=== PATIENT | male | born 1940 | race Caucasian/White ===

== ENCOUNTER 2017-12-16 08:08 | Inpatient (IN) | payer MEDICARE ==
[~2017-12-16] VITALS: Ht 172.7 cm; Wt 129.0 kg
[~2017-12-16 08:08] MED LIST: ACET500 PO; ACETASOL HC AD; ALLO100 PO; AZAT50 PO; CALCAVITDA PO; CALGLU500 PO; CITA20 PO; COLC.6 PO; COLCRYS0.6 MG PO; CYAN1000 PO; CYCL100; CYCL100 PO; CYCL25 PO; DEXT40GEL; DOCU100 PO; FISH1000 PO; FLUN25SP; FLUO.01TC TOP; FOLI1 PO; FURO40 PO; GABA300 PO; GLIP10 PO; GLIP2.5ER PO; HYDCOR1TC TOP; ISOPTO TEARS OU; KETO120T TP; LISI20 PO; MAGOXI400 PO; METO50 PO; MOME220I IH; MORP15ER PO; MORP30 PO; MORP30ER PO; MOXI400 PO; OMEG1CAP30 PO; OMEP20ER PO; OXYACE5T PO; PRAV20 PO; PRED5 PO; RANI150 PO; RISE35 PO; Ranitidine HCl300 MG; SELENIUM SHAMPOO; SENN187 PO; SIME80CH PO; TEMA15 PO; WARF5; WARF5 PO; [UNRECOGNIZED DRUG - OTHER]; [UNRECOGNIZED DRUG - OTHER]
[2017-12-16 08:48] LABS: Base Excess Venous 1.2 mmol/L; Bicarbonate Venous 25.6 mmol/L (24.0-30.0); PCO2 Venous 35.4 mmHg (38-42); PO2 Venous 62.4 mmHg (38-42); pH Blood Venous 7.46 (7.34-7.37)
[2017-12-16 08:56] LABS: Source, Urine Catheter
[2017-12-16 09:07] LABS: BASOPHILS ABSOLUTE AUTO 0.01 K/mm3 (0.00-0.23); BASOPHILS PERCENT AUTO 0 % (0-2); EOSINOPHILS PERCENT AUTO 0 % (0-6); Hematocrit 37.7 % (37.0-53.0); Hemoglobin 12.5 g/dL (13.5-17.5); IMMATURE GRAN ABSOLUTE AUTO 0.02 K/mm3 (0.00-0.10); IMMATURE GRAN PERCENT AUTO 0 % (0-1); LYMPHOCYTES ABSOLUTE AUTO 0.19 K/mm3 (0.84-5.20); LYMPHOCYTES PERCENT AUTO 3 % (21-46); MONOCYTES ABSOLUTE AUTO 0.09 K/mm3 (0.16-1.47); MONOCYTES PERCENT AUTO 1 % (4-13); Mean Corpuscular HGB 34.3 pg (26.0-34.0); Mean Corpuscular HGB Conc 33.2 g/dL (31.5-36.5); Mean Corpuscular Volume 104 fL (80-100); Mean Platelet Volume 9.4 fL (9.1-12.4); NEUTROPHILS ABSOLUTE AUTO 6.01 K/mm3 (1.96-9.15); NEUTROPHILS PERCENT AUTO 95 % (41-73); Platelet Count 100 K/mm3 (150-400); RDW Standard Deviation 49.4 fL (35.1-46.3); Red Blood Cell Count 3.64 M/mm3 (4.30-5.90); White Blood Cell Count 6.32 K/mm3 (4.00-11.30)
[2017-12-16 09:24] LABS: Troponin I <0.015 ng/mL (0.000-0.040)
[2017-12-16 09:28] LABS: Bilirubin, Urine Neg (Neg); Blood, Urine 4+ (Neg); Glucose Qualitative, Urine Neg (Neg); Ketones, Urine Neg (Neg); Leukocyte Esterase, Urine 1+ (Neg); Nitrite, Urine Neg (Neg); Protein, Urine 2+ (Neg); Specific Gravity, Urine 1.015 (1.003-1.022); Urobilinogen, Urine NORM (Normal)
[2017-12-16 09:31] LABS: Appearance, Urine Clear (Clear); Color, Urine Yellow (P-Yellow); Red Blood Cells, Urine QNS /hpf (0-2); White Blood Cells, Urine QNS /hpf (0-5)
[2017-12-16 09:32] LABS: Bacteria QNS /hpf; Squamous Epithelial Cells QNS /hpf (Few)
[2017-12-16 09:37] LABS: International Normalized Ratio 2.41; Prothrombin Time Results 23.6 Sec (9.7-11.5)
[2017-12-16 09:42] LABS: U Amphetamine Screen Not Detected; U Barbituate Screen Not Detected; U Benzodiazapine Screen Not Detected; U Buprenorphine Screen Not Detected; U Cannabinoids Screen Not Detected; U Cocaine Screen Not Detected; U Methadone Screen Not Detected; U Methamphetamine Screen Not Detected; U Opiates Screen DETECTED; U Oxycodone Screen Not Detected; U Phencyclidine Screen Not Detected; U Propoxyphene Screen Not Detected
[2017-12-16 09:59] LABS: Alanine Aminotransfer (ALT/SGP 24 U/L (12-78); Albumin, Blood 2.5 g/dL (3.4-5.0); Albumin/Globulin Ratio 0.6 (0.8-1.8); Alk Phos 76 U/L (50-136); Anion Gap 10 mmol/L (6-16); Aspartate Aminotrans (AST/SGOT 39 U/L (12-37); Bilirubin, Total 1.4 mg/dL (0.1-1.0); Blood Urea Nitrogen 22 mg/dL (8-24); CO2, Blood 25 mmol/L (21-32); Calcium, Blood 9.3 mg/dL (8.5-10.1); Chloride, Blood 104 mmol/L (98-108); Creatinine, Blood 1.83 mg/dL (0.60-1.20); Globulin, Blood 3.9 g/dL (2.2-4.0); Glomerular Filtration Rate 38 (60-); Glucose, Blood 135 mg/dL (70-99); Potassium, Blood 3.4 mmol/L (3.5-5.5); Sodium, Blood 139 mmol/L (136-145); Total Protein, Blood 6.4 g/dL (6.4-8.2)
[2017-12-16] MEDS ORDERED: FURO40 PO ×2 (11:09→11:52)
[2017-12-16] MEDS ORDERED: Omeprazole20 M1 PO (11:43)
[2017-12-16] MEDS ORDERED: DOCU100 PO (11:43)
[2017-12-16] MEDS ORDERED: ALLO100 PO (11:43)
[2017-12-16] MEDS ORDERED: PRED5 PO (11:43)
[2017-12-16] MEDS ORDERED: GABA300 PO (11:44)
[2017-12-16] MEDS ORDERED: Calcium Carbon500 MG PO (11:45)
[2017-12-16] MEDS ORDERED: MORP30 PO (11:45)
[2017-12-16] MEDS ORDERED: OMEGA 3 500 SO1 EACH PO (11:46)
[2017-12-16] MEDS ORDERED: B-121000 MC2 PO (11:46)
[2017-12-16] MEDS ORDERED: CITA20 PO (11:47)
[2017-12-16] MEDS ORDERED: FOLI1 PO (11:47)
[2017-12-16] MEDS ORDERED: GLIP5 PO (11:47)
[2017-12-16] MEDS ORDERED: CHOL10002 PO (11:48)
[2017-12-16] MEDS ORDERED: SENN187 PO (11:48)
[2017-12-16] MEDS ORDERED: METO50 PO (11:48)
[2017-12-16] MEDS ORDERED: WARF2.5 PO (11:49)
[2017-12-16] MEDS ORDERED: CYCL25 PO (11:49)
[2017-12-16] MEDS ORDERED: WARF5 PO (11:50)
[2017-12-16] MEDS ORDERED: Ranitidine HCl300 M1 PO (11:52)
[2017-12-16] MEDS ORDERED: TAMS.4ER PO (11:53)
[2017-12-16] MEDS ORDERED: PRAV20 PO (11:53)
[2017-12-17 02:27] LABS: Bun/Creatinine Ratio 15.3 (12.0-20.0); Calcium, Blood 7.6 mg/dL (8.5-10.1); Creatinine, Blood 1.7 mg/dL (0.60-1.20); Potassium, Blood 4.2 mmol/L (3.5-5.5)
[2017-12-17 02:49] LABS: BASOPHILS ABSOLUTE AUTO 0.01 K/mm3 (0.00-0.23); BASOPHILS PERCENT AUTO 0 % (0-2); Hematocrit 31.5 % (37.0-53.0); Hemoglobin 10.3 g/dL (13.5-17.5); LYMPHOCYTES ABSOLUTE AUTO 0.34 K/mm3 (0.84-5.20); LYMPHOCYTES PERCENT AUTO 4 % (21-46); MONOCYTES ABSOLUTE AUTO 0.32 K/mm3 (0.16-1.47); MONOCYTES PERCENT AUTO 4 % (4-13); Mean Corpuscular HGB 34.9 pg (26.0-34.0); Mean Corpuscular HGB Conc 32.7 g/dL (31.5-36.5); Mean Platelet Volume 9.9 fL (9.1-12.4); Platelet Count 83 K/mm3 (150-400); RDW Coefficient Variation 13.2 % (11.7-14.2); RDW Standard Deviation 51.8 fL (35.1-46.3); Red Blood Cell Count 2.95 M/mm3 (4.30-5.90); White Blood Cell Count 8.47 K/mm3 (4.00-11.30)
[2017-12-17 02:53] LABS: EOSINOPHILS ABSOLUTE AUTO 0.01 K/mm3 (0.00-0.68); EOSINOPHILS PERCENT AUTO 0 % (0-6); IMMATURE GRAN ABSOLUTE AUTO 0.15 K/mm3 (0.00-0.10); IMMATURE GRAN PERCENT AUTO 2 % (0-1); Mean Corpuscular Volume 107 fL (80-100); NEUTROPHILS ABSOLUTE AUTO 7.64 K/mm3 (1.96-9.15); NEUTROPHILS PERCENT AUTO 90 % (41-73)
[2017-12-17] MEDS ORDERED: Morphine Sulfat15 MG PO (10:13)
[2017-12-17] MEDS ORDERED: MORP30ER PO (10:14)
[2017-12-17 11:42] LABS: International Normalized Ratio 2.13
[2017-12-17] MEDS ORDERED: Aluminum H320 MG/5 M PO (14:04)
[2017-12-18 05:22] LABS: BASOPHILS ABSOLUTE AUTO 0.01 K/mm3 (0.00-0.23); BASOPHILS PERCENT AUTO 0 % (0-2); EOSINOPHILS PERCENT AUTO 0 % (0-6); Hematocrit 36.3 % (37.0-53.0); Hemoglobin 12.1 g/dL (13.5-17.5); IMMATURE GRAN ABSOLUTE AUTO 0.14 K/mm3 (0.00-0.10); IMMATURE GRAN PERCENT AUTO 2 % (0-1); LYMPHOCYTES PERCENT AUTO 5 % (21-46); MONOCYTES ABSOLUTE AUTO 0.38 K/mm3 (0.16-1.47); MONOCYTES PERCENT AUTO 4 % (4-13); Mean Corpuscular HGB 34.7 pg (26.0-34.0); Mean Corpuscular HGB Conc 33.3 g/dL (31.5-36.5); Mean Platelet Volume 9.7 fL (9.1-12.4); NEUTROPHILS ABSOLUTE AUTO 7.99 K/mm3 (1.96-9.15); NEUTROPHILS PERCENT AUTO 90 % (41-73); Platelet Count 80 K/mm3 (150-400); RDW Coefficient Variation 12.9 % (11.7-14.2); RDW Standard Deviation 49.2 fL (35.1-46.3); Red Blood Cell Count 3.49 M/mm3 (4.30-5.90); White Blood Cell Count 8.92 K/mm3 (4.00-11.30)
[2017-12-18 05:38] LABS: International Normalized Ratio 1.47; Mean Corpuscular Volume 104 fL (80-100); Prothrombin Time Results 14.8 Sec (9.7-11.5)
[2017-12-18 05:49] LABS: Anion Gap 11 mmol/L (6-16); Blood Urea Nitrogen 25 mg/dL (8-24); Bun/Creatinine Ratio 20.8 (12.0-20.0); CO2, Blood 23 mmol/L (21-32); Calcium, Blood 8.4 mg/dL (8.5-10.1); Chloride, Blood 107 mmol/L (98-108); Glomerular Filtration Rate >60 (60-); Glucose, Blood 186 mg/dL (70-99); Potassium, Blood 3.7 mmol/L (3.5-5.5); Sodium, Blood 141 mmol/L (136-145)
[2017-12-19 04:21] LABS: Hematocrit 35.7 % (37.0-53.0); Mean Corpuscular HGB 34.5 pg (26.0-34.0); Mean Corpuscular HGB Conc 33.6 g/dL (31.5-36.5); Mean Corpuscular Volume 103 fL (80-100); Mean Platelet Volume 10.1 fL (9.1-12.4); Platelet Count 90 K/mm3 (150-400); RDW Coefficient Variation 12.8 % (11.7-14.2); RDW Standard Deviation 48.4 fL (35.1-46.3); Red Blood Cell Count 3.48 M/mm3 (4.30-5.90); White Blood Cell Count 7.69 K/mm3 (4.00-11.30)
[2017-12-19 04:41] LABS: Anion Gap 10 mmol/L (6-16); Blood Urea Nitrogen 24 mg/dL (8-24); CO2, Blood 26 mmol/L (21-32); Calcium, Blood 8.4 mg/dL (8.5-10.1); Chloride, Blood 106 mmol/L (98-108); Glomerular Filtration Rate >60 (60-); Glucose, Blood 204 mg/dL (70-99); Phosphorus, Blood 1.6 mg/dL (2.5-4.9); Potassium, Blood 3.4 mmol/L (3.5-5.5); Sodium, Blood 142 mmol/L (136-145)
[2017-12-19 04:42] LABS: International Normalized Ratio 1.74; Prothrombin Time Results 17.4 Sec (9.7-11.5)
[2017-12-19 14:58] LABS: Vancomycin, Trough 11.3 ug/mL (5.0-10.0)
[2017-12-20 04:24] LABS: BASOPHILS PERCENT AUTO 0 % (0-2); EOSINOPHILS PERCENT AUTO 0 % (0-6); Hematocrit 35.8 % (37.0-53.0); Hemoglobin 12.1 g/dL (13.5-17.5); IMMATURE GRAN ABSOLUTE AUTO 0.02 K/mm3 (0.00-0.10); IMMATURE GRAN PERCENT AUTO 0 % (0-1); LYMPHOCYTES ABSOLUTE AUTO 0.62 K/mm3 (0.84-5.20); LYMPHOCYTES PERCENT AUTO 10 % (21-46); MONOCYTES ABSOLUTE AUTO 0.41 K/mm3 (0.16-1.47); MONOCYTES PERCENT AUTO 7 % (4-13); Mean Corpuscular HGB 34.6 pg (26.0-34.0); Mean Corpuscular HGB Conc 33.8 g/dL (31.5-36.5); Mean Corpuscular Volume 102 fL (80-100); Mean Platelet Volume 9.9 fL (9.1-12.4); NEUTROPHILS ABSOLUTE AUTO 5.07 K/mm3 (1.96-9.15); NEUTROPHILS PERCENT AUTO 83 % (41-73); Platelet Count 96 K/mm3 (150-400); RDW Coefficient Variation 12.4 % (11.7-14.2); RDW Standard Deviation 47.1 fL (35.1-46.3); White Blood Cell Count 6.12 K/mm3 (4.00-11.30)
[2017-12-20 04:35] LABS: International Normalized Ratio 2.41; Prothrombin Time Results 23.6 Sec (9.7-11.5)
[2017-12-20 04:37] LABS: Anion Gap 7 mmol/L (6-16); Blood Urea Nitrogen 26 mg/dL (8-24); Bun/Creatinine Ratio 21.1 (12.0-20.0); CO2, Blood 27 mmol/L (21-32); Calcium, Blood 8.1 mg/dL (8.5-10.1); Chloride, Blood 106 mmol/L (98-108); Creatinine, Blood 1.23 mg/dL (0.60-1.20); Glomerular Filtration Rate >60 (60-); Glucose, Blood 198 mg/dL (70-99); Potassium, Blood 3.4 mmol/L (3.5-5.5); Sodium, Blood 140 mmol/L (136-145)
[2017-12-21 04:53] LABS: BASOPHILS ABSOLUTE AUTO 0.04 K/mm3 (0.00-0.23); BASOPHILS PERCENT AUTO 0 % (0-2); EOSINOPHILS PERCENT AUTO 0 % (0-6); Hematocrit 49.6 % (37.0-53.0); Hemoglobin 17.3 g/dL (13.5-17.5); IMMATURE GRAN ABSOLUTE AUTO 0.46 K/mm3 (0.00-0.10); IMMATURE GRAN PERCENT AUTO 3 % (0-1); LYMPHOCYTES ABSOLUTE AUTO 0.91 K/mm3 (0.84-5.20); LYMPHOCYTES PERCENT AUTO 5 % (21-46); MONOCYTES ABSOLUTE AUTO 0.88 K/mm3 (0.16-1.47); MONOCYTES PERCENT AUTO 5 % (4-13); Mean Corpuscular HGB 34.8 pg (26.0-34.0); Mean Corpuscular HGB Conc 34.9 g/dL (31.5-36.5); Mean Corpuscular Volume 100 fL (80-100); Mean Platelet Volume 10.1 fL (9.1-12.4); NEUTROPHILS ABSOLUTE AUTO 15.63 K/mm3 (1.96-9.15); NEUTROPHILS PERCENT AUTO 87 % (41-73); NRBC ABSOLUTE 0.02 K/mm3 (0.00-0.02); NRBC Auto 0.1 /100 WBC (0.0-0.2); Platelet Count 115 K/mm3 (150-400); RDW Coefficient Variation 12.6 % (11.7-14.2); RDW Standard Deviation 47.3 fL (35.1-46.3); Red Blood Cell Count 4.97 M/mm3 (4.30-5.90); White Blood Cell Count 17.92 K/mm3 (4.00-11.30)
[2017-12-21 05:13] LABS: International Normalized Ratio 3.85; Prothrombin Time Results 36.7 Sec (9.7-11.5)
[2017-12-21 05:19] LABS: Albumin, Blood 1.9 g/dL (3.4-5.0); Anion Gap 13 mmol/L (6-16); Blood Urea Nitrogen 40 mg/dL (8-24); Bun/Creatinine Ratio 22.6 (12.0-20.0); CO2, Blood 21 mmol/L (21-32); Calcium, Blood 7.8 mg/dL (8.5-10.1); Chloride, Blood 100 mmol/L (98-108); Creatinine, Blood 1.77 mg/dL (0.60-1.20); Glomerular Filtration Rate 40 (60-); Glucose, Blood 343 mg/dL (70-99); Magnesium, Blood 1.4 mg/dL (1.6-2.4); Phosphorus, Blood 4.2 mg/dL (2.5-4.9); Potassium, Blood 4.2 mmol/L (3.5-5.5); Sodium, Blood 134 mmol/L (136-145); Troponin I 0.204 ng/mL (0.000-0.040)
[2017-12-22 04:27] LABS: BASOPHILS ABSOLUTE AUTO 0.04 K/mm3 (0.00-0.23); BASOPHILS PERCENT AUTO 0 % (0-2); EOSINOPHILS PERCENT AUTO 0 % (0-6); Hematocrit 41.9 % (37.0-53.0); Hemoglobin 14.5 g/dL (13.5-17.5); IMMATURE GRAN ABSOLUTE AUTO 0.59 K/mm3 (0.00-0.10); IMMATURE GRAN PERCENT AUTO 3 % (0-1); LYMPHOCYTES ABSOLUTE AUTO 0.95 K/mm3 (0.84-5.20); LYMPHOCYTES PERCENT AUTO 4 % (21-46); MONOCYTES ABSOLUTE AUTO 1.56 K/mm3 (0.16-1.47); MONOCYTES PERCENT AUTO 7 % (4-13); Mean Corpuscular HGB 33.9 pg (26.0-34.0); Mean Corpuscular HGB Conc 34.6 g/dL (31.5-36.5); Mean Corpuscular Volume 98 fL (80-100); Mean Platelet Volume 10.9 fL (9.1-12.4); NEUTROPHILS ABSOLUTE AUTO 19.49 K/mm3 (1.96-9.15); NEUTROPHILS PERCENT AUTO 86 % (41-73); NRBC ABSOLUTE 0.02 K/mm3 (0.00-0.02); NRBC Auto 0.1 /100 WBC (0.0-0.2); Platelet Count 74 K/mm3 (150-400); RDW Coefficient Variation 12.9 % (11.7-14.2); RDW Standard Deviation 46.2 fL (35.1-46.3); Red Blood Cell Count 4.28 M/mm3 (4.30-5.90); White Blood Cell Count 22.63 K/mm3 (4.00-11.30)
[2017-12-22 04:46] LABS: Prothrombin Time Results 42.5 Sec (9.7-11.5)
[2017-12-22 04:49] LABS: International Normalized Ratio 4.49
[2017-12-22 04:58] LABS: Bun/Creatinine Ratio 23.3 (12.0-20.0); Calcium, Blood 7.5 mg/dL (8.5-10.1); Creatinine, Blood 2.45 mg/dL (0.60-1.20); Magnesium, Blood 1.6 mg/dL (1.6-2.4); Potassium, Blood 3.7 mmol/L (3.5-5.5)
[2017-12-23 04:55] LABS: BASOPHILS ABSOLUTE AUTO 0.02 K/mm3 (0.00-0.23); BASOPHILS PERCENT AUTO 0 % (0-2); EOSINOPHILS ABSOLUTE AUTO 0.03 K/mm3 (0.00-0.68); EOSINOPHILS PERCENT AUTO 0 % (0-6); Hematocrit 36.4 % (37.0-53.0); Hemoglobin 12.5 g/dL (13.5-17.5); IMMATURE GRAN PERCENT AUTO 1 % (0-1); LYMPHOCYTES ABSOLUTE AUTO 0.86 K/mm3 (0.84-5.20); LYMPHOCYTES PERCENT AUTO 5 % (21-46); MONOCYTES ABSOLUTE AUTO 0.85 K/mm3 (0.16-1.47); MONOCYTES PERCENT AUTO 5 % (4-13); Mean Corpuscular HGB 34.2 pg (26.0-34.0); Mean Corpuscular HGB Conc 34.3 g/dL (31.5-36.5); Mean Corpuscular Volume 100 fL (80-100); Mean Platelet Volume 11.2 fL (9.1-12.4); NEUTROPHILS ABSOLUTE AUTO 15.34 K/mm3 (1.96-9.15); NEUTROPHILS PERCENT AUTO 89 % (41-73); Platelet Count 80 K/mm3 (150-400); Red Blood Cell Count 3.65 M/mm3 (4.30-5.90)
[2017-12-23 05:07] LABS: International Normalized Ratio 3.75; Prothrombin Time Results 35.8 Sec (9.7-11.5)
[2017-12-23 05:17] LABS: Albumin, Blood 1.8 g/dL (3.4-5.0); Anion Gap 12 mmol/L (6-16); Blood Urea Nitrogen 67 mg/dL (8-24); Bun/Creatinine Ratio 26.1 (12.0-20.0); CO2, Blood 22 mmol/L (21-32); CPK Creatine Kinase 36 U/L (39-308); Calcium, Blood 7.8 mg/dL (8.5-10.1); Chloride, Blood 101 mmol/L (98-108); Creatinine, Blood 2.57 mg/dL (0.60-1.20); Glomerular Filtration Rate 26 (60-); Glucose, Blood 153 mg/dL (70-99); Magnesium, Blood 1.8 mg/dL (1.6-2.4); Phosphorus, Blood 4.5 mg/dL (2.5-4.9); Potassium, Blood 3.9 mmol/L (3.5-5.5); Sodium, Blood 135 mmol/L (136-145)
[2017-12-23 05:20] LABS: Uric Acid, Blood 6.6 mg/dL (3.5-7.2)
[2017-12-23 22:15] LABS: Protein, Urine Quantitative 39.4 mg/dL (0.0-11.9)
[2017-12-23 23:28] LABS: Eosinophils-Raw #,Urine 0
[2017-12-24 05:23] LABS: BASOPHILS ABSOLUTE AUTO 0.02 K/mm3 (0.00-0.23); BASOPHILS PERCENT AUTO 0 % (0-2); EOSINOPHILS ABSOLUTE AUTO 0.03 K/mm3 (0.00-0.68); EOSINOPHILS PERCENT AUTO 0 % (0-6); Hematocrit 36.1 % (37.0-53.0); Hemoglobin 12.4 g/dL (13.5-17.5); IMMATURE GRAN ABSOLUTE AUTO 0.18 K/mm3 (0.00-0.10); IMMATURE GRAN PERCENT AUTO 1 % (0-1); LYMPHOCYTES ABSOLUTE AUTO 0.76 K/mm3 (0.84-5.20); LYMPHOCYTES PERCENT AUTO 5 % (21-46); MONOCYTES ABSOLUTE AUTO 0.65 K/mm3 (0.16-1.47); MONOCYTES PERCENT AUTO 4 % (4-13); Mean Corpuscular HGB 34.7 pg (26.0-34.0); Mean Corpuscular HGB Conc 34.3 g/dL (31.5-36.5); Mean Corpuscular Volume 101 fL (80-100); NEUTROPHILS ABSOLUTE AUTO 13.67 K/mm3 (1.96-9.15); NEUTROPHILS PERCENT AUTO 89 % (41-73); Platelet Count 114 K/mm3 (150-400); RDW Coefficient Variation 13.2 % (11.7-14.2); RDW Standard Deviation 49.1 fL (35.1-46.3); Red Blood Cell Count 3.57 M/mm3 (4.30-5.90); White Blood Cell Count 15.31 K/mm3 (4.00-11.30)
[2017-12-24 05:41] LABS: Albumin, Blood 1.9 g/dL (3.4-5.0); Anion Gap 12 mmol/L (6-16); Blood Urea Nitrogen 66 mg/dL (8-24); Bun/Creatinine Ratio 32.4 (12.0-20.0); CO2, Blood 21 mmol/L (21-32); Calcium, Blood 8.2 mg/dL (8.5-10.1); Chloride, Blood 104 mmol/L (98-108); Creatinine, Blood 2.04 mg/dL (0.60-1.20); Glomerular Filtration Rate 34 (60-); Glucose, Blood 165 mg/dL (70-99); Sodium, Blood 137 mmol/L (136-145)
[2017-12-24 05:44] LABS: International Normalized Ratio 1.76; Prothrombin Time Results 17.6 Sec (9.7-11.5)
[2017-12-24 11:03] LABS: Antinuclear Antibody Screen Positive (Negative)
[2017-12-25 04:58] LABS: BASOPHILS ABSOLUTE AUTO 0.01 K/mm3 (0.00-0.23); BASOPHILS PERCENT AUTO 0 % (0-2); EOSINOPHILS ABSOLUTE AUTO 0.08 K/mm3 (0.00-0.68); EOSINOPHILS PERCENT AUTO 1 % (0-6); Hematocrit 34.5 % (37.0-53.0); Hemoglobin 11.6 g/dL (13.5-17.5); IMMATURE GRAN ABSOLUTE AUTO 0.12 K/mm3 (0.00-0.10); IMMATURE GRAN PERCENT AUTO 1 % (0-1); LYMPHOCYTES ABSOLUTE AUTO 0.69 K/mm3 (0.84-5.20); LYMPHOCYTES PERCENT AUTO 5 % (21-46); MONOCYTES ABSOLUTE AUTO 0.84 K/mm3 (0.16-1.47); MONOCYTES PERCENT AUTO 6 % (4-13); Mean Corpuscular HGB 33.1 pg (26.0-34.0); Mean Corpuscular HGB Conc 33.6 g/dL (31.5-36.5); Mean Corpuscular Volume 99 fL (80-100); Mean Platelet Volume 11.4 fL (9.1-12.4); NEUTROPHILS ABSOLUTE AUTO 12.05 K/mm3 (1.96-9.15); NEUTROPHILS PERCENT AUTO 87 % (41-73); Platelet Count 101 K/mm3 (150-400); RDW Coefficient Variation 13.2 % (11.7-14.2); RDW Standard Deviation 47.5 fL (35.1-46.3); White Blood Cell Count 13.79 K/mm3 (4.00-11.30)
[2017-12-25 05:10] LABS: International Normalized Ratio 1.42; Prothrombin Time Results 14.3 Sec (9.7-11.5)
[2017-12-25 05:30] LABS: Albumin, Blood 1.9 g/dL (3.4-5.0); Anion Gap 10 mmol/L (6-16); Blood Urea Nitrogen 54 mg/dL (8-24); Bun/Creatinine Ratio 35.1 (12.0-20.0); CO2, Blood 23 mmol/L (21-32); Calcium, Blood 8.3 mg/dL (8.5-10.1); Chloride, Blood 107 mmol/L (98-108); Creatinine, Blood 1.54 mg/dL (0.60-1.20); Glomerular Filtration Rate 47 (60-); Glucose, Blood 155 mg/dL (70-99); Phosphorus, Blood 2.9 mg/dL (2.5-4.9); Potassium, Blood 4.1 mmol/L (3.5-5.5); Sodium, Blood 140 mmol/L (136-145)
[2017-12-26 04:50] LABS: BASOPHILS ABSOLUTE AUTO 0.01 K/mm3 (0.00-0.23); BASOPHILS PERCENT AUTO 0 % (0-2); EOSINOPHILS ABSOLUTE AUTO 0.08 K/mm3 (0.00-0.68); EOSINOPHILS PERCENT AUTO 1 % (0-6); Hematocrit 33.6 % (37.0-53.0); Hemoglobin 11.2 g/dL (13.5-17.5); IMMATURE GRAN ABSOLUTE AUTO 0.07 K/mm3 (0.00-0.10); IMMATURE GRAN PERCENT AUTO 1 % (0-1); LYMPHOCYTES PERCENT AUTO 7 % (21-46); MONOCYTES ABSOLUTE AUTO 0.77 K/mm3 (0.16-1.47); MONOCYTES PERCENT AUTO 8 % (4-13); Mean Corpuscular HGB Conc 33.3 g/dL (31.5-36.5); NEUTROPHILS ABSOLUTE AUTO 8.24 K/mm3 (1.96-9.15); NEUTROPHILS PERCENT AUTO 84 % (41-73); RDW Coefficient Variation 13.2 % (11.7-14.2); RDW Standard Deviation 49.7 fL (35.1-46.3); Red Blood Cell Count 3.29 M/mm3 (4.30-5.90); White Blood Cell Count 9.87 K/mm3 (4.00-11.30)
[2017-12-26 05:00] LABS: International Normalized Ratio 1.31; Prothrombin Time Results 13.3 Sec (9.7-11.5)
[2017-12-26 05:07] LABS: Mean Corpuscular Volume 102 fL (80-100); Mean Platelet Volume 11.9 fL (9.1-12.4); Platelet Count 131 K/mm3 (150-400)
[2017-12-26 05:14] LABS: Albumin, Blood 1.9 g/dL (3.4-5.0); Anion Gap 10 mmol/L (6-16); Blood Urea Nitrogen 47 mg/dL (8-24); Bun/Creatinine Ratio 31.5 (12.0-20.0); CO2, Blood 24 mmol/L (21-32); Calcium, Blood 8.5 mg/dL (8.5-10.1); Chloride, Blood 108 mmol/L (98-108); Creatinine, Blood 1.49 mg/dL (0.60-1.20); Glomerular Filtration Rate 49 (60-); Glucose, Blood 236 mg/dL (70-99); Magnesium, Blood 1.7 mg/dL (1.6-2.4); Phosphorus, Blood 3.1 mg/dL (2.5-4.9); Potassium, Blood 4.1 mmol/L (3.5-5.5); Sodium, Blood 142 mmol/L (136-145)
[2017-12-27 04:54] LABS: BASOPHILS ABSOLUTE AUTO 0.01 K/mm3 (0.00-0.23); BASOPHILS PERCENT AUTO 0 % (0-2); EOSINOPHILS ABSOLUTE AUTO 0.16 K/mm3 (0.00-0.68); EOSINOPHILS PERCENT AUTO 2 % (0-6); Hematocrit 33.6 % (37.0-53.0); Hemoglobin 11.2 g/dL (13.5-17.5); IMMATURE GRAN ABSOLUTE AUTO 0.05 K/mm3 (0.00-0.10); IMMATURE GRAN PERCENT AUTO 1 % (0-1); LYMPHOCYTES ABSOLUTE AUTO 0.96 K/mm3 (0.84-5.20); LYMPHOCYTES PERCENT AUTO 11 % (21-46); MONOCYTES PERCENT AUTO 10 % (4-13); Mean Corpuscular HGB 33.9 pg (26.0-34.0); Mean Corpuscular HGB Conc 33.3 g/dL (31.5-36.5); Mean Corpuscular Volume 102 fL (80-100); NEUTROPHILS ABSOLUTE AUTO 6.43 K/mm3 (1.96-9.15); NEUTROPHILS PERCENT AUTO 77 % (41-73); RDW Coefficient Variation 13.4 % (11.7-14.2); RDW Standard Deviation 50.9 fL (35.1-46.3); White Blood Cell Count 8.41 K/mm3 (4.00-11.30)
[2017-12-27 04:58] LABS: Mean Platelet Volume 11.8 fL (9.1-12.4); Platelet Count 134 K/mm3 (150-400)
[2017-12-27 05:04] LABS: International Normalized Ratio 1.39; Prothrombin Time Results 14.1 Sec (9.7-11.5)
[2017-12-27 05:17] LABS: Anion Gap 9 mmol/L (6-16); Blood Urea Nitrogen 43 mg/dL (8-24); Bun/Creatinine Ratio 32.3 (12.0-20.0); CO2, Blood 24 mmol/L (21-32); Calcium, Blood 8.5 mg/dL (8.5-10.1); Chloride, Blood 108 mmol/L (98-108); Creatinine, Blood 1.33 mg/dL (0.60-1.20); Glomerular Filtration Rate 55 (60-); Glucose, Blood 171 mg/dL (70-99); Magnesium, Blood 1.6 mg/dL (1.6-2.4); Phosphorus, Blood 2.3 mg/dL (2.5-4.9); Sodium, Blood 141 mmol/L (136-145)
[2017-12-27 07:08] LABS: ANTIGLOMERULAR BM AB 3 units (0-20)
[2017-12-27 10:58] LABS: ANA Pattern Homogenous
[2017-12-27 14:07] LABS: A/G RATIO 1.1 (0.7-1.7); ALBUMIN 2.3 g/dL (2.9-4.4); ALPHA-1-GLOBULIN 0.3 g/dL (0.0-0.4); ALPHA-2-GLOBULIN 0.8 g/dL (0.4-1.0); BETA GLOBULIN 0.7 g/dL (0.7-1.3); GAMMA GLOBULIN 0.5 g/dL (0.4-1.8); GLOBULIN, TOTAL 2.3 g/dL (2.2-3.9); IMMUNOGLOBULIN A, QN, SERUM 177 mg/dL (61-437); IMMUNOGLOBULIN G, QN, SERUM 466 mg/dL (700-1600); IMMUNOGLOBULIN M, QN, SERUM 100 mg/dL (15-143); M-SPIKE Not Observed g/dL (Not Observed); PROTEIN, TOTAL, SERUM 4.6 g/dL (6.0-8.5)
[2017-12-27 15:07] LABS: ANA DIRECT Positive (Negative); ANTI-CENTROMERE B ANTIBODIES <0.2 AI (0.0-0.9); ANTI-DNA (DS) AB QN <1 IU/mL (0-9); ANTI-JO-1 <0.2 AI (0.0-0.9); ANTICHROMATIN ANTIBODIES <0.2 AI (0.0-0.9); ANTIMYELOPEROXIDASE (MPO) ABS <9.0 U/mL (0.0-9.0); ANTIPROTEINASE 3 (PR-3) ABS <3.5 U/mL (0.0-3.5); ANTIRIBOSOMAL P ANTIBODIES <0.2 AI (0.0-0.9); ANTISCLERODERMA-70 ANTIBODIES <0.2 AI (0.0-0.9); ATYPICAL PANCA <1:20 titer ([, Neg:<1:20]); CYTOPLASMIC (C-ANCA) <1:20 titer ([, Neg:<1:20]); PERINUCLEAR (P-ANCA) <1:20 titer ([, Neg:<1:20]); RNP ANTIBODIES <0.2 AI (0.0-0.9); SJOGREN'S ANTI-SS-A <0.2 AI (0.0-0.9); SMITH ANTIBODIES <0.2 AI (0.0-0.9); SMITH/RNP ANTIBODIES <0.2 AI (0.0-0.9)
[2017-12-28 04:39] LABS: International Normalized Ratio 1.53; Prothrombin Time Results 15.4 Sec (9.7-11.5)
[2017-12-28 04:51] LABS: Anion Gap 7 mmol/L (6-16); Blood Urea Nitrogen 41 mg/dL (8-24); Bun/Creatinine Ratio 33.3 (12.0-20.0); CO2, Blood 27 mmol/L (21-32); Calcium, Blood 8.4 mg/dL (8.5-10.1); Chloride, Blood 108 mmol/L (98-108); Creatinine, Blood 1.23 mg/dL (0.60-1.20); Glomerular Filtration Rate >60 (60-); Glucose, Blood 152 mg/dL (70-99); Magnesium, Blood 1.5 mg/dL (1.6-2.4); Phosphorus, Blood 2.5 mg/dL (2.5-4.9); Potassium, Blood 4.3 mmol/L (3.5-5.5); Sodium, Blood 142 mmol/L (136-145)
[2017-12-29 05:36] LABS: Hematocrit 35.1 % (37.0-53.0); Hemoglobin 11.2 g/dL (13.5-17.5)
[2017-12-29 05:49] LABS: International Normalized Ratio 1.59
[2017-12-29 06:12] LABS: Albumin, Blood 2.1 g/dL (3.4-5.0); Anion Gap 10 mmol/L (6-16); Blood Urea Nitrogen 37 mg/dL (8-24); Bun/Creatinine Ratio 30.1 (12.0-20.0); CO2, Blood 23 mmol/L (21-32); Calcium, Blood 8.5 mg/dL (8.5-10.1); Chloride, Blood 108 mmol/L (98-108); Creatinine, Blood 1.23 mg/dL (0.60-1.20); Glomerular Filtration Rate >60 (60-); Glucose, Blood 185 mg/dL (70-99); Magnesium, Blood 1.8 mg/dL (1.6-2.4); Phosphorus, Blood 2.8 mg/dL (2.5-4.9); Potassium, Blood 4.4 mmol/L (3.5-5.5); Sodium, Blood 141 mmol/L (136-145)
[2017-12-30 03:30] LABS: Hematocrit 33.5 % (37.0-53.0); Hemoglobin 11.1 g/dL (13.5-17.5)
[2017-12-30 03:46] LABS: International Normalized Ratio 1.74; Prothrombin Time Results 17.4 Sec (9.7-11.5)
[2017-12-30 03:47] LABS: Albumin, Blood 2.1 g/dL (3.4-5.0); Anion Gap 8 mmol/L (6-16); Blood Urea Nitrogen 34 mg/dL (8-24); Bun/Creatinine Ratio 27.4 (12.0-20.0); CO2, Blood 26 mmol/L (21-32); Calcium, Blood 8.3 mg/dL (8.5-10.1); Chloride, Blood 109 mmol/L (98-108); Creatinine, Blood 1.24 mg/dL (0.60-1.20); Glomerular Filtration Rate >60 (60-); Glucose, Blood 160 mg/dL (70-99); Magnesium, Blood 1.6 mg/dL (1.6-2.4); Phosphorus, Blood 2.8 mg/dL (2.5-4.9); Potassium, Blood 4.3 mmol/L (3.5-5.5); Sodium, Blood 143 mmol/L (136-145)
[2017-12-30] MEDS ORDERED: HUMALOG KW200 UNIT/1 (11:58)
[2017-12-30] MEDS ORDERED: Hytrin2 MG PO (11:58)
[2017-12-30] MEDS ORDERED: FURO20 PO (12:13)
[2017-12-30] MEDS ORDERED: VITAMIN D2000 UNIT PO (12:14)
[2017-12-30 18:08] LABS: CMV QUANT DNA PCR (PLASMA) Negative (Negative)
== END 2017-12-30 12:51 | DRG 698 ==
LOC: ER 08:08 → ERHOLD 10:30 → MEDS 10:30 → PCU 10:30 → ICUW 14:09 → MEDS 12-20 12:25 → ICUW 12-20 16:58 → MEDS 12-21 09:51 → PCU 12-21 15:43 → MEDS 12-24 14:33 → ENPENDDIS 12-30 09:18 → MEDS 12-30 12:51
PROVIDERS: Emergency Medicine; Internal Medicine; Internal Medicine Nephrology; Pharmacist
DX: T83.511A Infection and inflammatory reaction due to indwelling urethral catheter, initial encounter (principal); J96.01 Acute respiratory failure with hypoxia; A41.9 Sepsis, unspecified organism; R65.20 Severe sepsis without septic shock; G93.41 Metabolic encephalopathy; Z94.1 Heart transplant status; N17.9 Acute kidney failure, unspecified; N39.0 Urinary tract infection, site not specified; Z86.718 Personal history of other venous thrombosis and embolism; Z86.711 Personal history of pulmonary embolism; F32.9 Major depressive disorder, single episode, unspecified; G47.33 Obstructive sleep apnea (adult) (pediatric); E11.40 Type 2 diabetes mellitus with diabetic neuropathy, unspecified; E78.5 Hyperlipidemia, unspecified; K21.9 Gastro-esophageal reflux disease without esophagitis; M10.9 Gout, unspecified; T50.8X5A Adverse effect of diagnostic agents, initial encounter; E11.22 Type 2 diabetes mellitus with diabetic chronic kidney disease; N18.3 Chronic kidney disease, stage 3 (moderate)
CPT/HCPCS: 36415; 70450; 71045; 71046; 74018; 74177; 76770; 80048; 80053; 80069; 80158; 80202; 81001; 81050; 82550; 82784; 82803; 82947; 83516; 83520; 83605; 83690; 83735; 84100; 84145; 84156; 84165; 84484; 84550; 85014; 85018; 85025; 85027; 85610; 86038; 86039; 86256; 86334; 86335; 87040; 87077; 87081; 87086; 87186; 87205; 93005; 93010; 93306; 93971; 94660; 94762; 96361; 96374; 96375; 97110; 97162; 97166; 97530; 99285-25; C1751; G8978; G8979; G8987; G8988; J0696; J1200; J1650; J1720; J1940; J2060; J2405; J2543; J2550; J2930; J3370; J3475; J3480; J7030; J7050; J7060; J7120; J7515; Q0163; Q9967

== ENCOUNTER 2018-10-23 14:09 | Inpatient (IN) | payer MEDICARE, OTHER ==
[~2018-10-23] VITALS: Ht 175.3 cm; Wt 113.0 kg
[~2018-10-23 14:09] MED LIST changes: +ALBU90OI INH; +AMLO5 PO; +Acidophilus La100 GM PO; +Aluminum H320 MG/5 M PO; +Calcium Carbon500 MG PO; +GLIP5 PO; +HUMALOG KW200 UNIT/1; +Hytrin2 MG PO; +LIDO700A20 TOP; +OMEGA 3 500 SO1 EACH PO; +OXYB5 PO; +TAMS.4ER PO; +VITAMIN D2000 UNIT PO; +WARF2.5 PO
[2018-10-23 14:56] LABS: BASOPHILS ABSOLUTE AUTO 0.03 K/mm3 (0.00-0.23); BASOPHILS PERCENT AUTO 1 % (0-2); EOSINOPHILS ABSOLUTE AUTO 0.08 K/mm3 (0.00-0.68); EOSINOPHILS PERCENT AUTO 1 % (0-6); Hematocrit 32.4 % (37.0-53.0); Hemoglobin 10.6 g/dL (13.5-17.5); IMMATURE GRAN ABSOLUTE AUTO 0.03 K/mm3 (0.00-0.10); IMMATURE GRAN PERCENT AUTO 1 % (0-1); LYMPHOCYTES ABSOLUTE AUTO 0.52 K/mm3 (0.84-5.20); LYMPHOCYTES PERCENT AUTO 8 % (21-46); MONOCYTES ABSOLUTE AUTO 0.72 K/mm3 (0.16-1.47); MONOCYTES PERCENT AUTO 11 % (4-13); Mean Corpuscular HGB 34.6 pg (26.0-34.0); Mean Corpuscular HGB Conc 32.7 g/dL (31.5-36.5); Mean Corpuscular Volume 106 fL (80-100); Mean Platelet Volume 9.4 fL (9.1-12.4); NEUTROPHILS ABSOLUTE AUTO 4.92 K/mm3 (1.96-9.15); NEUTROPHILS PERCENT AUTO 78 % (41-73); Platelet Count 132 K/mm3 (150-400); RDW Coefficient Variation 13.1 % (11.7-14.2); RDW Standard Deviation 50.5 fL (35.1-46.3); Red Blood Cell Count 3.06 M/mm3 (4.30-5.90)
[2018-10-23 15:04] LABS: Source, Urine Catheter
[2018-10-23 15:11] LABS: Alanine Aminotransfer (ALT/SGP 18 U/L (12-78); Albumin, Blood 2.4 g/dL (3.4-5.0); Albumin/Globulin Ratio 0.6 (0.8-1.8); Alk Phos 60 U/L (50-136); Anion Gap 8 mmol/L (6-16); Aspartate Aminotrans (AST/SGOT 18 U/L (12-37); Bilirubin, Total 0.7 mg/dL (0.1-1.0); Blood Urea Nitrogen 37 mg/dL (8-24); Bun/Creatinine Ratio 27.6 (12.0-20.0); CO2, Blood 25 mmol/L (21-32); Calcium, Blood 9.4 mg/dL (8.5-10.1); Chloride, Blood 100 mmol/L (98-108); Creatinine, Blood 1.34 mg/dL (0.60-1.20); Globulin, Blood 4.1 g/dL (2.2-4.0); Glomerular Filtration Rate 55 (60-); Glucose, Blood 148 mg/dL (70-99); Potassium, Blood 4.2 mmol/L (3.5-5.5); Sodium, Blood 133 mmol/L (136-145); Total Protein, Blood 6.5 g/dL (6.4-8.2); Troponin I <0.015 ng/mL (0.000-0.040)
[2018-10-23 15:24] LABS: Bilirubin, Urine Neg (Neg); Blood, Urine 5+ (Neg); Glucose Qualitative, Urine Neg (Neg); Ketones, Urine Neg (Neg); Leukocyte Esterase, Urine 3+ (Neg); Nitrite, Urine Neg (Neg); Protein, Urine 2+ (Neg); Urobilinogen, Urine NORM (Normal)
[2018-10-23 15:39] LABS: Appearance, Urine Cloudy (Clear); Color, Urine Yellow (P-Yellow)
[2018-10-23 15:40] LABS: Squamous Epithelial Cells Rare /hpf (Few)
[2018-10-23 15:41] LABS: Amorphous Light (0-Heavy); Transitional Epithelial Cells Few /hpf (0-Rare)
[2018-10-23 15:42] LABS: Bacteria Rare /hpf
[2018-10-23] MEDS ORDERED: METCAR500 PO (15:51)
--- NOTE | 2018-10-23 19:04 | NUR ---
RECEIVED PT FROM ED, HE IS LETHARGIC AND WHEN HE AWAKES HE HAS NONSENSICAL SPEECH. PT UNABLE TO ANSWER QUESTIONS APPROPRIATELY AT THIS TIME. SETTLED PATIENT AND STARTED NS @ 75/HR AND ABX PER ORDER. FAMILY ARRIVED TO UNIT AND WERE ABLE TO ASSIST THIS RN IN COMPLETING THE PATIENT ADMISSION HX. DAUGHTER SPOKE WITH THIS RN TO EXPLAIN CONCERNS ABOUT CARE AT HOME. CURRENTLY HOME CARE THROUGH [facility] PROVIDING 2.5 HOURS MORNING AND EVENING 6 DAYS A WEEK. PT UNABLE TO ASSIST PT SAFELY WITH ADLS AND CARE. CONCERNS ABOUT ADDITIONAL HELP NEEDED AT HOME. ADDITIONALLY, DAUGHTER EXPLAINED THAT THERE HAVE BEEN CONCERNS ABOUT PT HAVING DELUSIONS R/T BELIEF THAT HIS IS HAVING AN AFFAIR, HE WILL SPONTANEOUSLY START CRYING AND IS VERY RESISTANT TO LEAVING HOME BECAUSE HE BELIEVES SOMEONE WILL COME TO THE HOME. AND DAUGHTER HAVE TRIED MULTIPLE TIMES TO EXPLAIN IT IS NOT TRUE, PT DOES NOT BELIVE THEM. DAUGHTER AND WERE ABLE TO HAVE NEURO EVALUATE IN [facility], FOLLOW UP APPOINTMENT WAS TO BE 10/24, SO UNSURE OF RESULTS OF TESTS/CONCLUSION. BED LOCKED AND LOW, HOB ELEVATED. WILL GIVE REPORT TO NOC RN.
[2018-10-24 04:06] LABS: BASOPHILS ABSOLUTE AUTO 0.01 K/mm3 (0.00-0.23); BASOPHILS PERCENT AUTO 0 % (0-2); EOSINOPHILS ABSOLUTE AUTO 0.09 K/mm3 (0.00-0.68); EOSINOPHILS PERCENT AUTO 2 % (0-6); Hematocrit 32.9 % (37.0-53.0); Hemoglobin 10.5 g/dL (13.5-17.5); IMMATURE GRAN ABSOLUTE AUTO 0.02 K/mm3 (0.00-0.10); IMMATURE GRAN PERCENT AUTO 0 % (0-1); LYMPHOCYTES ABSOLUTE AUTO 0.52 K/mm3 (0.84-5.20); LYMPHOCYTES PERCENT AUTO 11 % (21-46); MONOCYTES ABSOLUTE AUTO 0.58 K/mm3 (0.16-1.47); MONOCYTES PERCENT AUTO 13 % (4-13); Mean Corpuscular HGB Conc 31.9 g/dL (31.5-36.5); Mean Corpuscular Volume 107 fL (80-100); Mean Platelet Volume 9.1 fL (9.1-12.4); NEUTROPHILS ABSOLUTE AUTO 3.35 K/mm3 (1.96-9.15); NEUTROPHILS PERCENT AUTO 73 % (41-73); Platelet Count 127 K/mm3 (150-400); RDW Coefficient Variation 13.2 % (11.7-14.2); RDW Standard Deviation 51.5 fL (35.1-46.3); Red Blood Cell Count 3.09 M/mm3 (4.30-5.90); White Blood Cell Count 4.57 K/mm3 (4.00-11.30)
[2018-10-24 04:26] LABS: Albumin, Blood 2.2 g/dL (3.4-5.0); Albumin/Globulin Ratio 0.6 (0.8-1.8); Bilirubin, Total 0.5 mg/dL (0.1-1.0); Bun/Creatinine Ratio 27.4 (12.0-20.0); Calcium, Blood 9.1 mg/dL (8.5-10.1); Creatinine, Blood 1.24 mg/dL (0.60-1.20); Potassium, Blood 3.7 mmol/L (3.5-5.5); Total Protein, Blood 6.2 g/dL (6.4-8.2)
--- NOTE | 2018-10-24 06:04 | NUR ---
SHIFT SUMMARY. START OF SHIFT O2 NEEDS WERE 4L BLEED IN AT HOME CPAP. SATS WNL . AROUSED AND ABLE TO CONVERSE W/ CLEAR SENTENCE STRUCTURE. BUT CONFUSED. HAS A FEW FACTS ABOUT SELF AND FAMILY ACCURATE. TOOK PILLS ADEQUETLY W/H20 AND STRAW. VERY WEAK BUT ASSISTS IN TURNING WHEN PROMPTED.
[2018-10-24 15:06] LABS: BODY FLUID RBC 0.039 (0-0); RBC Count, Synovial Fluid 39000 /mm3 (0-0); WBC Count, Synovial Fluid 3980 /mm3 (0-180)
[2018-10-24 15:55] LABS: Appearance, Synovial Fluid Bloody (Clear); Color, Synovial Fluid Red (None-P Yel); Monocytes/Macrophages, Synovia 12 % (0-65); Neutrophils, Synovial Fluid 88 % (0-24)
--- NOTE | 2018-10-24 17:44 | NUR ---
PCU DAYSHIFT ASSUMED CARE OF PT APPROX. 0700. PT A&O X4. PT ABLE TO ANSWER QUESTIONS AND HOLD CONVERSATIONS. ASSESSMENT COMPLETED. VITAL SIGNS STABLE. PT APONTE IN PLACE, PATENT AND DRAINING. MORNING WENT ON PT HAS SOME SLIGHT CONFUSION AT TIMES, AT TIMES PT HAD HARD TIME UNDERSTANDING QUESTIONS AND HAD TO REPEAT SOME QUESTIONS. FAMILY AT BEDSIDE. FAMILY REPORTS PT IS SLIGHTLY MORE CONFUSED THAN HIS BASELINE. BUT PT REMAINS ABLE TO ANSWER QUESTIONS. PT ABLE TO EAT A LITTLE BIT OF EACH MEAL. FAMILY AT BEDSIDE INTERMITENTLY. BED IN LOW POSITION, CALL LIGHT IN REACH AND PT DENEIS ANY NEEDS.
--- NOTE | 2018-10-24 19:32 | NUR ---
SHIFT SUMMARY PT PLEASANT, COOPERATIVE AND USES CALL LIGHT APPROPRIATELY. PT REMAINS A&O X4, ALTHOUGH HAD SOME MOMENTS OF INCREASED CONFUSION. HAD TO REPEAT SOME QUESTIONS AT TIMES. WAS ABLE TO USE CONVERSATION AND CLARIFY QUESTIONS OR INSTRUCTIONS WHEN NEEDED. PT WORE BIPAP MOST OF THE DAY. WHEN NOT ON THIS HE WORE OXYMIZER. TURNED PATIENT THROUGHOUT SHIFT. ASSESSMENT FINDINGS REMAIN UNCHANGE SINCE START OF SHIFT. APONTE PATENT AND DRAINING. VITAL SIGNS STABLE. BED IN LOW POSITION, CALL LIGHT IN REACH AND PT DENIES ANY NEEDS AT THIS TIME. WILL CONTINUE TO MONITOR UNTIL [facility].
[2018-10-25 04:12] LABS: BASOPHILS PERCENT AUTO 0 % (0-2); EOSINOPHILS ABSOLUTE AUTO 0.01 K/mm3 (0.00-0.68); EOSINOPHILS PERCENT AUTO 0 % (0-6); Hematocrit 32.4 % (37.0-53.0); Hemoglobin 10.6 g/dL (13.5-17.5); IMMATURE GRAN ABSOLUTE AUTO 0.02 K/mm3 (0.00-0.10); IMMATURE GRAN PERCENT AUTO 1 % (0-1); LYMPHOCYTES ABSOLUTE AUTO 0.39 K/mm3 (0.84-5.20); LYMPHOCYTES PERCENT AUTO 11 % (21-46); MONOCYTES ABSOLUTE AUTO 0.42 K/mm3 (0.16-1.47); MONOCYTES PERCENT AUTO 12 % (4-13); Mean Corpuscular HGB 34.3 pg (26.0-34.0); Mean Corpuscular HGB Conc 32.7 g/dL (31.5-36.5); Mean Corpuscular Volume 105 fL (80-100); Mean Platelet Volume 9.1 fL (9.1-12.4); NEUTROPHILS ABSOLUTE AUTO 2.64 K/mm3 (1.96-9.15); NEUTROPHILS PERCENT AUTO 76 % (41-73); Platelet Count 128 K/mm3 (150-400); RDW Coefficient Variation 13.1 % (11.7-14.2); RDW Standard Deviation 50.6 fL (35.1-46.3); Red Blood Cell Count 3.09 M/mm3 (4.30-5.90); White Blood Cell Count 3.48 K/mm3 (4.00-11.30)
[2018-10-25 04:29] LABS: Bun/Creatinine Ratio 26.7 (12.0-20.0); Calcium, Blood 8.6 mg/dL (8.5-10.1); Creatinine, Blood 1.35 mg/dL (0.60-1.20); Potassium, Blood 3.4 mmol/L (3.5-5.5)
--- NOTE | 2018-10-25 06:00 | NUR ---
SHIFT SUMMARY. MENTATION FAIRLY CLEAR AND ABLE TO EXPRESS NEED W/ SHORT SENTENCES . SOME AGGITATED STATEMENTS WHEN FIRST AWAKENED PER USUAL TURNING SCHEDULE . REQUESTS BIPAP AND IRRITATED WHEN NOT PUT ON BIPAP QUICKLEY AND DELAYS FOR OTHER PROCEDURES LIKE BRUSHING TEETH AND MEDS. PAIN ADDRESSED PER SCHEDULED MED AND SEEMS TO LAST WELL THUR NOC. ONLY PAIN SEEMED TO BE BOTH KNEES STATED BY PT. RT KNEE MORE SWOLLEN THAN LT AND NO S/S OF ADVERSE EFFECTS FROM PROCEDURE OF RT KNEE ASP.NO BLEED. AFTER HUGE BM DID NOTE BLEEDING IN AREA ABOVE ANUS . SEEMS A CRACK IN SKIN. PENIS W/ IRRITATED LOOKING SKIN WHERE APONTE TUBE LYES IN CRAVAS. CLEANSED WELL AND UNGT APPLIED. BS 69 THIS AM AND NO S/S OF HYPO GLYCEMIA WILL BE EATING MILAN/ SATS REMAINED CONSISTANT AND STABLE IN MID 90'S ALL NOC ON 30% - 35% ALL NOC. 06/04...RR WNL NO RESP DISTRESS AND ONLY MILD EXERTIONAL DYSPNEA W/ ASSISTING IN TURN.
[2018-10-25 17:16] LABS: Vancomycin, Trough 15.4 ug/mL (5.0-10.0)
--- NOTE | 2018-10-25 18:37 | NUR ---
SHIFT SUMMARY PT HAS BEEN A&OX3. PT TURNED AND PIVOTED [place] [facility] [place]IST. PT HAD ANOTHER BM TODAY. HAS BEEN CONTINUALLY TITRATED DOWN FROM 9L ON THE OXYMIZER TO CURRENTLY AT 4L AND SATURATING AT 92%. PT HAD A BOUT OF CHEST PAIN THIS MORNING AT [address] WAS COMING INTO THE ROOM, DR ORDERED EKG AND TROPONIN, BOTH WERE NEGATIVE, DR FELT ISSUES WERE MUSCULOSKELETAL SO ROUTINE MS CONTIN WAS GIVEN AND PAIN HAS BEEN RESOLVED FOR THE REST OF SHIFT. DR WAS CALLED INTO THE ROOM THIS AFTERNOON TO ASSESS R. CALF PAIN, DR RULED OUT DVT, SCD'S WERE PLACED BACK ON. APONTE HAS BEEN DRAINING APPROPRIATELY, LUNG SOUNDS ARE STILL COARSE, BUT BREATHING IS LESS LABORED AND RESPIRATTIONS HAVE DROPPED. BED IN LOWEST POSITION, CALL LIGHT IN REACH, PT EDUCATED TO SAFETY PRECAUTIONS.
--- NOTE | 2018-10-25 19:45 | NUR ---
ASSUMED CARE PT SLEEPING IN ROOM COMFORTABLY AT THIS TIME. PER DAY SHIFT PT HAS BEEN TITRATED DONW ON T/O DAY. PT TOLERATING WELL. PT HAD CP EARLIER IN THE DAY, CURRENTLY REPORTING NO CP. RESP EVEN UNLBAORED ON 4L OXIMIZER W/ SATS >92%. PT TO WEAR BIPAP TONIGHT W/ SLEEP. PT HAS R KNEE EFFUSION WHICH WAS ASPIRATED ON 10/24, PT REPORTS CONTINUED PAIN TO AREA. R KNEE PROPPED UP ON PILLOW FOR COMFORT. PT DENYING OTHER NEEDS AT THIS TIME. Q2 TURNS WILL BE PERFORMED D/T SOME REDNESS AND MINOR BREAKDOWN ON PT BUTTOCKS. CALL LIGHT IN REACH, BED ALARM ON FOR SAFETY.
[2018-10-26 04:14] LABS: BASOPHILS ABSOLUTE AUTO 0.01 K/mm3 (0.00-0.23); BASOPHILS PERCENT AUTO 0 % (0-2); EOSINOPHILS ABSOLUTE AUTO 0.02 K/mm3 (0.00-0.68); EOSINOPHILS PERCENT AUTO 1 % (0-6); Hematocrit 33.5 % (37.0-53.0); Hemoglobin 10.7 g/dL (13.5-17.5); IMMATURE GRAN ABSOLUTE AUTO 0.02 K/mm3 (0.00-0.10); IMMATURE GRAN PERCENT AUTO 1 % (0-1); LYMPHOCYTES ABSOLUTE AUTO 0.65 K/mm3 (0.84-5.20); LYMPHOCYTES PERCENT AUTO 26 % (21-46); MONOCYTES ABSOLUTE AUTO 0.42 K/mm3 (0.16-1.47); MONOCYTES PERCENT AUTO 17 % (4-13); Mean Corpuscular HGB 33.5 pg (26.0-34.0); Mean Corpuscular HGB Conc 31.9 g/dL (31.5-36.5); Mean Corpuscular Volume 105 fL (80-100); Mean Platelet Volume 8.8 fL (9.1-12.4); NEUTROPHILS PERCENT AUTO 56 % (41-73); Platelet Count 120 K/mm3 (150-400); RDW Coefficient Variation 13.1 % (11.7-14.2); RDW Standard Deviation 49.9 fL (35.1-46.3); Red Blood Cell Count 3.19 M/mm3 (4.30-5.90); White Blood Cell Count 2.52 K/mm3 (4.00-11.30)
[2018-10-26 04:30] LABS: Anion Gap 6 mmol/L (6-16); Blood Urea Nitrogen 27 mg/dL (8-24); Bun/Creatinine Ratio 24.1 (12.0-20.0); CO2, Blood 31 mmol/L (21-32); Calcium, Blood 8.3 mg/dL (8.5-10.1); Chloride, Blood 103 mmol/L (98-108); Creatinine, Blood 1.12 mg/dL (0.60-1.20); Glomerular Filtration Rate >60 (60-); Glucose, Blood 110 mg/dL (70-99); Phosphorus, Blood 2.2 mg/dL (2.5-4.9); Potassium, Blood 3.4 mmol/L (3.5-5.5); Sodium, Blood 140 mmol/L (136-145)
--- NOTE | 2018-10-26 06:26 | NUR ---
SHIFT SUMMARY PT SLEEPING IN ROOM COMFORTABLY AT THIS TIME. PT WAS MOVED TO HOME SETTINGS ON BIPAP BY RT DURING NIGHT. PT AOX3 W/ SOME CONFUSION, BUT NOTHIGN INCREASED W/ BIPAP CHANGES. RT TO ROOM TO REMOVED HOSPITAL BIPAP MACHINE AND START PT ON OWN HOME BIPAP. PT TOLERATING WELL. PT WAS TURNED Q2HRS FOR COMFORT AND SKIN PROTECTION. NO OTHER ACUTE CHANGES DURING NIGHT. RESP EVEN UNLABORED ON BIPAP W/ SATS >92%. CALL LIGHT IN REACH. PT CALLS APPROPRIATELY.
--- NOTE | 2018-10-26 11:57 | NUR ---
REFUSAL TO GET UP PT HAS BEEN ASKED TO GET UP INTO CHAIR TWICE THIS AM. PT HAS REFUSED BOTH TIMES. WILL ATEMPT AGAIN LATER THIS SHIFT TO GET PT OUT OF BED.
--- NOTE | 2018-10-26 16:22 | NUR ---
Pt visit this afternoon. Pt is resting in bed upon arrival with and daughter at bedside. Family reports getting ready to leave for the day. Encouraged family to expresses questions or concerns. Pt's Jennifer reports Pt lives at home with her. She states that she struggles with assisting Pt with care needs and has a bad back. Jennifer reports Pt has caregivers from [facility] and through [facility]are that assist with care needs. 1 caregiver comes in the morning for 2 hours a day and another comes in the evening for 2 to 2 1/2 hours a day with the exception of Sundays. She expresses concerns that Pt is not receiving enough hours for care. Encouraged Jennifer to request Pt to be re-evaluated with case maker and the [facility]. Discussion was made on the importance of having open communication with Pt's PCP and information systems security analyst regarding disease process and trajectory in order to plan accordingly. At this point Pt has his eyes continuously closed. Family reports Pt is tired from working with therapy. Asked Pt if he prefered for palliative care to visit with him tomorrow. Pt responds with head nod up and down indicating yes. This RN respected Pt's wishes and ended visit. Family continued conversation outside of Pt's room. Listened as Jennifer and Pt's daughter expresses concerns regarding Pt's compliance and willingness for SNF. Family reports Pt does not like being away from home and struggles with pyscholigical issues steming from his own health conditions. Family reports Pt has trust issues with concerns that Jennifer is not faithfull. Family reports Pt may be projecting his self worth in a negative fashion. Pt does not want his home alone in fears of her having an affair. Pt will expereince paranoia that his is talking with another man on the phone when she gets up to use the bathroom at night. Suggested to family to consdider making an appointment with a counselor or bringing these concerns up to his PCP. Jennifer reports Pt has had discussions with counselors over the phone and has an appointment later this month. Family report no other concerns at this time. Spoke with Pt's bedside nurse Keturah and she expresses concerns regarding Pt's williness to work with therapy. Plan: Palliative Care will place social service referral for assistance with obtaining information for medical POA and assistance with obtaining more in home care hours. Recommend referral for pysch/social counceling upon discharge. Palliative Care will F/U with therapeutic visits.
--- NOTE | 2018-10-26 17:30 | NUR ---
SHIFT SUMMARY NO CHANGES IN ASSESSMENT AT THIS TIME. VSS. PT CONTINUES TO REFUSE GETTING OUT OF BED FOR MEALS. PT AGREEABLE TO REPOSITIONING. PT SATING WELL IN THE 90S ON 5L VIA OXIMIZER. A&OX3. PT DIURESSING WELL. WILL CONTNUE TO MONITOR UNTIL TURNOVER IS COMPLETE.
[2018-10-27 04:56] LABS: BASOPHILS ABSOLUTE AUTO 0.01 K/mm3 (0.00-0.23); BASOPHILS PERCENT AUTO 0 % (0-2); EOSINOPHILS ABSOLUTE AUTO 0.03 K/mm3 (0.00-0.68); EOSINOPHILS PERCENT AUTO 1 % (0-6); Hematocrit 34.9 % (37.0-53.0); Hemoglobin 11.4 g/dL (13.5-17.5); IMMATURE GRAN ABSOLUTE AUTO 0.01 K/mm3 (0.00-0.10); IMMATURE GRAN PERCENT AUTO 0 % (0-1); LYMPHOCYTES ABSOLUTE AUTO 0.77 K/mm3 (0.84-5.20); LYMPHOCYTES PERCENT AUTO 27 % (21-46); MONOCYTES ABSOLUTE AUTO 0.36 K/mm3 (0.16-1.47); MONOCYTES PERCENT AUTO 13 % (4-13); Mean Corpuscular HGB 34.2 pg (26.0-34.0); Mean Corpuscular HGB Conc 32.7 g/dL (31.5-36.5); Mean Corpuscular Volume 105 fL (80-100); Mean Platelet Volume 8.6 fL (9.1-12.4); NEUTROPHILS ABSOLUTE AUTO 1.63 K/mm3 (1.96-9.15); NEUTROPHILS PERCENT AUTO 58 % (41-73); Platelet Count 120 K/mm3 (150-400); RDW Coefficient Variation 13.2 % (11.7-14.2); RDW Standard Deviation 50.9 fL (35.1-46.3); Red Blood Cell Count 3.33 M/mm3 (4.30-5.90); White Blood Cell Count 2.81 K/mm3 (4.00-11.30)
[2018-10-27 05:12] LABS: Albumin, Blood 2.1 g/dL (3.4-5.0); Anion Gap 8 mmol/L (6-16); Blood Urea Nitrogen 26 mg/dL (8-24); Bun/Creatinine Ratio 22.8 (12.0-20.0); CO2, Blood 31 mmol/L (21-32); Calcium, Blood 8.4 mg/dL (8.5-10.1); Chloride, Blood 102 mmol/L (98-108); Creatinine, Blood 1.14 mg/dL (0.60-1.20); Glomerular Filtration Rate >60 (60-); Glucose, Blood 165 mg/dL (70-99); Phosphorus, Blood 2.3 mg/dL (2.5-4.9); Potassium, Blood 3.3 mmol/L (3.5-5.5); Sodium, Blood 141 mmol/L (136-145)
--- NOTE | 2018-10-27 05:53 | NUR ---
SHIFT SUMMARY PT SLEEPING IN ROOM COMFORTABLY AT THIS TIME. PT HAD NO ACUTE CHANGES IN STATUS T/O NIGHT. PT SLEPT WELL AND WORE BIPAP T/O NIGHT AND TOLERATED WELL. RESP EVEN UNLABORED ON BIPAP W/ SATS >93%. DENIED ANY PAIN. ATTEMPTED TO CHANGE POWERGLIDE DRESSING, AND PT REFUSED. PT REPORTED "I'M SLEEPING i DON'T WANT YOU TO DO THAT RIGHT NOW. LEAVE ME ALONE TO SLEEP". PT WAS EDUCATED ON NEED TO CHANGED DRESSING, AND PT AGAIN REFUSED. WILL ATTEMPT TO HAVE DAY SHIFT TRY AGAIN. APONTE CATH IN PLACE, DRAINING CLEAR YELLOW URINE. CALL LIGHT IN REACH.
--- NOTE | 2018-10-27 12:30 | NUR ---
PT AOX3 AND COOPERATIVE OF CARE. PT HAS BEEN VERY SLEEPY, BUT DID GET UP IN CHAIR FOR A BIT TODAY WITH PHYSICAL THERAPY. PT TRANSFERED AT 1225 TO RM [phone]. REPORT CALLED TO SONIA UNGER PRIOR. ALL BELONGINGS TRANSFERED WITH PT. PT CALM AND NO DISTRESS NOTED.
[2018-10-27 17:33] LABS: Vancomycin, Trough 22.9 ug/mL (5.0-10.0)
--- NOTE | 2018-10-27 19:00 | NUR ---
PT. ARRIVED TO FLOOR FROM PCU-8 VIA BED AT 1220 TODAY. NO NOTEABLE CHANGE THIS SHIFT.
--- NOTE | 2018-10-27 21:31 | NUR ---
PT has order for bedrest 2 max to bedside commode. xray here to take PT to XRAY for 2 view xray follow up pneumonia. room air sats greater than 90%. DR Michelle updated and 1 view ordered. Xrveronica Moser notified and she will be back for 1 view follow up cxr for pneumonia.
--- NOTE | 2018-10-28 04:02 | NUR ---
78 year old Male was transferred from PCU yesterday and continues on antibiotics for pneumonia and UTI with MRSA in urine in October 23 2018. VSS tolerated diet . Chronic pain on sheduled long acting pain med with helpful effect. Poor appetite, bg ac hs with ssi
[2018-10-28 05:32] LABS: Hematocrit 36.7 % (37.0-53.0); Hemoglobin 11.7 g/dL (13.5-17.5); Mean Corpuscular HGB 33.4 pg (26.0-34.0); Mean Corpuscular HGB Conc 31.9 g/dL (31.5-36.5); Mean Corpuscular Volume 105 fL (80-100); Mean Platelet Volume 8.8 fL (9.1-12.4); Platelet Count 116 K/mm3 (150-400); RDW Coefficient Variation 12.8 % (11.7-14.2); RDW Standard Deviation 49.5 fL (35.1-46.3)
[2018-10-28 05:50] LABS: Albumin, Blood 2.2 g/dL (3.4-5.0); Anion Gap 7 mmol/L (6-16); Blood Urea Nitrogen 25 mg/dL (8-24); Bun/Creatinine Ratio 21.9 (12.0-20.0); CO2, Blood 33 mmol/L (21-32); Calcium, Blood 8.7 mg/dL (8.5-10.1); Chloride, Blood 101 mmol/L (98-108); Creatinine, Blood 1.14 mg/dL (0.60-1.20); Glomerular Filtration Rate >60 (60-); Glucose, Blood 169 mg/dL (70-99); Phosphorus, Blood 1.8 mg/dL (2.5-4.9); Sodium, Blood 141 mmol/L (136-145)
[2018-10-28 05:51] LABS: BAND PERCENT MAN 9 % (0-8); BASOPHILS PERCENT MAN 0 % (0-2); EOSINOPHILS ABSOLUTE MAN 0.03 K/mm3 (0.00-0.68); EOSINOPHILS PERCENT MAN 1 % (0-6); LYMPHOCYTES ABSOLUTE MAN 0.81 K/mm3 (0.84-5.20); LYMPHOCYTES PERCENT MAN 21 % (21-46); MONOCYTES ABSOLUTE MAN 0.62 K/mm3 (0.16-1.47); MONOCYTES PERCENT MAN 16 % (4-13); NEUTROPHILS ABSOLUTE MAN 2.41 K/mm3 (1.96-9.15); SEG NEUTROPHILS PERCENT MAN 53 % (41-73); TOTAL CELLS COUNTED 100
--- NOTE | 2018-10-28 19:03 | NUR ---
ALERT. ORIENTED. APONTE DRAINING TO GRAVITY. PAIN MEDS SCHEDULED. DESATS OFF OXYGEN. NO ACUTE CHANGES. REVIEW W/PATIENT AND VIA PHONE ABOUT TRANSLINK AND MEDS FROM [facility] ADVISED WASHER AND CAPPER MACHINE OPERATOR PATIENT WILL NEED A WAY TO GET ANY MEDS FROM [facility] HE AND DO NOT DRIVE. REPORT TO NIGHT RN
[2018-10-29 05:27] LABS: BASOPHILS ABSOLUTE AUTO 0.01 K/mm3 (0.00-0.23); BASOPHILS PERCENT AUTO 0 % (0-2); EOSINOPHILS ABSOLUTE AUTO 0.11 K/mm3 (0.00-0.68); EOSINOPHILS PERCENT AUTO 2 % (0-6); Hematocrit 35.6 % (37.0-53.0); Hemoglobin 11.4 g/dL (13.5-17.5); IMMATURE GRAN ABSOLUTE AUTO 0.04 K/mm3 (0.00-0.10); IMMATURE GRAN PERCENT AUTO 1 % (0-1); LYMPHOCYTES ABSOLUTE AUTO 1.46 K/mm3 (0.84-5.20); LYMPHOCYTES PERCENT AUTO 31 % (21-46); MONOCYTES ABSOLUTE AUTO 0.37 K/mm3 (0.16-1.47); MONOCYTES PERCENT AUTO 8 % (4-13); Mean Corpuscular HGB 33.5 pg (26.0-34.0); Mean Corpuscular Volume 105 fL (80-100); Mean Platelet Volume 8.7 fL (9.1-12.4); NEUTROPHILS ABSOLUTE AUTO 2.79 K/mm3 (1.96-9.15); NEUTROPHILS PERCENT AUTO 59 % (41-73); Platelet Count 113 K/mm3 (150-400); RDW Standard Deviation 50.1 fL (35.1-46.3); White Blood Cell Count 4.78 K/mm3 (4.00-11.30)
[2018-10-29 05:48] LABS: Albumin, Blood 2.2 g/dL (3.4-5.0); Anion Gap 7 mmol/L (6-16); Blood Urea Nitrogen 23 mg/dL (8-24); CO2, Blood 32 mmol/L (21-32); Calcium, Blood 8.7 mg/dL (8.5-10.1); Chloride, Blood 102 mmol/L (98-108); Creatinine, Blood 1.28 mg/dL (0.60-1.20); Glomerular Filtration Rate 58 (60-); Glucose, Blood 169 mg/dL (70-99); Phosphorus, Blood 2.6 mg/dL (2.5-4.9); Potassium, Blood 2.9 mmol/L (3.5-5.5); Sodium, Blood 141 mmol/L (136-145)
--- NOTE | 2018-10-29 06:20 | NUR ---
SHIFT SUMMARY PATIENT IS ALERT AND ORIENTED. PATIENT DID NOT GET OUT OF BED DURING THE SHIFT. HAS A CHRONIC APONTE CATHETER. WEARS C-PAP AT NIGHT WITH O2. PATIENT SLEPT OFF AND ON THROUGHOUT THE NIGHT. NO NEW CHANGES. PLAN REPORTS POSSIBLE DISCHARGE TODAY. VITALS STABLE.
--- NOTE | 2018-10-29 17:01 | NUR ---
SHIFT SUMMARY- PT A/O, PLEASANT AND COOPERATIVE. PT MEDICATED X1 WITH MS CONTIN FOR CHRONIC PAIN "ALL OVER". PT UP TO CHAIR WITH 2 ASSIST, PT NEEDS ENCOURAGEMENT TO GET OOB. LS DIMINISHED, PT TITRATED FROM 3L OXYMIZER TO ROOM AIR, 94% ON RA. CPAP AT HS WITH 3L 02 BLEED, PT REPORTS THIS IS HIS BASELINE AND HAS A 3L BLEED AT HOME. 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 POTASSIUM INCREASED TO 40 MEQ PO DAILY FOR POTASSIUM OF 2.9 THIS AM. PT TO DISCHARGE HOME ON WEDNESDAY WHEN CAREGIVERS AVAILABLE. NO OTHER ACUTE CHANGES THIS SHIFT.
[2018-10-30 05:40] LABS: BASOPHILS ABSOLUTE AUTO 0.02 K/mm3 (0.00-0.23); BASOPHILS PERCENT AUTO 0 % (0-2); EOSINOPHILS ABSOLUTE AUTO 0.18 K/mm3 (0.00-0.68); EOSINOPHILS PERCENT AUTO 3 % (0-6); Hematocrit 36.6 % (37.0-53.0); Hemoglobin 11.8 g/dL (13.5-17.5); IMMATURE GRAN ABSOLUTE AUTO 0.05 K/mm3 (0.00-0.10); IMMATURE GRAN PERCENT AUTO 1 % (0-1); LYMPHOCYTES ABSOLUTE AUTO 1.42 K/mm3 (0.84-5.20); LYMPHOCYTES PERCENT AUTO 26 % (21-46); MONOCYTES ABSOLUTE AUTO 0.41 K/mm3 (0.16-1.47); MONOCYTES PERCENT AUTO 7 % (4-13); Mean Corpuscular HGB 33.9 pg (26.0-34.0); Mean Corpuscular HGB Conc 32.2 g/dL (31.5-36.5); Mean Corpuscular Volume 105 fL (80-100); Mean Platelet Volume 9.3 fL (9.1-12.4); NEUTROPHILS ABSOLUTE AUTO 3.44 K/mm3 (1.96-9.15); NEUTROPHILS PERCENT AUTO 62 % (41-73); Platelet Count 121 K/mm3 (150-400); RDW Coefficient Variation 12.8 % (11.7-14.2); RDW Standard Deviation 49.6 fL (35.1-46.3); Red Blood Cell Count 3.48 M/mm3 (4.30-5.90); White Blood Cell Count 5.52 K/mm3 (4.00-11.30)
--- NOTE | 2018-10-30 06:01 | NUR ---
SHIFT SUMMARY PT STATES HE DIDN'T SLEEP WELL, CPAP ON DURING THE NIGHT. RECEIVED IV ANTIBIOTICS PER POWERGLIDE WITHOUT DIFFICULTY. PT ALERT AND ORIENTED. NO ACUTE EVENTS NOTED DURING THE NIGHT, WILL CONTINUE TO MONITOR.
[2018-10-30 06:05] LABS: Albumin, Blood 2.3 g/dL (3.4-5.0); Anion Gap 8 mmol/L (6-16); Blood Urea Nitrogen 23 mg/dL (8-24); Bun/Creatinine Ratio 18.4 (12.0-20.0); CO2, Blood 29 mmol/L (21-32); Calcium, Blood 9.3 mg/dL (8.5-10.1); Chloride, Blood 104 mmol/L (98-108); Creatinine, Blood 1.25 mg/dL (0.60-1.20); Glomerular Filtration Rate 59 (60-); Glucose, Blood 188 mg/dL (70-99); Phosphorus, Blood 2.5 mg/dL (2.5-4.9); Potassium, Blood 3.3 mmol/L (3.5-5.5); Sodium, Blood 141 mmol/L (136-145)
--- NOTE | 2018-10-30 15:23 | NUR ---
PT SPOUSE AND DAUGHTER CALLED REGARDING CONCERNS OF DISCHARGE TOMRROW, REPORTS THAT THEY HAVE NOT BEEN ABLE TO GET IN TOUCH WITH CAREGIVERS THE OFFICE IS NOT OPEN ON THE WEEKENDS AND ARE UNSURE OF WHAT TIME THEY WILL BE AT THE HOUSE TOMORROW. THEY ARE ASKING THAT WE COORDINATE DISCHARGE ON WEDNESDAY WITH WHAT TIME CAREGIVERS CAN BE AT THE HOUSE. SPOUSE REPORTS SHE WILL CALL THEM TOMORROW TO SEE WHAT TIME THEY WILL BE THERE AND THEN BE IN CONTACT WITH RN TO NOTIFY OF THIS. ALSO REPORTS THAT PT WILL NEED A RIDE HOME, [facility] FOR [facility] IF NOT THEN TRANSLINK. WILL PASS ON TO ONCOMING SONIA DAVIS.
--- NOTE | 2018-10-30 16:52 | NUR ---
SHIFT SUMMARY- PT A/OX4, PT MEDICATED WITH SCHEDULED MS CONTIN FOR CHRONIC GENERALIZED PAIN, NO OTHER COMPLAINTS T/O THE SHIFT. PT HAS REMAINED ON RA T/O THE DAY, OCC NPC, LS DIMINISHED. CHRONIC INDWELLING APONTE. PT NEEDS MOTIVATION TO DO THINGS ON HIS OWN AND TO GET OOB, PT REFUSED TO GET OOB TODAY. PT TO D/C HOME TOMORROW WITH HH, DAUGHTER AND SPOUSE CONCERNED ABOUT DISCHARGED DUE TO PT REQUIRING 2 PERSON TRANSFER AND ONLY HAVING CAREGIVERS AT TIMES AT THE HOME. PER FAMILY PT WILL NEED RIDE FROM [facility] [employer] UPON DISCHARGE AND COORDINATE WITH CAREGIVERS AT HOME FOR DISCHARGE TIME. PT WITH POOR ORAL INTAKE. NO OTHER ACUTE CHANGES THIS SHIFT.
[2018-10-30 19:26] LABS: Vancomycin, Trough 28.4 ug/mL (5.0-10.0)
--- NOTE | 2018-10-31 06:05 | NUR ---
SHIFT SUMMARY PATIENT IS ALERT AND ORIENTED. USES CALL LIGHT APPROPRIATELY. PATIENT WORE CPAP AT NIGHT. APONTE PATENT. VANCO WAS HELD, HIGH TROUGH LEVEL. PATIENT SLEPT WELL THROUGHOUT THE NIGHT. VITALS STABLE. NO ACUTE CHANGES
[2018-10-31 07:06] LABS: BASOPHILS ABSOLUTE AUTO 0.02 K/mm3 (0.00-0.23); BASOPHILS PERCENT AUTO 0 % (0-2); EOSINOPHILS ABSOLUTE AUTO 0.32 K/mm3 (0.00-0.68); EOSINOPHILS PERCENT AUTO 4 % (0-6); Hematocrit 38.1 % (37.0-53.0); Hemoglobin 12.1 g/dL (13.5-17.5); IMMATURE GRAN ABSOLUTE AUTO 0.06 K/mm3 (0.00-0.10); IMMATURE GRAN PERCENT AUTO 1 % (0-1); LYMPHOCYTES ABSOLUTE AUTO 1.25 K/mm3 (0.84-5.20); LYMPHOCYTES PERCENT AUTO 17 % (21-46); MONOCYTES ABSOLUTE AUTO 0.44 K/mm3 (0.16-1.47); MONOCYTES PERCENT AUTO 6 % (4-13); Mean Corpuscular HGB 33.9 pg (26.0-34.0); Mean Corpuscular HGB Conc 31.8 g/dL (31.5-36.5); Mean Corpuscular Volume 107 fL (80-100); Mean Platelet Volume 9.2 fL (9.1-12.4); NEUTROPHILS ABSOLUTE AUTO 5.46 K/mm3 (1.96-9.15); NEUTROPHILS PERCENT AUTO 72 % (41-73); Platelet Count 151 K/mm3 (150-400); RDW Coefficient Variation 12.8 % (11.7-14.2); RDW Standard Deviation 50.7 fL (35.1-46.3); Red Blood Cell Count 3.57 M/mm3 (4.30-5.90); White Blood Cell Count 7.55 K/mm3 (4.00-11.30)
[2018-10-31 07:23] LABS: Albumin, Blood 2.4 g/dL (3.4-5.0); Anion Gap 6 mmol/L (6-16); Blood Urea Nitrogen 27 mg/dL (8-24); Bun/Creatinine Ratio 19.3 (12.0-20.0); CO2, Blood 31 mmol/L (21-32); Chloride, Blood 106 mmol/L (98-108); Glomerular Filtration Rate 52 (60-); Glucose, Blood 213 mg/dL (70-99); Phosphorus, Blood 2.9 mg/dL (2.5-4.9); Potassium, Blood 3.6 mmol/L (3.5-5.5); Sodium, Blood 143 mmol/L (136-145); Vancomycin, Random 23.1 ug/mL
[2018-10-31] MEDS ORDERED: DOXY100 PO (14:33)
--- NOTE | 2018-10-31 16:35 | NUR ---
PATIENT DISCHARGED VIA TRANSPORTATION SERVICES. DRESSED IN HOME CLOTHES, CPAP AND PERSONAL BELONGINGS BAG WITH PATIENT.
== END 2018-10-31 16:35 | disposition home health service (06) | DRG 698 ==
LOC: ER 14:09 → PCU 15:44 → MEDS 10-27 12:14 → ENPENDDIS 10-31 12:06 → MEDS 10-31 16:35
PROVIDERS: Emergency Medicine; Family Medicine; Orthopaedic Surgery; ADMIT Internal Medicine
PROC: 0S9C3ZX Drainage of Right Knee Joint, Percutaneous Approach, Diagnostic (ICD-10-PCS; principal; 2018-10-24)
DX: T83.511A Infection and inflammatory reaction due to indwelling urethral catheter, initial encounter (principal); G92 Toxic encephalopathy; J18.9 Pneumonia, unspecified organism; J96.01 Acute respiratory failure with hypoxia; A41.9 Sepsis, unspecified organism; D61.818 Other pancytopenia; Z94.1 Heart transplant status; E11.9 Type 2 diabetes mellitus without complications; E78.5 Hyperlipidemia, unspecified; N39.0 Urinary tract infection, site not specified; I48.91 Unspecified atrial fibrillation; I12.9 Hypertensive chronic kidney disease with stage 1 through stage 4 chronic kidney disease, or unspecified chronic kidney disease; E11.22 Type 2 diabetes mellitus with diabetic chronic kidney disease; N18.3 Chronic kidney disease, stage 3 (moderate); Z79.4 Long term (current) use of insulin; F32.9 Major depressive disorder, single episode, unspecified; K59.09 Other constipation; N40.0 Benign prostatic hyperplasia without lower urinary tract symptoms; Z86.711 Personal history of pulmonary embolism; G47.33 Obstructive sleep apnea (adult) (pediatric); E11.40 Type 2 diabetes mellitus with diabetic neuropathy, unspecified; M10.061 Idiopathic gout, right knee; B95.62 Methicillin resistant Staphylococcus aureus infection as the cause of diseases classified elsewhere; F31.9 Bipolar disorder, unspecified; K21.9 Gastro-esophageal reflux disease without esophagitis; Z99.3 Dependence on wheelchair; M54.9 Dorsalgia, unspecified; G89.29 Other chronic pain; E87.6 Hypokalemia
CPT/HCPCS: 36415; 51702; 71045; 71046; 73562-RT; 80048; 80053; 80069; 80158; 80202; 81001; 82947; 83605; 84145; 84484; 85025; 85651; 86140; 87015; 87040; 87070; 87075; 87077; 87086; 87102; 87116; 87147; 87186; 87205; 87206; 89051; 93005; 93010; 94640; 94660; 94761; 94762; 96365-59; 97110; 97162; 97166; 97530; 99285-25; A9270; C1751; J0696; J0713; J1815; J3370; J7030; J7050; J7512; J7515

== ENCOUNTER 2018-11-03 18:38 | Inpatient (IN) | payer OTHER, MEDICARE ==
[~2018-11-03] VITALS: Ht 175.3 cm; Wt 104.0 kg
[~2018-11-03 18:38] MED LIST changes: +DOXY100 PO; +METCAR500 PO
[2018-11-03 18:51] LABS: PCO2 Arterial 43.4 mmHg (35-45); PO2 Arterial 75.3 mmHg (80-100)
[2018-11-03 19:06] LABS: BASOPHILS ABSOLUTE AUTO 0.03 K/mm3 (0.00-0.23); BASOPHILS PERCENT AUTO 0 % (0-2); EOSINOPHILS ABSOLUTE AUTO 0.16 K/mm3 (0.00-0.68); EOSINOPHILS PERCENT AUTO 1 % (0-6); Hematocrit 35.3 % (37.0-53.0); Hemoglobin 11.7 g/dL (13.5-17.5); IMMATURE GRAN ABSOLUTE AUTO 0.06 K/mm3 (0.00-0.10); IMMATURE GRAN PERCENT AUTO 1 % (0-1); LYMPHOCYTES PERCENT AUTO 6 % (21-46); MONOCYTES ABSOLUTE AUTO 1.19 K/mm3 (0.16-1.47); MONOCYTES PERCENT AUTO 10 % (4-13); Mean Corpuscular HGB 33.7 pg (26.0-34.0); Mean Corpuscular HGB Conc 33.1 g/dL (31.5-36.5); Mean Corpuscular Volume 102 fL (80-100); Mean Platelet Volume 9.8 fL (9.1-12.4); NEUTROPHILS ABSOLUTE AUTO 10.14 K/mm3 (1.96-9.15); NEUTROPHILS PERCENT AUTO 83 % (41-73); Platelet Count 165 K/mm3 (150-400); RDW Coefficient Variation 12.7 % (11.7-14.2); RDW Standard Deviation 47.2 fL (35.1-46.3); Red Blood Cell Count 3.47 M/mm3 (4.30-5.90); White Blood Cell Count 12.28 K/mm3 (4.00-11.30)
[2018-11-03 19:13] LABS: Source, Urine Catheter
[2018-11-03 19:21] LABS: Bilirubin, Urine Neg (Neg); Blood, Urine 3+ (Neg); Glucose Qualitative, Urine Neg (Neg); Ketones, Urine Neg (Neg); Leukocyte Esterase, Urine 1+ (Neg); Nitrite, Urine Neg (Neg); Protein, Urine 2+ (Neg); Specific Gravity, Urine 1.015 (1.003-1.022); Urobilinogen, Urine NORM (Normal)
[2018-11-03 19:32] LABS: Alanine Aminotransfer (ALT/SGP 13 U/L (12-78); Albumin, Blood 2.3 g/dL (3.4-5.0); Albumin/Globulin Ratio 0.5 (0.8-1.8); Alk Phos 55 U/L (50-136); Anion Gap 7 mmol/L (6-16); Aspartate Aminotrans (AST/SGOT 13 U/L (12-37); Bilirubin, Total 1.1 mg/dL (0.1-1.0); Blood Urea Nitrogen 48 mg/dL (8-24); Bun/Creatinine Ratio 23.8 (12.0-20.0); CO2, Blood 28 mmol/L (21-32); Chloride, Blood 94 mmol/L (98-108); Creatinine, Blood 2.02 mg/dL (0.60-1.20); Globulin, Blood 4.2 g/dL (2.2-4.0); Glomerular Filtration Rate 34 (60-); Glucose, Blood 200 mg/dL (70-99); Potassium, Blood 4.7 mmol/L (3.5-5.5); Sodium, Blood 129 mmol/L (136-145); Total Protein, Blood 6.5 g/dL (6.4-8.2); Troponin I <0.015 ng/mL (0.000-0.040)
[2018-11-03 19:38] LABS: Appearance, Urine Hazy (Clear); Color, Urine Yellow (P-Yellow)
[2018-11-03 19:40] LABS: Squamous Epithelial Cells Not Seen /hpf (Few)
[2018-11-03 19:41] LABS: Bacteria Few /hpf
[2018-11-03] MEDS ORDERED: MUSE1000 MCG UR (20:21)
[2018-11-03] MEDS ORDERED: ELIQUIS5 MG PO (20:21)
[2018-11-03] MEDS ORDERED: ALLO100 PO (20:21)
[2018-11-03] MEDS ORDERED: DOCU100 PO (20:24)
[2018-11-03] MEDS ORDERED: CHOL10002 PO (20:24)
[2018-11-03] MEDS ORDERED: B-121000 MC2 PO (20:24)
[2018-11-03] MEDS ORDERED: CYCL25 PO (20:24)
[2018-11-03] MEDS ORDERED: RESTORE TEARS30 ML BOTHEYES (20:25)
[2018-11-03] MEDS ORDERED: FISH OIL 1,001000 MG PO (20:25)
[2018-11-03] MEDS ORDERED: Cymbalta20 MG PO (20:25)
[2018-11-03] MEDS ORDERED: FOLI1 PO (20:27)
[2018-11-03] MEDS ORDERED: GABA300 PO (20:27)
[2018-11-03] MEDS ORDERED: GLIP5 PO (20:28)
[2018-11-03] MEDS ORDERED: Flonase 0.05% N16 GM (20:28)
[2018-11-03] MEDS ORDERED: FURO20 PO (20:28)
[2018-11-03] MEDS ORDERED: HUMULIN 70100 UNIT/1 SC (20:29)
[2018-11-03] MEDS ORDERED: MAGOXI400 PO (20:29)
[2018-11-03] MEDS ORDERED: PRED5 PO (20:33)
[2018-11-03] MEDS ORDERED: Omeprazole20 M1 PO (20:33)
[2018-11-03] MEDS ORDERED: Pravachol40 MG PO (20:34)
[2018-11-03] MEDS ORDERED: SENN187 PO (20:34)
[2018-11-03] MEDS ORDERED: Morphine Sulfat15 MG PO (20:35)
[2018-11-03] MEDS ORDERED: MORP30ER PO (20:35)
[2018-11-03] MEDS ORDERED: Systane Nightt3.5 GM BOTHEYES (20:37)
[2018-11-03] MEDS ORDERED: TAMS.4ER PO (20:37)
[2018-11-03] MEDS ORDERED: TRIA15CR3 TOP (20:38)
[2018-11-03] MEDS ORDERED: POTCHL10ER PO (20:38)
[2018-11-03] MEDS ORDERED: NARCAN4 MG (20:38)
[2018-11-03] MEDS ORDERED: Calcium 250+D1 EACH PO (20:41)
[2018-11-03] MEDS ORDERED: SIME80CH PO (20:42)
[2018-11-03] MEDS ORDERED: METO50 PO (20:43)
[2018-11-03] MEDS ORDERED: Ranitidine HCl300 M1 PO (20:44)
[2018-11-03] MEDS ORDERED: Eucerin Creme454 GM TOP (20:45)
[2018-11-03] MEDS ORDERED: METCAR500 PO (20:47)
[2018-11-03] MEDS ORDERED: RISEDRONATE SOD35 M1 PO (20:49)
--- NOTE | 2018-11-03 21:20 | NUR ---
ADMIT RECEIVED FROM ER VIA GURNEY. OPENS EYES SLIGHTLY AND MOANS WHEN TRANSFERRING OVER TO BED. NOT FOLLOWING ANY COMMANDS. NO OTHER VERBAL RESPONSE. MOVES ALL EXTREMITIES WEAKLY. REMAINS ON BIPAP 14/8, BUR 14, FIO2 50%. RR 20-30s. MONITOR SHOWS ST, RATE 100s. BP STABLE. APONTE PATENT AND DRAINING CLOUDY YELLOW URINE. SEE ADMIT ASSESSMENT FOR FULL ASSESSMENT.
--- NOTE | 2018-11-03 22:20 | NUR ---
JEB MORROW, SEASONAL RECRUITER, IN TO SEE PT. PT CONTINUES TO BE OBTUNDED. ROUSES MINIMALLY TO NOXIOUS STIMULI AT THIS TIME. NEW ORDER FOR JEB GIVEN.
[2018-11-03 22:28] LABS: PCO2 Arterial 44.6 mmHg (35-45); PO2 Arterial 64.3 mmHg (80-100); pH Blood Arterial 7.39 (7.35-7.45)
--- NOTE | 2018-11-03 22:46 | NUR ---
NARCAN NARCAN 0.4MG IV GIVEN AT 2246. NO RESPONSE INITIALLY, BUT TWO MINUTES LATER PATIENT IS AWAKE, MUMBLING MOSTLY INCOHERENTLY, BUT DOES SEEM TO ANSWER SOME QUESTIONS APPROPRIATELY. MOVING ALL EXTREMITIES AND FOLLOWS SOME SIMPLE COMMANDS. INCREASED TWITCHING NOTED.
--- NOTE | 2018-11-03 23:08 | NUR ---
AGITATION INCREASED AGITATION AND TWITCHING NOTED AT THIS TIME. PT IS RESTLESS AND IS MOVING CONSTANTLY IN THE BED. NEW ORDER RECEIVED FOR ATIVAN PRN- MEDICATED WITH ATIVAN 1MG IV AT THIS TIME.
--- NOTE | 2018-11-03 23:30 | NUR ---
APONTE [facility] WITH [facility]TE CATHETER IN PLACE. IS UNSURE OF WHEN APONTE CATHETER WAS PLACED. APONTE DC/D AND NEW APONTE PLACED PER PROTOCOL. UA SPECIMEN SENT TO LAB.
[2018-11-03 23:46] LABS: Source, Urine Catheter
[2018-11-03 23:50] LABS: Bilirubin, Urine Neg (Neg); Blood, Urine 4+ (Neg); Glucose Qualitative, Urine Neg (Neg); Ketones, Urine Neg (Neg); Leukocyte Esterase, Urine 3+ (Neg); Nitrite, Urine Neg (Neg); Protein, Urine 2+ (Neg); Specific Gravity, Urine 1.015 (1.003-1.022); Urobilinogen, Urine NORM (Normal)
[2018-11-03 23:55] LABS: Appearance, Urine Hazy (Clear); Color, Urine Yellow (P-Yellow)
[2018-11-04 00:17] LABS: Amorphous Heavy (0-Heavy); Bacteria Mod /hpf; Squamous Epithelial Cells Few /hpf (Few)
[2018-11-04 01:11] LABS: Adenovirus Not Detected (NOT DETECT); Bordetella pertussis Not Detected (NOT DETECT); Chlamydophila pneumoniae Not Detected (NOT DETECT); Coronavirus 229E Not Detected (NOT DETECT); Coronavirus HKU1 Not Detected (NOT DETECT); Coronavirus NL63 Not Detected (NOT DETECT); Coronavirus OC43 Not Detected (NOT DETECT); Human Metapneumovirus Not Detected (NOT DETECT); Human Rhinovirus/Enterovirus Not Detected (NOT DETECT); Influenza A Not Detected (NOT DETECT); Influenza A/2009-H1 Not Detected (NOT DETECT); Influenza A/H1 Not Detected (NOT DETECT); Influenza A/H3 Not Detected (NOT DETECT); Influenza B Not Detected (NOT DETECT); Mycoplasma pneumoniae Not Detected (NOT DETECT); Parainfluenza Virus 1 Not Detected (NOT DETECT); Parainfluenza Virus 2 Not Detected (NOT DETECT); Parainfluenza Virus 3 Not Detected (NOT DETECT); Parainfluenza Virus 4 Not Detected (NOT DETECT); Respiratory Syncytial Virus Not Detected (NOT DETECT)
[2018-11-04 03:25] LABS: Hematocrit 35.3 % (37.0-53.0); Hemoglobin 11.7 g/dL (13.5-17.5); Mean Corpuscular HGB 34.1 pg (26.0-34.0); Mean Corpuscular HGB Conc 33.1 g/dL (31.5-36.5); Mean Corpuscular Volume 103 fL (80-100); Mean Platelet Volume 10.7 fL (9.1-12.4); Platelet Count 166 K/mm3 (150-400); RDW Coefficient Variation 12.9 % (11.7-14.2); RDW Standard Deviation 47.8 fL (35.1-46.3); Red Blood Cell Count 3.43 M/mm3 (4.30-5.90); White Blood Cell Count 9.86 K/mm3 (4.00-11.30)
[2018-11-04 04:21] LABS: Albumin, Blood 2.1 g/dL (3.4-5.0); Albumin/Globulin Ratio 0.5 (0.8-1.8); Bilirubin, Total 1.3 mg/dL (0.1-1.0); Bun/Creatinine Ratio 25.1 (12.0-20.0); Calcium, Blood 8.9 mg/dL (8.5-10.1); Creatinine, Blood 1.91 mg/dL (0.60-1.20); Globulin, Blood 3.9 g/dL (2.2-4.0); Potassium, Blood 4.5 mmol/L (3.5-5.5)
[2018-11-04 04:59] LABS: PO2 Arterial 116 mmHg (80-100); pH Blood Arterial 7.35 (7.35-7.45)
--- NOTE | 2018-11-04 06:03 | NUR ---
SHIFT SUMMARY REMAINED ON BIPAP T/O SHIFT WITH ONLY SHORT BREAKS FOR ORAL CARE. BIPAP 14/8, BUR 14, FIO2 NOW 55%. MONITOR SHOWS NSR WITH BBB, RATE 90-110s. BP STABLE. AFEBRILE. REMAINED NPO. ROUSES TO NOXIOUS STIMULI AND OCCASIONALLY TO LOUD VERBAL STIMULI. OCCASIONALLY FOLLOWS COMMANDS. MUMBLED SPEECH. AGITATED AND RESTLESS WHEN AWAKE. TWITCHING MOVEMENTS CONTINUE. MEDICATED WITH ATIVAN 1MG IV X 1 DOSE WITH GOOD RESULTS. APONTE PATENT AND DRAINING CLOUDY YELLOW URINE. NS TKO. WILL REPORT TO DAY SHIFT RN WHEN AVAILABLE.
--- NOTE | 2018-11-04 07:30 | NUR ---
PT SLEEPING ON BIPAP. BIPAP REMOVED AND N/C PLACED AT 6L, SATS BETWEEN 87-90%. PT VERY SOMULENT. WOULD STARTLE TO TOUCH OR LOUD VOICE THEN FALL BACK TO SLEEP. PT RESP VERY SHALLOW AND SLOW OFF BIPAP. PT ABLE TO STATE NAME ONLY, CONFUSED OTHERWISE. SPEECH MUMBLED AND INCOMPREHENSABLE OVERALL. PT ABLE TO FOLLOW SIMPLE COMMANDS. PT HAS MOIST COUGH, ATTEMPTED TO GET SPUTUM SAMPLE, PT SWALLOWS SPUTUM. SM ALL OF SPUTUM COLLECTED WAS THICK AND DARK YELLOW. BIPAP REPLACED AFTER 5MIN BREAK, PT DID NOT TOLERATE BEING OFF BIPAP. ORAL MEDS HELD; PT NOT ABLE TO SWALLOW SAFELY AT THIS POINT. WILL NOTIFY MD. ALSO OF NOTE PT VERY TREMULOUS, MORE PROMONANT WHEN AWAKE.
--- NOTE | 2018-11-04 14:38 | NUR ---
DR MADERA IN TO SEE PT. DISCUSSED CODE STATUS; PALLIATIVE CARE CALLED R/T CONSULT TO CLARIFY CODE STATUS. IF PT REMAINS SOMULENT AND NOT ABLE TO SWALLOW SAFELY, WILL PLACE NG/DOBBHOFF FOR MEDS.
--- NOTE | 2018-11-04 15:09 | NUR ---
BIPAP REMOVED TO ATTEMPT BREAK. O2 PLACED AT 6L VIA NC. PT HAD A DIFFICULT TIME KEEPING EYES OPEN FOR MORE THAN A SECOND OR TWO. PT UNABLE TO ANSWER QUESTIONS APPROPRIATELY. PT WITH WEAK GAG AND COUGH. PT SUCTIONED AT BACK OF THROAT. LARGE AMT OF THICK DARK YELLOW SPUTUM SX'D; SAMPLE SENT. PT'S UPDATED.
--- NOTE | 2018-11-04 16:40 | NUR ---
Initial Visit: Palliative Care Consult for Readmission and Symptom Management. Received call from Pt's bedside nurse Chyna and she reports having conversation with Pt's regarding curent POLST. Chyna reports current POLST is correct which is CPR, Limited Treatment. Currently Pt is a Full Code. Pt is resting in bed with his eyes closed and is currently on BIPAP. Pt appears comfortable with no signs of distress at this time. Pt's Jennifer is a bedside. Pt and is known to this commercial lines underwriter from previous visit. Pt's daughter in law is also present. Engaged in therapeutic discussion regarding goals of care including current POLST. Jennifer reports the Pt completed the POLST and would like to continue with his wishes. Jennifer reports Pt would not want to be intubated. Engaged in discussion regarding support in the home. Jennifer reports Pt receives assistance with in home caregivers from the [facility] and through Medicaid. Jennifer expresses concerns the help is not enough and is considering other options such as a higher level of care. She expresses concerns regarding Pt's control issues and his constant concerns with Jennifer's faithfullness. She reports mental and physical fatigue. She expresses concerns that he may not want to go to an assisted living facility but feels this is best for his health and safety as well as for her's. Engaged in therapeutic discussion regarding advanced care planning and the importance of communication with PCP and specialists regarding his current disease process in order to plan accordingly. No other concerns reported at this time. Jennifer reports that she would appreciate if palliative care continues with therapeutic visits. Spoke with bedside nurse Chyna of plan to contact hospitalist and have code status changed to DNI. No other concerns reported. Called and spoke with Dr Ulrcih and received V/O to change code status to DNI. Placed order in [place]. Plan: Placed social service referral for questions regarding options for to place Pt in higher level of care. Palliative Care will follow for therapeutic visits.
--- NOTE | 2018-11-04 16:41 | NUR ---
DOBHOFF PLACED TO RIGHT NARE WITHOUT DIFFICULTY AND W/O RESISTANCE. PT SLEPT THROUGH PART OF THE PROCEDURE WITH ABSENT GAG AND A WEAK COUGH X1.
--- NOTE | 2018-11-04 16:56 | NUR ---
ROSINA OKAY TO USE AND IN GOOD POSITION PER DR BERG.
--- NOTE | 2018-11-04 18:11 | NUR ---
PT'S EYES OPEN, FOLLOWING SOME DIRECTIONS, MUMBLES ANSWERS. ORIENTED TO SELF ONLY. SMALL SIP GIVEN TO PT HE WAS MORE ALERT BUT STILL COUGHED AND CHOKED ON WATER. PT SUCTIONED, PT ABLE TO COUGH EFFECTIVELY. COPIOUS AMT OF THICK CREAMY YELLOW SPUTUM SUCTIONED. PO MEDS GIVEN VIA DOBBHOFF. CYCLOSPORIN TO BE GIVEN IV.
--- NOTE | 2018-11-04 20:49 | NUR ---
START OF SHIFT: REPORT FROM RUDY SCOTT. RUDY SCOTT AND KRYSTINA BOOTMAKER WITH REPORT RE PT'S ADMIN OF PT'S CYCLOSPORIN (SANDIMUNNE) IV INPLACE OF PO SINCE PT ASPIRATION RISK AND IS NPO. PT'S PO DOSE IS CYCLOSPORIN 75mg bid. RUDY SCOTT STATED IV DOSE IS 25mg WAS INFORMED BY [employer] TO BE USED WITH NITRO TUBING A 0.2micron filter. PT MORE AWAKE PER RUDY SCOTT AND AWAKENS TO RN AT BEDSIDE. PT APPEARS DROWSY BUT ANSWERS QUESTIONS APPROPRIATELY AND FOLLOWS DIRECTIONS, HOWEVER, PT FALLS BACK TO SLEEP IMMEDIATELY. PT TOLERATED OFF BIPAP FOR APPRX 15 MINUTES AND WAS PROVIDED ORAL CARE AND GIVEN SIPS OF WATER FOR PO ASSESSMENT. PT TOOK SMALL SIPS OF WATER AND SWALLOWED BUT FALLS ASLEEP. PT REPOSITIONED. VSS. CYCLOSPORIN INFUSION STARTED. PT BACK ON BIPAP AND IS SLEEPING. WILL CONTINUE TO MONITOR.
--- NOTE | 2018-11-04 23:59 | NUR ---
PT CONTINUES ON BIPAP. FiO2 REDUCED TO 30% SATS 93%. PT CONTINUES TO SLEEP BUT AWAKENS EASILY TO RN AT BEDSIDE. PT STATED, "FINE" AND "YEAH!" WHEN ASKED HOW HE'S DOING. VSS. NO OTHER CHANGES SINCE INITIAL ASSESSMENT.
--- NOTE | 2018-11-05 00:18 | NUR ---
BREAK OFF BIPAP: PT SATS 86%. PT WITH AUDIBLE RHONCHI NOTED. BIPAP OFF/WITH O2 PLACED VIA N/C. PT ABLE TO COUGH PRODUCTIVELY AND SATS CLIMBED TO 99%. O2 VIA N/C REDUCED TO 4L. CURRENT SATS 93-94%. WILL CONTINUE TO MONITOR.
[2018-11-05 03:18] LABS: BASOPHILS ABSOLUTE AUTO 0.02 K/mm3 (0.00-0.23); BASOPHILS PERCENT AUTO 0 % (0-2); EOSINOPHILS ABSOLUTE AUTO 0.01 K/mm3 (0.00-0.68); EOSINOPHILS PERCENT AUTO 0 % (0-6); Hematocrit 32.6 % (37.0-53.0); Hemoglobin 10.5 g/dL (13.5-17.5); IMMATURE GRAN ABSOLUTE AUTO 0.04 K/mm3 (0.00-0.10); IMMATURE GRAN PERCENT AUTO 1 % (0-1); LYMPHOCYTES ABSOLUTE AUTO 0.48 K/mm3 (0.84-5.20); LYMPHOCYTES PERCENT AUTO 6 % (21-46); MONOCYTES ABSOLUTE AUTO 0.82 K/mm3 (0.16-1.47); MONOCYTES PERCENT AUTO 10 % (4-13); Mean Corpuscular HGB 33.9 pg (26.0-34.0); Mean Corpuscular HGB Conc 32.2 g/dL (31.5-36.5); Mean Corpuscular Volume 105 fL (80-100); Mean Platelet Volume 10.1 fL (9.1-12.4); NEUTROPHILS ABSOLUTE AUTO 7.11 K/mm3 (1.96-9.15); NEUTROPHILS PERCENT AUTO 84 % (41-73); Platelet Count 154 K/mm3 (150-400); RDW Coefficient Variation 12.9 % (11.7-14.2); RDW Standard Deviation 49.6 fL (35.1-46.3); White Blood Cell Count 8.48 K/mm3 (4.00-11.30)
[2018-11-05 03:36] LABS: Albumin, Blood 1.8 g/dL (3.4-5.0); Anion Gap 5 mmol/L (6-16); Blood Urea Nitrogen 45 mg/dL (8-24); Bun/Creatinine Ratio 29.2 (12.0-20.0); CO2, Blood 28 mmol/L (21-32); Calcium, Blood 9.1 mg/dL (8.5-10.1); Chloride, Blood 105 mmol/L (98-108); Creatinine, Blood 1.54 mg/dL (0.60-1.20); Glomerular Filtration Rate 47 (60-); Glucose, Blood 211 mg/dL (70-99); Phosphorus, Blood 2.9 mg/dL (2.5-4.9); Potassium, Blood 4.4 mmol/L (3.5-5.5); Sodium, Blood 138 mmol/L (136-145)
[2018-11-05 05:32] LABS: PCO2 Arterial 47.3 mmHg (35-45); PO2 Arterial 65.4 mmHg (80-100); pH Blood Arterial 7.39 (7.35-7.45)
--- NOTE | 2018-11-05 06:03 | NUR ---
BREAK OFF BIPAP: PT SITTING AWAKE WITH EYES OPEN. BIPAP OFF AND NC 4L APPLIED. PT REACHING FOR DOBHOFF TUBING AND N/C, AGITATED WHEN TOLD TO NOT TOUCH. EXPLAINED TO PT WHAT THE DOBHOFF WAS FOR, PT RESPONDED, "TUBES, TUBES, TUBES. I JUST NEED TO GET OUT OF HERE". PT WITH PRODUCTIVE COUGH. VSS. WILL HOLD CYCLOSPORIN UNTIL PT HAS EITHER A PICC LINE OR POWERGLIDE PLACED.
--- NOTE | 2018-11-05 07:30 | NUR ---
ONCOMING NOTE REPORT RECEIVED FROM SONIA AN. BEDSIDE ROUNDING DONE. PT RESTING IN BED WITH EYES CLOSED, BREATHING E/U ON 4LPM VIA NC. PT AWAKENS EASILY TO VERBAL STIMULI, ORIENTED TO SELF, , PERSON, AND FAMILY. WHEN ASKED "WHERE ARE YOU RIGHT NOW?" PT REPLIED "[place]", WHEN ASKED "WHAT TOWN ARE YOU IN?" PT REPLIED "[place]". REORIENTATED PT TO FACT THAT HE IS AT [facility] AND WAS TRANSFERRED HERE FROM [place] YESTERDAY. PT FOLLOWS COMMANDS APPROPRIATELY. PT ONLY C/O PAIN IS TO RIGHT KNEE, STATES "IT'S NOT BAD". SPO2 93-96% ON 4LPM VIA NC. PT WITH OCCASIONAL LOOSE COUGH, NONPRODUCTIVE. LS CLEAR ON LEFT AND COARSE ON RIGHT, DIMINISHED IN BASES. BIPAP AT NIGHT. RHYTHM SHOWING NORMAL SINUS WITH BBB, RATE IN 70S. BP STABLE. PT DENIES CHEST PAIN/PRESSURE. AFEBRILE. ABD MODERATELY DISTENDED, SOFT, NONTENDER. BT X4, HYPERACTIVE. PT DENIES NAUSEA. DOBHOFF IN PLACE. PT NPO, MEDICATIONS THROUGH DOBHOFF PT IS A HIGH ASPIRATION RISK. NO BM. APONTE CATHETER PATENT AND DRAINING TO GRAVITY. PT REPOSITIONED FOR PRESSURE RELIEF AND COMFORT. SKIN OVERALL C/D/I. BRUISING TO BUE. EDEMA TO BUE, NONPITTING, ELEVATED ON PILLOWS. BILATERAL SCDs ON. PIV TO R ARM, FLUSHES EASILY. BED IN LOWEST POSITION, UPPER SIDE RAILS RAISED. CALL LIGHT IN REACH. WILL CONT TO MONITOR PT.
--- NOTE | 2018-11-05 09:45 | NUR ---
CALL FROM PT'S CALLED FOR UPDATE, UPDATE PROVIDED. PLANS TO COME IN LATER THIS MORNING.
--- NOTE | 2018-11-05 09:57 | NUR ---
DR MADERA ROUNDS DR MADERA ROUNDED, UPDATED ON PT STATUS. GOAL TO RESUME PT ON ORAL DIET SAFE TO DO SO. NO CHANGE TO PLAN OF CARE AT THIS TIME. WILL CONT TO MONITOR PT.
--- NOTE | 2018-11-05 13:59 | NUR ---
UPDATE: UPDATED PT'S /DAUGHTER ON PT'S STATUS. PT REPORTS HE JUST WANTS "TO GO HOME." PT APPEARRED UPSET WHEN TOLD HE WOULD NOT BE RELEASED FROM THE HOSPITAL TODAY. FAMILY REPORTS THEY ARE LEAVING AND MAY OR MAY NOT BE BACK TOMORROW TO VISIT. DOOR CLOSED PER PT REQUEST AND CURTAIN DRAWN BACK TO VISUALIZE PT.
--- NOTE | 2018-11-05 17:33 | NUR ---
SHIFT SUMMARY NO ACUTE CHANGE T/O SHIFT. WHEN AWAKE PT IS ORIENTED AND COMMUNICATES APPROPRIATELY, WITH OCCASIONAL NONSENSICAL COMMENTS. OTHERWISE PT RESTS WITH EYES CLOSED. PT ONLY C/O PAIN IS TO RIGHT KNEE AND IS VERBALIZED DURING REPOSITIONING AND ANY MOVEMENT OF THE RIGHT LEG. RIGHT KNEE NOTED TO BE SWOLLEN, NO HEAT OR REDNESS TO AREA. OTHERWISE PT DENIES ANY PAIN OR DISCOMFORT. RHYTHM SHOWING NORMAL SINUS WITH BBB, HR IN 80S. BP STABLE. SPO2 96% ON BIPAP, WHEN OFF BIPAP PT HAS NC. O2 VIA NC TITRATED DOWN OVER SHIFT FROM 4LPM TO 3LPM. PT CONTINUES TO HAVE LOOSE, NONPRODUCTIVE COUGH. ORAL CARE DONE. PT TRIALED ON SIPS OF ICE WATER, REQUIRED FREQUENT INSTRUCTION TO TAKE ONLY SMALL SIPS. PT REMAINS HIGH ASPIRATION RISK. DOBHOFF REMAINS IN PLACE FOR MEDICATION ADMINISTRATION. ABD MODERATELY DISTENDED, SOFT, NONTENDER. BT X4, HYPERACTIVE. PT WITH FLATUS, NO BM. APONTE CATHETER REMAINS PATENT AND DRAINING TO GRAVITY. SKIN OVERALL C/D/I, BRUISING TO BUE. BUE EDEMATOUS, NONPITTING, ELEVATED ON PILLOWS. PT REPOSITIONED PERMITTED BY PT. BED IN LOWEST POSITION, SIDE RAILS RAISED. CALL LIGHT IN REACH. AND DAUGHTER VISITED TODAY WITH INTENTION TO RETURN THIS EVENING. PT CURRENTLY RESTING WITH EYES CLOSED, BREATHING E/U ON BIPAP AT 14/8, FIO2 35%. WILL CONT TO MONITOR PT.
--- NOTE | 2018-11-05 19:15 | NUR ---
ASSUMING CARE OF PT AT THIS TIME. PT REPORT RECEIVED AT BEDSIDE WITH OFFGOING NURSE, ELLEN SCOTT. PT LAYING IN BED, SLEEPING UPON ENTERING THE ROOM. BIPAP 14/8, FIO2 30%. VS STABLE - SEE VS FS. PT DOES NOT APPEAR TO BE IN DISTRESS AT THIS TIME. WILL REVIEW PLAN OF CARE. NO FAMILY AT BEDSIDE.
--- NOTE | 2018-11-05 19:15 | NUR ---
REPORT OFF REPORT GIVEN TO SONIA BARNEY. BEDSIDE ROUNDING DONE. SAVITA TO ASSUME CARE OF PT AT THIS TIME.
--- NOTE | 2018-11-05 19:30 | NUR ---
ASSESSMENT PT CALM, QUIET, COOPERATIVE, SLEEPING, DROWSY, QUICKLY FALLS BACK ASLEEP, A&O EXCEPT TO DATE/TIME/EVENT, SLOW TO RESPOND, SPONT OPENS EYES, FOLLOWS COMMANDS, SLIGHTLY CONFUSED. SENSATION INTACT. DENIES N/T. PT HEREDIA. GENEARLIZED WEAKNESS. MINIMAL MOVEMENT. PT C/O CHRONIC R KNEE PAIN/DISCOMFORT THAT IS TOLEABLE AT THIS TIME. OTHERWISE PT DENIES PAIN/DISCOMFORT. RUL AND RML CLEAR, PETER COARSE, DIMINISHED LOWER LOBES. SHALLOW BREATHING. PT ON BIPAP 14/8, FIO2 30%. OXY SAT >90% WHILE ON BIPAP 14/8, FIO2 30%. PT ON BIPAP WHILE SLEEPING. PT PLACED ON 2L NC TO COMPLETE ORAL CARE AND ASSESSMENT. OXY SAT >90% WHILE ON 2L NC. RR 20'S. PT DENIES SOB. OCC NONPRODUCTIVE, WET COUGH. AFEBRILE. NSR WITH BBB. HR 70'S. BP STABLE - SEE VS FS. DENIES CHEST PAIN AND PRESSURE. STRONG PULSES. FAINT TIBIAL AND PEDAL PULSES. EDEMA NOTED. WARM, PINK SKIN. ACTIVE BT X4 QUADRANTS. MOD DIST, SOFT, NONTENDER. NO N/V. NO BM AT THIS TIME. DOBHOFF CLAMPED. NPO D/T ASPIRATION PRECAUTIONS. CHRONIC F/C IN PLACE: YELLOW, CLOUDY URINE. PIV X1 - SL. PG AGUILA.
[2018-11-05 21:16] LABS: Vancomycin, Trough 18.7 ug/mL (5.0-10.0)
[2018-11-06 03:18] LABS: BASOPHILS ABSOLUTE AUTO 0.02 K/mm3 (0.00-0.23); BASOPHILS PERCENT AUTO 0 % (0-2); EOSINOPHILS ABSOLUTE AUTO 0.04 K/mm3 (0.00-0.68); EOSINOPHILS PERCENT AUTO 1 % (0-6); Hematocrit 32.9 % (37.0-53.0); Hemoglobin 10.5 g/dL (13.5-17.5); IMMATURE GRAN ABSOLUTE AUTO 0.02 K/mm3 (0.00-0.10); IMMATURE GRAN PERCENT AUTO 0 % (0-1); LYMPHOCYTES ABSOLUTE AUTO 0.71 K/mm3 (0.84-5.20); LYMPHOCYTES PERCENT AUTO 9 % (21-46); MONOCYTES ABSOLUTE AUTO 0.71 K/mm3 (0.16-1.47); MONOCYTES PERCENT AUTO 9 % (4-13); Mean Corpuscular HGB 33.9 pg (26.0-34.0); Mean Corpuscular HGB Conc 31.9 g/dL (31.5-36.5); Mean Corpuscular Volume 106 fL (80-100); Mean Platelet Volume 9.5 fL (9.1-12.4); NEUTROPHILS ABSOLUTE AUTO 6.07 K/mm3 (1.96-9.15); NEUTROPHILS PERCENT AUTO 80 % (41-73); Platelet Count 184 K/mm3 (150-400); RDW Coefficient Variation 13.2 % (11.7-14.2); RDW Standard Deviation 50.6 fL (35.1-46.3); White Blood Cell Count 7.57 K/mm3 (4.00-11.30)
[2018-11-06 03:34] LABS: Albumin, Blood 1.9 g/dL (3.4-5.0); Anion Gap 6 mmol/L (6-16); Blood Urea Nitrogen 39 mg/dL (8-24); Bun/Creatinine Ratio 29.8 (12.0-20.0); CO2, Blood 30 mmol/L (21-32); Calcium, Blood 9.3 mg/dL (8.5-10.1); Chloride, Blood 107 mmol/L (98-108); Creatinine, Blood 1.31 mg/dL (0.60-1.20); Glomerular Filtration Rate 56 (60-); Glucose, Blood 124 mg/dL (70-99); Potassium, Blood 4.2 mmol/L (3.5-5.5); Sodium, Blood 143 mmol/L (136-145)
--- NOTE | 2018-11-06 04:22 | NUR ---
SHIFT ASSESSMENT NO ACUTE CHANGES NOTED T/O SHIFT. PT SLEPT T/O SHIFT. PT CALM, OCC YELLING OUT FOR STAFF, OTHERWISE QUIET AND SLEEPING, DOES NOT USE CALL LIGHT, COOPERATIVE, DROWSY (LESS DROWSY THIS AM), FALLS BACK ASLEEP WITH DEC STIMULI, A&O EXCEPT TO DATE/TIME/EVENT, SLOW TO RESPOND, SPONT OPENS EYES, FOLLOWS COMMANDS, CONFUSED (INCREASED CONFUSION T/O SHIFT). SENSATION INTACT. DENIES N/T. PT HEREDIA. GENERALIZED WEAKNESS. MINIMAL MOVEMENT. PT C/O CHRONIC R KNEE PAIN/DISCOMFORT THAT WAS TOLERABLE. OTHERWISE PT DENIES PAIN/DISCOMFORT. SIDE RAILS REMAINED UP. BED ALARM REMAINED ON. RUL AND RML CLEAR, PETER SLIGHTLY COARSE, DIMINISHED LOWER LOBES. SHALLOW BREATHING. PT ON BIPAP 14/8, FIO2 25% T/O SHIFT. OXY SAT >90% WHILE ON BIPAP 14/8, FIO2 25%. PT PLACED ON 2L NC DURING BIPAP BREAKS. OXY SAT >90% WHILE ON 2L NC. RR 16 TO 20'S. PT DENIES SOB. OCC NONPRODUCTIVE, WET, LOOSE COUGH. AFEBRILE. NSR WITH BBB. HR 70'S TO 90'S. BP STABLE - SEE VS FS. DENIES CHEST PAIN AND PRESSURE. STRONG PULSES. FAINT TIBIAL AND PEDAL PULSES. EDEMA NOTED. WARM, PINK SKIN. ACTIVE BT X4 QUADRANTS. MOD DIST, SOFT, NONTENDER. NO N/V. NO BM T/O SHIFT. DOBHOFF CLAMPED. NPO D/T ASPIRATION PRECAUTIONS. CHRONIC F/C IN PLACE: YELLOW, CLOUDY URNE. PIV X1 - SL. PG AGUILA - SL. WILL CONT TO MONITOR PT AND WILL PROVIDE BEDSIDE REPORT TO ONCOMING NURSE THIS AM.
--- NOTE | 2018-11-06 04:40 | NUR ---
DR. KENNEDY CALLED DR. KENNEDY AT 0420. DR. KENNEDY CALLED ICU BACK AT THIS TIME. INFORMED DR. KENNEDY OF AM LABS. DR. KENNEDY ORDERED POTASSIUM PHOS 20 MM NOW. WAITING FOR MEDICATION FROM PHARMACY AT THIS TIME.
--- NOTE | 2018-11-06 08:30 | NUR ---
ASSUMED CARE: REPORT RECEIVED FROM SAVITA Morrison RN. ASSUMED CARE OF THIS PT AT APPROX 0700. ON ASESSMENT, THE PT IS RESTING QUIETLY & WEARING THE BIPAP. SETTINGS: 14/8 & 25% FIO2. BIPAP REMOVED DURING ASSESSMENT & PT NOW USING 2L NC W/ O2 SATS > 92%. MONITOR SHOWS NSR W/ BBB, AVG HR 80s. BT x4, DOBHOFF CLAMPED & USED FOR PICKLER HELPER. PT ATTEMPTED TO TAKE A SMALL SIP OF WATER THIS AM & IMMEDIATELY BEGAN TO COUGH, TOLERATES MOISTENED ORAL SWABS WELL. CHRONIC INDWELLING APONTE IS PATENT/DRAINING. SKIN OVERALL CDI W/ SOME SCATTERED BRUISING T/O. WILL CONTINUE TO MONITOR & UPDATE NEEDED.
--- NOTE | 2018-11-06 09:00 | NUR ---
DR. MADERA: PROVIDER AT BEDSIDE TO SEE PT. REQUEST FOR PT's TO BRING IN HOME CPAP. STATUS CHANGE & NEED FOR SPEECH THERAPY ARE DISCUSSED. PROVIDER TO PLACE ORDERS.
--- NOTE | 2018-11-06 15:15 | NUR ---
TRANSFER TO PCU: REPORT HAS BEEN GIVEN TO HOWIE COYLE RN TO ASSUME CARE. PT HAS BEEN TX TO ROOM PCU-07 VIA BED BY THIS RN & MAIDA CHANEY. CHART, BELONGINGS & MEDS HAVE BEEN TRANSFERRED W/ PT. 's PHONE NUMBER HAS BEEN PLACED IN CHART & SHE HAS BEEN NOTIFIED OF TRANSFER & NEW ROOM NUMBER WELL.
--- NOTE | 2018-11-06 15:31 | NUR ---
TRANSFER FROM ICU 1 TO PCU 7 PT REPORT RECIEVED. PT TRANSFERED VIA BED ACCOMPNAIED BY RN/VENEER PULLER. PT ALERT. SLIDE TO NEW BED WITH SLIDER SHEET. TOLERATED WELL. PT CONFUSED TO PLACE AND EVENT. DOBHOFF TUBE PATENT. VSS. CONTINUE POT.
--- NOTE | 2018-11-06 16:45 | NUR ---
POWER GLIDE PT POWER GLIDE WAS NOT FLUSHING. LARGE AMOUNT OF TAPE HAD BEEN APPLIED TO DRESSING. REMOVED OLD DRESSING FOUND A KINK RIGHT AT THE HUB. FLATTENED OUT THE KINK AND REDRESSED THE SITE. POWER GLIDE NOW INFUSING. CONTINUE POT.
--- NOTE | 2018-11-06 18:25 | NUR ---
EVENING NOTE PT RESTING QUIETLY. SR. VSS. PT HAS BEEN CALLING OUT. REMINDED HIM TO USE THE CALL LIGHT. WITH SOME PRACTICE HE HAS BEEN USING THE CALL LIGHT. PT WAS VERY RESTLESS AND LOOKED UNCOMFORTABLE. HE TAKES OPIOT PAIN MEDS AT HOME ROUTINEYL. MEDICATED WITH FENTANYL 25MCG. HE STARTED TO RELAX AND STOPPED YELLING. HE STARTED CONVERSING WITH STAFF. HE DOESN'T ALWAYS KNOW WHAT WORDS HE'S TRYING TO FIND TO DESCRIBE WHAT HE NEEDS. HE WAS ABLE TO DIAL THE PHONE HIMSELF AND CALL HOME. HE TALKED WITH MELITA HIS . SHE REQUESTED TO HAVE THE PHONE MOVED AWAY FROM PT. OTHER GARCIA SHE WON'T GET ANY SLEEP. BIPAP AT BEDSIDE. RESP. EVEN AND UNLABORED. CONTINUE POT.
[2018-11-06 22:27] LABS: Vancomycin, Trough 19.2 ug/mL (5.0-10.0)
--- NOTE | 2018-11-07 02:43 | NUR ---
PT'S BIPAP HAS PROVEN TO BE DIFFICULT THIS SHIFT. AT FIRST, PT REFUSED THE BIPAP. THIS NURSE CALLED RT, THE BIPAP WAS SWITCHED TO CPAP SETTINGS THAT HE HAD PREVIOUSLY BEEN ON DURING A PAST ADMISSION. PT TOLERATED FOR AWHILE BUT THE MASK WOULD NOT SEAL CORRECTLY LEADING TO CONSTANT ALARMING. PT SLIGHTLY AGITATED ABOUT THIS. POST MULTIPLE ATTEMPTS AT REPOSITIONING/RESEALING, RT CALLED AGAIN. FULL FACE MASK PLACED. LEAKING CONTIONUES TO BE A PROBLEM BUT HAS LESSENED. PT HAS BEEN AGITATED REGARTDING HIS LACK OF SLEEP THIS SHIFT. PRN ATIOVAN 1MG GIVEN PER EMAR. WILL CONTINUE TO MONITOR BIPAP SEAL STATUS, SPO2 MONITORING, AND OVERLL PT STATUS.
[2018-11-07 04:48] LABS: BASOPHILS ABSOLUTE AUTO 0.02 K/mm3 (0.00-0.23); BASOPHILS PERCENT AUTO 0 % (0-2); EOSINOPHILS ABSOLUTE AUTO 0.04 K/mm3 (0.00-0.68); EOSINOPHILS PERCENT AUTO 1 % (0-6); Hematocrit 35.1 % (37.0-53.0); Hemoglobin 11.4 g/dL (13.5-17.5); IMMATURE GRAN ABSOLUTE AUTO 0.03 K/mm3 (0.00-0.10); IMMATURE GRAN PERCENT AUTO 0 % (0-1); LYMPHOCYTES ABSOLUTE AUTO 0.57 K/mm3 (0.84-5.20); LYMPHOCYTES PERCENT AUTO 8 % (21-46); MONOCYTES ABSOLUTE AUTO 0.71 K/mm3 (0.16-1.47); MONOCYTES PERCENT AUTO 10 % (4-13); Mean Corpuscular HGB 33.7 pg (26.0-34.0); Mean Corpuscular HGB Conc 32.5 g/dL (31.5-36.5); Mean Corpuscular Volume 104 fL (80-100); Mean Platelet Volume 9.3 fL (9.1-12.4); NEUTROPHILS ABSOLUTE AUTO 5.78 K/mm3 (1.96-9.15); NEUTROPHILS PERCENT AUTO 81 % (41-73); Platelet Count 193 K/mm3 (150-400); RDW Coefficient Variation 12.9 % (11.7-14.2); RDW Standard Deviation 48.9 fL (35.1-46.3); Red Blood Cell Count 3.38 M/mm3 (4.30-5.90); White Blood Cell Count 7.15 K/mm3 (4.00-11.30)
[2018-11-07 05:06] LABS: Albumin, Blood 1.9 g/dL (3.4-5.0); Anion Gap 7 mmol/L (6-16); Blood Urea Nitrogen 26 mg/dL (8-24); CO2, Blood 30 mmol/L (21-32); Calcium, Blood 9.4 mg/dL (8.5-10.1); Chloride, Blood 106 mmol/L (98-108); Creatinine, Blood 1.04 mg/dL (0.60-1.20); Glomerular Filtration Rate >60 (60-); Glucose, Blood 175 mg/dL (70-99); Phosphorus, Blood 2.1 mg/dL (2.5-4.9); Potassium, Blood 3.8 mmol/L (3.5-5.5); Sodium, Blood 143 mmol/L (136-145)
--- NOTE | 2018-11-07 07:38 | NUR ---
END OF SHIFT SUMMARY PT ALERT UPON BEGINNING OF SHIFT. PT HAD TO BE ORIENTED TO PLACE AND EVENT BUT WAS JORDAN TO REMEMBER THIS RN'S NAME AND HIS NAME/. T/O NIGHT THE PT'S THOUGH PROCESS PRESENTED MORE CONFUSED. PT HAS NOW RETURNED TO WHAT APPEARS TO BE WHAT IT WAS AT THE BEGINNING OF THIS SHIFT. PT HAS REQUIRED MUCH OF THIS RNS TIME WITH THE SEAL OF HIS BIPAP MASK. SEE NOTE. ATIVAN GIVEN FOR AGITATION, PT WAS ABLE TO GET SOME SLEEP. HE HAD NOT UNTIL THAT POINT. PT NOTED TO BE PULING AT MASK AND PICC LINE AND TELE LEADS WHILE SLEEPING. PT REPOSITIOPNED MULTIPLE TIMES THIS SHIFT. PT HAS REMAINED NPO FOR SPEECH THERAY EVAL. DOBHOFF HAD TO BE UNCLOGGED THIS SHIFT, NOW IS PATENT AND EASILY FLUSHES. CALL LIGHT WITHIN REACH. REPORT GIVEN TO ONCOMING NURSE.
--- NOTE | 2018-11-08 01:45 | NUR ---
DR MAYER 0030 DR NOTIFIED OF PT'S MOST RECENT SBP >100 AND PT'S CONTINUING HR IN THE 110'S. DR TOLD THE PATIENT HAD RECEIVED ORAL METOPROL PER THE EMAR @2100. DR MAYER DOES NOT PLACE ORDER. STATES TO CONTINUE MONITORING.
[2018-11-08 04:04] LABS: BASOPHILS ABSOLUTE AUTO 0.01 K/mm3 (0.00-0.23); BASOPHILS PERCENT AUTO 0 % (0-2); EOSINOPHILS PERCENT AUTO 0 % (0-6); Hematocrit 39.2 % (37.0-53.0); Hemoglobin 12.8 g/dL (13.5-17.5); IMMATURE GRAN ABSOLUTE AUTO 0.02 K/mm3 (0.00-0.10); IMMATURE GRAN PERCENT AUTO 0 % (0-1); LYMPHOCYTES ABSOLUTE AUTO 0.56 K/mm3 (0.84-5.20); LYMPHOCYTES PERCENT AUTO 8 % (21-46); MONOCYTES ABSOLUTE AUTO 0.56 K/mm3 (0.16-1.47); MONOCYTES PERCENT AUTO 8 % (4-13); Mean Corpuscular HGB 32.8 pg (26.0-34.0); Mean Corpuscular HGB Conc 32.7 g/dL (31.5-36.5); Mean Platelet Volume 9.1 fL (9.1-12.4); NEUTROPHILS ABSOLUTE AUTO 6.04 K/mm3 (1.96-9.15); NEUTROPHILS PERCENT AUTO 84 % (41-73); Platelet Count 222 K/mm3 (150-400); RDW Standard Deviation 47.8 fL (35.1-46.3); White Blood Cell Count 7.19 K/mm3 (4.00-11.30)
[2018-11-08 04:05] LABS: Mean Corpuscular Volume 101 fL (80-100)
[2018-11-08 04:18] LABS: Albumin, Blood 2.1 g/dL (3.4-5.0); Anion Gap 11 mmol/L (6-16); Blood Urea Nitrogen 21 mg/dL (8-24); Bun/Creatinine Ratio 19.6 (12.0-20.0); CO2, Blood 26 mmol/L (21-32); Calcium, Blood 9.5 mg/dL (8.5-10.1); Chloride, Blood 103 mmol/L (98-108); Creatinine, Blood 1.07 mg/dL (0.60-1.20); Glomerular Filtration Rate >60 (60-); Glucose, Blood 232 mg/dL (70-99); Phosphorus, Blood 2.4 mg/dL (2.5-4.9); Potassium, Blood 3.6 mmol/L (3.5-5.5); Sodium, Blood 140 mmol/L (136-145)
--- NOTE | 2018-11-08 04:30 | NUR ---
DR MOREON MAYER NOTIFIED OF PATIENTS HR MAINATAINING 110'S TO 120'S. ALSO NOTIFIED THAT THE PATIENTS BP HAD BEEN INCREASING AND WAS OVER 170 SYSTOLICALLY. NOTIFIED OF CURRENT METOPROLOL REGIMEN. PLACES NO ORDERS AND SAYS THE ORQAL METOPROL @0900 SHOULD BE "FINE."
--- NOTE | 2018-11-08 07:55 | NUR ---
0400 THIS NURSE WAS DRAWING AM LABS FROM PICC. PT HAD HOME CPAP ON. PT HAD GUTTURAL SOUND FROM ABD AND BEGAN TO "THROW UP" GREEN EMESIS. THIS NURSE RIPPED THE CPAP OFF OF THE PATIENTS FACE AND PATIENT BEGAN THROWING UP ON BED/FLOOR. PT NOT COUGHING. PT HAD NOT STATED ANY FEELINGS OF NAUSEA BEFORE THIS POINT. PT MEDICATED WITH IV ZOFRAN. THIS NURSE LISTENED TO THE PATIENTS LUNG SOUNDS AND WAS UNABLE IN AUSCULTATING ANY SOUNDS INDICATIVE OF NEW ASPIRATION. VERY LITTLE EMESIS WAS IN MASK WHEN IT WAS TAKEN OFF. EMESIS COVERED THE PICC LINE DRSSING. THIS DRESSING/LINE WAS THROUROUGHLY CLEANED AND THE DRESSING CHANGED OUT. PT HAS REMAINED ON RA SINCE THIS OCCURENCE. O2 SATS>92%. ONCOMING NURSE AWARE OF THIS IN REPORT.
--- NOTE | 2018-11-08 08:00 | NUR ---
END OF SHIFT SUMMARY THIS PATIENT HAS BEEN ALERT AND GIVING APPROPRIATE RESPONSES IN CONVERSATION AT SOME POINTS AND AT OTHER POINTS JUST SHRUGS OFF QUESTIONS OR MOANS. PT'S HR HAS REMAINED 110'S. BP HAS STEADILY INCREASED, SEE DR NOTE. PT CONTINUES WITH DOBHOFF DUE TO SPITTING UP MEDICATION PER REPORT. SEE NOTE REGARDING CPAP/EMESIS EPISODE. BEFORE THIS EPISODE, PT HAD BEEN TOLERATING HIS HOME CPAP WELL AT HOME SETTINGS AND HAD BEEN RESTING QUIETLY. PT APPEARED TO HAVE BEEN DOING BETTER THIS SHIFT THAN LAST NOC SHIFT. PT APPEARS TO BE MORE ORIENTED TO PLACE AND STAFF THIS SHIFT WELL. CALL LIGHT HAS BEEN WITHIN REACH. BED ALARM IN PLACE. PT HAS BEEN REPOSITIONED MULTIPE TIMES. REPORT GIVEN TO ONCOMING NURSE.
[2018-11-08 12:41] LABS: PCO2 Arterial 31.8 mmHg (35-45); PO2 Arterial 63.1 mmHg (80-100); pH Blood Arterial 7.56 (7.35-7.45)
--- NOTE | 2018-11-08 13:21 | NUR ---
The pt has become more and more uncomfortable as the day progressed. At this time his complaints have changed from his right leg discomfort (he states he has right knee pain, and his states he has a bad knee) to now stating that his back is hurting. He has been repositioned throughout the morning. His states that he takes 45 of MSContin twice daily, with 15 mg Morphine as needed midday, for chronic generalized pain. He is not taking that here in the hospital. He was medicated at this time with IV fentanyl as ordered prn. His is at the bedside.
--- NOTE | 2018-11-08 14:35 | NUR ---
Call to Dr. Ulrich cell phone regarding: increased blood pressure, not responding to current prescription of metoprolol; ongoing uncontrolled pain and also the fact that the pt has been taking meds, food and liquids by mouth today and would like the dobhoff removed if possible. Also need orders for bowel care. The pt went for CT scan of his abdomen and is now back in the room. His is at the bedside.
--- NOTE | 2018-11-08 14:41 | NUR ---
Spoke with Dr. Ulrich regarding pt's current condition and compaints.
--- NOTE | 2018-11-08 15:49 | NUR ---
Pt visit this afternoon. Pt is resting in bed and is A&Ox3. Pt not able to give appropriate reason for hospital stay. Pt reports 8/10 pain in his back. He appears slightly anxious as evidenced by constant movement of his upper extremities. This anxiety may be pain related. Staff preparing to transfer Pt from bed to chair with mechanical lift. This RN ended visit. Spoke with Pt's bedside nurse Abiola and she expresses concerns of Pt's unmanaged pain. She reports once CT have resulted she would like hospitalist to consider placing Pt on home pain regimen including MS Contin. Palliative Care will remain available.
--- NOTE | 2018-11-08 17:31 | NUR ---
"Delbert" as the pt likes to be called, has been taking his medications by mouth agreeably, and was also able to take a small amount of his meals. Per Dr. Ulrich, the dobhoff was removed following results of the CT scan today. The pt has been appropriate, cooperative, albeit a bit grouchy. He was put up in the chair using the lift today, and sat up for a little under an hour, stating later that he wanted to be back in bed because he was cold. Blood pressure was improved after he was given a dose of apresoline IV. Bowel care was started today and the pt had a very large bowel movement this evening.
[2018-11-08 21:42] LABS: Vancomycin, Trough 18.7 ug/mL (5.0-10.0)
[2018-11-09 04:20] LABS: BASOPHILS ABSOLUTE AUTO 0.02 K/mm3 (0.00-0.23); BASOPHILS PERCENT AUTO 0 % (0-2); EOSINOPHILS ABSOLUTE AUTO 0.02 K/mm3 (0.00-0.68); EOSINOPHILS PERCENT AUTO 0 % (0-6); Hematocrit 44.5 % (37.0-53.0); Hemoglobin 14.7 g/dL (13.5-17.5); IMMATURE GRAN ABSOLUTE AUTO 0.01 K/mm3 (0.00-0.10); IMMATURE GRAN PERCENT AUTO 0 % (0-1); LYMPHOCYTES ABSOLUTE AUTO 0.53 K/mm3 (0.84-5.20); LYMPHOCYTES PERCENT AUTO 10 % (21-46); MONOCYTES ABSOLUTE AUTO 0.46 K/mm3 (0.16-1.47); MONOCYTES PERCENT AUTO 9 % (4-13); Mean Corpuscular HGB 33.6 pg (26.0-34.0); Mean Corpuscular Volume 102 fL (80-100); Mean Platelet Volume 9.2 fL (9.1-12.4); NEUTROPHILS ABSOLUTE AUTO 4.05 K/mm3 (1.96-9.15); NEUTROPHILS PERCENT AUTO 80 % (41-73); Platelet Count 166 K/mm3 (150-400); RDW Coefficient Variation 12.9 % (11.7-14.2); RDW Standard Deviation 48.2 fL (35.1-46.3); Red Blood Cell Count 4.38 M/mm3 (4.30-5.90); White Blood Cell Count 5.09 K/mm3 (4.00-11.30)
[2018-11-09 04:36] LABS: Albumin, Blood 1.9 g/dL (3.4-5.0); Anion Gap 6 mmol/L (6-16); Blood Urea Nitrogen 21 mg/dL (8-24); Bun/Creatinine Ratio 17.5 (12.0-20.0); CO2, Blood 29 mmol/L (21-32); Calcium, Blood 8.9 mg/dL (8.5-10.1); Chloride, Blood 107 mmol/L (98-108); Glomerular Filtration Rate >60 (60-); Glucose, Blood 222 mg/dL (70-99); Potassium, Blood 3.5 mmol/L (3.5-5.5); Sodium, Blood 142 mmol/L (136-145)
--- NOTE | 2018-11-09 05:49 | NUR ---
SUMMARY NO ACUTE CHANGES NOTED THROUGH THE NIGHT. PAIN AND NAUSEA MEDICATED PER EMAR. PT REFUSED TO BE REPOSITIONED Q2 HRS. REPOSITIONED ALLOWED & PER PT REQUEST. CPAP IN PLACE. CONT BIOX IS ON. IV SL. PT IS ANSWERING QUESTIONS APPROPRIATLEY BUT CONTINUES TO BE SLOW TO RESPOND OCCASIONALLY. WCTM AND REPORT TO DAY RN
--- NOTE | 2018-11-09 09:02 | NUR ---
pt laying in bed wakes easily, is declining breakfast or to get off the cpap at this time. vs stable, afebrile, iv site it power glide to sheila, site is clear and patent, btx4, abd round soft nontender, tripp cath draining yellow urine, skin c/w/d, maew, fermin, call light in reach.
--- NOTE | 2018-11-09 12:30 | NUR ---
PT ATE SOME LUNCH, SLEEPS WHEN LEFT UNDISTURBED. NO COMPLAINTS, HE DENIES PAIN AT THIS TIME. CALL LIGHT IN REACH.
--- NOTE | 2018-11-09 15:56 | NUR ---
PT HAS BEEN TRANSFERED TO MEDICAL FLOOR VIA BED WITH DENTISTRY PROFESSOR'S IN ATTENDENCE. REPORT WAS GIVEN TO SONYA SCOTT. ALL BELONGINGS WENT WITH PT.
--- NOTE | 2018-11-09 16:15 | NUR ---
PATIENT TRANSFERRED TO MEDICAL FLOOR FROM PCU 7. PATIENT IS ALERT X 3 WITH MILD CONFUSION AT TIMES. PATIENT ORIENTED TO ROOM AND NURSING STAFF WELL CALL LIGHT, PATIENT VERBALIZES AN UNDERSTANDING. IV TO LUE IS INTACT AND PATENT. IS AT BEDSIDE AND ACTIVE IN PATIENT CARE NEEDS. RECEIVED VERBAL ORDERS FROM DR MADERA TO CHANGE PT ROUTE ON MEDS TO PO. PATIENT IS RESTING IN BED.
--- NOTE | 2018-11-09 17:55 | NUR ---
AT APPROX 1538 PATIENT WAS RECEIVED TO 308 FROM PCU. PATIENT C/O PAIN AND TYLENOL WAS GIVEN ORDERED. IV ABO RAN VIA POWERGLIDE WITH NO ISSUES OBSERVED. REMAINS AT BEDSIDE AND PATIENT IS WATCHING TV WITH CALL LIGHT IN REACH.
--- NOTE | 2018-11-10 03:54 | NUR ---
SHIFT SUMMARY PATIENT HAD NO ACUTE CHANGES OBSERVED THIS SHIFT. AXO2 TO SELF/. SLOW TO RESPOND. SLEEPING AT SHIFT CHANGE BUT SLOWLY AROUSABLE. POWERGLIDE AGUILA INTACT AND IV ABX INFUSED. TAKES MEDICATION CRUSHED IN . AC/HS. CBG 229. NECTAR THICK FLUIDS. RADIO ELECTRICIAN REPORTS ST, BBB, W PAC AT 102. USES CPAP AT NIGHT ON ON CONTINUOUS PULSE OXIMETRY. APONTE PATENT AND DRAINING FOR RETENTION. CALL LIGHT IN REACH. BED IN LOWEST POSITION. WILL CONTINUE TO MONITOR UNTIL DAY SHIFT NURSE ASSUMES CARE.
--- NOTE | 2018-11-10 04:41 | NUR ---
PATIENT STATING 88-94% ON CPAP, SLEEPING. WILL CONTINUE TO MONITOR.
[2018-11-10 05:54] LABS: Hematocrit 36.5 % (37.0-53.0); Hemoglobin 11.5 g/dL (13.5-17.5); Mean Corpuscular HGB 33.7 pg (26.0-34.0); Mean Corpuscular HGB Conc 31.5 g/dL (31.5-36.5); Mean Platelet Volume 9.1 fL (9.1-12.4); Platelet Count 205 K/mm3 (150-400); RDW Coefficient Variation 13.3 % (11.7-14.2); RDW Standard Deviation 52.9 fL (35.1-46.3); Red Blood Cell Count 3.41 M/mm3 (4.30-5.90); White Blood Cell Count 5.81 K/mm3 (4.00-11.30)
[2018-11-10 05:55] LABS: Mean Corpuscular Volume 107 fL (80-100)
[2018-11-10 06:14] LABS: Albumin, Blood 1.9 g/dL (3.4-5.0); Anion Gap 6 mmol/L (6-16); Blood Urea Nitrogen 33 mg/dL (8-24); Bun/Creatinine Ratio 17.9 (12.0-20.0); CO2, Blood 29 mmol/L (21-32); Calcium, Blood 8.7 mg/dL (8.5-10.1); Chloride, Blood 108 mmol/L (98-108); Creatinine, Blood 1.84 mg/dL (0.60-1.20); Glomerular Filtration Rate 38 (60-); Glucose, Blood 165 mg/dL (70-99); Phosphorus, Blood 4.3 mg/dL (2.5-4.9); Potassium, Blood 3.7 mmol/L (3.5-5.5); Sodium, Blood 143 mmol/L (136-145)
--- NOTE | 2018-11-10 07:23 | NUR ---
ASSUMED CARE OF PT- REPORT COMPLETED WITH NIGHT RN AAMIR. PT IS ALERT AND ORIENTED TO SELF. PER REPORT MEDS CRUSHED IN APPLE SAUCE. PT REQUIRES SET UP FOR FEEDING, HOWEVER PER REPORT PT FEEDS HIMSELF.
[2018-11-10 16:35] LABS: Anion Gap 9 mmol/L (6-16); Blood Urea Nitrogen 43 mg/dL (8-24); Bun/Creatinine Ratio 20.6 (12.0-20.0); CO2, Blood 27 mmol/L (21-32); Calcium, Blood 8.9 mg/dL (8.5-10.1); Chloride, Blood 106 mmol/L (98-108); Creatinine, Blood 2.09 mg/dL (0.60-1.20); Glomerular Filtration Rate 33 (60-); Glucose, Blood 184 mg/dL (70-99); Phosphorus, Blood 4.1 mg/dL (2.5-4.9); Potassium, Blood 4.1 mmol/L (3.5-5.5); Sodium, Blood 142 mmol/L (136-145)
--- NOTE | 2018-11-10 18:22 | NUR ---
SHIFT SUMMARY- PT HAS HAD NO ACUTE CHANGES T/O THE SHIFT. PT REQUESTED PAIN MEDICATION SHORTLY AFTE RECIEVING MORNING SCHEDULED MEDICATIONS. SPOKE TO THE PT ABOUT SCHEDULED PAIN MEDICATION. PT AGREED THAT THE MEDICATION WOULD WORK, PT STATED HE HAD FORGOTEN THAT HE HAD THOSE ALREADY. PT HAS PAIN BUT STATES IT IS WELL MANAGED. PG IS SL AND PER REPORT DOES NOT DRAW. PT IS BED BOUND BUT HAS BEEN UP TO THE EOB SEVERAL TIMES THIS SHIFT.
--- NOTE | 2018-11-11 03:46 | NUR ---
NOC SHIFT SUMMARY PT IS PLEASANT AND COOPERATIVE WITH CARE. VSS. HE IS PRESENTLY SLEEPING AND USING HIS CPAP AND SATTING AT 93% AT THIS TIME PER HIS PULSE OXIMETER. TELE HAS SHOWN NSR WITH BBB RATE IN THE 80'S PER REGISTER OF DEEDS. NO ACUTE CHANGES NOTED THIS SHIFT. PT APPEARS IN NO ACUTE DISTRESS AT THIS TIME. WILL CONTINUE TO MONITOR.
[2018-11-11 05:39] LABS: Albumin, Blood 1.8 g/dL (3.4-5.0); Anion Gap 8 mmol/L (6-16); Blood Urea Nitrogen 52 mg/dL (8-24); Bun/Creatinine Ratio 26.8 (12.0-20.0); CO2, Blood 25 mmol/L (21-32); Calcium, Blood 8.3 mg/dL (8.5-10.1); Chloride, Blood 107 mmol/L (98-108); Creatinine, Blood 1.94 mg/dL (0.60-1.20); Glomerular Filtration Rate 36 (60-); Glucose, Blood 155 mg/dL (70-99); Phosphorus, Blood 4.4 mg/dL (2.5-4.9); Potassium, Blood 4.2 mmol/L (3.5-5.5); Sodium, Blood 140 mmol/L (136-145)
--- NOTE | 2018-11-11 07:30 | NUR ---
ASSUMED CARE OF PT- RECIEVED REPORT FROM NIGHT SONIA PINA. PT HAS HAD NO ACUTE CHANGES T/O THE NIGHT. THERE WERE ISSUES WITH THE POWERGLIDE THAT HAVE BEEN RESOLVED. PER REPORT IT FLUSHES WELL NOW, BUT STILL DOES NOT DRAW. WILL ASSESS SHORTLY. PT ALERT AND ORIENTED T/O THE NIGHT.
--- NOTE | 2018-11-11 16:18 | NUR ---
SHIFT SUMMARY- PT HAS HAD NO ACUTE CHANGES T/O THE SHIFT. DISCHARGE PLANNING IS ON THE CASE. PT HAS A NEW ORDER FOR IVF WILL START SHORTLY. PT STATED PAIN 9/10 THIS MORNING WHEN PAIN MEDICATION WAS GIVEN, HOWEVER AFTER MED WAS GIVEN PHYSICAL THERAPY WORKED WITH THE PT AND STATED HE SHOWED NO S&S OF PAIN OR DISCOMFORT. PT ALERT AND ORIENTED AND HAS THE CALL LIGHT IN REACH, PT CALLS APPROPRIATELY.
[2018-11-12 04:55] LABS: Hematocrit 34.7 % (37.0-53.0); Hemoglobin 10.7 g/dL (13.5-17.5); Mean Corpuscular HGB 32.9 pg (26.0-34.0); Mean Corpuscular HGB Conc 30.8 g/dL (31.5-36.5); Mean Corpuscular Volume 107 fL (80-100); Mean Platelet Volume 9.7 fL (9.1-12.4); Platelet Count 158 K/mm3 (150-400); RDW Coefficient Variation 12.6 % (11.7-14.2); RDW Standard Deviation 49.5 fL (35.1-46.3); Red Blood Cell Count 3.25 M/mm3 (4.30-5.90); White Blood Cell Count 6.42 K/mm3 (4.00-11.30)
[2018-11-12 05:08] LABS: Anion Gap 6 mmol/L (6-16); Blood Urea Nitrogen 58 mg/dL (8-24); Bun/Creatinine Ratio 35.4 (12.0-20.0); CO2, Blood 28 mmol/L (21-32); Calcium, Blood 8.7 mg/dL (8.5-10.1); Chloride, Blood 107 mmol/L (98-108); Creatinine, Blood 1.64 mg/dL (0.60-1.20); Glomerular Filtration Rate 43 (60-); Glucose, Blood 159 mg/dL (70-99); Phosphorus, Blood 3.5 mg/dL (2.5-4.9); Potassium, Blood 4.4 mmol/L (3.5-5.5); Sodium, Blood 141 mmol/L (136-145)
--- NOTE | 2018-11-12 05:26 | NUR ---
SHIFT SUMMARY: ALEKSANDRA HAS BEEN VERY COOPERATIVE AND ALERT MOST OF THE NIGHT. AFTER NIGHT MEDS HE DECIDED TO PUT HIS CPAP ON AND GO TO BED. HE SLEPT GOOD THROUGHOUT THE NIGHT WITH THE IV INFUSING WITH NO PROBLEMS, UNTIL LAB NEEDED TO BE DRAWN. HE WAS EASILY AWAKENED AND WAS CHANGED BY RN URGENT CARE, AFTER I TROY HIS LABS. HE IS NOW RESTING AGAIN WITH HIS CPAP ON AND IS LOOKING FORWARDS TO WEDNESDAY [place]. WILL REPORT TO DAY SHIFT RN
--- NOTE | 2018-11-12 16:34 | NUR ---
SHIFT SUMMARY NO ACUTE CHANGES. PATIENT MEDICATED X 2 FOR PAIN. DENIES NAUSEA AND SHORTNESS OF BREATH. PATIENT WORKED WITH PT, PT TRANSFERED PATIENT FROM BED TO CHAIR. PATIENT HAD A DIFFICULT TIME GETTING OUT OF CHAIR AND REQUIRED TWO STAFF TO ASSIST HIM BACK TO BED. PATIENT'S IS VERY CONCERNED THAT SHE WILL NOT BE ABLE TO CARE FOR HIM AT HOME AND WANTS TO DISCUSS THIS WITH DOCTOR AND STABLE HELPER. CALL LIGHT IN REACH, WILL CONTINUE TO MONITOR.
--- NOTE | 2018-11-12 22:00 | NUR ---
ASSUMED CARE OF PATIENT. PATIENT WAS ON THE PHONE WITH . HE WAS PLEASANT AND COOPERATIVE. DENIED ANY ACUTE CHANGES THROUGHOUT THE DAY. HE DID GET UP TO CHAIR AND WAS WORRIED DUE TO THE DIFFICULTY OF GETTING BACK UP THAT HIS WILL NOT BE ABLE TO CARE FOR HIM AT HOME, EVEN THE CAREGIVERS, THEY ARE NOT ALLOWED TO LIFT PATIENTS. HE IS LOOKING FORWARD TO BE BACK AT HOME. LUNG SOUNDS WERE CLEAR, DIMINISHED IN BASES, NO CHANGE IN HEART RHYTHEM. ENCOURAGED REPOSITIONING OFTEN TO HELP WITH PREVENTION OF SKIN BREAKDOWN. MEDICATIONS GIVEN PER EMAR. ASSISTED IN GETTING READY FOR BED. TV IS ON AND CALL LIGHT IN REACH. WILL CONTINUE TO MONITOR.
--- NOTE | 2018-11-13 06:08 | NUR ---
SHIFT SUMMARY PT HAD A VERY UNEVENTFUL NIGHT. AFTER MEDS HE SAT IN ROOM WATCHING TV FOR A SHORT PERIOD OF TIME. HAS NO COMPLAINS TO CONCERNS. WENT TO BED AND SLEPT THROUGHOUT THE NIGHT. HE IS SUPPOSE TO GO HOME WITH ON WEDNESDAY BUT HAS CONCERNS ON HOW SHE WILL BE TAKEN CARE OF HIM. WILL PASS THIS ON TO DAY SHIFT IN REPORT.
--- NOTE | 2018-11-13 16:46 | NUR ---
SHIFT SUMMARY NO ACUTE CHANGES. PATIENT MEDIATED X 1 FOR PAIN. PATIENT DENIES NAUSEA AND SHORTNESS OF BREATH. PATIENT A POSSIBLE DISCHARGE TOMORROW. PATIENT MAY DISCHARGE HOME OR TO SNF. PATIENT'S IS VERY CONCERNED SHE WILL NOT BE ABLE TO TRANSFER THE PATIENT. PATIENT'S IS ALSO CONCERNED ABOUT THE PATIENT'S MEBTAL HEALTH, ALTHOUGH HE HAS HAD A PSYCH EVAL SINCE BEING ADMITTED, BECAUSE PER THE , THE PATIENT DOES NOT ALLOW HER TO OPEN THE CURTAINS OR GO OUTSIDE BECAUSE HE BELIEVES SHE IS HAVING AN AFFAIR.
--- NOTE | 2018-11-14 04:53 | NUR ---
JAVA DEVELOPMENT MANAGER ASSESSMENT PT. RESTED COMFORTABLY T/O SHIFT, NO ACUTE CHANGES OVERNIGHT. POSSIBLE D/C WITH HOME HEALTH TODAY. MEDICATIONS TOLERATED WELL THIS EVENING. DENIES ANY PAIN OR DISCOMFORT. PT. ON CPAP, NO APPARENT DISTRESS NOTED. CALL LIGHT WITHIN REACH AND SIDE RAILS UP X 2. WILL CONT TO MONITOR.
--- NOTE | 2018-11-14 14:48 | NUR ---
THIS NURSE SPOKE WITH PATIENT WHO IS CONCERNED ABOUT PATIENT RETURNING HOME. STATES THAT SHE WAS UNABLE TO SET UP HOME HEALTH AND IS UNSURE OF THEIR AVAILABILITY IN COMPARISON TO HIS LEVEL OF CARE NEEDS. THIS WAS PASSED ON TO CARE MANAGEMENT AND CHARGE NURSE. PATIENT IS REQUESTING TO GO HOME AND HAS INCREASING CONFUSION. PATIENT CONTINUES TO REST IN BED THROUGHOUT SHIFT AND NEEDS ASSIST WITH ADLS.
--- NOTE | 2018-11-14 17:46 | NUR ---
NEW ORDERS FOR INSULIN ORDERED AT TIME OF DISCHARGE. UNABLE TO GET NEW INSULIN PRESCRIPTIONS FILLED AT [facility], DR. VAUGHN NOTIFIED, RECIEVED ORDER TO HOLD D/C TILL TOMMORROW MORNING. , MELITA, NOTIFIED.
--- NOTE | 2018-11-14 18:22 | NUR ---
SHIFT SUMMARY: PATIENT HAS BEEN ALERT TO SELF AND SITUATION AT TIMES TODAY HE HAS BEEN EMOTIONAL ABOUT WANTING TO GO HOME AND CONFUSED ABOUT THE DC PLAN EVEN AFTER MULTIPLE ATTEMPTS TO EXPLAIN AND REDIRECT. HAS CALLED MULTIPLE TIMES THROUGHOUT THE DAY RE DC HOME, AFTER STATING THIS MORNING THAT SHE THOUGHT IT WAS BEST FOR PATIENT TO DC TO A SNF SHE CALLED BACK REQUESTING HE COME HOME. CASE MANAGEMENT AND CHARGE NURSE WERE BOTH MADE AWARE. PATIENT C/O PAIN X 1 THIS MORNING AND PAIN MED WAS GIVEN ORDERED. CBGS COVERED WITH SLIDING SCALE ORDERED. PATIENT CONTINUES TO USE CALL LIGHT FOR ASSISTANCE WHEN NEEDED.
--- NOTE | 2018-11-15 07:06 | NUR ---
SHIFT SUMMARY PT CAN GET CONFUSED AT TIMES. SLEEPY LETHARGIC THROUGH NIGHT WORE CPAP. APONTE DRAINING. Q2HR TURNS. CALL LIGHT IN REACH.
--- NOTE | 2018-11-15 09:06 | NUR ---
SPOKE WITH SONIA JEAN BAPTISTE AT [facility], FAX WAS RECIEVED WITH MED REC, D/C SUMMARY, AND PROGRESS NOTES SO THAT MEDICATIONS WILL BE FILLED AT [facility] TODAY. NOTIFIED RN THAT PT/OT NOTES INDICATED THAT PT WILL BENEFIT FROM MECHANICAL LIFT AT HOME, WILL SEND PT/OT NOTES TO [facility] SO THAT LIFT CAN BE OBTAINED FOR IN HOME USE.
--- NOTE | 2018-11-15 10:02 | NUR ---
SPOKE WITH PT'S MELITA IN REGARDS TO RETURNING HOME TODAY. NOTIFIED HER THAT MEDICATIONS HAVE BEEN SENT TO [facility] AND THAT SCHEDULED [facility] BICYCLE RENTAL CLERK AT 1400. FOLLOW UP APPOINTMENT WITH DR. AQUINO 11/21/18 AT 1330.
--- NOTE | 2018-11-15 11:28 | NUR ---
SPOKE WITH Trung ONEIL, RN WITH CASE MANAGEMENT, SHE REPORTED THAT THE CALLED HER AND IS GETTING A RIDE FROM A GRANDDAUGHTER TO PROJECT/PRODUCTION MANAGER IMAGING NEW PRESCRIPTIONS AND [facility] AT 1400. 1400 WAS THE TIME I REPORTED TO THE THAT TRANSPORTAION WAS SET UP FOR RETURN HOME. [facility] CALLED AND TIME PROJECT/PRODUCTION MANAGER IMAGING TIME CHANGED TO 1630.
[2018-11-15] MEDS ORDERED: RISP1 PO (15:51)
[2018-11-15] MEDS ORDERED: Cymbalta20 MG PO (15:53)
[2018-11-15] MEDS ORDERED: Humalog100 UNIT/1 SC (15:57)
[2018-11-15] MEDS ORDERED: PROBIOTIC GOLD1 EACH PO (15:58)
[2018-11-15] MEDS ORDERED: INSULANPEN SC (16:00)
--- NOTE | 2018-11-15 17:35 | NUR ---
PATIENT DCD HOME WITH [facility]. MED REC LIST AND DC PACKET SENT WITH PATIENT INCLUDING INSTRUCTIONS FOR FOLLOW UP APPT AND EDUCATION INFORMATION. ALL BELONGINGS SENT WITH PATIENT. PATIENT STABLE UPON DC.
== END 2018-11-15 17:22 | disposition home or self-care (01) | DRG 871 ==
LOC: ER 18:38 → ICUE 20:09 → ICUW 20:09 → MEDS 20:09 → ICUE 21:17 → PCU 21:32 → ICUE 21:32 → PCU 11-06 14:57 → MEDS 11-09 15:38
PROVIDERS: Emergency Medicine; Internal Medicine; Nurse Practitioner Acute Care; ADMIT Internal Medicine
DX: A41.02 Sepsis due to Methicillin resistant Staphylococcus aureus (principal); J18.9 Pneumonia, unspecified organism; J96.01 Acute respiratory failure with hypoxia; G92 Toxic encephalopathy; N17.9 Acute kidney failure, unspecified; R65.20 Severe sepsis without septic shock; G47.33 Obstructive sleep apnea (adult) (pediatric); Z86.718 Personal history of other venous thrombosis and embolism; G25.81 Restless legs syndrome; I48.2 Chronic atrial fibrillation; K21.9 Gastro-esophageal reflux disease without esophagitis; E78.5 Hyperlipidemia, unspecified; N40.1 Benign prostatic hyperplasia with lower urinary tract symptoms; R33.8 Other retention of urine; R13.10 Dysphagia, unspecified; E83.39 Other disorders of phosphorus metabolism; M10.9 Gout, unspecified
CPT/HCPCS: 36415; 36600; 71045; 74176; 80053; 80069; 80202; 81001; 82533; 82803; 82947; 83605; 83690; 83880; 84145; 84484; 85025; 85027; 87040; 87070; 87077; 87086; 87106; 87186; 87205; 87486; 87581; 87633; 87798; 92526; 92610; 93005; 93010; 94640; 94660; 94762; 96365; 97110; 97163; 97166; 97530; 97535; 99285-25; A9270; C1751; C9113; J0360; J2060; J2185; J2310; J2405; J2543; J3010; J3370; J7030; J7050; J7060; J7512; J7515; J7516

== ENCOUNTER 2018-11-18 23:40 | Observation (INO) | payer MEDICARE, OTHER ==
[~2018-11-18] VITALS: Ht 175.3 cm; Wt 111.1 kg
[~2018-11-18 23:40] MED LIST changes: +B-121000 MC2 PO; +CHOL10002 PO; +Calcium 250+D1 EACH PO; +Cymbalta20 MG PO; +ELIQUIS5 MG PO; +Eucerin Creme454 GM TOP; +FISH OIL 1,001000 MG PO; +FURO20 PO; +Flonase 0.05% N16 GM; +HUMULIN 70100 UNIT/1 SC; +Humalog100 UNIT/1 SC; +INSULANPEN SC; +MUSE1000 MCG UR; +Morphine Sulfat15 MG PO; +NARCAN4 MG; +Omeprazole20 M1 PO; +POTCHL10ER PO; +PROBIOTIC GOLD1 EACH PO; +Pravachol40 MG PO; +RESTORE TEARS30 ML BOTHEYES; +RISEDRONATE SOD35 M1 PO; +RISP1 PO; +Ranitidine HCl300 M1 PO; +Systane Nightt3.5 GM BOTHEYES; +TRIA15CR3 TOP
[2018-11-19] MEDS ORDERED: MUSE1000 MCG UR (00:06)
[2018-11-19] MEDS ORDERED: AZIT250 PO (00:15)
[2018-11-19] MEDS ORDERED: Calcium 250+D1 EACH PO (00:17)
[2018-11-19] MEDS ORDERED: CEFTR1PB (00:18)
[2018-11-19] MEDS ORDERED: CYAN500 PO (00:20)
[2018-11-19] MEDS ORDERED: FISH OIL 1,0001 EAC1 PO (00:24)
[2018-11-19] MEDS ORDERED: DOCU100 PO (00:25)
[2018-11-19] MEDS ORDERED: Flonase 0.05% N16 GM (00:27)
[2018-11-19] MEDS ORDERED: FOLI1 PO (00:28)
[2018-11-19] MEDS ORDERED: FURO40 PO (00:29)
[2018-11-19] MEDS ORDERED: GLIP5 PO (00:31)
[2018-11-19] MEDS ORDERED: Eucerin Creme454 GM (00:33)
[2018-11-19] MEDS ORDERED: MAGOXI400 PO (00:34)
[2018-11-19] MEDS ORDERED: RETAINE MGD EY1 EACH (00:37)
[2018-11-19] MEDS ORDERED: MORP30 PO (00:39)
[2018-11-19] MEDS ORDERED: OMEP20ER PO (00:40)
[2018-11-19] MEDS ORDERED: POTA10T PO (00:41)
[2018-11-19] MEDS ORDERED: RISEDRONATE SOD35 MG PO (00:44)
[2018-11-19] MEDS ORDERED: SENN187 PO (00:45)
[2018-11-19] MEDS ORDERED: Gas Relief 8080 MG PO (00:46)
[2018-11-19] MEDS ORDERED: TRIA15CR3 TOP (00:47)
[2018-11-19 00:59] LABS: Source, Urine Catheter
[2018-11-19 01:02] LABS: BASOPHILS ABSOLUTE AUTO 0.01 K/mm3 (0.00-0.23); BASOPHILS PERCENT AUTO 0 % (0-2); EOSINOPHILS ABSOLUTE AUTO 0.07 K/mm3 (0.00-0.68); EOSINOPHILS PERCENT AUTO 1 % (0-6); Hematocrit 32.9 % (37.0-53.0); Hemoglobin 10.3 g/dL (13.5-17.5); IMMATURE GRAN ABSOLUTE AUTO 0.02 K/mm3 (0.00-0.10); IMMATURE GRAN PERCENT AUTO 0 % (0-1); LYMPHOCYTES ABSOLUTE AUTO 0.88 K/mm3 (0.84-5.20); LYMPHOCYTES PERCENT AUTO 16 % (21-46); MONOCYTES ABSOLUTE AUTO 0.45 K/mm3 (0.16-1.47); MONOCYTES PERCENT AUTO 8 % (4-13); Mean Corpuscular HGB 33.8 pg (26.0-34.0); Mean Corpuscular HGB Conc 31.3 g/dL (31.5-36.5); Mean Corpuscular Volume 108 fL (80-100); Mean Platelet Volume 9.7 fL (9.1-12.4); NEUTROPHILS ABSOLUTE AUTO 3.93 K/mm3 (1.96-9.15); NEUTROPHILS PERCENT AUTO 73 % (41-73); Platelet Count 198 K/mm3 (150-400); RDW Coefficient Variation 13.1 % (11.7-14.2); RDW Standard Deviation 51.7 fL (35.1-46.3); Red Blood Cell Count 3.05 M/mm3 (4.30-5.90); White Blood Cell Count 5.36 K/mm3 (4.00-11.30)
[2018-11-19 01:03] LABS: Bilirubin, Urine Neg (Neg); Blood, Urine 2+ (Neg); Glucose Qualitative, Urine 3+ (Neg); Ketones, Urine Neg (Neg); Leukocyte Esterase, Urine 2+ (Neg); Nitrite, Urine Neg (Neg); Protein, Urine 2+ (Neg); Urobilinogen, Urine 1+ (Normal); pH, Urine 6.5 (5.0-8.0)
[2018-11-19 01:10] LABS: Appearance, Urine Clear (Clear); Color, Urine Yellow (P-Yellow)
[2018-11-19 01:11] LABS: Bacteria Few /hpf; Red Blood Cells, Urine 0-2 /hpf (0-2); Squamous Epithelial Cells Not Seen /hpf (Few); White Blood Cells, Urine 50-100 /hpf (0-5)
[2018-11-19 01:23] LABS: Albumin/Globulin Ratio 0.5 (0.8-1.8); Bilirubin, Total 0.5 mg/dL (0.1-1.0); Bun/Creatinine Ratio 28.2 (12.0-20.0); Calcium, Blood 8.9 mg/dL (8.5-10.1); Creatinine, Blood 1.31 mg/dL (0.60-1.20); Globulin, Blood 4.4 g/dL (2.2-4.0); Potassium, Blood 4.5 mmol/L (3.5-5.5); Total Protein, Blood 6.4 g/dL (6.4-8.2)
[2018-11-19 05:34] LABS: Alanine Aminotransfer (ALT/SGP 27 U/L (12-78); Albumin, Blood 1.8 g/dL (3.4-5.0); Albumin/Globulin Ratio 0.4 (0.8-1.8); Alk Phos 60 U/L (50-136); Anion Gap 5 mmol/L (6-16); Aspartate Aminotrans (AST/SGOT 16 U/L (12-37); Bilirubin, Total 0.6 mg/dL (0.1-1.0); Blood Urea Nitrogen 34 mg/dL (8-24); Bun/Creatinine Ratio 27.9 (12.0-20.0); CO2, Blood 28 mmol/L (21-32); Chloride, Blood 111 mmol/L (98-108); Creatinine, Blood 1.22 mg/dL (0.60-1.20); Globulin, Blood 4.8 g/dL (2.2-4.0); Glomerular Filtration Rate >60 (60-); Glucose, Blood 200 mg/dL (70-99); Potassium, Blood 4.2 mmol/L (3.5-5.5); Sodium, Blood 144 mmol/L (136-145); Total Protein, Blood 6.6 g/dL (6.4-8.2)
[2018-11-19 05:37] LABS: Hematocrit 32.5 % (37.0-53.0); Hemoglobin 10.3 g/dL (13.5-17.5); Mean Corpuscular HGB Conc 31.7 g/dL (31.5-36.5); Mean Platelet Volume 9.7 fL (9.1-12.4); Platelet Count 176 K/mm3 (150-400); RDW Coefficient Variation 13.2 % (11.7-14.2); RDW Standard Deviation 49.7 fL (35.1-46.3); Red Blood Cell Count 3.12 M/mm3 (4.30-5.90); White Blood Cell Count 5.04 K/mm3 (4.00-11.30)
[2018-11-19 05:38] LABS: Mean Corpuscular Volume 104 fL (80-100)
--- NOTE | 2018-11-19 06:29 | NUR ---
NOC SHIFT SUMMARY PT WAS ADMITTED THIS NIGHT FOR UTI AND INCREASING WEAKNESS. [facility]. HE IS VERY SLEEPY AND GRUMPY AND AT TIME OF ADMISSION WANTED TO SLEEP AND WOULD NOT ANSWERE TOO MANY QUESTIONS. HE IS ORIENTED TO SELF AND SITUATION AND DOES ANSWERE QUESTIONS APPROPRIATELY. VSS. 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 PRESENTLY SLEEPING AND APEARS IN NO ACUTE DISTRESS. WILL CONTINUE TO MONITOR.
--- NOTE | 2018-11-19 18:27 | NUR ---
SHIFT SUMMARY 78 YR OLD MALE ADMITTED FOR WEAKNESS AND UTI. FULL CODE. [facility]. NO IV ACCESS NEEDED. PT INGESTS FLUIDS AND FOODS. ROOM AIR. RESPIRATORY PANEL SENT FOR ANALYSIS. LIVES AT HOME WITH . FAMILY STATES THIS PT IS BEYOND THEIR CARE AND NO LONGER SAFE AT HOME, EVEN WITH HOME HEALTH VISITS. HX: HEART TRANSPLANT IN 1993, DVT, PT, DM2, PNEUMONIA, GOUT, HERNIAS, BIPOLAR, AFIB, GERD, USES A CPAP. PT IS ANXIOUS, ACCUSES HIS OF HAVING AFFAIRS, HAS EMOTIONAL OUTBURSTS ABOUT THINGS THAT HIS FAMILY DENIES. CONTACT/DROPLET PRECAUTIONS: MRSA IN SPUTUM, URINE, AND WOUND.
[2018-11-19 18:48] LABS: Adenovirus Not Detected (NOT DETECT); Bordetella pertussis Not Detected (NOT DETECT); Chlamydophila pneumoniae Not Detected (NOT DETECT); Coronavirus 229E Not Detected (NOT DETECT); Coronavirus HKU1 Not Detected (NOT DETECT); Coronavirus NL63 Not Detected (NOT DETECT); Coronavirus OC43 Not Detected (NOT DETECT); Human Metapneumovirus Not Detected (NOT DETECT); Human Rhinovirus/Enterovirus Not Detected (NOT DETECT); Influenza A Not Detected (NOT DETECT); Influenza A/2009-H1 Not Detected (NOT DETECT); Influenza A/H1 Not Detected (NOT DETECT); Influenza A/H3 Not Detected (NOT DETECT); Influenza B Not Detected (NOT DETECT); Mycoplasma pneumoniae Not Detected (NOT DETECT); Parainfluenza Virus 1 Not Detected (NOT DETECT); Parainfluenza Virus 2 Not Detected (NOT DETECT); Parainfluenza Virus 3 Not Detected (NOT DETECT); Parainfluenza Virus 4 Not Detected (NOT DETECT); Respiratory Syncytial Virus Not Detected (NOT DETECT)
[2018-11-20 05:21] LABS: BASOPHILS ABSOLUTE AUTO 0.02 K/mm3 (0.00-0.23); BASOPHILS PERCENT AUTO 0 % (0-2); EOSINOPHILS PERCENT AUTO 2 % (0-6); Hematocrit 30.9 % (37.0-53.0); Hemoglobin 9.9 g/dL (13.5-17.5); IMMATURE GRAN ABSOLUTE AUTO 0.02 K/mm3 (0.00-0.10); IMMATURE GRAN PERCENT AUTO 0 % (0-1); LYMPHOCYTES ABSOLUTE AUTO 1.26 K/mm3 (0.84-5.20); LYMPHOCYTES PERCENT AUTO 23 % (21-46); MONOCYTES ABSOLUTE AUTO 0.33 K/mm3 (0.16-1.47); MONOCYTES PERCENT AUTO 6 % (4-13); Mean Corpuscular Volume 106 fL (80-100); Mean Platelet Volume 9.4 fL (9.1-12.4); NEUTROPHILS ABSOLUTE AUTO 3.72 K/mm3 (1.96-9.15); NEUTROPHILS PERCENT AUTO 68 % (41-73); Platelet Count 213 K/mm3 (150-400); RDW Standard Deviation 50.9 fL (35.1-46.3); Red Blood Cell Count 2.91 M/mm3 (4.30-5.90); White Blood Cell Count 5.45 K/mm3 (4.00-11.30)
[2018-11-20 06:01] LABS: Bun/Creatinine Ratio 24.2 (12.0-20.0); Calcium, Blood 9.3 mg/dL (8.5-10.1); Creatinine, Blood 1.28 mg/dL (0.60-1.20); Potassium, Blood 4.5 mmol/L (3.5-5.5)
--- NOTE | 2018-11-20 06:41 | NUR ---
A+O, distraught over placement and feeling abandonded, call light in reach, no IV, on room air, remains unable to transfer, will provide bsr to returning day nurse
--- NOTE | 2018-11-20 17:05 | NUR ---
SHIFT SUMMARY 78 YR OLD MALE ADMITTED FOR PNUEMONIA/UTI. FULL CODE. [place] [facility]. DROPLET/CONTACT PRECAUTIONS FOR MRSA IN SPUTUM & URINE (11/09). ON TELEMETRY. ROOM AIR. ACHS, LOW SLIDING SCALE. 2 PERSON MAX ASSIST, PT'S LEGS ARE TOO WEAK TO ASSIST WITH TRANSFER. FAMILY STATES THEY ARE UNABLE TO TRANSFER HIM, EVEN W/HOME HEALTH INVOLVED THE PT HAS BEEN BEDRIDDEN. AP[facility] PLACED AT [facility]. CPAP @ PM. PT GOES THROUGH EMOTIONAL EPISODES WHERE HE IMAGINES FAMILY IS ABANDONING HIM OR THAT HIS IS HAVING AN AFFAIR. PT DOES NOT KNOW HIS OWN LIMITATIONS. HE ASSURES HIS HE CAN WALK SO THAT SHE WILL ALLOW HIM TO RETURN HOME, BUT IN HOSPITAL WITH STAFF HE STATES HE CANNOT WALK OR STAND. 2 PERSON PIVOT TRANSFER IS WHAT I WITNESSED TODAY - A VERY WEAK AND SHAKY TRANSFER THAT I FEARED HIS LEGS WOULD BUCKLE. NO IV ACCESS. HX: HEART TRANSPLANT, DVT, PE, DM2, GOUT, HERNIAS, BIPOLAR, AFIB, GERD
--- NOTE | 2018-11-21 07:48 | NUR ---
11/21/18 0630 AWAKENED FOR AM MEDS. DENIES ANY S/S OR DISCOMFORT AT THIS TIME. VITALS STABLE. SLEPT WELL ON CPAP MOST OF NIGHT.
--- NOTE | 2018-11-21 16:54 | NUR ---
PT IS A/OX3, PLEASANT AND COOPERATIVE, THE PT IS UP WITH 2 PERSON ASSIST TO THE CHAIR, THE PT WAS MEDICATED FOR CHRONIC PAIN SCHED, PT DENIES SOB, N/V, PT WAS ASSISTED UP TO THE CHAIR FOR LUNCH TODAY, THE PT WORKED WITH BOTH THE PHYSICAL AND OCCUPATIONAL THERAPIST TODAY, PTS WAS AT THE BEDSIDE T/O THE DAY, CALL LIGHT IN REACH WILL CONTINUE TO MONITOR AND ASSESS FOR CHANGES
--- NOTE | 2018-11-22 07:53 | NUR ---
11/22/18 0600 CPAP ON MOST OF NIGHT. PT HAS BEEN APPROPRIATE THIS SHIFT. VITALS STABLE. REPOSITIONED Q 2 HOURS. APONTE PATENT.
--- NOTE | 2018-11-22 17:42 | NUR ---
[facility] intial visit: Mr. Serrano was sitting in bed, awake and alert. His was at bedside. He told me he is here b/c "I keep getting pneumonia." He is bewildered as to why this keep happening. He states that he has gotten progresively weaker over the past few years and is mostly bedbound. His states that he is going to long-term care b/c she can no longer care for him. At this point, the conversation between pt and , became heated. She states "I can't slate picker up when you fall anymore. I can't change your diaper and bathe you. I'm getting too old to do all that." Benny insists that if he falls "I will just lay on the floor until our care-givers come." tells me they have care-givers for two hours a couple days a week. When she protests this statement, he asked her to go by "an airbed I can roll onto." He appears unreasonable and child-like in his expectations of his . And she is clearly overwhelmed. Neither of them is muslim, but , Jennifer, responded well to emotional affirmation and encouragement. Both state they do not really know what is going on or if POC is progressing. Benny denies pain or needs. I will remain available.
--- NOTE | 2018-11-22 18:35 | NUR ---
SHIFT SUMMARY PATIENT A&O X4. C/O CHRONIC GENERALIZED PAIN T/O THE SHIFT. RN MEDICATED PER Jul, REPOSITIONED, AND PROVIDED WARM BLANKETS. ICE/HEAT WAS OFFERED TO PATIENT NONPHARMACOLOGIC INTERVENTIONS, THESE WERE REFUSED. PATIENT STATES HIS PAIN HAD REMAINED AT A TOLERABLE LEVEL WITH CURRENT PAIN REGIMEN. DENIES ANY SOB OR NAUSEA. CONT PULSE OX IN PLACE, SATS >90% ON RA. APONTE PATENT AND DRAINING. NO ACUTE CHANGES THIS SHIFT. AT THE BEDSIDE T/O SHIFT. RN WILL CONTINUE TO MONITOR.
[2018-11-23 06:11] LABS: BASOPHILS ABSOLUTE AUTO 0.02 K/mm3 (0.00-0.23); BASOPHILS PERCENT AUTO 0 % (0-2); EOSINOPHILS ABSOLUTE AUTO 0.15 K/mm3 (0.00-0.68); EOSINOPHILS PERCENT AUTO 2 % (0-6); Hematocrit 32.1 % (37.0-53.0); Hemoglobin 10.3 g/dL (13.5-17.5); IMMATURE GRAN ABSOLUTE AUTO 0.04 K/mm3 (0.00-0.10); IMMATURE GRAN PERCENT AUTO 1 % (0-1); LYMPHOCYTES PERCENT AUTO 21 % (21-46); MONOCYTES ABSOLUTE AUTO 0.41 K/mm3 (0.16-1.47); MONOCYTES PERCENT AUTO 7 % (4-13); Mean Corpuscular HGB 33.6 pg (26.0-34.0); Mean Corpuscular HGB Conc 32.1 g/dL (31.5-36.5); Mean Corpuscular Volume 105 fL (80-100); Mean Platelet Volume 9.6 fL (9.1-12.4); NEUTROPHILS ABSOLUTE AUTO 4.42 K/mm3 (1.96-9.15); NEUTROPHILS PERCENT AUTO 70 % (41-73); Platelet Count 189 K/mm3 (150-400); RDW Standard Deviation 49.1 fL (35.1-46.3); Red Blood Cell Count 3.07 M/mm3 (4.30-5.90); White Blood Cell Count 6.34 K/mm3 (4.00-11.30)
--- NOTE | 2018-11-23 06:24 | NUR ---
SHIFT SUMMARY NO ACUTE EVENTS NOTED. PATIENT SLEPT WITH CPAP IN PLACE WITH NO S/S OF DISTRESS. PATIENT TOOK MEDS WHOLE WITH APPLESAUCE.
[2018-11-23 06:32] LABS: Bun/Creatinine Ratio 21.5 (12.0-20.0); Calcium, Blood 9.4 mg/dL (8.5-10.1); Creatinine, Blood 1.77 mg/dL (0.60-1.20); Potassium, Blood 4.2 mmol/L (3.5-5.5)
--- NOTE | 2018-11-23 16:49 | NUR ---
SHIFT SUMMARY PT AXO, PLEASANT AND COOPERATIVE WITH CARE THOUGH HAS MOMENTS OF FORGETFULNESS/CONFUSION. STATING HIS IS "HAVING AN AFFAIR" BECAUSE "SHE DOESNT WANT HIM TO COME HOME" VSS. NO ACUTE CHANGES THIS SHIFT. APONTE PATENT AND DRAINING. MEDICATED FOR PAIN PER EMAR THOUGH PT STATES HIS PAIN IS ALWAYS 8-9/10. BED IN LOW POSITION, CALL LIGHT WITHIN REACH. PT CALLS APPROPRIATELY
[2018-11-24 05:51] LABS: BASOPHILS ABSOLUTE AUTO 0.02 K/mm3 (0.00-0.23); BASOPHILS PERCENT AUTO 0 % (0-2); EOSINOPHILS ABSOLUTE AUTO 0.18 K/mm3 (0.00-0.68); EOSINOPHILS PERCENT AUTO 2 % (0-6); Hematocrit 33.6 % (37.0-53.0); Hemoglobin 10.6 g/dL (13.5-17.5); IMMATURE GRAN ABSOLUTE AUTO 0.05 K/mm3 (0.00-0.10); IMMATURE GRAN PERCENT AUTO 1 % (0-1); LYMPHOCYTES ABSOLUTE AUTO 1.19 K/mm3 (0.84-5.20); LYMPHOCYTES PERCENT AUTO 15 % (21-46); MONOCYTES ABSOLUTE AUTO 0.63 K/mm3 (0.16-1.47); MONOCYTES PERCENT AUTO 8 % (4-13); Mean Corpuscular HGB 32.7 pg (26.0-34.0); Mean Corpuscular HGB Conc 31.5 g/dL (31.5-36.5); Mean Corpuscular Volume 104 fL (80-100); Mean Platelet Volume 9.6 fL (9.1-12.4); NEUTROPHILS ABSOLUTE AUTO 5.69 K/mm3 (1.96-9.15); NEUTROPHILS PERCENT AUTO 73 % (41-73); Platelet Count 188 K/mm3 (150-400); RDW Coefficient Variation 13.2 % (11.7-14.2); RDW Standard Deviation 50.1 fL (35.1-46.3); Red Blood Cell Count 3.24 M/mm3 (4.30-5.90); White Blood Cell Count 7.76 K/mm3 (4.00-11.30)
[2018-11-24 06:22] LABS: Bun/Creatinine Ratio 21.8 (12.0-20.0); Calcium, Blood 9.6 mg/dL (8.5-10.1); Creatinine, Blood 1.93 mg/dL (0.60-1.20)
--- NOTE | 2018-11-24 07:20 | NUR ---
a+o, call light in reach, no IV, 2L via nc, still belives is trying to keep him from coming home
--- NOTE | 2018-11-24 18:58 | NUR ---
NO ACUTE CHANGES NOTED THIS SHIFT, WAITING FOR PLACEMENT. WILL CONTINUE TO MONITOR AND REPORT TO ONCOMING RN
--- NOTE | 2018-11-25 11:01 | NUR ---
Initial palliative care consult: Delbert is a 78 year old gentleman who has had four admissions to the hospital recently for infections. His most recent admission was for MRSA pneumonia and sepsis. He has discharged home with his and caregivers and was readmitted with UTI and increasing weakness. Delbert has a history of a heart transplant, PE, DM, bipolar, depression, obesity, sleep apnea, RLS, a-fib, chronic pain, gouty arthritis. He has a chronic indwelling tripp. He is becoming increasing weaker and his is no longer able to care for him at home. He has in home caregivers that come assist with his care a few hours per week. His is unable to pick him up when he falls and is no longer able to manage his increasing care needs. CM is working with Delbert and his for ICF placement. Per progress notes, pt is not wanting to go to ICF, he wants to go home. Attempted to visit with Delbert this morning. He reports that he is tired and doesn't feel like talking this morning. He answers a few brief questions re: symptom management but does not open his eyes to look at this screenplay writer during my visit. He denies and pain, N/V, SOB or other symptoms at this time. Nursing reports that he is fatigued and weak this morning. PC to follow up with pt and his re: advanced care planning and code status discussion when he is more awake and able to participate.
--- NOTE | 2018-11-25 17:30 | NUR ---
SHIFT SUMMARY THE PATIENT PRESENT THIS MORNING WITH VITALS WNL, DIMINISHED LUNG SOUNDS AND A&O TO SELF AND SOME SURROUNDINGS. THE PATIENT ATE HIS BREAKFAST WITH SOME DIFFICULTY AND HIS ACTIONS ERE BROUGHT TO HIS DOCTOR'S ATTENTION. THE DOCTOR STATED THAT THE PATIENT IS GETTING WEAKER. THE PATIENT'S FAMILY CAME INTO SEE THE PATIENT AND STAYED TO TALK WITH NITESH OLIVA. THE PATIENT HAS SLEPT SINCE AND IS NOT WAKABLE AT THIS TIME. WILL CONTNUE TO MONITOR.
--- NOTE | 2018-11-26 05:35 | NUR ---
SHIFT SUMMARY PATIENT RESPONDS TO VERBAL STIMULI. PATIENT HAS A MEPLIX ON COCCYX. BARRIER CREAM ON CHLOE AREA. PATIENT HAS BEEN SLEEP THE ENTIRE SHIFT ONLY WAKES UP FOR SHORT AMOUNTS OF TIME AND QUICKLY FALLS BACK ASLEEP. PM MEDICATIONS HELD LAST NIGHT FOR PATIENT COULD BARELY KEEP HIS EYES OPEN. NO OTHER CHANGES NOTED DURING SHIFT. VITALS STABLE.
[2018-11-26 07:26] LABS: BASOPHILS ABSOLUTE AUTO 0.02 K/mm3 (0.00-0.23); BASOPHILS PERCENT AUTO 0 % (0-2); EOSINOPHILS ABSOLUTE AUTO 0.07 K/mm3 (0.00-0.68); EOSINOPHILS PERCENT AUTO 1 % (0-6); Hematocrit 32.8 % (37.0-53.0); Hemoglobin 10.3 g/dL (13.5-17.5); IMMATURE GRAN ABSOLUTE AUTO 0.04 K/mm3 (0.00-0.10); IMMATURE GRAN PERCENT AUTO 1 % (0-1); LYMPHOCYTES ABSOLUTE AUTO 0.78 K/mm3 (0.84-5.20); LYMPHOCYTES PERCENT AUTO 9 % (21-46); MONOCYTES ABSOLUTE AUTO 0.72 K/mm3 (0.16-1.47); MONOCYTES PERCENT AUTO 9 % (4-13); Mean Corpuscular HGB Conc 31.4 g/dL (31.5-36.5); Mean Corpuscular Volume 105 fL (80-100); Mean Platelet Volume 9.6 fL (9.1-12.4); NEUTROPHILS ABSOLUTE AUTO 6.82 K/mm3 (1.96-9.15); NEUTROPHILS PERCENT AUTO 81 % (41-73); Platelet Count 154 K/mm3 (150-400); RDW Coefficient Variation 13.8 % (11.7-14.2); RDW Standard Deviation 52.4 fL (35.1-46.3); Red Blood Cell Count 3.12 M/mm3 (4.30-5.90); White Blood Cell Count 8.45 K/mm3 (4.00-11.30)
[2018-11-26 07:38] LABS: Bun/Creatinine Ratio 28.4 (12.0-20.0); Calcium, Blood 10.3 mg/dL (8.5-10.1); Creatinine, Blood 1.83 mg/dL (0.60-1.20); Magnesium, Blood 1.9 mg/dL (1.6-2.4); Potassium, Blood 4.5 mmol/L (3.5-5.5)
--- NOTE | 2018-11-26 17:31 | NUR ---
SHIFT SUMMARY THE PATIENT AWOKE THIS MORNING AROUND 0740 AND HAS BEEN AWAKE ALL SHIFT. THE PATIENT PRESENTED THIS MORNING A&O X3, WITH VITALS WNL AND WITH DIMINISHED LUNG SOUNDS. THE PATIENT TOOK ALL HIS MEDICATIONS WITH APPLE SAUSE AND ATE ALL OF HIS MEALS. THE PATIENT'S SPOUSE WAS IN TO VISIT THE PATIENT AT MIDSHIFT FOR SEVERAL HOURS. THE IS RESTING AT THIS TIME, WILL CONTINUE TO MONITOR.
--- NOTE | 2018-11-27 05:55 | NUR ---
SHIFT SUMMARY PATIENT IS ALERT AND TALKING WITH STAFF. PATIENT ON ROOM AIR WHILE AWAKE. USES CPAP AT NIGHT. TOOK ALL PM MEDICATIONS WELL. PATIENT DID WAKE UP WITH INCREASED CONFUSION TAKING OFF HIS CONTINUOUS PULSE OX AND CPAP. ALSO SAID RANDOM THINGS TO THE ROLLS BAKER ABOUT HAVING JUST BOUGHT A CAR AND CALLING HER RANDOM NAMES. PATIENT WAS REDIRECTABLE AND PLACED CPAP BACK ON. PULSE OX RECONNECTED. PATIENT FELL ASLEEP AND SLEPT WELL. VITALS STABLE.
[2018-11-27 13:15] LABS: Source, Urine Catheter
[2018-11-27 13:20] LABS: Bilirubin, Urine Neg (Neg); Blood, Urine 2+ (Neg); Glucose Qualitative, Urine 3+ (Neg); Ketones, Urine Neg (Neg); Leukocyte Esterase, Urine 3+ (Neg); Nitrite, Urine Neg (Neg); Protein, Urine 2+ (Neg); Urobilinogen, Urine NORM (Normal)
[2018-11-27 13:29] LABS: Appearance, Urine Hazy (Clear); Color, Urine Pale Yellow (P-Yellow)
[2018-11-27 13:30] LABS: White Blood Cells, Urine 50-100 /hpf (0-5); Yeast/Fungi Urine Many /hpf
[2018-11-27 13:31] LABS: Bacteria Few /hpf; Squamous Epithelial Cells Not Seen /hpf (Few)
--- NOTE | 2018-11-27 16:58 | NUR ---
SHIFT SUMMARY PATIENT A&O X2. INTERMITTENT CONFUSION T/O SHIFT. C/O CHRONIC GENERALIZED PAIN THIS SHIFT AND PAIN TO RIGHT KNEE. CPAP ON T/O SHIFT WHILE ASLEEP. PATIENT TACHYCARDIC THIS SHIFT, DR. FLEMING AWARE. UA SENT. APONTE PATENT/DRAINING. BEDREST, Q2 REPOSITION. NO ACUTE CHANGES THIS SHIFT. RN WILL CONTINUE TO MONITOR.
[2018-11-27] MEDS ORDERED: Eucerin Creme454 GM TOP (22:32)
[2018-11-27] MEDS ORDERED: Artificial Tea1 EACH BOTHEYES (22:46)
[2018-11-28 04:48] LABS: BASOPHILS ABSOLUTE AUTO 0.02 K/mm3 (0.00-0.23); BASOPHILS PERCENT AUTO 0 % (0-2); EOSINOPHILS ABSOLUTE AUTO 0.04 K/mm3 (0.00-0.68); EOSINOPHILS PERCENT AUTO 1 % (0-6); Hematocrit 31.2 % (37.0-53.0); Hemoglobin 9.9 g/dL (13.5-17.5); IMMATURE GRAN ABSOLUTE AUTO 0.04 K/mm3 (0.00-0.10); IMMATURE GRAN PERCENT AUTO 1 % (0-1); LYMPHOCYTES ABSOLUTE AUTO 0.85 K/mm3 (0.84-5.20); LYMPHOCYTES PERCENT AUTO 12 % (21-46); MONOCYTES ABSOLUTE AUTO 0.78 K/mm3 (0.16-1.47); MONOCYTES PERCENT AUTO 11 % (4-13); Mean Corpuscular HGB 32.9 pg (26.0-34.0); Mean Corpuscular HGB Conc 31.7 g/dL (31.5-36.5); Mean Corpuscular Volume 104 fL (80-100); Mean Platelet Volume 9.8 fL (9.1-12.4); NEUTROPHILS ABSOLUTE AUTO 5.38 K/mm3 (1.96-9.15); NEUTROPHILS PERCENT AUTO 76 % (41-73); Platelet Count 169 K/mm3 (150-400); RDW Coefficient Variation 13.7 % (11.7-14.2); RDW Standard Deviation 51.8 fL (35.1-46.3); Red Blood Cell Count 3.01 M/mm3 (4.30-5.90); White Blood Cell Count 7.11 K/mm3 (4.00-11.30)
[2018-11-28 05:07] LABS: Anion Gap 6 mmol/L (6-16); Blood Urea Nitrogen 57 mg/dL (8-24); CO2, Blood 29 mmol/L (21-32); Calcium, Blood 10.1 mg/dL (8.5-10.1); Chloride, Blood 103 mmol/L (98-108); Glomerular Filtration Rate 37 (60-); Glucose, Blood 221 mg/dL (70-99); Potassium, Blood 4.1 mmol/L (3.5-5.5); Sodium, Blood 138 mmol/L (136-145)
--- NOTE | 2018-11-28 06:08 | NUR ---
SHIFT SUMMARY PATIENT IS ALERT AND TALKS TO STAFF. PATIENT WAS A LITTLE MORE TIRED THIS SHIFT COMPARED TO YESTRDAY. HOWEVER HE WAS AWAKE ENOUGH TO TAKE PILLS AND TALK TO STAFF. PATIENT SLEPT THROUGHOUT THE NIGHT. NO NEW CHANGES NOTED. CPAP ON, CONTINUOUS PULSE OXIMETER ON.
[2018-11-28] MEDS ORDERED: INSULIN LI100 UNIT/2 SC (12:10)
[2018-11-28] MEDS ORDERED: COLCRYS0.6 MG PO (13:07)
--- NOTE | 2018-11-28 14:13 | NUR ---
patient discharged to [facility]. CPAP HOME WITH . REPORT GIVEN TO [facility] NURSE. CHUCKS CHANGED PRIOR TO DISCHARGE. DISCHARGED WITH APONTE INTACT. NO ACUTE ISSUES NOTED UPON TRANSFER.
== END 2018-11-28 14:45 ==
LOC: ER 23:40 → MEDS 23:41 → ER 11-19 04:02 → MEDS 11-19 04:02 → ER 11-19 23:41 → MEDS 11-21 16:24 → ENPENDDIS 11-28 12:51 → MEDS 11-28 14:45
PROVIDERS: Emergency Medicine; Internal Medicine; ADMIT Internal Medicine
DX: N39.0 Urinary tract infection, site not specified (principal); G93.40 Encephalopathy, unspecified; E86.0 Dehydration; E11.65 Type 2 diabetes mellitus with hyperglycemia; S32.009A Unspecified fracture of unspecified lumbar vertebra, initial encounter for closed fracture; M48.00 Spinal stenosis, site unspecified; Z74.09 Other reduced mobility; I48.2 Chronic atrial fibrillation; I50.32 Chronic diastolic (congestive) heart failure; F31.9 Bipolar disorder, unspecified; G47.33 Obstructive sleep apnea (adult) (pediatric); E78.5 Hyperlipidemia, unspecified; E66.01 Morbid (severe) obesity due to excess calories; Z94.1 Heart transplant status; Z99.89 Dependence on other enabling machines and devices; Z86.711 Personal history of pulmonary embolism; Z79.899 Other long term (current) drug therapy; Z79.01 Long term (current) use of anticoagulants; Z79.4 Long term (current) use of insulin; Z79.52 Long term (current) use of systemic steroids; Z88.8 Allergy status to other drugs, medicaments and biological substances; Z88.1 Allergy status to other antibiotic agents; Z91.041 Radiographic dye allergy status; Z88.6 Allergy status to analgesic agent
CPT/HCPCS: 36415; 71045; 80048; 80053; 80069; 81001; 82947; 83735; 84145; 85025; 85027; 87086; 87486; 87581; 87633; 87798; 94660; 94762; 97110; 97162; 97166; 97530; 97535; 99285-25; A9270; G0378; J0696; J1650; J1815; J7030; J7512; J7515

== ENCOUNTER 2018-12-18 12:35 | Emergency (ER) | payer MEDICARE, OTHER ==
[~2018-12-18] VITALS: Ht 165.1 cm; Wt 98.0 kg
[~2018-12-18 12:35] MED LIST changes: +AZIT250 PO; +Artificial Tea1 EACH BOTHEYES; +CEFTR1PB; +CYAN500 PO; +Eucerin Creme454 GM; +FISH OIL 1,0001 EAC1 PO; +Gas Relief 8080 MG PO; +INSULIN LI100 UNIT/2 SC; +POTA10T PO; +RETAINE MGD EY1 EACH; +RISEDRONATE SOD35 MG PO
[2018-12-18 13:45] LABS: Calcium, Ionized (POC) 1.09 mmol/L (1.10-1.46); Chloride (POC) 95 mmol/L (98-108); Creatinine (POC) 1.9 mg/dL (0.8-1.3); Glucose (ISTAT POC) 326 mg/dL (70-99); Hemoglobin (POC) 10.9 g/dL (13.5-17.5); Potassium (POC) 4.2 mmol/L (3.5-5.5); Sodium (POC) 134 mmol/L (135-148); Total CO2 (POC) 30 mmol/L (21-32)
== END 2018-12-18 14:25 | disposition home or self-care (01) ==
LOC: ER 12:35
PROVIDERS: Emergency Medicine
DX: R41.82 Altered mental status, unspecified (principal); T40.2X5A Adverse effect of other opioids, initial encounter; Z91.041 Radiographic dye allergy status; Z88.8 Allergy status to other drugs, medicaments and biological substances; Z88.1 Allergy status to other antibiotic agents; Z88.6 Allergy status to analgesic agent; Z79.899 Other long term (current) drug therapy; Z79.52 Long term (current) use of systemic steroids; Z79.891 Long term (current) use of opiate analgesic; Z79.4 Long term (current) use of insulin; E11.9 Type 2 diabetes mellitus without complications; Z87.891 Personal history of nicotine dependence
CPT/HCPCS: 36415; 80047; 85014; 99284

== ENCOUNTER → 2018-12-20 | Outpatient (CLI) | payer MEDICARE, OTHER ==
[~2018-12-20] MED LIST changes: +ACET325 PO; +ALBU2.5V5 INH; +BISA10S PR; +CVS DISPOSABLE399 ML PR; +FERSU300 PO; +Fruity C250 MG PO; +LEVOFLOXACIN250 MG PO; +Laxative Suppos10 MG PR; +MELATONIN5 M1 PO; +Milk Of Ma400 MG/5 M PO; +TRAM50 PO; +Triamcinolone A15 G3 TOP
== END | disposition home or self-care (01) ==
LOC: EDSTATUS 15:32 → LAB RH 16:16
DX: T81.30XA Disruption of wound, unspecified, initial encounter (principal)
CPT/HCPCS: 87070; 87205

== ENCOUNTER → 2018-12-21 | Outpatient (CLI) | payer MEDICARE, OTHER | END | disposition home or self-care (01) | LOC: LAB RH 08:10 → EDSTATUS 15:34 | DX: J18.9 Pneumonia, unspecified organism (principal); B95.62 Methicillin resistant Staphylococcus aureus infection as the cause of diseases classified elsewhere | CPT/HCPCS: 87070; 87077; 87147; 87186; 87205 ==

== ENCOUNTER 2018-12-22 18:09 | Inpatient (IN) | payer MEDICARE, OTHER ==
[~2018-12-22] VITALS: Ht 175.3 cm; Wt 97.6 kg
[~2018-12-22 18:09] MED LIST changes: -ACET325 PO; -ALBU2.5V5 INH; -BISA10S PR; -CVS DISPOSABLE399 ML PR; -FERSU300 PO; -Fruity C250 MG PO; -LEVOFLOXACIN250 MG PO; -Laxative Suppos10 MG PR; -MELATONIN5 M1 PO; -Milk Of Ma400 MG/5 M PO; -TRAM50 PO; -Triamcinolone A15 G3 TOP
[2018-12-22 18:31] LABS: Source, Urine Clean Catch
[2018-12-22 18:35] LABS: Bilirubin, Urine Neg (Neg); Blood, Urine 5+ (Neg); Glucose Qualitative, Urine 2+ (Neg); Ketones, Urine Neg (Neg); Leukocyte Esterase, Urine 3+ (Neg); Nitrite, Urine Neg (Neg); Protein, Urine 3+ (Neg); Urobilinogen, Urine NORM (Normal)
[2018-12-22 18:40] LABS: BASOPHILS ABSOLUTE AUTO 0.02 K/mm3 (0.00-0.23); BASOPHILS PERCENT AUTO 0 % (0-2); EOSINOPHILS ABSOLUTE AUTO 0.03 K/mm3 (0.00-0.68); EOSINOPHILS PERCENT AUTO 0 % (0-6); Hematocrit 38.3 % (37.0-53.0); Hemoglobin 12.1 g/dL (13.5-17.5); IMMATURE GRAN ABSOLUTE AUTO 0.05 K/mm3 (0.00-0.10); IMMATURE GRAN PERCENT AUTO 1 % (0-1); LYMPHOCYTES ABSOLUTE AUTO 1.53 K/mm3 (0.84-5.20); LYMPHOCYTES PERCENT AUTO 15 % (21-46); MONOCYTES PERCENT AUTO 7 % (4-13); Mean Corpuscular HGB 33.3 pg (26.0-34.0); Mean Corpuscular HGB Conc 31.6 g/dL (31.5-36.5); Mean Corpuscular Volume 106 fL (80-100); Mean Platelet Volume 9.6 fL (9.1-12.4); NEUTROPHILS ABSOLUTE AUTO 8.08 K/mm3 (1.96-9.15); NEUTROPHILS PERCENT AUTO 78 % (41-73); Platelet Count 163 K/mm3 (150-400); RDW Coefficient Variation 14.7 % (11.7-14.2); RDW Standard Deviation 57.7 fL (35.1-46.3); Red Blood Cell Count 3.63 M/mm3 (4.30-5.90); White Blood Cell Count 10.41 K/mm3 (4.00-11.30)
[2018-12-22] MEDS ORDERED: Laxative Suppos10 MG PR (18:44)
[2018-12-22] MEDS ORDERED: FOLI1 PO (18:45)
[2018-12-22 18:46] LABS: Appearance, Urine Cloudy (Clear); Color, Urine Yellow (P-Yellow)
[2018-12-22 18:47] LABS: Bacteria Many /hpf; Calcium Oxalate Crystals Few /hpf; Squamous Epithelial Cells Not Seen /hpf (Few)
[2018-12-22] MEDS ORDERED: ACET325 PO (18:53)
[2018-12-22 18:59] LABS: Albumin, Blood 2.3 g/dL (3.4-5.0); Albumin/Globulin Ratio 0.4 (0.8-1.8); Bilirubin, Total 1.5 mg/dL (0.1-1.0); Calcium, Blood 9.4 mg/dL (8.5-10.1); Creatinine, Blood 1.64 mg/dL (0.60-1.20); Globulin, Blood 5.4 g/dL (2.2-4.0); Potassium, Blood 4.5 mmol/L (3.5-5.5); Total Protein, Blood 7.7 g/dL (6.4-8.2)
--- NOTE | 2018-12-23 02:41 | NUR ---
ADMISSION: PATIENT ARRIVED TO [facility] VIA GURNEY FROM ER, PATIENT ABLE TO ANSWER QUESTIONS INTERMITTENTLY. PATIENT AWARE OF SELF AND LOCATION BUT NOT DATE OR EVENT. PATIENT UNABLE TO AMBULATE OR ASSIST WITH MOVEMENT, TRANSFERRED TO BED BY STAFF WITH A SLIDE SHEET. PATIENT ADMISSION DIFFICULT PATIENT WOULD ANSWER SOME QUESTIONS AND THEN NOT UNDERSTAND OTHER QUESTIONS, PATIENT WOULD DRIFT OFF TO SLEEP FREQUENTLY. [facility] RECORDS USED TO COMPLETED ADMISSION. PATIENT FAILED SWALLOW SCREEN DUE TO LETHARGY AND INABILITY TO FOLLOW ALL COMMANDS, MEDICATION HELD DUE TO RISK OF ASPIRATION.
[2018-12-23 04:02] LABS: Bun/Creatinine Ratio 28.5 (12.0-20.0); Calcium, Blood 8.9 mg/dL (8.5-10.1); Creatinine, Blood 1.58 mg/dL (0.60-1.20); Potassium, Blood 3.5 mmol/L (3.5-5.5)
--- NOTE | 2018-12-23 05:36 | NUR ---
SHIFT SUMMARY: PATIENT SLEPT THE MAJORITY OF THE SHIFT, WAKENS EASILY WITH VERBAL STIMULI BUT FALLS ASLEEP VERY QUICKLY. VSS, BED ALARM ON WITH BED LOW AND LOCKED, CALL LIGHT WITHIN REACH AND CPAP IN PLACE WHILE SLEEPING
--- NOTE | 2018-12-23 08:00 | NUR ---
PT LAYING IN BED WITH EYES OPEN, ANSWERS SOME QUESTIONS, FOLLOWS COMMANDS, DOESN'T REMEMBER BEING BROUGHT TO HOSP. LUNGS ARE DIM IN BASES, CLEAR IN UPPERS, RESP EVEN AND UNLABORD, IS CURRENTLY ON 3 LITERS 02 VIA N/C, NO COUGH NOTED, HRR, RUNNING ST WITH A BBB, NO EDEMA NOTED, PPP +1, CAP REFILL <3SEC, VS STABLE, AFEBRILE, IV SITE IS CLEAR AND PATENT, BTX4, ABD LARGE SOFT NONTENDER, HAS A CHRONIC APONTE CATH DRAINING JANICE URINE, SKIN HAS A SMALL SORE TO HIS SCROTUM, AND PINK BOTTOM, MEPILEX WILL BE APPLIED, HENRY MENG, IS A TWO PERSON HEAVY TRANSFER TO CHAIR IF HE GETS UP, CALL LIGHT IN REACH.
[2018-12-23 10:44] LABS: PCO2 Arterial 43.6 mmHg (35-45); PO2 Arterial 47.5 mmHg (80-100)
--- NOTE | 2018-12-23 14:53 | NUR ---
PT HAD A LARGE BM HE WAS CHANGED AND CLEANED UP. IN ROOM. FED HIMSELF LUNCH. CLEAN MEPILEX PLACED TO COCCYX. CALL LIGHT IN REACH.
--- NOTE | 2018-12-23 18:02 | NUR ---
pt watching tv, no complaints, he is much more awake than this am. no acute changes this shift, call light in reach.
[2018-12-24 03:59] LABS: BASOPHILS ABSOLUTE AUTO 0.02 K/mm3 (0.00-0.23); BASOPHILS PERCENT AUTO 0 % (0-2); EOSINOPHILS ABSOLUTE AUTO 0.11 K/mm3 (0.00-0.68); EOSINOPHILS PERCENT AUTO 1 % (0-6); Hematocrit 34.7 % (37.0-53.0); Hemoglobin 10.9 g/dL (13.5-17.5); IMMATURE GRAN ABSOLUTE AUTO 0.03 K/mm3 (0.00-0.10); IMMATURE GRAN PERCENT AUTO 0 % (0-1); LYMPHOCYTES PERCENT AUTO 14 % (21-46); MONOCYTES ABSOLUTE AUTO 0.78 K/mm3 (0.16-1.47); MONOCYTES PERCENT AUTO 8 % (4-13); Mean Corpuscular HGB 32.6 pg (26.0-34.0); Mean Corpuscular HGB Conc 31.4 g/dL (31.5-36.5); Mean Corpuscular Volume 104 fL (80-100); Mean Platelet Volume 9.5 fL (9.1-12.4); NEUTROPHILS ABSOLUTE AUTO 7.66 K/mm3 (1.96-9.15); NEUTROPHILS PERCENT AUTO 77 % (41-73); Platelet Count 148 K/mm3 (150-400); RDW Coefficient Variation 15.1 % (11.7-14.2); RDW Standard Deviation 57.2 fL (35.1-46.3); Red Blood Cell Count 3.34 M/mm3 (4.30-5.90)
[2018-12-24 04:15] LABS: Albumin, Blood 2.1 g/dL (3.4-5.0); Anion Gap 5 mmol/L (6-16); Blood Urea Nitrogen 47 mg/dL (8-24); Bun/Creatinine Ratio 27.6 (12.0-20.0); CO2, Blood 33 mmol/L (21-32); Calcium, Blood 9.3 mg/dL (8.5-10.1); Chloride, Blood 101 mmol/L (98-108); Glomerular Filtration Rate 42 (60-); Glucose, Blood 162 mg/dL (70-99); Phosphorus, Blood 2.9 mg/dL (2.5-4.9); Potassium, Blood 3.7 mmol/L (3.5-5.5); Sodium, Blood 139 mmol/L (136-145)
--- NOTE | 2018-12-24 05:09 | NUR ---
SHIFT SUMMARY: PATIENT SLEPT WELL THIS SHIFT, LESS FIDGITING AND AGGITATION, KEPT CPAP ON ALL SHIFT. VSS, CALL LIGHT WIHTIN REACH, BED LOW AND LOCKED WITH EXIT ALARM ON.
--- NOTE | 2018-12-24 08:14 | NUR ---
pt laying in bed with cpap in place, very sleepy this am, Dr. Castillo in room to see him, opens eyes, but returns to sleep, lungs are clear in upper tee, but dim t/o, resp even and unlabored, no cough noted, hrr, tele in place running st with bbb, no edema noted, ppp+1, cap refill<3sec, vs stable, afebrile, iv site is clear and patent, btx4, abd round soft nontender, voids via chronic tripp cath, skin has sore to coccyx and scrotum, moves upper ext, but legs are very weak, is a max assist to chair when he is well, fermin, call light in reach.
--- NOTE | 2018-12-24 13:30 | NUR ---
pt laying in bed awake watching tv. in to visit, tells this nurse that his tripp is backing up and hurting him. assessed tubing there are no kinks and seems to be draining, did a bladder scan with 82 mls in bladder, his reports a nurse at the [facility] changes the tripp, and was done on the of last month, will change it and send another u/a. call light in reach.
[2018-12-24 14:27] LABS: Source, Urine Catheter
[2018-12-24 14:30] LABS: Bilirubin, Urine Neg (Neg); Blood, Urine 5+ (Neg); Glucose Qualitative, Urine 4+ (Neg); Ketones, Urine Neg (Neg); Leukocyte Esterase, Urine 3+ (Neg); Nitrite, Urine Neg (Neg); Protein, Urine 2+ (Neg); Specific Gravity, Urine 1.005 (1.003-1.022); Urobilinogen, Urine 1+ (Normal)
[2018-12-24 14:37] LABS: Appearance, Urine Cloudy (Clear); Color, Urine Yellow (P-Yellow)
[2018-12-24 14:38] LABS: Bacteria Many /hpf; White Blood Cells, Urine TNTC /hpf (0-5)
[2018-12-24 14:39] LABS: Squamous Epithelial Cells Few /hpf (Few)
--- NOTE | 2018-12-24 18:31 | NUR ---
changed tripp this afternoon and sent a u/a, urine is not as turbid as it was with old tripp. he states it feels better at this time. tripp that was placed is a 16f same as what was removed, pt tolerated well, turbid yellow urine returned, but is clearing. pt states he had a reaction to iodine for a ct scan, this was placed on his allergy list, no further changes this shift, call light in reach.
[2018-12-25 03:57] LABS: BASOPHILS ABSOLUTE AUTO 0.02 K/mm3 (0.00-0.23); BASOPHILS PERCENT AUTO 0 % (0-2); EOSINOPHILS ABSOLUTE AUTO 0.12 K/mm3 (0.00-0.68); EOSINOPHILS PERCENT AUTO 2 % (0-6); Hematocrit 31.7 % (37.0-53.0); IMMATURE GRAN ABSOLUTE AUTO 0.03 K/mm3 (0.00-0.10); IMMATURE GRAN PERCENT AUTO 0 % (0-1); LYMPHOCYTES ABSOLUTE AUTO 1.57 K/mm3 (0.84-5.20); LYMPHOCYTES PERCENT AUTO 20 % (21-46); MONOCYTES ABSOLUTE AUTO 0.62 K/mm3 (0.16-1.47); MONOCYTES PERCENT AUTO 8 % (4-13); Mean Corpuscular HGB 33.7 pg (26.0-34.0); Mean Corpuscular HGB Conc 31.5 g/dL (31.5-36.5); Mean Corpuscular Volume 107 fL (80-100); Mean Platelet Volume 9.8 fL (9.1-12.4); NEUTROPHILS ABSOLUTE AUTO 5.69 K/mm3 (1.96-9.15); NEUTROPHILS PERCENT AUTO 71 % (41-73); Platelet Count 162 K/mm3 (150-400); RDW Coefficient Variation 14.8 % (11.7-14.2); RDW Standard Deviation 58.5 fL (35.1-46.3); Red Blood Cell Count 2.97 M/mm3 (4.30-5.90); White Blood Cell Count 8.05 K/mm3 (4.00-11.30)
[2018-12-25 04:13] LABS: Anion Gap 5 mmol/L (6-16); Blood Urea Nitrogen 40 mg/dL (8-24); Bun/Creatinine Ratio 25.6 (12.0-20.0); CO2, Blood 32 mmol/L (21-32); Calcium, Blood 9.6 mg/dL (8.5-10.1); Chloride, Blood 102 mmol/L (98-108); Creatinine, Blood 1.56 mg/dL (0.60-1.20); Glomerular Filtration Rate 46 (60-); Glucose, Blood 149 mg/dL (70-99); Potassium, Blood 3.7 mmol/L (3.5-5.5); Sodium, Blood 139 mmol/L (136-145)
--- NOTE | 2018-12-25 04:28 | NUR ---
SHIFT SUMMARY: PATIENT STILL TIRED BUT AROUSES WITH SPEECH AND ABLE TO STAY AWAKE LONGER, HOWEVER HE DOES NOT REMEMBER WHY HE IS HERE AND ASKS EVERY FEW HOURS EVEN THOUGH HE HAS BEEN ANSWERED. VSS, CALL LIGHT WITHIN REACH, BED LOW AND LOCKED WITH EXIT ALARM ON.
--- NOTE | 2018-12-25 06:28 | NUR ---
APPROX 0600 PATIENT REFUSED TURN
--- NOTE | 2018-12-25 09:07 | NUR ---
AM NOTE. ASSUMED CARE OF PT APROX 0700, PT IS A&Ox4 AT THIS TIME, PT'S CONFUSION HAS GREATLY IMPROVED, PT IS VERY ALERT AND AWAKE AT THIS TIME WELL. PT DENIES PAIN. PT'S VSS, L/S DIM IN THE UPPER LOBES AND CRACKELS NOTED IN THE BOTTOM LOBES, PT IS ON 3L NC WITH O2 SATS >90%, PT STATS THAT HE DOESN'T NORMALLY WEAR HIS O2 DURING THE DAY, HOWVERE WHEN HIS O2 WAS TAKEN OFF HIS SATS DROPPED DOWN TO 85% ON RA. WILL CONTINUE TO TITRATE PT TOLERATES. BT PRESENT IN ALL QUADRANTS, ABD IS SOFT AND NONTENDER TO PALP. NO EDEMA IS NOTED ON ASSESSMENT. WILL CONTINUE TO MONITOR.
--- NOTE | 2018-12-25 18:48 | NUR ---
SHIFT SUMMARY. NO ACUTE CHANGES NOTED THIS SHIFT. PT'S VSS, PT DENIES PAIN AT THIS TIME. PT WORKED WITH PT AND GOT UP INTO THE CHAIR FOR LUNCH. PT IS MAX ASSIST BACK TO BED. PT HAD 1 MOMENT OF CONFUSION/FORGETFULLNESS TODAY BUT THE REST OF THE DAY HE HAS BEEN A&Ox4. CALL LIGHT IN REACH, BED IS LOCKED AND LOW WILL CONTINUE TO MONITOR UNTIL REPORT IS GIVEN TO ONCOMING RN.
--- NOTE | 2018-12-26 06:21 | NUR ---
SHIFT SUMMARY PT IS A 78 Y/O MALE, ADMITTED FOR A MORPHINE OVERDOSE. HE IS A&O X 3, THOUGH OCCASIONALLY FORGETFUL. PT WAS MEDICATED ONCE WITH PRN TYLENOL FOR A HEADACHE. NO COMPLAINTS OF NAUSEA OR SOB. PT STATES HE ONLY SLEPT FOR "15-20 MINUTES" DURING THE NIGHT. VITALS REMAINED STABLE. NO OTHER ACUTE CHANGES IN PT CONDITION NOTED. WILL CONTINUE TO MONITOR AND TREAT PER EMAR UNTIL HAND OFF TO DAY SHIFT RN.
--- NOTE | 2018-12-26 08:36 | NUR ---
AM NOTE. ASSUMED CARE OF PT APROX 0700, PT IS A&Ox4 WITH SOME CONFUSION AT TIMES. FOR EXAMPLE, PT WAS GIVEN HIS AM PILLS IN APPLE SAUCE, PT ASKED: "WHAT KIND OF CEREAL IS THIS? ITS PRETTY COLORFUL." IT WAS EXPLAINED TO PT THAT IT WAS HIS PILLS AND NOT A BREAKFAST CEREAL. PT WAS ABLE TO STATE THE DATE,WHERE HE WAS AND THE PRESIDENT THIS MORNING. PT'S VS STABLE AT THIS TIME. PT IS EAGER TO GO BACK TO [facility] TO GET REHAB DONE SO HE CAN "GO HOME." THE PLAN IS TO D/C PT TO [facility] TODAY IF A BED IS AVAILABLE. CALL LIGHT IN REACH, BED IS LOCKED AND LOW WILL CONTINUE TO MONITOR.
[2018-12-26] MEDS ORDERED: MELATONIN5 M1 PO (16:02)
[2018-12-26] MEDS ORDERED: ALBU2.5V5 INH (16:02)
[2018-12-26] MEDS ORDERED: LEVOFLOXACIN250 MG PO (16:03)
[2018-12-26] MEDS ORDERED: TRAM50 PO (16:05)
== END 2018-12-26 15:50 | DRG 917 ==
LOC: ER 18:09 → PCU 18:10
PROVIDERS: Emergency Medicine; Family Medicine; ADMIT Internal Medicine
DX: T40.2X1A Poisoning by other opioids, accidental (unintentional), initial encounter (principal); J96.01 Acute respiratory failure with hypoxia; G92 Toxic encephalopathy; A41.52 Sepsis due to Pseudomonas; R65.20 Severe sepsis without septic shock; T83.511A Infection and inflammatory reaction due to indwelling urethral catheter, initial encounter; Z94.1 Heart transplant status; R44.3 Hallucinations, unspecified; Z86.718 Personal history of other venous thrombosis and embolism; G47.33 Obstructive sleep apnea (adult) (pediatric); I48.2 Chronic atrial fibrillation; E78.5 Hyperlipidemia, unspecified; M10.9 Gout, unspecified; G25.81 Restless legs syndrome; Z79.4 Long term (current) use of insulin; N18.3 Chronic kidney disease, stage 3 (moderate); E11.22 Type 2 diabetes mellitus with diabetic chronic kidney disease; I95.9 Hypotension, unspecified; K21.9 Gastro-esophageal reflux disease without esophagitis; E11.622 Type 2 diabetes mellitus with other skin ulcer; L89.152 Pressure ulcer of sacral region, stage 2
CPT/HCPCS: 36415; 36600; 70450; 71045; 71046; 80048; 80053; 80069; 81001; 82803; 82947; 83036; 83605; 84145; 85025; 87040; 87077; 87086; 87186; 93005; 93010; 94660; 94762; 96361; 96374; 96375; 97110; 97161; 97165; 97530; 99285-25; A9270; G0378; J0692; J0696; J1630; J1815; J2250; J7030; J7050; J7512; J7515

== ENCOUNTER → 2019-01-01 | Outpatient (CLI) | payer MEDICARE, OTHER ==
[~2019-01-01] MED LIST changes: +ACET325 PO; +ALBU2.5V5 INH; +BISA10S PR; +CVS DISPOSABLE399 ML PR; +FERSU300 PO; +Fruity C250 MG PO; +LEVOFLOXACIN250 MG PO; +Laxative Suppos10 MG PR; +MELATONIN5 M1 PO; +Milk Of Ma400 MG/5 M PO; +TRAM50 PO; +Triamcinolone A15 G3 TOP
== END | disposition home or self-care (01) ==
LOC: LAB RH 09:04 → EDSTATUS 11:50
DX: Z79.01 Long term (current) use of anticoagulants (principal); Z51.81 Encounter for therapeutic drug level monitoring
CPT/HCPCS: 80158

== ENCOUNTER 2019-01-26 22:34 | Inpatient (IN) | payer MEDICARE, OTHER ==
[~2019-01-26] VITALS: Ht 175.3 cm; Wt 94.9 kg
[~2019-01-26 22:34] MED LIST changes: -BISA10S PR; -CVS DISPOSABLE399 ML PR; -FERSU300 PO; -Fruity C250 MG PO; -Milk Of Ma400 MG/5 M PO; -Triamcinolone A15 G3 TOP
[2019-01-26] MEDS ORDERED: Fruity C250 MG PO (23:04)
[2019-01-26] MEDS ORDERED: FERSU300 PO (23:05)
[2019-01-26] MEDS ORDERED: Systane Nightt3.5 GM BOTHEYES (23:08)
[2019-01-26] MEDS ORDERED: BISA10S PR (23:11)
[2019-01-26] MEDS ORDERED: CVS DISPOSABLE399 ML PR (23:12)
[2019-01-26] MEDS ORDERED: MELATONIN5 M1 PO (23:13)
[2019-01-26] MEDS ORDERED: Milk Of Ma400 MG/5 M PO (23:13)
[2019-01-27 01:09] LABS: Albumin/Globulin Ratio 0.5 (0.8-1.8); Bilirubin, Total 0.6 mg/dL (0.1-1.0); Calcium, Blood 8.6 mg/dL (8.5-10.1); Creatinine, Blood 1.45 mg/dL (0.60-1.20); Globulin, Blood 3.8 g/dL (2.2-4.0); Potassium, Blood 3.8 mmol/L (3.5-5.5); Total Protein, Blood 5.8 g/dL (6.4-8.2)
[2019-01-27 01:48] LABS: BASOPHILS ABSOLUTE AUTO 0.02 K/mm3 (0.00-0.23); BASOPHILS PERCENT AUTO 0 % (0-2); EOSINOPHILS ABSOLUTE AUTO 0.02 K/mm3 (0.00-0.68); EOSINOPHILS PERCENT AUTO 0 % (0-6); Hematocrit 31.5 % (37.0-53.0); IMMATURE GRAN ABSOLUTE AUTO 0.09 K/mm3 (0.00-0.10); IMMATURE GRAN PERCENT AUTO 1 % (0-1); LYMPHOCYTES PERCENT AUTO 5 % (21-46); MONOCYTES ABSOLUTE AUTO 0.48 K/mm3 (0.16-1.47); MONOCYTES PERCENT AUTO 5 % (4-13); Mean Corpuscular HGB 32.2 pg (26.0-34.0); Mean Corpuscular HGB Conc 31.7 g/dL (31.5-36.5); Mean Corpuscular Volume 101 fL (80-100); Mean Platelet Volume 9.5 fL (9.1-12.4); NEUTROPHILS ABSOLUTE AUTO 8.12 K/mm3 (1.96-9.15); NEUTROPHILS PERCENT AUTO 88 % (41-73); Platelet Count 125 K/mm3 (150-400); RDW Coefficient Variation 14.5 % (11.7-14.2); RDW Standard Deviation 52.7 fL (35.1-46.3); Red Blood Cell Count 3.11 M/mm3 (4.30-5.90); White Blood Cell Count 9.23 K/mm3 (4.00-11.30)
[2019-01-27 01:54] LABS: Source, Urine Catheter
[2019-01-27 01:58] LABS: Bilirubin, Urine Neg (Neg); Blood, Urine 4+ (Neg); Glucose Qualitative, Urine Neg (Neg); Ketones, Urine 1+ (Neg); Leukocyte Esterase, Urine 3+ (Neg); Nitrite, Urine Pos (Neg); Protein, Urine 3+ (Neg); Urobilinogen, Urine 1+ (Normal)
[2019-01-27 02:03] LABS: Albumin, Blood 2.1 g/dL (3.4-5.0); Albumin/Globulin Ratio 0.5 (0.8-1.8); Bilirubin, Total 0.6 mg/dL (0.1-1.0); Bun/Creatinine Ratio 27.6 (12.0-20.0); Calcium, Blood 8.8 mg/dL (8.5-10.1); Creatinine, Blood 1.52 mg/dL (0.60-1.20); Globulin, Blood 3.9 g/dL (2.2-4.0); Potassium, Blood 3.8 mmol/L (3.5-5.5)
[2019-01-27 02:07] LABS: Appearance, Urine Cloudy (Clear); Color, Urine Yellow (P-Yellow)
[2019-01-27 02:09] LABS: Amorphous Light (0-Heavy); Bacteria Mod /hpf; Red Blood Cells, Urine 0-2 /hpf (0-2); Squamous Epithelial Cells Not Seen /hpf (Few); White Blood Cells, Urine TNTC /hpf (0-5)
[2019-01-27 02:19] LABS: International Normalized Ratio 1.17; Prothrombin Time Results 12.2 Sec (9.7-11.5)
--- NOTE | 2019-01-27 03:04 | NUR ---
Admission/[place] of Care: Patient arrived to unit at 0210hr via stretcher, accompanied by ED nurse. Patient obtunded and difficulty to rouse, but responds to painful stimuli. Also occasionally rouses without stimulation, moans or verbalizes a few words "I'm cold". Patient appears to have severe sleep apnea, O2-88-96% on 2L/NC. Obtained CPAP order and RT Michael placed patient on CPAP with 3L bleed in. O2% on 93-96%, appears to be ventilating better, but continues to have occasional snoring respirations. Heart rhythm shows sinus tachycardia 100-104. Systolic BP 80's- low 100's. Patient arrived with LR gtt wide open to rt AC IV, will D/C when this liter is finished. New IV placed to AGUILA and Vancomycin started in this IV. Stauffer cath in place, draining minimal amounts of dark yellow, cloudy urine. Plan to call hospitalist if oliguria persist, BP decreases, and to consider ABG to better assess respiratory status. Will continue to monitor.
[2019-01-27] MEDS ORDERED: Triamcinolone A15 G3 TOP (03:40)
[2019-01-27] MEDS ORDERED: Eucerin Creme454 GM TOP (03:41)
[2019-01-27] MEDS ORDERED: Humalog100 UNIT/1 SC (03:43)
[2019-01-27 05:03] LABS: Base Excess Venous 1.4 mmol/L; Bicarbonate Venous 24.2 mmol/L (24.0-30.0); PCO2 Venous 49.8 mmHg (38-42); PO2 Venous 23.5 mmHg (38-42); pH Blood Venous 7.34 (7.34-7.37)
[2019-01-27 05:53] LABS: Adenovirus Not Detected (NOT DETECT); Bordetella pertussis Not Detected (NOT DETECT); Chlamydophila pneumoniae Not Detected (NOT DETECT); Coronavirus 229E Not Detected (NOT DETECT); Coronavirus HKU1 Not Detected (NOT DETECT); Coronavirus NL63 Not Detected (NOT DETECT); Coronavirus OC43 Not Detected (NOT DETECT); Human Metapneumovirus Not Detected (NOT DETECT); Human Rhinovirus/Enterovirus Not Detected (NOT DETECT); Influenza A Not Detected (NOT DETECT); Influenza A/2009-H1 Not Detected (NOT DETECT); Influenza A/H1 Not Detected (NOT DETECT); Influenza A/H3 Not Detected (NOT DETECT); Influenza B Not Detected (NOT DETECT); Mycoplasma pneumoniae Not Detected (NOT DETECT); Parainfluenza Virus 1 Not Detected (NOT DETECT); Parainfluenza Virus 2 Not Detected (NOT DETECT); Parainfluenza Virus 3 Not Detected (NOT DETECT); Parainfluenza Virus 4 Not Detected (NOT DETECT); Respiratory Syncytial Virus Not Detected (NOT DETECT)
--- NOTE | 2019-01-27 06:33 | NUR ---
Shift Summary: Patient became more alert throughout shift, but continues to sleep when not stimulated. Now able to follow simple commands and have short conversations, oriented to self/. Continues on CPAP with 3L bleed in, O2-94-96%. VBG obtained, showed increased CO2, and decreased O2%, pH- wnl, Dr. Tejeda aware of labs. BP stable, but difficulty to gain accurate reading r/t shivering, restlessness. At Approx 0500hr, patient's heart rhythm changed from sinus to A-fibb RVR, rate- 130's-150's. Contacted Dr. Tejeda and obtained order for Lopressor 5mg IV x1, also account clerk order for Tylenol 650mg NJ as fever was suspected r/t shivering, although temporal reading's were WNL. IV Lopressor effective to decrease HR to 110-120. NJ Tylenol given and rectal temp-probe placed, showed temp of 100.4. Stauffer cath remains patent and intact, draining dark yellow cloudy urine. Peripheral IV's remain patent and intact. Will continue to monitor until report to day shift RN.
--- NOTE | 2019-01-27 07:40 | NUR ---
Call to Dr. Rojas: Call placed to Dr. Rojas at this time r/t low BP (systolic 70's, MAP- 40's). Received new order for 500ml LR bolus over 2hr. Also received order for 12 lead EKG r/t ST alarm in V1 lead on monitor. Dr. Crystal madrid informed this nurse that he would write orders for solu-medrol and consult radio control crane operator. Day shift RN informed of new orders.
--- NOTE | 2019-01-27 08:20 | NUR ---
ASSESSMENT- PT ASLEEP, AWAKENS TO NAME, ABLE TO SAY FEW WORDS, SPEECH DIFFICULT TO UNDERSTAND. EXPLAINED PLAN OF CARE. BACK TO SLEEP QUICKLY. PERRL. HEREDIA SPONTANEOUSLY. IV NS AT 75 CC/HR, LR BOLUS STARTED FOR HYPOTENSION AT 250 CC/HR. 2 PIV INTACT, RAC POSITIONAL. LUNGS CLEAR, DIMINISHED, RESPIRATIONS UNLABORED, COLOR PALE, SKIN W/D. UO VIA APONTE DARK YELLOW. EKG DONE FOR ST CHANGES. BLOOD SUGAR 257-COVERAGE GIVEN.
--- NOTE | 2019-01-27 08:31 | NUR ---
DR. MORA HERE-UPDATED, ASSESSED PT, EKG. SBP REMAINS 80'S, NS BOLUS INFUSING AT 250 CC/HR. PT SLEEPING, AWAKENS TO NAME. NEW IV SITE PLACED LEFT HAND, TOLERATED WELL.
--- NOTE | 2019-01-27 09:55 | NUR ---
CALLED PT'S AND DAUGHTER-UPDATE GIVEN. PT AWAKE AND ALERT NOW. BP IMPROVED, SR 90'S. ABLE TO ANSWER QUESTIONS AND HAVE A DISCUSSION. STATES DOESN'T REMEMBER LAST NIGHT-UPDATED. ABLE TO TAKE PILLS WITH APPLESAUCE. DISCUSSED MEDICATIONS WITH PHARMACY-WILL HOLD ELIQUIS UNTIL NOON DUE TO LOVENOX GIVEN. NO S/S BLEEDING
--- NOTE | 2019-01-27 11:00 | NUR ---
NOTIFIED DR. ASNCHEZ OF CONSULT AND UPDATE GIVEN.
[2019-01-27 11:50] LABS: Base Excess Venous -0.1 mmol/L; Bicarbonate Venous 24.5 mmol/L (24.0-30.0); PCO2 Venous 36.4 mmHg (38-42); pH Blood Venous 7.43 (7.34-7.37)
--- NOTE | 2019-01-27 12:14 | NUR ---
PT NOW SOMULENT, DIFFICULT TO AROUSE, ABLE TO SAY DAUGHTERS NAME BUT DIFFICULTY OPENING EYES. SR, SBP 90'S, UO ADEQUATE. BLOOD SUGAR 217. REPOSITIONED, CHLOE CARE DONE. TWO SORES ON PENIS BELOW APONTE CATHETER, CLEANED AND LOTION APPLIED, SACRUM VERY DRY-LOTION APPLIED. STATED EARLIER THAT RIGHT WRIST WAS BIOPSY SITE-CLEANED AND DRESSING APPIED, SMALL HEALING AREA.
--- NOTE | 2019-01-27 13:45 | NUR ---
PT AWAKENS TO NAME, ABLE TO ANSWER BRIEF QUESTIONS, BACK TO SLEEP QUICKLY. VS STABLE. REPOSITIONED.
--- NOTE | 2019-01-27 15:23 | NUR ---
DR. AVERY HERE-UPDATED. NEURO UNCHANGED. VSS. CONTINUE TO MONITOR. ON MRSA CONTACT AND DROPLET PRECAUTIONS
--- NOTE | 2019-01-27 17:22 | NUR ---
AWAKE NOW, ABLE TO ANSWER QUESTIONS. DENIES PAIN, MOVES WEAKLY. VSS. NSR. UO ADEQUATE. TOOK PILL WITH APPLESAUCE.
--- NOTE | 2019-01-27 17:57 | NUR ---
PT AWAKE NOW, ABLE TO TALK, FOLLOWS DIRECTIONS, STATES "I WAS JUST TIRED". TOOK ELIQUIS PILL WITH APPLESAUCE-CLARIFIED WITH PHARMACIST THAT OK FOR ONLY DOSE TODAY DUE TO HAVING LOVENOX EARLY THIS A.M. MOANS WITH MOVEMENT BUT DENIES PAIN AT REST. NS AT 75 CC/HR.
--- NOTE | 2019-01-27 19:25 | NUR ---
ASSUMED CARE RECEIEVED REPORT FROM WILLIAM SCOTT. PT IS IN BED ASLEEP, HAS BEEN SOMNOLENT OFF AND ON PER DAY SHIFT RN. PT IS ON 2L NC. SINUS RHYTHM WITH A RIGHT BBB, BP HAS BEEN SOFT BUT ADEQUATE. BED IS LOW AND LOCKED. CALL LIGHT WITHIN REACH.
[2019-01-27 20:01] LABS: PCO2 Arterial 41.2 mmHg (35-45); PO2 Arterial 86.7 mmHg (80-100); pH Blood Arterial 7.41 (7.35-7.45)
[2019-01-28 05:47] LABS: Vancomycin, Trough 10.6 ug/mL (5.0-10.0)
[2019-01-28 07:33] LABS: BASOPHILS ABSOLUTE AUTO 0.02 K/mm3 (0.00-0.23); BASOPHILS PERCENT AUTO 0 % (0-2); EOSINOPHILS ABSOLUTE AUTO 0.07 K/mm3 (0.00-0.68); EOSINOPHILS PERCENT AUTO 1 % (0-6); Hematocrit 30.9 % (37.0-53.0); IMMATURE GRAN ABSOLUTE AUTO 0.03 K/mm3 (0.00-0.10); IMMATURE GRAN PERCENT AUTO 0 % (0-1); LYMPHOCYTES ABSOLUTE AUTO 1.39 K/mm3 (0.84-5.20); LYMPHOCYTES PERCENT AUTO 18 % (21-46); MONOCYTES ABSOLUTE AUTO 0.58 K/mm3 (0.16-1.47); MONOCYTES PERCENT AUTO 8 % (4-13); Mean Corpuscular HGB 32.7 pg (26.0-34.0); Mean Corpuscular HGB Conc 32.4 g/dL (31.5-36.5); Mean Corpuscular Volume 101 fL (80-100); Mean Platelet Volume 10.3 fL (9.1-12.4); NEUTROPHILS ABSOLUTE AUTO 5.59 K/mm3 (1.96-9.15); NEUTROPHILS PERCENT AUTO 73 % (41-73); Platelet Count 130 K/mm3 (150-400); RDW Coefficient Variation 14.6 % (11.7-14.2); RDW Standard Deviation 52.6 fL (35.1-46.3); Red Blood Cell Count 3.06 M/mm3 (4.30-5.90); White Blood Cell Count 7.68 K/mm3 (4.00-11.30)
--- NOTE | 2019-01-28 07:33 | NUR ---
SHIFT SUMMARY PT HAS BEEN VERY SOMNOLENT FOR MAJORITY OF NIGHT, BUT ENDED NIGHT/MORNING BY BEING AWAKE AND TALKATIVE. HE IS ALERT AND ORIENTED TO SITUATION, PLACE, AND SELF. HE IS IN SINUS RHYTHM WITH A RIGHT BBB, STABLE VS, BUT SOFT BP. HE REQUIRES CPAP AT NIGHT FOR RIMA, AND WAS TOLERATING 1-2L NC WELL AWAKE. HE COMPLAINS OF BEING VERY COLD, DESPITE HAVING NUMEROUS WARM BLANKETS AND A ROOM WITH THE HEAT BLASTING. HIS TEMPERATURE STARTED IN THE 96 RANGE, AND HAS INCREASED INTO THE 97 RANGE. PT HAS A CHRONIC INDWELLING THAT WAS CHANGED IN THE ER; MAKING GOOD URINE OUTPUT; CLOUDY YELLOW, 1150ML. NO BM OVERNIGHT. OBTUNDED, NO COMPLAINTS OF PAIN OR DISCOMFORT OTHER THAN THE COLD FEELING. WEAK PULSES, SKIN EROSION/BREAKDOWN ON PENIS AND COCCYX. STABALIZING BLOOD SUGARS. UPDATED . BED LOW AND LOCKED. CALL LIGHT WITHIN REACH. THREADY PULSES.
[2019-01-28 07:47] LABS: Calcium, Blood 8.7 mg/dL (8.5-10.1); Creatinine, Blood 1.31 mg/dL (0.60-1.20)
--- NOTE | 2019-01-28 08:00 | NUR ---
Recieved report from Teresa SCOTT. Patient supine in bed resting when entering his room and he awakens easily. He is able to communicate his needs and states he is hungry. Called Dr valle and got ADA diet. Dr valle by to visit and no new orders. He has 20ga IV in LH and dressing intact and site WNL's infusing NS TKO. He also has 18ga IV dressing intact and site WNL's. He has 16Fr. Stauffer draining to gravity yellow urine.
--- NOTE | 2019-01-28 09:30 | NUR ---
SPEECH EVAL CAME AND CHANGED DIET BACK TO npo AND LIQUIDS ALLOWED. hE IS ON 5L O2 VIA NC AND SATS 96% AND GIVING BREAK FROM BIPAP. STAYS AT BEDSIDE. HELD AM BP MEDS WHILE ON LABETALOL AND SISNCE GTT OFF SYSTOLIC WAS UP TO 171 AND GAVE AM BP MEDS, TOLERATED MEDS CRUSHED WITH APPLESAUCE PER ST.
--- NOTE | 2019-01-28 10:59 | NUR ---
Dr Sanchez by to see patient and is now med with tele, continue abx and have PT work with patient. He continues to be hungry and asked for pudding and tolerated well. She is restarting HR med for rate 130's.
--- NOTE | 2019-01-28 12:00 | NUR ---
Dr Sanchez by and added another dose of Metoprolol and increased to 50mg for HR 130's. Patient impatient at times. since medicated he is in the 80-90's
--- NOTE | 2019-01-28 13:43 | NUR ---
Gave report to Med RN and will be transfer to 334. Gathered all patients belongings and transfered with patient.
--- NOTE | 2019-01-28 15:25 | NUR ---
1400 PATIENT TRANSFERRED FROM PCU . HE IS ALERT AND ORIENTED TO SELF, PLACE, AND LOCATION. HE HAS SMALL BREAK DOWN TO COCCYX AREA, NEW MEPLIX APPLIED. PATIENT WAS HAVING SMALL BM WHEN TRANSFERRED WHICH WAS CLEANED UP. HE IS ON TELE AND IS BED/CHAIR BOUND. LUNG SOUNDS DIMINISHED.
--- NOTE | 2019-01-28 18:27 | NUR ---
PATIENT HAS BEEN CALL LIGHT HEAVY SINCE HE ARRIVED IN SPITE OF MULTIPLE VISITS TO HIS ROOM. PATIENT WILL PRESS HIS CALL LIGHT THE MINUTE THE AIDE OR NURSE IS OUT OF ROOM AFTER ALL CARES HAVE BEEN ADMINISTERED TO. HE HAS BEEN INSTRUCTED ON THE CALL LIGHT POLICY AND OUR ROUNDING AND YET CONTINUES TO PRESS HIS CALL LIGHT MULTIPLE TIMES. HE HAS HAD HIS DRESSING TO COCCYX CHANGED, CLEAN BRIEFS, WARM BLANKETS, SNACKS, BLINDS DRAWN, MORE SNACKS, MORE WARM BLANKETS. PATIENT APPEARS CONFUSED BUT DOES NOT TRY TO GET OUT OF BED. HE HAS NO COMPLAINTS OF PAIN, SOB, NVD. CALL LIGHT OBVIOUSLY IN REACH...
--- NOTE | 2019-01-28 21:03 | NUR ---
PATIENT TRANSFER FROM ROOM 334. REPORT TAKEN FROM GÓMEZ SCOTT. PATIENT STAYED IN SAME BED. TRANSFER COMPLETE. IV ABX INFUSING. PATIENT REPOSITIONED FOR COMFORT. WARM BLANKET PROVIDED. APONTE PRESENT AND ON CONTINUOUS PULE OXIMETRY STATING 97% RA. CALL LIGHT IN REACH.
--- NOTE | 2019-01-28 23:35 | NUR ---
PATIENT TURNED, CHANGED, AND MEPILEX APPLIED TO BILATERAL ANKLES AND COCCYX. EXTRA BLANKETS PROVIDED. CALL LIGHT IN REACH.
--- NOTE | 2019-01-29 01:02 | NUR ---
PATIENT PUSHING CALL LIGHT THREE X'S IN LAST FEW MINUTES AFTER EACH CALL LIGHT WAS ATTENDED TO AND COMPLETED ANSWERS AND INTERVENTIONS.
--- NOTE | 2019-01-29 01:07 | NUR ---
PATIENT PUSHING CALL LIGHT AGAIN. PATIENT REMINDED HE HAS CALLED 4-5 X'S IN LAST FEW MINUTES. PATIENT EDUCATED ON USE OF CALL LIGHT SYSTEM. PATIENT ORIENTED TO TIME AND REMINDED TO TRY AND SLEEP.
--- NOTE | 2019-01-29 01:23 | NUR ---
CALL LIGHT ACTIVATED TWO MORE TIMES. PATIENT NOT ABLE TO ORIENT AT THIS TIME AND REMINDED TO GO TO SLEEP.
--- NOTE | 2019-01-29 01:56 | NUR ---
STATING 98% RA AND HR 76 ON CONTINUOUS PULSE OXIMETRY.
--- NOTE | 2019-01-29 02:04 | NUR ---
PATIENT REPORTS HAVING TROUBLE SLEEPING. MELATONIN 5 MG IN MED RX. HOSPITALIST DR KENNEDY ORDERED MELATONIN 5 MG PRN FOR SLEEP.
--- NOTE | 2019-01-29 02:32 | NUR ---
PATIENT ACTIVATED CALL LIGHT OVER 15 X'S SINCE TRANSFER. PATIENT REMINDED TO TO SLEEP. MELATONIN 5 MG GIVEN PER EMAR EARLIER.
--- NOTE | 2019-01-29 04:01 | NUR ---
SHIFT SUMMARY PATIENT HAS ACTIVATED CALL LIGHT OVER 20 X'S THIS SHIFT AND 8X'S IN FIRST 3O MINUTES OF TRANSFER. PATIENT FIXATED ON WARMING HIS LEGS. STAFF ADJUSTED BLANKETS AND THERMOSTAT FOR THREE HOURS PER PATIENT. THAN PATIENT REPORTED HIS LEGS WERE TOO WARM AND REPEATED THE PROCESS BACK. AXO X 2 W/CONFUSION. BEDFAST AND APONTE PATENT AND DRAINING. MELATONIN 5 MG ORDERED BY HOSPITALIST DR KENNEDY FOR SLEEP. PATIENT CHOOSE TO STAY AWAKE AFTER GIVING MELATONIN. REFUSES CPAP. ON CONTINUOUS PULSE OXIMETRY STATING 97% RA. CBG 362. PIVS REMAIN INTACT. PULSE ELEVATED AT SHIFT CHANGE UP TO 120 AND NOW BACK TO 70'S. TAKES MEDICATION WHOLE IN A.S. BED IN LOWEST POSITION. BED RAILS UP. CALL LIGHT IN REACH. WILL CONTINUE TO MONITOR UNTIL DAY SHIFT NURSE ASSUMES CARE.
--- NOTE | 2019-01-29 04:29 | NUR ---
PATIENT CONTINUES TO PUSH CALL LIGHT FOR BLANKET ADJUSTMENT AND REPOSITIONING MINOR ADJUSTMENTS. PATIENT REMINDED HE ONLY HAS TO SLEEP TONIGHT AND HE HAS CHOSEN TO BE UP THE WHOLE SHIFT.
--- NOTE | 2019-01-29 09:21 | NUR ---
PT PRESSING CALL LIGHT EXCESSIVELY PT REMINDED THAT THE CALL LIGHT IS INTENDED FOR EMERGENT NEEDS. PT EDUCATED HE NEEDS TO TRY TO ADDRESS ALL NEEDS WHEN STAFF IS IN THE ROOM. PT CONTINUOUSLY PRESSES CALL LIGHT EVERY FEW MINUTES EVEN AFTER STAFF IS IN ROOM. WILL CONTINUE TO MONITOR & REENFORCE CALL LIGHT EDUCATION.
--- NOTE | 2019-01-29 15:47 | NUR ---
past visits with pt and on plan of care and advance directive. written information given with loving choice book and the struggles of decision making.
--- NOTE | 2019-01-29 16:33 | NUR ---
SHIFT SUMMARY NO CHANGES IN ASSESSMENT AT THIS TIME. PT BLOOD SUGAR INCREASING IN NUMBER THROUGHOUT SHIFT. INSULIN GIVEN ORDERED. VSS. PT UP IN CHAIR VIA LIFT THIS SHIFT. TOLERATED 30 MINUTES UP. PT IN BED AT THIS TIME. CALL LIGHT IN REACH. WILL CONTINUE TO MONITOR UNTIL TURNOVER IS COMPLETE.
--- NOTE | 2019-01-30 04:15 | NUR ---
SHIFT SUMMARY PATIENT HAD NO ACUTE CHANGES OBSERVED THIS SHIFT. AXO X3 WITH CONFUSION AT TIMES. BEDFAST. VSS/AFEBRILE. CBG 270. DENIES PAIN, SOB, AND N/V. PIV REMAINS INTACT. IV ABXS INFUSED. APONTE PATENT AND DRAINING. TAKES MEDICATION WHOLE IN . RT SETUP CPAP THAT PATIENT HAD BEEN REFUSING. PATIENT USED FOR <HR. ON CONTINUOUS PULSE OXIMETRY STATING >95% ON RA. PATIENT CALL LIGHT USE WAS REDUCED THIS SHIFT BUT STILL CALLING FREQUENTLY. BED IN LOWEST POSITION. WILL CONTINUE TO MONITOR UNTIL DAY SHIFT NURSE ASSUMES CARE.
[2019-01-30 05:38] LABS: Vancomycin, Trough 14.2 ug/mL (5.0-10.0)
[2019-01-30 11:37] LABS: Source, Urine Catheter
[2019-01-30 11:53] LABS: Appearance, Urine Cloudy (Clear); Bilirubin, Urine Neg (Neg); Blood, Urine 5+ (Neg); Color, Urine Yellow (P-Yellow); Glucose Qualitative, Urine 4+ (Neg); Ketones, Urine 1+ (Neg); Leukocyte Esterase, Urine 3+ (Neg); Nitrite, Urine Neg (Neg); Protein, Urine 3+ (Neg); Urobilinogen, Urine NORM (Normal); pH, Urine 6.5 (5.0-8.0)
[2019-01-30 12:18] LABS: Bacteria Mod /hpf; Squamous Epithelial Cells Not Seen /hpf (Few); White Blood Cells, Urine 25-50 /hpf (0-5)
[2019-01-30 12:19] LABS: Yeast/Fungi Urine Many /hpf
--- NOTE | 2019-01-30 17:37 | NUR ---
SUMMARY PT IS A/O X3, PLEASANT AFFECT. HE STATE UNABLE TO AMBULATE X 1YR, STATE W/C BOUND. HE HAS BEEN UP TO CHAIR TODAY VIA LIFT HOWEVER REQUEST BACK TO BED AFTER 1HR. DX SEPSIS/UTI, CHRONIC APONTE CATHERTER. URINE + ESBL. DR VAUGHN ORDER U/A TODAY, REVIEW RESULTS, NO CHANGE TO IV ANTIBX. PT HAS BEEN AFEBRILE T/O DAY HOWEVER STATE INTERMITTANT HOT FLASHES, DIAPHORESIS. THIS AFTERNOON BP ELEVATED 179/89, ADD AMLODIPINE TO MEDS, PT ACCEPTS HOWEVER STATE CONCERNS R/T HX HEART TRANSPLANT, DR VAUGHN STATE NO CONTRAINDICATION, PT REASSURED.
--- NOTE | 2019-01-30 21:15 | NUR ---
PT MEDICATED W/TYLENOL AND MELATONIN PRN FOR "ALL OVER" PAIN AND SLEEP. WILL MONITOR FOR EFFECT.
--- NOTE | 2019-01-30 23:15 | NUR ---
PT T/F TO ROOM 331 AND REPORT GIVEN TO MIK DUPONT. PT DENIED PAIN AND ALL OTHER COMPLAINTS UPON T/F AND FELL ASLEEP IMMEDIATELY AFTER BEING SITUATED IN HIS NEW ROOM. NO ACUTE DISTRESS OBSERVED.
--- NOTE | 2019-01-31 00:45 | NUR ---
PATIENT ARRIVED TO MEDICAL FLOOR ROOM 331, PT STATES PAIN 7/0, PT WAS JUST MEDICATED BEFORE TRANSFERRRING TO THIS ROOM. REPOSITIONED PATIENT. BED LOW AND LOCKED AND PER ASSESSMENT I AGREE WITH PRIOR NURSE ASSESSMENTS. NO ACUTE CHANGES TO REPORT
[2019-01-31 04:56] LABS: BASOPHILS ABSOLUTE AUTO 0.02 K/mm3 (0.00-0.23); BASOPHILS PERCENT AUTO 0 % (0-2); EOSINOPHILS ABSOLUTE AUTO 0.12 K/mm3 (0.00-0.68); EOSINOPHILS PERCENT AUTO 2 % (0-6); Hematocrit 33.6 % (37.0-53.0); IMMATURE GRAN ABSOLUTE AUTO 0.04 K/mm3 (0.00-0.10); IMMATURE GRAN PERCENT AUTO 1 % (0-1); LYMPHOCYTES ABSOLUTE AUTO 1.59 K/mm3 (0.84-5.20); LYMPHOCYTES PERCENT AUTO 26 % (21-46); MONOCYTES ABSOLUTE AUTO 0.44 K/mm3 (0.16-1.47); MONOCYTES PERCENT AUTO 7 % (4-13); Mean Corpuscular HGB 32.5 pg (26.0-34.0); Mean Corpuscular HGB Conc 32.7 g/dL (31.5-36.5); Mean Corpuscular Volume 99 fL (80-100); Mean Platelet Volume 9.4 fL (9.1-12.4); NEUTROPHILS ABSOLUTE AUTO 3.85 K/mm3 (1.96-9.15); NEUTROPHILS PERCENT AUTO 64 % (41-73); Platelet Count 142 K/mm3 (150-400); RDW Standard Deviation 50.9 fL (35.1-46.3); Red Blood Cell Count 3.38 M/mm3 (4.30-5.90); White Blood Cell Count 6.06 K/mm3 (4.00-11.30)
[2019-01-31 05:17] LABS: Anion Gap 6 mmol/L (6-16); Blood Urea Nitrogen 22 mg/dL (8-24); Bun/Creatinine Ratio 22.1 (12.0-20.0); CO2, Blood 26 mmol/L (21-32); Calcium, Blood 9.5 mg/dL (8.5-10.1); Chloride, Blood 111 mmol/L (98-108); Glomerular Filtration Rate >60 (60-); Glucose, Blood 183 mg/dL (70-99); Potassium, Blood 3.8 mmol/L (3.5-5.5); Sodium, Blood 143 mmol/L (136-145)
--- NOTE | 2019-01-31 16:53 | NUR ---
SHIFT SUMMARY- PT A/O, PLEASANT AND COOPERATIVE. PT REPORTS CHRONIC GENERALIZED PAIN BUT DENIES NEED FOR PAIN MEDICATIONS. PT WITH GENERALIZED WEAKNESS, CAN ASSIST WITH REPOSITIONING IN BED. LS DIMINISHED, ON RA. PT TACHY AT TIMES, SCHEDULED METOPROLOL GIVEN AND CAME DOWN TO LOW 100'S. CHRONIC INDWELLING CATHETER. PT WITH GOOD APETITE. NO OTHER ACUTE CHANGES THIS SHIFT. POSS D/C BACK TO [facility] TOMORROW.
[2019-02-01 04:43] LABS: BASOPHILS ABSOLUTE AUTO 0.04 K/mm3 (0.00-0.23); BASOPHILS PERCENT AUTO 1 % (0-2); EOSINOPHILS ABSOLUTE AUTO 0.15 K/mm3 (0.00-0.68); EOSINOPHILS PERCENT AUTO 2 % (0-6); Hematocrit 35.9 % (37.0-53.0); Hemoglobin 11.7 g/dL (13.5-17.5); IMMATURE GRAN ABSOLUTE AUTO 0.04 K/mm3 (0.00-0.10); IMMATURE GRAN PERCENT AUTO 1 % (0-1); LYMPHOCYTES PERCENT AUTO 25 % (21-46); MONOCYTES ABSOLUTE AUTO 0.56 K/mm3 (0.16-1.47); MONOCYTES PERCENT AUTO 7 % (4-13); Mean Corpuscular HGB 33.1 pg (26.0-34.0); Mean Corpuscular HGB Conc 32.6 g/dL (31.5-36.5); Mean Corpuscular Volume 101 fL (80-100); Mean Platelet Volume 8.9 fL (9.1-12.4); NEUTROPHILS ABSOLUTE AUTO 5.31 K/mm3 (1.96-9.15); NEUTROPHILS PERCENT AUTO 66 % (41-73); Platelet Count 175 K/mm3 (150-400); RDW Coefficient Variation 14.3 % (11.7-14.2); RDW Standard Deviation 53.1 fL (35.1-46.3); Red Blood Cell Count 3.54 M/mm3 (4.30-5.90)
[2019-02-01 05:06] LABS: Anion Gap 5 mmol/L (6-16); Blood Urea Nitrogen 22 mg/dL (8-24); Bun/Creatinine Ratio 20.8 (12.0-20.0); CO2, Blood 27 mmol/L (21-32); Calcium, Blood 9.5 mg/dL (8.5-10.1); Chloride, Blood 111 mmol/L (98-108); Creatinine, Blood 1.06 mg/dL (0.60-1.20); Glomerular Filtration Rate >60 (60-); Glucose, Blood 179 mg/dL (70-99); Potassium, Blood 3.8 mmol/L (3.5-5.5); Sodium, Blood 143 mmol/L (136-145)
--- NOTE | 2019-02-01 05:33 | NUR ---
SHIFT SUMMARY PT HAD AN UNEVENTFUL SHIFT. THERAPUTIC COMMUNICATION WAS USED MULTIPLE TIMES PT WAS LONELY. APONTE DRAINING FINE. VSS. NO OTHER COMPLAINTS AT THIS TIME. WILL CONTINUE MONITOR.
--- NOTE | 2019-02-01 10:40 | NUR ---
Pt visit this AM. Pt denies pain, dyspnea, and anxiety at this time. Pt denies concerns with information given regarding advanced care planning. Pt reports plan to discharge today and is ready to go back to facility. Pt reports no concerns at this time. Spoke with Dr Navas and discussed case. Dr Navas plans to discharge Pt today. Spoke with bedside nurse Shagufta and she reports no concerns at this time. Palliative Care will remain available.
[2019-02-01] MEDS ORDERED: AMLO5 PO (14:29)
--- NOTE | 2019-02-01 14:35 | NUR ---
REPORT GIVEN TO [facility] NURSE AT THIS TIME
--- NOTE | 2019-02-01 14:46 | NUR ---
DISCHARGE SUMMARY PT DISCHARGED TO [facility]. PT LEFT ROOM VIA WHEELCHAIR TRANSPORT JUST PRIOR TO THIS NOTE. PT PROVIDED PAPER SCRUBS AND INTO CHAIR VIA LIFT. IV DC'D AND BELONGINGS RETURNED. CHRONIC APONTE PATENT AND DRAINING. REPORT CALLED AND GIVEN TO [facility], SEE NOTE. PT NOTIFIED HIS HIMSELF OF HIS DISCHARGE.
== END 2019-02-01 14:43 | disposition home or self-care (01) | DRG 698 ==
LOC: ER 22:34 → ICUW 01-27 01:50 → MEDS 01-28 14:15 → ENPENDDIS 02-01 11:01 → MEDS 02-01 14:43
PROVIDERS: Emergency Medicine; Internal Medicine; Internal Medicine Pulmonary Disease; ADMIT Internal Medicine
DX: T83.511A Infection and inflammatory reaction due to indwelling urethral catheter, initial encounter (principal); A41.51 Sepsis due to Escherichia coli [E. coli]; R65.21 Severe sepsis with septic shock; G93.41 Metabolic encephalopathy; I13.0 Hypertensive heart and chronic kidney disease with heart failure and stage 1 through stage 4 chronic kidney disease, or unspecified chronic kidney disease; I50.32 Chronic diastolic (congestive) heart failure; N18.4 Chronic kidney disease, stage 4 (severe); N39.0 Urinary tract infection, site not specified; E11.22 Type 2 diabetes mellitus with diabetic chronic kidney disease; Z79.4 Long term (current) use of insulin; E78.5 Hyperlipidemia, unspecified; E11.40 Type 2 diabetes mellitus with diabetic neuropathy, unspecified; Z86.711 Personal history of pulmonary embolism; Z87.891 Personal history of nicotine dependence; I48.0 Paroxysmal atrial fibrillation; G47.33 Obstructive sleep apnea (adult) (pediatric)
CPT/HCPCS: 0099U; 36415; 36600; 51702; 71046; 80048; 80053; 80202; 81001; 82803; 82947; 83605; 84145; 84484; 85025; 85610; 85730; 87040; 87077; 87081; 87086; 87186; 93005; 93010; 94640; 94660; 94760; 94762; 96361; 96365; 99285-25; A9270; J0692; J1650; J1720; J2543; J3370; J7030; J7050; J7120; J7512; J7515

== ENCOUNTER → 2019-02-14 | Outpatient (CLI) | payer MEDICARE, OTHER ==
[~2019-02-14] MED LIST changes: +BISA10S PR; +CVS DISPOSABLE399 ML PR; +CYCLOSPORINE PO; +FERSU300 PO; +Fruity C250 MG PO; -Laxative Suppos10 MG PR; +Loratadine10 MG PO; +METF500 PO; +Milk Of Ma400 MG/5 M PO; +Prednisone10 MG PO; +Triamcinolone A15 G3 TOP; +Tussin100 MG/5 M PO; +Vitamin C100 M1 PO
[2019-02-14 12:16] LABS: Appearance, Urine Clear (Clear); Bilirubin, Urine Neg (Neg); Blood, Urine 4+ (Neg); Color, Urine Yellow (P-Yellow); Glucose Qualitative, Urine 4+ (Neg); Ketones, Urine Neg (Neg); Leukocyte Esterase, Urine 3+ (Neg); Nitrite, Urine Neg (Neg); Protein, Urine 1+ (Neg); Urobilinogen, Urine NORM (Normal)
[2019-02-14 12:35] LABS: Bacteria Mod /hpf
[2019-02-14 12:36] LABS: Squamous Epithelial Cells Rare /hpf (Few)
== END | disposition home or self-care (01) ==
LOC: LAB RH 11:53 → LAB UVN 11:53 → EDSTATUS 02-20 13:16
DX: N39.0 Urinary tract infection, site not specified (principal)
CPT/HCPCS: 81001; 87077; 87086; 87186

== ENCOUNTER 2019-03-24 00:40 | Inpatient (IN) | payer MEDICARE, OTHER ==
[~2019-03-24] VITALS: Ht 180.3 cm; Wt 105.5 kg
[~2019-03-24 00:40] MED LIST changes: -CYCLOSPORINE PO; -Loratadine10 MG PO; -METF500 PO; -Prednisone10 MG PO; -Tussin100 MG/5 M PO; -Vitamin C100 M1 PO
[2019-03-24] MEDS ORDERED: Loratadine10 MG PO ×2 (01:21→07:13)
[2019-03-24] MEDS ORDERED: METF500 PO ×2 (01:24→07:14)
[2019-03-24] MEDS ORDERED: Tussin100 MG/5 M PO (01:31)
[2019-03-24] MEDS ORDERED: CYCLOSPORINE PO ×2 (01:34→01:35)
[2019-03-24 01:52] LABS: Alanine Aminotransfer (ALT/SGP 23 U/L (12-78); Albumin, Blood 2.5 g/dL (3.4-5.0); Albumin/Globulin Ratio 0.6 (0.8-1.8); Alk Phos 76 U/L (50-136); Anion Gap 9 mmol/L (6-16); Aspartate Aminotrans (AST/SGOT 12 U/L (12-37); Bilirubin, Total 0.5 mg/dL (0.1-1.0); Blood Urea Nitrogen 28 mg/dL (8-24); Bun/Creatinine Ratio 24.8 (12.0-20.0); CO2, Blood 23 mmol/L (21-32); Calcium, Blood 9.4 mg/dL (8.5-10.1); Chloride, Blood 111 mmol/L (98-108); Creatinine, Blood 1.13 mg/dL (0.60-1.20); Glomerular Filtration Rate >60 (60-); Glucose, Blood 222 mg/dL (70-99); Potassium, Blood 4.2 mmol/L (3.5-5.5); Sodium, Blood 143 mmol/L (136-145); Total Protein, Blood 6.5 g/dL (6.4-8.2); Troponin I <0.015 ng/mL (0.000-0.040)
[2019-03-24 01:56] LABS: BASOPHILS ABSOLUTE AUTO 0.03 K/mm3 (0.00-0.23); BASOPHILS PERCENT AUTO 0 % (0-2); EOSINOPHILS ABSOLUTE AUTO 0.16 K/mm3 (0.00-0.68); EOSINOPHILS PERCENT AUTO 2 % (0-6); Hematocrit 33.1 % (37.0-53.0); Hemoglobin 10.9 g/dL (13.5-17.5); IMMATURE GRAN ABSOLUTE AUTO 0.07 K/mm3 (0.00-0.10); IMMATURE GRAN PERCENT AUTO 1 % (0-1); LYMPHOCYTES PERCENT AUTO 16 % (21-46); MONOCYTES ABSOLUTE AUTO 0.56 K/mm3 (0.16-1.47); MONOCYTES PERCENT AUTO 8 % (4-13); Mean Corpuscular HGB Conc 32.9 g/dL (31.5-36.5); Mean Corpuscular Volume 100 fL (80-100); Mean Platelet Volume 9.4 fL (9.1-12.4); NEUTROPHILS ABSOLUTE AUTO 5.47 K/mm3 (1.96-9.15); NEUTROPHILS PERCENT AUTO 73 % (41-73); Platelet Count 152 K/mm3 (150-400); RDW Coefficient Variation 13.3 % (11.7-14.2); RDW Standard Deviation 49.1 fL (35.1-46.3); White Blood Cell Count 7.49 K/mm3 (4.00-11.30)
[2019-03-24 05:43] LABS: Hematocrit 32.7 % (37.0-53.0); Hemoglobin 10.5 g/dL (13.5-17.5); Mean Corpuscular HGB 33.1 pg (26.0-34.0); Mean Corpuscular HGB Conc 32.1 g/dL (31.5-36.5); Mean Platelet Volume 9.4 fL (9.1-12.4); Platelet Count 157 K/mm3 (150-400); RDW Coefficient Variation 13.4 % (11.7-14.2); RDW Standard Deviation 51.2 fL (35.1-46.3); Red Blood Cell Count 3.17 M/mm3 (4.30-5.90); White Blood Cell Count 5.92 K/mm3 (4.00-11.30)
[2019-03-24 05:47] LABS: Mean Corpuscular Volume 103 fL (80-100)
[2019-03-24 06:03] LABS: Alanine Aminotransfer (ALT/SGP 21 U/L (12-78); Albumin, Blood 2.4 g/dL (3.4-5.0); Albumin/Globulin Ratio 0.6 (0.8-1.8); Alk Phos 73 U/L (50-136); Anion Gap 6 mmol/L (6-16); Aspartate Aminotrans (AST/SGOT 10 U/L (12-37); Bilirubin, Total 0.6 mg/dL (0.1-1.0); Blood Urea Nitrogen 27 mg/dL (8-24); Bun/Creatinine Ratio 24.8 (12.0-20.0); CO2, Blood 24 mmol/L (21-32); Calcium, Blood 9.3 mg/dL (8.5-10.1); Chloride, Blood 114 mmol/L (98-108); Creatinine, Blood 1.09 mg/dL (0.60-1.20); Globulin, Blood 3.9 g/dL (2.2-4.0); Glomerular Filtration Rate >60 (60-); Glucose, Blood 161 mg/dL (70-99); Sodium, Blood 144 mmol/L (136-145); Total Protein, Blood 6.3 g/dL (6.4-8.2)
[2019-03-24] MEDS ORDERED: Vitamin C100 M1 PO (07:05)
[2019-03-24] MEDS ORDERED: Prednisone10 MG PO (07:08)
[2019-03-24] MEDS ORDERED: RISP1 PO (07:12)
[2019-03-24] MEDS ORDERED: MELATONIN5 M1 PO (07:14)
[2019-03-24 07:21] LABS: Adenovirus Not Detected (NOT DETECT); Bordetella pertussis Not Detected (NOT DETECT); Chlamydophila pneumoniae Not Detected (NOT DETECT); Coronavirus 229E Not Detected (NOT DETECT); Coronavirus HKU1 Not Detected (NOT DETECT); Coronavirus NL63 Not Detected (NOT DETECT); Coronavirus OC43 Not Detected (NOT DETECT); Human Metapneumovirus Not Detected (NOT DETECT); Human Rhinovirus/Enterovirus Detected (NOT DETECT); Influenza A Not Detected (NOT DETECT); Influenza A/2009-H1 Not Detected (NOT DETECT); Influenza A/H1 Not Detected (NOT DETECT); Influenza A/H3 Not Detected (NOT DETECT); Influenza B Not Detected (NOT DETECT); Mycoplasma pneumoniae Not Detected (NOT DETECT); Parainfluenza Virus 1 Not Detected (NOT DETECT); Parainfluenza Virus 2 Not Detected (NOT DETECT); Parainfluenza Virus 3 Not Detected (NOT DETECT); Parainfluenza Virus 4 Not Detected (NOT DETECT); Respiratory Syncytial Virus Not Detected (NOT DETECT)
--- NOTE | 2019-03-24 07:38 | NUR ---
SHIFT SUMMARY PT ARRIVED AT APPROX 0430, NEEDED LIFTING ASSISTANCE FROM STRETCHER TO BED. TELE RUNNING AFIB @ 107 PER MINE SHIFTER. MEPILEX APPLIED TO COCCYX AND L GLUTTEAL FOLD. REPORT GIVEN TO DAY RN.
[2019-03-24 09:28] LABS: Source, Urine Catheter
[2019-03-24 09:38] LABS: Bilirubin, Urine Neg (Neg); Blood, Urine 2+ (Neg); Glucose Qualitative, Urine Neg (Neg); Ketones, Urine Neg (Neg); Leukocyte Esterase, Urine 3+ (Neg); Nitrite, Urine Neg (Neg); Protein, Urine Neg (Neg); Specific Gravity, Urine 1.005 (1.003-1.022); Urobilinogen, Urine NORM (Normal)
[2019-03-24 10:02] LABS: Appearance, Urine Hazy (Clear); Color, Urine Yellow (P-Yellow)
[2019-03-24 10:04] LABS: Bacteria Mod /hpf; Squamous Epithelial Cells Rare /hpf (Few)
--- NOTE | 2019-03-24 18:40 | NUR ---
SHIFT SUMMARY PATIENT IS PLEASANT ALERT AND ORIENTED. REALLY USES HIS CALL LIGHT. CHAIRBOUND AT BASELINE AND USES A GENEVIEVE LIFT AT [facility]. HE LIVES ON THE COMPUTER INSTALLATION ENGINEER SIDE NO REEVAL NEEDED. POTENTIAL DISCAHRGE BACK TO [facility] ON WEDNESDAY.
--- NOTE | 2019-03-25 05:35 | NUR ---
SHIFT SUMMARY: 78 Y/O OBESE MALE RESTED COMFORTABLY IN BED ALL SHIFT HIGH FOWLERS, TELEMETRY REFLECTS NSR/BBB WITH HEART RATE 66, APONTE DRAINING CLEAR YELLOW FLUID, ALERT AND ORIENTED X 4, INCREASED SOB WITH SLIGHT ACTIVITY NOTED, BED LOW POSITION, CALL LIGHT AT SIDE.
--- NOTE | 2019-03-25 18:29 | NUR ---
SHIFT SUMMARY PATIENT IS PELASANT ALERT ANF ORIENTED TIMES 2. NO ACUTE CONCERNS AT THIS TIME MINUS HIS COUGH WHICH IS BEING MANAGED BY COUGH SYRUP. PATIENT HAD HIGH BLOOD SUGARS ALL DAY AND HIS NIGHTTIME DOSE OF STEROIDS HAS BEEN HELD. CURRENTLY AWAITING TO SEE MORNING BLOOD SUGAR.
--- NOTE | 2019-03-26 02:22 | NUR ---
03/25/191999 RESTING COMFORTABLY HIGH FOWLERS. 03/26/19 0200 RESTING COMFORTABLY IN BED, DENIES PAIN OR NAUSEA.
--- NOTE | 2019-03-26 06:05 | NUR ---
SHIFT SUMMARY: 78 Y/O MALE RESTED HIGH FOWLERS POSITION ALL SHIFT, OCCASIONALL HARSH NON PRODUCTIVE COUGH NOTED WITH ROBITUSSIN DM 200MG X 2 GIVEN WITH RELIEF FELT, DENIES PAIN OR NAUSEA, EAGER TO RETURN BACK TO [facility] SOON, BED LOW POSITION, CALL LIGHT AT SIDE.
--- NOTE | 2019-03-26 16:57 | NUR ---
No acute changes noted, patient continues to have a cough but is not producing anything with cough. PRN cough medication given per EMAR. No current complaints of paib or discomfort noted. tripp is patent and draining yellow urine. Dressings to sacral area are clean dry and intact. Patients lung sounds remain diminished. No other issues noted at this time. Will continue to monitor for changes.
--- NOTE | 2019-03-27 01:17 | NUR ---
03/26/19 PT RESTING COMFORTABLY IN BED, HIGH FOWLERS POSITION.
--- NOTE | 2019-03-27 06:00 | NUR ---
SHIFT SUMMARY: 78 Y/O OBESE MALE RESTED COMFORTABLY ALL SHIFT IN HIGH FOWLERS, C/O OCCASIONAL NON PRODUCTIVE COUGH WITH ROBITUSSIN 200MG PO GIVEN WITH RELIEF FELT, PT EAGER FOR POSSIBLE RETURN TO [facility] TODAY, DENIES PAIN OR NAUSEA, BED LOW POSITION WITH CALL LIGHT AT SIDE.
--- NOTE | 2019-03-27 14:45 | NUR ---
TRANSFER TO SNF PT IS A/O X4, PLEASANT/COOPERATIVE AFFECT. STATE CONTINUING LOOSE HAND PACKER COUGH, PRN ROBITUSSIN PROVIDED. HE STATE FEELING IMPROVED, HOPEFUL FOR D/C BACK TO [facility] TODAY. DR CHEEMA IN TO SEE HIM, ASK FOR RECHECK OF VS. PROVIDE TRANSFER ORDERS. [employer] MAKE ARRANGEMENTS FOR TRANSFER & TRANSPORTATION. IV D/C INTACT. REPORT CALLED TO CASE, NIKUNJ SCOTT. P/U TIME ARRANGED FOR 282. CONSTRUCTION MANAGEMENT INSTRUCTOR PROVIDE BEDBATH. WOUND CARE COCCYX AREA PROVIDED.
[2019-03-27] MEDS ORDERED: AZIT250 PO (14:55)
== END 2019-03-27 15:35 | DRG 202 ==
LOC: ER 00:40 → MEDS 00:41 → ENPENDDIS 03-27 15:22 → MEDS 03-27 15:35
PROVIDERS: Emergency Medicine; ADMIT Internal Medicine
DX: J20.9 Acute bronchitis, unspecified (principal); Z94.1 Heart transplant status; F31.81 Bipolar II disorder; Z86.14 Personal history of Methicillin resistant Staphylococcus aureus infection; G25.81 Restless legs syndrome; K21.9 Gastro-esophageal reflux disease without esophagitis; I48.91 Unspecified atrial fibrillation; G89.29 Other chronic pain; Z86.711 Personal history of pulmonary embolism; Z79.4 Long term (current) use of insulin; E66.9 Obesity, unspecified; E78.5 Hyperlipidemia, unspecified; E11.65 Type 2 diabetes mellitus with hyperglycemia; Z68.33 Body mass index [BMI] 33.0-33.9, adult
CPT/HCPCS: 0099U; 36415; 51702; 71046; 80053; 81001; 82947; 83605; 83880; 84145; 84484; 85025; 85027; 87040; 87077; 87086; 87186; 92610; 93005; 93010; 94640; 94760; 96361-59; 96365-59; 99285-25; A9270; G0378; J0456; J0696; J1650; J1940; J2920; J2930; J7030; J7050; J7502; J7512; J7515

== ENCOUNTER 2019-05-17 09:22 | Inpatient (IN) | payer OTHER, MEDICARE ==
[~2019-05-17] VITALS: Ht 175.3 cm; Wt 108.8 kg
[~2019-05-17 09:22] MED LIST changes: +CYCLOSPORINE PO; +Loratadine10 MG PO; +METF500 PO; +Prednisone10 MG PO; +Tussin100 MG/5 M PO; +Vitamin C100 M1 PO
[2019-05-17 09:51] LABS: BASOPHILS ABSOLUTE AUTO 0.03 K/mm3 (0.00-0.23); BASOPHILS PERCENT AUTO 0 % (0-2); EOSINOPHILS ABSOLUTE AUTO 0.02 K/mm3 (0.00-0.68); EOSINOPHILS PERCENT AUTO 0 % (0-6); Hematocrit 33.6 % (37.0-53.0); Hemoglobin 10.8 g/dL (13.5-17.5); IMMATURE GRAN ABSOLUTE AUTO 0.07 K/mm3 (0.00-0.10); IMMATURE GRAN PERCENT AUTO 1 % (0-1); LYMPHOCYTES PERCENT AUTO 7 % (21-46); MONOCYTES ABSOLUTE AUTO 1.13 K/mm3 (0.16-1.47); MONOCYTES PERCENT AUTO 9 % (4-13); Mean Corpuscular HGB Conc 32.1 g/dL (31.5-36.5); Mean Corpuscular Volume 106 fL (80-100); Mean Platelet Volume 9.7 fL (9.1-12.4); NEUTROPHILS ABSOLUTE AUTO 10.91 K/mm3 (1.96-9.15); NEUTROPHILS PERCENT AUTO 84 % (41-73); Platelet Count 118 K/mm3 (150-400); RDW Coefficient Variation 13.6 % (11.7-14.2); RDW Standard Deviation 53.5 fL (35.1-46.3); Red Blood Cell Count 3.18 M/mm3 (4.30-5.90); White Blood Cell Count 13.06 K/mm3 (4.00-11.30)
[2019-05-17 10:04] LABS: Albumin, Blood 2.4 g/dL (3.4-5.0); Albumin/Globulin Ratio 0.6 (0.8-1.8); Bilirubin, Total 1.6 mg/dL (0.1-1.0); Bun/Creatinine Ratio 32.5 (12.0-20.0); Calcium, Blood 9.2 mg/dL (8.5-10.1); Creatinine, Blood 1.6 mg/dL (0.60-1.20); Globulin, Blood 4.1 g/dL (2.2-4.0); Potassium, Blood 5.5 mmol/L (3.5-5.5); Total Protein, Blood 6.5 g/dL (6.4-8.2)
[2019-05-17 10:07] LABS: Source, Urine Catheter
[2019-05-17 10:09] LABS: Bilirubin, Urine Neg (Neg); Blood, Urine 4+ (Neg); Glucose Qualitative, Urine Neg (Neg); Ketones, Urine Neg (Neg); Leukocyte Esterase, Urine 3+ (Neg); Nitrite, Urine Neg (Neg); Protein, Urine 2+ (Neg); Specific Gravity, Urine 1.015 (1.003-1.022); Urobilinogen, Urine NORM (Normal)
[2019-05-17 10:11] LABS: International Normalized Ratio 1.24; Prothrombin Time Results 12.9 Sec (9.7-11.5)
[2019-05-17 10:11] LABS: Appearance, Urine Hazy (Clear); Color, Urine Yellow (P-Yellow)
[2019-05-17 10:16] LABS: Amorphous Light (0-Heavy); Bacteria Many /hpf; Squamous Epithelial Cells Rare /hpf (Few); Triple Phosphate Crystals Many /hpf
[2019-05-17 11:52] LABS: Magnesium, Blood 1.7 mg/dL (1.6-2.4); Phosphorus, Blood 2.2 mg/dL (2.5-4.9)
--- NOTE | 2019-05-17 14:40 | NUR ---
INITIAL ASSESSMENT PATIENT ARRIVED TO UNIT AT 1420 FROM ER. PATIENT ALERT AND ORIENTED X 4, [place]. PATIENT DROWSY, WITHDRAWN. PATIENT WEAK. PATIENT FROM [facility] AND STATES THAT THEY USE A LIFT TO GET HIM TO HIS MOTORIZED WHEELCHAIR. PATIENT COMPLAINS OF LOWER BACK PAIN. PATIENT HAS TEMP OF 99.8 DEGREES FAHRENHEIT. PATIENT REPORTS N/T IN BILAT FEET THAT "STARTED ABOUT 3 MONTHS AGO". PATIENT SATTING 90% AND GREATER ON RA. PATIENT HAS NONPRODUCTIVE COUGH. ALL LUNG LOBES DIMINISHED. EXPIRATORY WHEEZES TO PETER. LOWER LOBE COARSE. PATIENT SOB WITH EXERTION. PATIENT HAS RIMA BUT STATES HE DOES NOT WEAR CPAP BECAUSE HE CANNOT TOLERATE IT, THEREFORE HE WEARS 3 L NC AT NIGHT. PATIENT IN SR, HR IN THE 90S. BP STABLE. RADIAL PULSES 2+ IN STRENGTH, PULSES IN FEET 1+ IN STRENGTH. SCDS PLACED. ABDOMEN SEVERELY DISTENDED, PATIENT STATES NORMAL FOR HIM, SOFT, NONTENDER, WITH NORMOACTIVE BS. CHRONIC INDWELLING APONTE CHANGED AND NEW UA SENT TO LAB. URINE ORANGE IN COLOR WITH SEDIMENT NOTED. SKIN DRY AND SCALING. COCCYX REDDENED WITH ABRASION, BUT NO ULCER NOTED. SCAB TO R FA. 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 VENTRAL EROSION TO HEAD OF PENIS FROM CHRONIC INDWELLING APONTE. IV FLUSHED AND NS BOLUS STARTED. , MELITA, INTO ROOM. PATIENT ORIENTED TO UNIT, ROOM AND CALL SYSTEM. BED LOW, CALL LIGHT IN REACH, BED ALARM ON. WILL CONTINUE TO MONITOR PATIENT FREQUENTLY THROUGHOUT SHIFT.
[2019-05-17 15:29] LABS: Source, Urine Catheter
[2019-05-17 15:34] LABS: Bilirubin, Urine Neg (Neg); Blood, Urine 5+ (Neg); Glucose Qualitative, Urine Neg (Neg); Ketones, Urine Neg (Neg); Leukocyte Esterase, Urine 3+ (Neg); Nitrite, Urine Neg (Neg); Protein, Urine 2+ (Neg); Urobilinogen, Urine NORM (Normal)
[2019-05-17 15:41] LABS: Appearance, Urine Hazy (Clear); Color, Urine Yellow (P-Yellow)
[2019-05-17 15:42] LABS: Amorphous Mod (0-Heavy); Bacteria Many /hpf; Mucus Light (0-Heavy); Squamous Epithelial Cells Few /hpf (Few)
[2019-05-17 15:46] LABS: Influenza A Negative (NEGATIVE); Influenza B Negative (NEGATIVE)
[2019-05-17 15:49] LABS: Calcium, Blood 8.7 mg/dL (8.5-10.1); Creatinine, Blood 1.47 mg/dL (0.60-1.20); Potassium, Blood 5.2 mmol/L (3.5-5.5)
--- NOTE | 2019-05-17 17:06 | NUR ---
CALLED AND UPDATED DR. MORA ON PATIENT CONDITION. INFORMED THAT PATIENT TAKING MEDICATIONS OKAY IN APPLESAUCE BUT THAT PATIENT NOT TOLERATING THIN LIQUID WELL. INFORMED THAT NURSE RECEIVED REPORT THAT PATIENT HAD BEEN HAVING PROBLEMS SWALLOWING LATELY. ORDERED FOR NPO, EXCEPT TO GO AHEAD AND GIVE MEDS IN APPLESAUCE, UNTIL SPEECH COULD DO SWALLOW EVAL ON PATIENT. ALSO INFORMED OF PHOSPHORUS OF 2.2 UPON ADMIT. NO ORDER RECEIVED.
--- NOTE | 2019-05-17 18:55 | NUR ---
SHIFT SUMMARY PATIENT REMAINED ALERT AND ORIENTED, BUT DROWSY. PATIENT HAD MAX TEMP OF 102.8 DEGREES FAHRENHEIT. PATIENT GIVEN PRN TYLENOL AND TEMP HAS SINCE DECREASED. LUNGS REMAIN COARSE AND WHEEZY BUT IMPROVED AFTER BREATHING TREATMENT. PATIENT HAS REMAINED SATTING 90% AND GREATER ON RA. PATIENT HAS REMAINED SR TO ST, HR 90S TO 130S. BP HAS REMAINED STABLE. NO BM THIS SHIFT. PATIENT REPORTS THAT HE USUALLY HAS A BM EVERY 3 TO 5 DAYS BUT THAT [facility] USUALLY HAS TO GIVE HIM A SUPPOSITORY TO BE ABLE TO HAVE ONE. PATIENT NPO, EXCEPT MEDS WITH APPLESAUCE, AND WILL HAVE SWALLOW EVAL IN MORNING. APONTE REMAINS DRAINING ORANGE COLORED URINE WITH SEDIMENT NOTED. NO CHANGE TO SKIN. NS INFUSING AT 125 MLS/ HOUR. PATIENT HAS NO COMPLAINTS AT THIS TIME. BED LOW, CALL LIGHT IN REACH. WILL BE GIVING REPORT TO ONCOMING VICE PRESIDENT OF SALES NURSE SHORTLY.
--- NOTE | 2019-05-17 19:24 | NUR ---
SLEEPY easily roused but falls asleep states had a good day, slept last night just tired, bp low, pulse high, temp normal, ns infusing 125, abdm swolle soft, limited range w arms and legs able to move hands and feet, pulse and profusion good, no bm today, day shift recommended bowel care in am, strong methods used at home, bbb st at 105 per pmt, denies pain, bed in low call light in reach, oximiter working,
--- NOTE | 2019-05-18 00:05 | NUR ---
repositioned and provided a warm blanket, call light in reach, remains sleepy, states he has felt this way for some time(a week), started abx, will continue to monitor and treat as appropriate
[2019-05-18 03:47] LABS: BASOPHILS ABSOLUTE AUTO 0.02 K/mm3 (0.00-0.23); BASOPHILS PERCENT AUTO 0 % (0-2); EOSINOPHILS ABSOLUTE AUTO 0.07 K/mm3 (0.00-0.68); EOSINOPHILS PERCENT AUTO 1 % (0-6); Hematocrit 33.6 % (37.0-53.0); Hemoglobin 10.6 g/dL (13.5-17.5); IMMATURE GRAN ABSOLUTE AUTO 0.04 K/mm3 (0.00-0.10); IMMATURE GRAN PERCENT AUTO 0 % (0-1); LYMPHOCYTES ABSOLUTE AUTO 0.92 K/mm3 (0.84-5.20); LYMPHOCYTES PERCENT AUTO 9 % (21-46); MONOCYTES ABSOLUTE AUTO 0.97 K/mm3 (0.16-1.47); MONOCYTES PERCENT AUTO 9 % (4-13); Mean Corpuscular HGB 33.3 pg (26.0-34.0); Mean Corpuscular HGB Conc 31.5 g/dL (31.5-36.5); Mean Corpuscular Volume 106 fL (80-100); Mean Platelet Volume 9.6 fL (9.1-12.4); NEUTROPHILS PERCENT AUTO 80 % (41-73); Platelet Count 113 K/mm3 (150-400); RDW Coefficient Variation 13.7 % (11.7-14.2); RDW Standard Deviation 53.5 fL (35.1-46.3); Red Blood Cell Count 3.18 M/mm3 (4.30-5.90); White Blood Cell Count 10.32 K/mm3 (4.00-11.30)
[2019-05-18 04:05] LABS: Albumin, Blood 2.2 g/dL (3.4-5.0); Albumin/Globulin Ratio 0.5 (0.8-1.8); Bun/Creatinine Ratio 33.1 (12.0-20.0); Calcium, Blood 8.4 mg/dL (8.5-10.1); Creatinine, Blood 1.42 mg/dL (0.60-1.20); Globulin, Blood 4.2 g/dL (2.2-4.0); Potassium, Blood 5.1 mmol/L (3.5-5.5); Total Protein, Blood 6.4 g/dL (6.4-8.2)
--- NOTE | 2019-05-18 04:33 | NUR ---
charge nurse noted that lab showed blood sugar below 70, immigration coordinator ordered pt be given apple sauce, also due to hr and continued bp over 107 he ordered that the 0900 metoprolol be given, will check cbg at 0515 to monitor blood sugar level, pt remains afebrile
--- NOTE | 2019-05-18 05:52 | NUR ---
CBG 100 AFTER APPLE SAUCE, PT ASKED FOR WATER BUT ONLY ABLE TO GIVE AND ICE CUBES, FED IC ONE AT A TIME UNTIL PT WAS SATISFIED, LOWERED HOB SO PT COULD SLEEP
--- NOTE | 2019-05-18 06:46 | NUR ---
awake and more a+o than last night, cbg back up above 70, still cold but no fever noted, provided warm blankets and turned up the heat in the room, currently no shivering, wanted water but NPO so spoon fed ice cubes one at a time, no s/sx of choaking noted with either ice cubes or as, hr lowered to but remained above 100, ns still infusing with no s/sx of infection or infiltration noted at site, call light in reach, will continue to monitor and treat until share bsr with day staff and pt, bed in low position, repositioned frequently to prevent pressure issues
--- NOTE | 2019-05-18 09:12 | NUR ---
ASSUMED CARE OF PT FROM HAROLDO SCOTT AT SHIFT CHANGE. UPON INITIAL ASSESSMENT, PT WAS TACHYPNIC, LABORED, AND AUDIBLE WHEEZING. ASCULTATION OF LUNGS SHOWED PT TO BE TIGHT WITH EXP WHEEZES. CALLED RT TO ADMINISTER PRN BREATHING TX. AFTER COMPLETION OF TREATMENT, PT STILL C/O SOB, HOWEVER WHEEZING AND TIGHTNESS IMPROVED. AM CBG 56. ADMINISTERED PT'S MEDS WITH APPLESAUCE AND CBG IMPROVED TO 78. SPEECH THERAPY AT BEDSIDE FOR EVAL TO ASSIST IN PT'S DIET SELECTION. PT HAS ELEVATED TEMP OF 100.4 AND TELEMETRY SHOWS PT TO BE SINUS TACH 115'S W/ PAC'S. SBP WAS WNL.
--- NOTE | 2019-05-18 12:31 | NUR ---
TRANSFER OF CARE REPORT GIVEN TO SONIA VILLAR
--- NOTE | 2019-05-18 12:45 | NUR ---
ASSUMED PT CARE FROM CARMINA SCOTT
--- NOTE | 2019-05-18 17:36 | NUR ---
SINCE ASSUMING PT CARE AROUND 1230 TODAY PT HAS BEEN RESTING WELL IN BED, DOES REQUIRE FULL ASSISTANCE WITH POSITION CHANGES HE STS THAT HE IS UNABLE TO REPOSITION SELF. PT C/O 12/31 BACK PAIN THAT WAS TREATED WITH GABAPENTIN, REPOSITIONING AND TRAMADOL WITH MILD RELIEF OF PAIN. PT REMAINS ON ROOM AIR WIT SPO2 IN THE MID TO LOW 90s. PT OTHERWISE IS ALERT, ANSWERS QUESTIONS APPROPRIATELY WHEN ASKED.
[2019-05-19 04:25] LABS: Hematocrit 31.7 % (37.0-53.0); Hemoglobin 10.1 g/dL (13.5-17.5); Mean Corpuscular HGB 33.2 pg (26.0-34.0); Mean Corpuscular HGB Conc 31.9 g/dL (31.5-36.5); Mean Corpuscular Volume 104 fL (80-100); Mean Platelet Volume 9.5 fL (9.1-12.4); Platelet Count 113 K/mm3 (150-400); RDW Coefficient Variation 13.6 % (11.7-14.2); RDW Standard Deviation 52.8 fL (35.1-46.3); Red Blood Cell Count 3.04 M/mm3 (4.30-5.90); White Blood Cell Count 7.24 K/mm3 (4.00-11.30)
--- NOTE | 2019-05-19 04:42 | NUR ---
SHIFT SUMMARY PT HAS RESTED MOST OF THE NIGHT. DROWSY MOST OF THE TIME BUT EASILY AWAKES TO VERBAL STIMULI, PT IS A/OX4. PT TURNED AND REPOSITIONED T/O THE NIGHT. HEAVY 2 PA, IS ABLE TO HELP SOME WITH TURNING BUT NOT MUCH. LIFT IN ROOM USED PRN. GENERALIZED PAIN THAT IS RELIEVED WITH TRAMADOL. SOB WITH EXERTION. RESP E/U AT REST AND ON RA. ASSESSMENT UNCHANGED. APONTE IN PLACE PATENT AND DRAINING WITH ADEQUATE OUTPUT. BED IN LOWEST POSITION, CALL LIGHT WITHIN REACH. WILL CONTINUE TO MONITOR AND REPORT TO ONCOMING RN.
[2019-05-19 04:49] LABS: Albumin, Blood 1.9 g/dL (3.4-5.0); Anion Gap 6 mmol/L (6-16); Blood Urea Nitrogen 37 mg/dL (8-24); Bun/Creatinine Ratio 28.9 (12.0-20.0); CO2, Blood 19 mmol/L (21-32); Calcium, Blood 8.5 mg/dL (8.5-10.1); Chloride, Blood 119 mmol/L (98-108); Creatinine, Blood 1.28 mg/dL (0.60-1.20); Glomerular Filtration Rate 58 (60-); Glucose, Blood 147 mg/dL (70-99); Phosphorus, Blood 2.3 mg/dL (2.5-4.9); Potassium, Blood 4.8 mmol/L (3.5-5.5); Sodium, Blood 144 mmol/L (136-145)
[2019-05-19 04:59] LABS: Percent Saturation 58.1 % (20.0-50.0)
[2019-05-19 14:34] LABS: Vancomycin, Trough 15.1 ug/mL (5.0-10.0)
--- NOTE | 2019-05-19 18:17 | NUR ---
SHIFT SUMMARY PT HAS SHOWN IMPROVEMENT TODAY, COMPARED TO YESTERDAY. HR HAS IMPROVED TO SHOW MOSTLY NSR RATE IN 90'S, OCCASSIONAL SINUS TACH WITH RATES UP TO 120'S. PT DIDN'T REQUIRE ANY NEED FOR PRN BREATHING TREATMENTS. VITALS REMAINED STABLE. PER ORDERS, PT WAS UP IN CHAIR FOR MEALS, WITH SUPERVISION. PT STILL ATTEMPTS TO DRINK THICKEN FLUIDS TO FAST, AND NEEDS FREQUENT REMINDERS TO SLOW DOWN AND TAKE SMALL SIPS. PT EXPRESSED HIS DISPLEASURE WITH NEEDING TO BE UP TO CHAIR FOR MEALS AND HIS REQUIREMENT OF THICKEN LIQUIDS. EXPLAINED TO PT NEED FOR THESE PRECAUTIONS TO PREVENT ASPIRATION, WILL NEED TO CONTINUE TO RE-INFORCE.
[2019-05-20 04:00] LABS: BASOPHILS ABSOLUTE AUTO 0.02 K/mm3 (0.00-0.23); BASOPHILS PERCENT AUTO 0 % (0-2); EOSINOPHILS ABSOLUTE AUTO 0.25 K/mm3 (0.00-0.68); EOSINOPHILS PERCENT AUTO 4 % (0-6); Hemoglobin 9.5 g/dL (13.5-17.5); IMMATURE GRAN ABSOLUTE AUTO 0.03 K/mm3 (0.00-0.10); IMMATURE GRAN PERCENT AUTO 0 % (0-1); LYMPHOCYTES ABSOLUTE AUTO 1.09 K/mm3 (0.84-5.20); LYMPHOCYTES PERCENT AUTO 16 % (21-46); MONOCYTES ABSOLUTE AUTO 0.62 K/mm3 (0.16-1.47); MONOCYTES PERCENT AUTO 9 % (4-13); Mean Corpuscular HGB 33.1 pg (26.0-34.0); Mean Corpuscular HGB Conc 31.7 g/dL (31.5-36.5); Mean Corpuscular Volume 105 fL (80-100); Mean Platelet Volume 9.8 fL (9.1-12.4); NEUTROPHILS ABSOLUTE AUTO 4.81 K/mm3 (1.96-9.15); NEUTROPHILS PERCENT AUTO 71 % (41-73); Platelet Count 132 K/mm3 (150-400); RDW Coefficient Variation 13.6 % (11.7-14.2); RDW Standard Deviation 52.6 fL (35.1-46.3); Red Blood Cell Count 2.87 M/mm3 (4.30-5.90); White Blood Cell Count 6.82 K/mm3 (4.00-11.30)
[2019-05-20 04:19] LABS: Albumin, Blood 1.9 g/dL (3.4-5.0); Anion Gap 5 mmol/L (6-16); Blood Urea Nitrogen 38 mg/dL (8-24); Bun/Creatinine Ratio 29.7 (12.0-20.0); CO2, Blood 20 mmol/L (21-32); Calcium, Blood 8.7 mg/dL (8.5-10.1); Chloride, Blood 120 mmol/L (98-108); Creatinine, Blood 1.28 mg/dL (0.60-1.20); Glomerular Filtration Rate 58 (60-); Glucose, Blood 124 mg/dL (70-99); Phosphorus, Blood 2.2 mg/dL (2.5-4.9); Potassium, Blood 5.4 mmol/L (3.5-5.5); Sodium, Blood 145 mmol/L (136-145)
--- NOTE | 2019-05-20 04:30 | NUR ---
SHIFT SUMMARY PT ALERT AND ORIENTED TO SELF; CALLS APPROPRIATELY; PT ON RA W/ O2 SATS >93; C/O CHRONIC JOINT PAIN; PT REPOSITIONED AND MEDICATED PER EMAR; PT HAD LARGE BM USING BEDPAN; PT IS A MAX ASSISTANCE W/ LIFT SHEET IN PLACE; VSS; DENIES CHEST PAIN; DENIES NEEDS AT THIS TIME; CALL LIGHT IN REACH; BED IN LOWEST POSITION; WILL CONTINUE TO MONITOR CLOSELY UNTIL HAND OFF TO DAY SHIFT RN.
--- NOTE | 2019-05-20 17:47 | NUR ---
REPORT RECEIVED REPORT FROM LN ON PCU FLOOR FOR PATIENT.
--- NOTE | 2019-05-20 17:50 | NUR ---
TRANSFER OF CARE REPORT GIVEN TO SONIA VILLATORO. PT TRANSFERRED TO MEDICAL FLOOR ROOM 306. PT HAS BEEN ALERT AND ORIENTED WITH INTERMITTANT CONFUSION AFTER WAKING UP FROM A NAPS. PT WAS ABLE TO TOLERATE LONGER LENGTHS OF TIME UP IN THE CHAIR TODAY. PRIOR TO DISCONTINUATION OF TELEMETRY, PT WAS IN A SINUS RHYTHM RATE IN THE 90'S. VITALS HAVE REMAINED STABLE. NO RESPIRATORY DISTRESS NOTED TODAY.
--- NOTE | 2019-05-20 18:08 | NUR ---
PATIENT TRANSFER TRANSFERRED AT 1806 BY CHAIR. PATIENT MOVED TO BED. CALL LIGHT IN REACH. VS TAKEN. ORIENTED TO ROOM.
[2019-05-20] MEDS ORDERED: Lisinopril2.5 MG PO (18:23)
--- NOTE | 2019-05-21 05:06 | NUR ---
SHIFT SUMMARY A/O, ABLE TO MAKE NEEDS KNOWN. COOPERATIVE WITH CARE. CALLS AND ANSWERS QUESTIONS APPROPRIATELY. C/O PAIN/DISCOMFORT THAT WAS GENERALIZED AND CHRONIC IN NATURE. CALLED ON-CALL PHYSICIAN TO REQUEST ADDITIONAL PAIN MANAGEMENT; STATED TO GIVE PRN ULTRAM EARLY; WELL HAVE ATTENDING PHYSICIAN ADDRESS. APPEARED TO REST MUCH OF SHIFT. DRESSING CHANGED TO COCCYX; SMALL AMOUNT SANGUINOUS DRAINAGE, CLEANED AND REDRESSED. NO ACUTE CHANGES NOTED. VSS/AFEBRILE. BED IN LOWEST POSITION; ALARM ON. CALL LIGHT AND BELONGINGS WITHIN REACH. WCTM. REPORT TO ONCOMING RN.
[2019-05-21 05:14] LABS: Anion Gap 6 mmol/L (6-16); Blood Urea Nitrogen 36 mg/dL (8-24); Bun/Creatinine Ratio 31.9 (12.0-20.0); CO2, Blood 21 mmol/L (21-32); Calcium, Blood 9.2 mg/dL (8.5-10.1); Chloride, Blood 120 mmol/L (98-108); Creatinine, Blood 1.13 mg/dL (0.60-1.20); Glomerular Filtration Rate >60 (60-); Glucose, Blood 128 mg/dL (70-99); Phosphorus, Blood 3.3 mg/dL (2.5-4.9); Potassium, Blood 5.4 mmol/L (3.5-5.5); Sodium, Blood 147 mmol/L (136-145)
--- NOTE | 2019-05-21 08:50 | NUR ---
POSITIVE BLOOD CULTURE RECIEVED REPORT RECORDING POSITIVE BLOOD CULTURE SHOWING GRAM VARIABLE COCCI, PREVIOUS SAMPLE ON 05/17 GROWING GRAM NEGATIVE COCCI BACILLUS BUT STILL WORKING TO IDENTIFY CURRENT SAMPLE.
--- NOTE | 2019-05-21 17:59 | NUR ---
SHIFT SUMMARY PATIENT A/O X 2-3 AND IS FORGETFUL OCCASIONALLY. PATIENT HAS A APONTE IN PLACE AT THIS TIME D/T CHRONIC RETENTION, DRAINING CLEAR/YELLOW URINE WITH SEDIEMENT. W/C BOUND AT BASELINE. MEPILEX IN PLACE TO COVER ABRASION ON BUTTOCKS. MEDS TOLERATED WELL IN APPLESAUCE. POWER GLIDE INSERTED INTO LEFT ARM TODAY AND TOLERATED WELL. UP IN CHAIR FOR DINNER HOUR AND CUES GIVEN TO SLOW PATIENT DOWN WITH FEEDING.
[2019-05-22 05:26] LABS: BASOPHILS ABSOLUTE AUTO 0.02 K/mm3 (0.00-0.23); BASOPHILS PERCENT AUTO 0 % (0-2); EOSINOPHILS ABSOLUTE AUTO 0.24 K/mm3 (0.00-0.68); EOSINOPHILS PERCENT AUTO 4 % (0-6); Hemoglobin 10.7 g/dL (13.5-17.5); IMMATURE GRAN ABSOLUTE AUTO 0.03 K/mm3 (0.00-0.10); IMMATURE GRAN PERCENT AUTO 1 % (0-1); LYMPHOCYTES ABSOLUTE AUTO 0.94 K/mm3 (0.84-5.20); LYMPHOCYTES PERCENT AUTO 14 % (21-46); MONOCYTES ABSOLUTE AUTO 0.41 K/mm3 (0.16-1.47); MONOCYTES PERCENT AUTO 6 % (4-13); Mean Corpuscular HGB 33.8 pg (26.0-34.0); Mean Corpuscular HGB Conc 32.4 g/dL (31.5-36.5); Mean Corpuscular Volume 104 fL (80-100); Mean Platelet Volume 9.3 fL (9.1-12.4); NEUTROPHILS ABSOLUTE AUTO 4.88 K/mm3 (1.96-9.15); NEUTROPHILS PERCENT AUTO 75 % (41-73); Platelet Count 163 K/mm3 (150-400); RDW Coefficient Variation 13.4 % (11.7-14.2); RDW Standard Deviation 51.3 fL (35.1-46.3); Red Blood Cell Count 3.17 M/mm3 (4.30-5.90); White Blood Cell Count 6.52 K/mm3 (4.00-11.30)
[2019-05-22 05:41] LABS: Albumin, Blood 2.1 g/dL (3.4-5.0); Anion Gap 4 mmol/L (6-16); Blood Urea Nitrogen 31 mg/dL (8-24); Bun/Creatinine Ratio 29.8 (12.0-20.0); CO2, Blood 25 mmol/L (21-32); Calcium, Blood 9.4 mg/dL (8.5-10.1); Chloride, Blood 117 mmol/L (98-108); Creatinine, Blood 1.04 mg/dL (0.60-1.20); Glomerular Filtration Rate >60 (60-); Glucose, Blood 136 mg/dL (70-99); Phosphorus, Blood 3.3 mg/dL (2.5-4.9); Potassium, Blood 5.3 mmol/L (3.5-5.5); Sodium, Blood 146 mmol/L (136-145)
--- NOTE | 2019-05-22 07:17 | NUR ---
SHIFT SUMMARY ALERT, ABLE TO MAKE NEEDS KNOWN. SOME CONFUSION NOTED AT TIMES. COOPERATIVE WITH CARE; HOWEVER, MULTIPLE REQUESTS FROM STAFF OVERNIGHT. C/O PAIN/DISCOMFORT THAT IS CHRONIC IN NATURE; MEDICATED PER EMAR AND REPOSITIONED TOLERATED. NO ACUTE CHANGES NOTED. VSS/AFEBRILE. CONTINUED TO MONITOR T/O SHIFT. BED REMAINS IN LOWEST POSITION; ALARM ON. CALL LIGHT AND BELONGINGS WITHIN REACH. REPORT GIVEN TO ONCOMING RN.
[2019-05-22] MEDS ORDERED: MERREM1 GM IV (11:46)
[2019-05-22] MEDS ORDERED: Vsl#3 Capsule1 EACH PO (11:46)
[2019-05-22] MEDS ORDERED: VANCO 1.251.25 GM/25 IV (11:47)
--- NOTE | 2019-05-22 14:00 | NUR ---
Pt visit this afternoon. Pt reports his pain his managed with current regimen. Pt reports his took POLST home to complete. Pt is agreeable with discharge plan and has no concerns at this time. Attempted to call Pt's Jennifer and left message with request for return phone call. Palliative Care will remain available.
--- NOTE | 2019-05-22 15:03 | NUR ---
PT DISCHARGED FROM THE UNIT, LEFT VIA WHEEL CHAIR WITH TRANSPORT IN ROUTE TO [facility]. CALL PLACED TO ROBBIN SCOTT AT [facility]. DISCHARGE INSTRUCTIONS SENT WITH PT.
[2019-05-22 15:19] LABS: Vancomycin, Trough 19.9 ug/mL (5.0-10.0)
--- NOTE | 2019-05-22 17:23 | NUR ---
[facility] spiritual care note: Mr. Serrano is being d/c back to SNF soon. He has been living there and says he'd "rather be home, but its ok." He tells me that he holds out home that he can get stronger and be able to return home someday. He is non-confucianist, but appeared to enjoy companionship/encouragement.
== END 2019-05-22 15:04 | DRG 698 ==
LOC: ER 09:22 → PCU 12:10 → MEDS 05-20 18:05
PROVIDERS: Emergency Medicine; Internal Medicine; Nurse Practitioner Acute Care; Pharmacist; ADMIT Internal Medicine
DX: T83.511A Infection and inflammatory reaction due to indwelling urethral catheter, initial encounter (principal); J69.0 Pneumonitis due to inhalation of food and vomit; R65.20 Severe sepsis without septic shock; A41.02 Sepsis due to Methicillin resistant Staphylococcus aureus; F31.81 Bipolar II disorder; Z94.1 Heart transplant status; I48.20 Chronic atrial fibrillation, unspecified; N17.9 Acute kidney failure, unspecified; E87.1 Hypo-osmolality and hyponatremia; Z79.4 Long term (current) use of insulin; E11.9 Type 2 diabetes mellitus without complications; G25.81 Restless legs syndrome; K21.9 Gastro-esophageal reflux disease without esophagitis; E78.5 Hyperlipidemia, unspecified; Z68.35 Body mass index [BMI] 35.0-35.9, adult; Z86.711 Personal history of pulmonary embolism; E66.01 Morbid (severe) obesity due to excess calories; M10.9 Gout, unspecified; G47.33 Obstructive sleep apnea (adult) (pediatric); E11.65 Type 2 diabetes mellitus with hyperglycemia; F03.90 Unspecified dementia, unspecified severity, without behavioral disturbance, psychotic disturbance, mood disturbance, and anxiety; G89.4 Chronic pain syndrome; N40.1 Benign prostatic hyperplasia with lower urinary tract symptoms; N31.9 Neuromuscular dysfunction of bladder, unspecified; E11.649 Type 2 diabetes mellitus with hypoglycemia without coma
CPT/HCPCS: 36415; 51702; 71045; 76770; 80048; 80053; 80069; 80202; 81001; 82607; 82728; 82746; 82947; 83540; 83550; 83605; 83735; 84100; 84145; 85025; 85027; 85610; 85730; 87040; 87076; 87077; 87086; 87186; 87449; 87804; 92526; 92610; 93005; 93010; 94640; 94660; 94762; 96365; 96366; 96367; 97110; 97162; 97166; 97530; 97535; 99285-25; A9270; J0456; J0696; J1815; J2185; J3370; J7030; J7042; J7050; J7502; J7512; J7515

== ENCOUNTER 2019-05-24 18:45 | Emergency (ER) | payer OTHER, MEDICARE ==
[~2019-05-24] VITALS: Ht 175.3 cm; Wt 108.9 kg
[~2019-05-24 18:45] MED LIST changes: +Lisinopril2.5 MG PO; +MERREM1 GM IV; +VANCO 1.251.25 GM/25 IV; +Vsl#3 Capsule1 EACH PO
[2019-05-24 19:36] LABS: BASOPHILS ABSOLUTE AUTO 0.02 K/mm3 (0.00-0.23); BASOPHILS PERCENT AUTO 0 % (0-2); EOSINOPHILS ABSOLUTE AUTO 0.16 K/mm3 (0.00-0.68); EOSINOPHILS PERCENT AUTO 2 % (0-6); Hemoglobin 10.1 g/dL (13.5-17.5); IMMATURE GRAN ABSOLUTE AUTO 0.07 K/mm3 (0.00-0.10); IMMATURE GRAN PERCENT AUTO 1 % (0-1); LYMPHOCYTES ABSOLUTE AUTO 1.05 K/mm3 (0.84-5.20); LYMPHOCYTES PERCENT AUTO 16 % (21-46); MONOCYTES ABSOLUTE AUTO 0.46 K/mm3 (0.16-1.47); MONOCYTES PERCENT AUTO 7 % (4-13); Mean Corpuscular HGB 33.3 pg (26.0-34.0); Mean Corpuscular HGB Conc 31.6 g/dL (31.5-36.5); Mean Corpuscular Volume 106 fL (80-100); Mean Platelet Volume 9.2 fL (9.1-12.4); NEUTROPHILS ABSOLUTE AUTO 4.92 K/mm3 (1.96-9.15); NEUTROPHILS PERCENT AUTO 74 % (41-73); Platelet Count 185 K/mm3 (150-400); RDW Coefficient Variation 13.2 % (11.7-14.2); RDW Standard Deviation 50.4 fL (35.1-46.3); Red Blood Cell Count 3.03 M/mm3 (4.30-5.90); White Blood Cell Count 6.68 K/mm3 (4.00-11.30)
[2019-05-24 20:18] LABS: Alanine Aminotransfer (ALT/SGP 24 U/L (12-78); Albumin, Blood 2.2 g/dL (3.4-5.0); Albumin/Globulin Ratio 0.5 (0.8-1.8); Alk Phos 86 U/L (50-136); Anion Gap 4 mmol/L (6-16); Aspartate Aminotrans (AST/SGOT 11 U/L (12-37); Bilirubin, Total 0.4 mg/dL (0.1-1.0); Blood Urea Nitrogen 26 mg/dL (8-24); Bun/Creatinine Ratio 26.7 (12.0-20.0); CO2, Blood 27 mmol/L (21-32); Calcium, Blood 10.2 mg/dL (8.5-10.1); Chloride, Blood 112 mmol/L (98-108); Creatinine, Blood 0.97 mg/dL (0.60-1.20); Globulin, Blood 4.2 g/dL (2.2-4.0); Glomerular Filtration Rate >60 (60-); Glucose, Blood 142 mg/dL (70-99); Potassium, Blood 4.9 mmol/L (3.5-5.5); Sodium, Blood 143 mmol/L (136-145); Total Protein, Blood 6.4 g/dL (6.4-8.2)
[2019-05-24 21:47] LABS: Source, Urine Catheter
[2019-05-24 21:49] LABS: Appearance, Urine Clear (Clear); Bilirubin, Urine Neg (Neg); Blood, Urine 3+ (Neg); Color, Urine Yellow (P-Yellow); Glucose Qualitative, Urine Neg (Neg); Ketones, Urine Neg (Neg); Leukocyte Esterase, Urine 3+ (Neg); Nitrite, Urine Neg (Neg); Protein, Urine 1+ (Neg); Urobilinogen, Urine NORM (Normal)
[2019-05-24 21:56] LABS: Bacteria Rare /hpf; Squamous Epithelial Cells Not Seen /hpf (Few); Yeast/Fungi Urine Mod /hpf
== END 2019-05-24 23:54 | disposition home or self-care (01) ==
LOC: ER 18:45
PROVIDERS: Emergency Medicine
DX: N39.0 Urinary tract infection, site not specified (principal); Z91.041 Radiographic dye allergy status; Z88.8 Allergy status to other drugs, medicaments and biological substances; Z88.1 Allergy status to other antibiotic agents; Z88.6 Allergy status to analgesic agent; Z79.899 Other long term (current) drug therapy; Z79.4 Long term (current) use of insulin; Z79.52 Long term (current) use of systemic steroids; E11.9 Type 2 diabetes mellitus without complications; F32.9 Major depressive disorder, single episode, unspecified; E78.5 Hyperlipidemia, unspecified; K21.9 Gastro-esophageal reflux disease without esophagitis; Z87.891 Personal history of nicotine dependence
CPT/HCPCS: 71046; 80053; 81001; 82947; 85025; 87086; 93005; 93010; 99284-25

== ENCOUNTER 2019-06-11 00:15 | Inpatient (IN) | payer OTHER, MEDICARE ==
[~2019-06-11] VITALS: Ht 175.3 cm; Wt 101.0 kg
[2019-06-11 01:04] LABS: BASOPHILS ABSOLUTE AUTO 0.02 K/mm3 (0.00-0.23); BASOPHILS PERCENT AUTO 0 % (0-2); EOSINOPHILS PERCENT AUTO 0 % (0-6); Hematocrit 37.6 % (37.0-53.0); Hemoglobin 12.1 g/dL (13.5-17.5); IMMATURE GRAN ABSOLUTE AUTO 0.05 K/mm3 (0.00-0.10); IMMATURE GRAN PERCENT AUTO 0 % (0-1); LYMPHOCYTES ABSOLUTE AUTO 0.63 K/mm3 (0.84-5.20); LYMPHOCYTES PERCENT AUTO 5 % (21-46); MONOCYTES ABSOLUTE AUTO 0.62 K/mm3 (0.16-1.47); MONOCYTES PERCENT AUTO 5 % (4-13); Mean Corpuscular HGB 33.3 pg (26.0-34.0); Mean Corpuscular HGB Conc 32.2 g/dL (31.5-36.5); Mean Corpuscular Volume 104 fL (80-100); Mean Platelet Volume 9.6 fL (9.1-12.4); NEUTROPHILS ABSOLUTE AUTO 11.65 K/mm3 (1.96-9.15); NEUTROPHILS PERCENT AUTO 90 % (41-73); Platelet Count 152 K/mm3 (150-400); RDW Coefficient Variation 13.4 % (11.7-14.2); RDW Standard Deviation 50.6 fL (35.1-46.3); Red Blood Cell Count 3.63 M/mm3 (4.30-5.90); White Blood Cell Count 12.97 K/mm3 (4.00-11.30)
[2019-06-11 01:18] LABS: Alanine Aminotransfer (ALT/SGP 21 U/L (12-78); Albumin, Blood 2.9 g/dL (3.4-5.0); Albumin/Globulin Ratio 0.7 (0.8-1.8); Alk Phos 104 U/L (50-136); Anion Gap 7 mmol/L (6-16); Aspartate Aminotrans (AST/SGOT 12 U/L (12-37); Blood Urea Nitrogen 45 mg/dL (8-24); Bun/Creatinine Ratio 29.6 (12.0-20.0); CO2, Blood 32 mmol/L (21-32); Calcium, Blood 10.2 mg/dL (8.5-10.1); Chloride, Blood 107 mmol/L (98-108); Creatinine, Blood 1.52 mg/dL (0.60-1.20); Globulin, Blood 4.3 g/dL (2.2-4.0); Glomerular Filtration Rate 47 (60-); Glucose, Blood 212 mg/dL (70-99); Sodium, Blood 146 mmol/L (136-145); Total Protein, Blood 7.2 g/dL (6.4-8.2)
[2019-06-11 01:32] LABS: Magnesium, Blood 1.9 mg/dL (1.6-2.4); Troponin I <0.015 ng/mL (0.000-0.040)
[2019-06-11 01:59] LABS: Source, Urine Catheter
[2019-06-11 02:02] LABS: Bilirubin, Urine Neg (Neg); Blood, Urine 5+ (Neg); Glucose Qualitative, Urine 2+ (Neg); Ketones, Urine Neg (Neg); Leukocyte Esterase, Urine 3+ (Neg); Nitrite, Urine Neg (Neg); Protein, Urine 3+ (Neg); Urobilinogen, Urine NORM (Normal)
[2019-06-11 02:04] LABS: Appearance, Urine Cloudy (Clear); Color, Urine Yellow (P-Yellow)
[2019-06-11 02:10] LABS: Bacteria Many /hpf; Squamous Epithelial Cells Few /hpf (Few); White Blood Cells, Urine TNTC /hpf (0-5)
[2019-06-11] MEDS ORDERED: PROM25 PO (04:58)
[2019-06-11] MEDS ORDERED: Duoneb 2.5-0.5 M3 ML INH (05:01)
[2019-06-11 10:31] LABS: Adenovirus Not Detected (NOT DETECT); Coronavirus 229E Not Detected (NOT DETECT); Coronavirus HKU1 Not Detected (NOT DETECT); Coronavirus NL63 Not Detected (NOT DETECT); Coronavirus OC43 Not Detected (NOT DETECT); Human Metapneumovirus Not Detected (NOT DETECT); Human Rhinovirus/Enterovirus Detected (NOT DETECT); Influenza A Not Detected (NOT DETECT); Influenza A/2009-H1 Not Detected (NOT DETECT); Influenza A/H1 Not Detected (NOT DETECT); Influenza A/H3 Not Detected (NOT DETECT); Influenza B Not Detected (NOT DETECT); Parainfluenza Virus 1 Not Detected (NOT DETECT); Parainfluenza Virus 2 Not Detected (NOT DETECT); Parainfluenza Virus 3 Not Detected (NOT DETECT)
[2019-06-11 10:32] LABS: Bordetella pertussis Not Detected (NOT DETECT); Chlamydophila pneumoniae Not Detected (NOT DETECT); Mycoplasma pneumoniae Not Detected (NOT DETECT); Parainfluenza Virus 4 Not Detected (NOT DETECT); Respiratory Syncytial Virus Not Detected (NOT DETECT)
[2019-06-11 11:23] LABS: BASOPHILS ABSOLUTE AUTO 0.02 K/mm3 (0.00-0.23); BASOPHILS PERCENT AUTO 0 % (0-2); EOSINOPHILS PERCENT AUTO 0 % (0-6); Hematocrit 35.1 % (37.0-53.0); Hemoglobin 11.2 g/dL (13.5-17.5); IMMATURE GRAN ABSOLUTE AUTO 0.04 K/mm3 (0.00-0.10); IMMATURE GRAN PERCENT AUTO 0 % (0-1); LYMPHOCYTES ABSOLUTE AUTO 0.91 K/mm3 (0.84-5.20); LYMPHOCYTES PERCENT AUTO 8 % (21-46); MONOCYTES ABSOLUTE AUTO 0.73 K/mm3 (0.16-1.47); MONOCYTES PERCENT AUTO 7 % (4-13); Mean Corpuscular HGB 33.7 pg (26.0-34.0); Mean Corpuscular HGB Conc 31.9 g/dL (31.5-36.5); Mean Corpuscular Volume 106 fL (80-100); Mean Platelet Volume 9.7 fL (9.1-12.4); NEUTROPHILS ABSOLUTE AUTO 9.49 K/mm3 (1.96-9.15); NEUTROPHILS PERCENT AUTO 85 % (41-73); Platelet Count 139 K/mm3 (150-400); RDW Coefficient Variation 13.5 % (11.7-14.2); RDW Standard Deviation 52.1 fL (35.1-46.3); Red Blood Cell Count 3.32 M/mm3 (4.30-5.90); White Blood Cell Count 11.19 K/mm3 (4.00-11.30)
[2019-06-11 11:28] LABS: Albumin, Blood 2.6 g/dL (3.4-5.0); Anion Gap 5 mmol/L (6-16); Blood Urea Nitrogen 38 mg/dL (8-24); Bun/Creatinine Ratio 26.2 (12.0-20.0); CO2, Blood 31 mmol/L (21-32); Calcium, Blood 9.1 mg/dL (8.5-10.1); Chloride, Blood 111 mmol/L (98-108); Creatinine, Blood 1.45 mg/dL (0.60-1.20); Glomerular Filtration Rate 50 (60-); Glucose, Blood 141 mg/dL (70-99); Phosphorus, Blood 3.6 mg/dL (2.5-4.9); Potassium, Blood 3.9 mmol/L (3.5-5.5); Sodium, Blood 147 mmol/L (136-145)
[2019-06-11 12:36] LABS: PCO2 Arterial 46.4 mmHg (35-45); PO2 Arterial 69.3 mmHg (80-100); pH Blood Arterial 7.47 (7.35-7.45)
[2019-06-11 18:25] LABS: Source, Urine Clean Catch
[2019-06-11 18:30] LABS: Appearance, Urine Hazy (Clear); Bilirubin, Urine Neg (Neg); Blood, Urine 3+ (Neg); Color, Urine Yellow (P-Yellow); Glucose Qualitative, Urine Neg (Neg); Ketones, Urine Neg (Neg); Leukocyte Esterase, Urine 3+ (Neg); Nitrite, Urine Neg (Neg); Protein, Urine 2+ (Neg); Urobilinogen, Urine 1+ (Normal)
[2019-06-11 18:40] LABS: Bacteria Mod /hpf; Squamous Epithelial Cells Few /hpf (Few); White Blood Cells, Urine 50-100 /hpf (0-5)
[2019-06-11 18:48] LABS: U Amphetamine Screen Not Detected; U Barbituate Screen Not Detected; U Benzodiazapine Screen Not Detected; U Buprenorphine Screen Not Detected; U Cannabinoids Screen Not Detected; U Cocaine Screen Not Detected; U Methadone Screen Not Detected; U Methamphetamine Screen Not Detected; U Opiates Screen Not Detected; U Oxycodone Screen Not Detected; U Phencyclidine Screen Not Detected; U Propoxyphene Screen Not Detected
[2019-06-12 04:37] LABS: BASOPHILS ABSOLUTE AUTO 0.02 K/mm3 (0.00-0.23); BASOPHILS PERCENT AUTO 0 % (0-2); EOSINOPHILS PERCENT AUTO 0 % (0-6); Hemoglobin 10.9 g/dL (13.5-17.5); IMMATURE GRAN ABSOLUTE AUTO 0.03 K/mm3 (0.00-0.10); IMMATURE GRAN PERCENT AUTO 0 % (0-1); LYMPHOCYTES ABSOLUTE AUTO 0.74 K/mm3 (0.84-5.20); LYMPHOCYTES PERCENT AUTO 8 % (21-46); MONOCYTES ABSOLUTE AUTO 0.44 K/mm3 (0.16-1.47); MONOCYTES PERCENT AUTO 5 % (4-13); Mean Corpuscular HGB 33.4 pg (26.0-34.0); Mean Corpuscular HGB Conc 31.1 g/dL (31.5-36.5); Mean Corpuscular Volume 107 fL (80-100); NEUTROPHILS PERCENT AUTO 87 % (41-73); Platelet Count 128 K/mm3 (150-400); RDW Coefficient Variation 13.5 % (11.7-14.2); RDW Standard Deviation 53.2 fL (35.1-46.3); Red Blood Cell Count 3.26 M/mm3 (4.30-5.90); White Blood Cell Count 9.13 K/mm3 (4.00-11.30)
[2019-06-12 04:59] LABS: Albumin, Blood 2.6 g/dL (3.4-5.0); Anion Gap 8 mmol/L (6-16); Blood Urea Nitrogen 40 mg/dL (8-24); Bun/Creatinine Ratio 25.6 (12.0-20.0); CO2, Blood 32 mmol/L (21-32); Calcium, Blood 9.3 mg/dL (8.5-10.1); Chloride, Blood 111 mmol/L (98-108); Creatinine, Blood 1.56 mg/dL (0.60-1.20); Glomerular Filtration Rate 46 (60-); Glucose, Blood 155 mg/dL (70-99); Phosphorus, Blood 3.9 mg/dL (2.5-4.9); Potassium, Blood 3.5 mmol/L (3.5-5.5); Sodium, Blood 151 mmol/L (136-145)
[2019-06-13 03:51] LABS: BASOPHILS ABSOLUTE AUTO 0.02 K/mm3 (0.00-0.23); BASOPHILS PERCENT AUTO 0 % (0-2); EOSINOPHILS ABSOLUTE AUTO 0.05 K/mm3 (0.00-0.68); EOSINOPHILS PERCENT AUTO 1 % (0-6); Hematocrit 33.2 % (37.0-53.0); Hemoglobin 10.6 g/dL (13.5-17.5); IMMATURE GRAN ABSOLUTE AUTO 0.04 K/mm3 (0.00-0.10); IMMATURE GRAN PERCENT AUTO 1 % (0-1); LYMPHOCYTES ABSOLUTE AUTO 1.39 K/mm3 (0.84-5.20); LYMPHOCYTES PERCENT AUTO 17 % (21-46); MONOCYTES ABSOLUTE AUTO 0.73 K/mm3 (0.16-1.47); MONOCYTES PERCENT AUTO 9 % (4-13); Mean Corpuscular HGB 33.3 pg (26.0-34.0); Mean Corpuscular HGB Conc 31.9 g/dL (31.5-36.5); Mean Platelet Volume 9.8 fL (9.1-12.4); NEUTROPHILS ABSOLUTE AUTO 5.75 K/mm3 (1.96-9.15); NEUTROPHILS PERCENT AUTO 72 % (41-73); Platelet Count 135 K/mm3 (150-400); RDW Coefficient Variation 13.9 % (11.7-14.2); RDW Standard Deviation 53.4 fL (35.1-46.3); Red Blood Cell Count 3.18 M/mm3 (4.30-5.90); White Blood Cell Count 7.98 K/mm3 (4.00-11.30)
[2019-06-13 03:52] LABS: Mean Corpuscular Volume 104 fL (80-100)
[2019-06-13 04:14] LABS: Albumin, Blood 2.4 g/dL (3.4-5.0); Anion Gap 8 mmol/L (6-16); Blood Urea Nitrogen 39 mg/dL (8-24); Bun/Creatinine Ratio 26.4 (12.0-20.0); CO2, Blood 29 mmol/L (21-32); Calcium, Blood 8.9 mg/dL (8.5-10.1); Chloride, Blood 108 mmol/L (98-108); Creatinine, Blood 1.48 mg/dL (0.60-1.20); Glomerular Filtration Rate 49 (60-); Glucose, Blood 132 mg/dL (70-99); Phosphorus, Blood 3.1 mg/dL (2.5-4.9); Potassium, Blood 2.8 mmol/L (3.5-5.5); Sodium, Blood 145 mmol/L (136-145)
[2019-06-13 04:22] LABS: Vancomycin, Trough 21.3 ug/mL (5.0-10.0)
[2019-06-13 13:37] LABS: Albumin, Blood 2.5 g/dL (3.4-5.0); Anion Gap 10 mmol/L (6-16); Blood Urea Nitrogen 44 mg/dL (8-24); Bun/Creatinine Ratio 26.7 (12.0-20.0); CO2, Blood 28 mmol/L (21-32); Chloride, Blood 104 mmol/L (98-108); Creatinine, Blood 1.65 mg/dL (0.60-1.20); Glomerular Filtration Rate 43 (60-); Glucose, Blood 190 mg/dL (70-99); Phosphorus, Blood 2.7 mg/dL (2.5-4.9); Potassium, Blood 3.2 mmol/L (3.5-5.5); Sodium, Blood 142 mmol/L (136-145)
[2019-06-14 04:10] LABS: BASOPHILS ABSOLUTE AUTO 0.01 K/mm3 (0.00-0.23); BASOPHILS PERCENT AUTO 0 % (0-2); EOSINOPHILS ABSOLUTE AUTO 0.14 K/mm3 (0.00-0.68); EOSINOPHILS PERCENT AUTO 2 % (0-6); Hematocrit 30.7 % (37.0-53.0); Hemoglobin 9.8 g/dL (13.5-17.5); IMMATURE GRAN ABSOLUTE AUTO 0.03 K/mm3 (0.00-0.10); IMMATURE GRAN PERCENT AUTO 1 % (0-1); LYMPHOCYTES ABSOLUTE AUTO 1.16 K/mm3 (0.84-5.20); LYMPHOCYTES PERCENT AUTO 18 % (21-46); MONOCYTES ABSOLUTE AUTO 0.51 K/mm3 (0.16-1.47); MONOCYTES PERCENT AUTO 8 % (4-13); Mean Corpuscular HGB 33.6 pg (26.0-34.0); Mean Corpuscular HGB Conc 31.9 g/dL (31.5-36.5); Mean Corpuscular Volume 105 fL (80-100); Mean Platelet Volume 9.7 fL (9.1-12.4); NEUTROPHILS ABSOLUTE AUTO 4.76 K/mm3 (1.96-9.15); NEUTROPHILS PERCENT AUTO 72 % (41-73); Platelet Count 113 K/mm3 (150-400); RDW Coefficient Variation 13.6 % (11.7-14.2); RDW Standard Deviation 52.2 fL (35.1-46.3); Red Blood Cell Count 2.92 M/mm3 (4.30-5.90); White Blood Cell Count 6.61 K/mm3 (4.00-11.30)
[2019-06-14 04:32] LABS: Albumin, Blood 2.2 g/dL (3.4-5.0); Anion Gap 9 mmol/L (6-16); Blood Urea Nitrogen 47 mg/dL (8-24); CO2, Blood 27 mmol/L (21-32); Calcium, Blood 8.5 mg/dL (8.5-10.1); Chloride, Blood 106 mmol/L (98-108); Creatinine, Blood 1.74 mg/dL (0.60-1.20); Glomerular Filtration Rate 40 (60-); Glucose, Blood 116 mg/dL (70-99); Phosphorus, Blood 3.4 mg/dL (2.5-4.9); Potassium, Blood 3.6 mmol/L (3.5-5.5); Sodium, Blood 142 mmol/L (136-145)
[2019-06-15 09:42] LABS: Bun/Creatinine Ratio 32.7 (12.0-20.0); Calcium, Blood 9.2 mg/dL (8.5-10.1); Creatinine, Blood 1.47 mg/dL (0.60-1.20); Potassium, Blood 3.8 mmol/L (3.5-5.5)
[2019-06-15] MEDS ORDERED: Nystop60 GM TOP (10:42)
[2019-06-15] MEDS ORDERED: TESSALON PERLE100 MG PO (10:43)
== END 2019-06-15 14:15 | DRG 388 ==
LOC: ER 00:15 → PCU 04:19 → MEDS 04:19 → PCU 11:04
PROVIDERS: Emergency Medicine; Family Medicine; Internal Medicine; ADMIT Internal Medicine
PROC: 0D9670Z Drainage of Stomach with Drainage Device, Via Natural or Artificial Opening (ICD-10-PCS; principal; 2019-06-11)
DX: K56.600 Partial intestinal obstruction, unspecified as to cause (principal); G92 Toxic encephalopathy; E87.0 Hyperosmolality and hypernatremia; Z94.1 Heart transplant status; K56.7 Ileus, unspecified; G47.33 Obstructive sleep apnea (adult) (pediatric); D64.9 Anemia, unspecified; N18.3 Chronic kidney disease, stage 3 (moderate); D69.6 Thrombocytopenia, unspecified; D63.1 Anemia in chronic kidney disease; E11.22 Type 2 diabetes mellitus with diabetic chronic kidney disease; I95.9 Hypotension, unspecified; R82.90 Unspecified abnormal findings in urine; I48.91 Unspecified atrial fibrillation; G25.81 Restless legs syndrome; F32.9 Major depressive disorder, single episode, unspecified; E87.6 Hypokalemia; E86.0 Dehydration; Z79.01 Long term (current) use of anticoagulants; Z79.4 Long term (current) use of insulin; Z79.899 Other long term (current) drug therapy; Z87.891 Personal history of nicotine dependence; Z86.711 Personal history of pulmonary embolism
CPT/HCPCS: 0099U; 36415; 36600; 51702; 70450; 71045; 74176; 80048; 80053; 80069; 80202; 81001; 82803; 82947; 83605; 83690; 83735; 83880; 84145; 84484; 85025; 87040; 87077; 87086; 87186; 92526; 92610; 93005; 93010; 94640; 94760; 96361; 96365; 96366; 96375; 97110; 97162; 97530; 99285-25; A9270; J1650; J2185; J2405; J2920; J3370; J3480; J7030; J7050; J7060; J7120; J7512; J7515; J7516

== ENCOUNTER 2019-06-19 19:18 | Inpatient (IN) | payer OTHER, MEDICARE ==
[~2019-06-19] VITALS: Ht 175.3 cm; Wt 105.7 kg
[~2019-06-19 19:18] MED LIST changes: +Duoneb 2.5-0.5 M3 ML INH; +Nystop60 GM TOP; +PROM25 PO; +TESSALON PERLE100 MG PO
[2019-06-19 19:57] LABS: BASOPHILS ABSOLUTE AUTO 0.02 K/mm3 (0.00-0.23); BASOPHILS PERCENT AUTO 0 % (0-2); EOSINOPHILS ABSOLUTE AUTO 0.07 K/mm3 (0.00-0.68); EOSINOPHILS PERCENT AUTO 2 % (0-6); Hematocrit 31.4 % (37.0-53.0); Hemoglobin 10.2 g/dL (13.5-17.5); IMMATURE GRAN ABSOLUTE AUTO 0.03 K/mm3 (0.00-0.10); IMMATURE GRAN PERCENT AUTO 1 % (0-1); LYMPHOCYTES ABSOLUTE AUTO 0.56 K/mm3 (0.84-5.20); LYMPHOCYTES PERCENT AUTO 12 % (21-46); MONOCYTES ABSOLUTE AUTO 0.56 K/mm3 (0.16-1.47); MONOCYTES PERCENT AUTO 12 % (4-13); Mean Corpuscular HGB 33.8 pg (26.0-34.0); Mean Corpuscular HGB Conc 32.5 g/dL (31.5-36.5); Mean Corpuscular Volume 104 fL (80-100); Mean Platelet Volume 10.3 fL (9.1-12.4); NEUTROPHILS PERCENT AUTO 73 % (41-73); Platelet Count 125 K/mm3 (150-400); RDW Coefficient Variation 13.5 % (11.7-14.2); RDW Standard Deviation 51.7 fL (35.1-46.3); Red Blood Cell Count 3.02 M/mm3 (4.30-5.90); White Blood Cell Count 4.54 K/mm3 (4.00-11.30)
[2019-06-19 20:06] LABS: Source, Urine Clean Catch
[2019-06-19 20:13] LABS: PCO2 Arterial 40.4 mmHg (35-45); PO2 Arterial 71.1 mmHg (80-100); pH Blood Arterial 7.39 (7.35-7.45)
[2019-06-19 20:15] LABS: Albumin, Blood 2.4 g/dL (3.4-5.0); Albumin/Globulin Ratio 0.7 (0.8-1.8); Bilirubin, Total 0.8 mg/dL (0.1-1.0); Bun/Creatinine Ratio 22.8 (12.0-20.0); Calcium, Blood 9.3 mg/dL (8.5-10.1); Creatinine, Blood 1.49 mg/dL (0.60-1.20); Globulin, Blood 3.3 g/dL (2.2-4.0); Potassium, Blood 4.3 mmol/L (3.5-5.5); Total Protein, Blood 5.7 g/dL (6.4-8.2)
[2019-06-19 20:16] LABS: Appearance, Urine Cloudy (Clear); Blood, Urine 3+ (Neg); Color, Urine Yellow (P-Yellow); Glucose Qualitative, Urine Neg (Neg); Ketones, Urine 1+ (Neg); Leukocyte Esterase, Urine 3+ (Neg); Nitrite, Urine Neg (Neg); Protein, Urine 2+ (Neg); Urobilinogen, Urine NORM (Normal)
[2019-06-19 20:25] LABS: Bilirubin, Urine 1+ (Neg)
[2019-06-19 20:27] LABS: Bacteria Many /hpf; Squamous Epithelial Cells Few /hpf (Few); White Blood Cells, Urine TNTC /hpf (0-5); Yeast/Fungi Urine Mod /hpf
[2019-06-19 20:35] LABS: U Amphetamine Screen Not Detected; U Barbituate Screen Not Detected; U Benzodiazapine Screen Not Detected; U Buprenorphine Screen Not Detected; U Cannabinoids Screen Not Detected; U Cocaine Screen Not Detected; U Methadone Screen Not Detected; U Methamphetamine Screen Not Detected; U Opiates Screen Not Detected; U Oxycodone Screen Not Detected; U Phencyclidine Screen Not Detected; U Propoxyphene Screen Not Detected
[2019-06-19] MEDS ORDERED: FLUC150A PO (22:19)
[2019-06-19] MEDS ORDERED: BENZ100A PO (22:20)
[2019-06-19 23:52] LABS: Source, Urine Catheter
[2019-06-19 23:54] LABS: Bilirubin, Urine Neg (Neg); Blood, Urine 4+ (Neg); Glucose Qualitative, Urine Neg (Neg); Ketones, Urine Neg (Neg); Leukocyte Esterase, Urine 3+ (Neg); Nitrite, Urine Neg (Neg); Protein, Urine 2+ (Neg); Urobilinogen, Urine NORM (Normal)
--- NOTE | 2019-06-19 23:59 | NUR ---
2340 PT ARRIVED TO ROOM FROM ER IN STABLE CONDITION. PT REPORTS A LITTLE SOB THAT INCREASES WITH EXERTION, ON 2L O2 NC AT 92%. PT REPORTS PAIN OF 8/10 ALL OVER. PT IS AAO X 4 BUT SLEEPY. MULT BRUISES ALL OVER. PT HAS SOME REDNESS AND SOME SLOUGHING OF THE SKIN, BOTTOM LOOKS LIKE IT HAS BROKEN DOWN AND HEALED MORE THAN ONCE. NO SKIN OPENING AT THIS TIME. APPLIED PINK CREAM TO BOTTOM. PT CAME IN WITH A CHRONIC INDWELLING APONTE FOR RETENTION, WE CHANGED THE APONTE AND SENT A SPECIMEN PER PROTOCOL. PT IS INCONTINENT OF BOWEL AT THIS TIME, HAD LARGE BM, PT USING ATTENDS. PT REPORTS THAT HE WEARS FULL DENTURES, THAT HIS TOP DENTURES AT IN BUT HIS BOTTOM ONES ARE NOT. NO OTHER APPARENT SIGNS OF DISTRESS. CALL LIGHT IS IN REACH.
[2019-06-20 00:03] LABS: Appearance, Urine Hazy (Clear); Color, Urine Yellow (P-Yellow)
[2019-06-20 00:04] LABS: Squamous Epithelial Cells Few /hpf (Few); White Blood Cells, Urine 50-100 /hpf (0-5)
[2019-06-20 00:05] LABS: Amorphous Mod (0-Heavy); Bacteria Mod /hpf
--- NOTE | 2019-06-20 00:36 | NUR ---
PT LYING IN BED, WAKES EASILY TO VERBAL STIMULI. NO PAIN MEDS ORDERED AT THIS TIME, BUT PT IS STILL VERY SLEEPY. WILL ASK FOR SOMETHING FOR PAIN WHEN THE DR IS NEXT CALLED. NO OTHER APPARENT SIGNS OF DISTRESS. CALL LIGHT IS IN REACH. BED ALARM IS ON.
--- NOTE | 2019-06-20 03:26 | NUR ---
0200 PT LYING IN BED, EYES CLOSED, APPEARS TO BE RESTING. BREATHING IS EVEN, UNLABORED. NO APPARENT SIGNS OF DISTRESS. CALL LIGHT IS IN REACH. BED ALARM IS ON.
--- NOTE | 2019-06-20 03:27 | NUR ---
PT IS AAO X 4 BUT VERY SLEEPY. REPORTS A LITTLE SOB THAT INCREASES WITH EXERTION, ON 2L NC AT 92%. PT REPORTED PAIN ALL OVER BUT WAS VERY SLEEPY DURING ASSESSMENT AND HAS BEEN SLEEPING SOUNDLY SINCE. TELE ST BBB WITH PAC'S AT 110. LAST GLUCOSE AT 1933 WAS 169. CHRONIC APONTE THAT WAS CHANGED ON ADMIT. PT IS INCONTINENT, USING ATTENDS. REDNESS AND ROUGH SKIN ON BOTTOM, USING PINK CREAM. MULT BRUISES ALL OVER.
[2019-06-20 05:00] LABS: Hematocrit 31.7 % (37.0-53.0); Hemoglobin 10.2 g/dL (13.5-17.5); Mean Corpuscular HGB 33.4 pg (26.0-34.0); Mean Corpuscular HGB Conc 32.2 g/dL (31.5-36.5); Mean Corpuscular Volume 104 fL (80-100); Mean Platelet Volume 10.3 fL (9.1-12.4); Platelet Count 112 K/mm3 (150-400); RDW Coefficient Variation 13.5 % (11.7-14.2); RDW Standard Deviation 51.7 fL (35.1-46.3); Red Blood Cell Count 3.05 M/mm3 (4.30-5.90)
[2019-06-20 05:23] LABS: Creatinine, Blood 1.32 mg/dL (0.60-1.20); Potassium, Blood 4.5 mmol/L (3.5-5.5)
[2019-06-20] MEDS ORDERED: MIRALAX17 GM PO (05:48)
[2019-06-20] MEDS ORDERED: SENN187 PO (05:50)
[2019-06-20] MEDS ORDERED: Eucerin Creme454 GM TOP (05:57)
[2019-06-20] MEDS ORDERED: BASAGLAR K100 UNIT/2 SC (06:06)
--- NOTE | 2019-06-20 06:22 | NUR ---
PT SITTING UP IN BED, AWAKE, PAIN AND COUGH MEDS ORDERED, WILL BRING IN WHEN AVAILABLE. PT DENIES NEED FOR ANYTHING ELSE AT THIS TIME. LET PT KNOW THAT I CALLED [facility] AND HIS BOTTOM DENTURES ARE THERE. CALL LIGHT IS IN REACH. BED ALARM IS ON. NO OTHER CHANGES THIS SHIFT.
--- NOTE | 2019-06-20 07:49 | NUR ---
HE IS A&O. HE SAYS HE HAS LIVED AT THE [facility] FOR 6 MONTHS. 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 HIS ONLY COMPLAINT THIS AM IS FEELING ACHEY ALL OVER. TYLENOL WAS GIVEN BUT INEFFECTIVE. HE SAYS HE DOES NOT TAKE PAIN MEDICINE AT THE [facility]. WILL LOOK AT THE SKIN ON HIS BOTTOM LATER. HE SAYS IT IS PAINFUL ALSO AND THAT HE HAS SORES.
--- NOTE | 2019-06-20 19:54 | NUR ---
HIS BROUGHT IN HIS BOTTOM TEETH THIS AFTERNOON. HE ALREADY HAD HIS TOP. DIET CHANGED TO MECH SOFT HE TAKES AT [facility]. HE HAD A LOW GRADE FEVER MOST OF THE AFTERNOON. HIS IVF'S FINISHED BEFORE THAT. VSS BUT HIS PULSE THAT RAN 100 ALL DAY CHANGED TO 110 THIS EVENING. HE FELT WEAK AND SOB. RESP 28/MIN. I CALLED RT. THEY GAVE HIM A TREATMENT WHICH MAY HAVE HELPED SOME. HIS SAT ALWAYS REMAINED IN THE LOW TO MID 90'S. TELE ST WITH PAC'S. HE LIKES SITTING UP ON HIS BACK AND BOTTOM MOST OF THE TIME. HE FELT MUCH WORSE ON HIS LEFT SIDE. HE WAS NOT ALERT ENOUGH AT THE TIME THIS EVENING TO SWALLOW HIS NEORAL. POOR APPETITE. O2 PER NC CONTINUOUS, THOUGH HE TOOK IT OFF ONCE. REPORT GIVEN TO NIGHT NURSE.
[2019-06-21 04:33] LABS: BASOPHILS ABSOLUTE AUTO 0.01 K/mm3 (0.00-0.23); BASOPHILS PERCENT AUTO 0 % (0-2); EOSINOPHILS ABSOLUTE AUTO 0.21 K/mm3 (0.00-0.68); EOSINOPHILS PERCENT AUTO 5 % (0-6); Hematocrit 30.7 % (37.0-53.0); Hemoglobin 9.9 g/dL (13.5-17.5); IMMATURE GRAN ABSOLUTE AUTO 0.03 K/mm3 (0.00-0.10); IMMATURE GRAN PERCENT AUTO 1 % (0-1); LYMPHOCYTES ABSOLUTE AUTO 1.01 K/mm3 (0.84-5.20); LYMPHOCYTES PERCENT AUTO 25 % (21-46); MONOCYTES ABSOLUTE AUTO 0.53 K/mm3 (0.16-1.47); MONOCYTES PERCENT AUTO 13 % (4-13); Mean Corpuscular HGB 33.4 pg (26.0-34.0); Mean Corpuscular HGB Conc 32.2 g/dL (31.5-36.5); Mean Corpuscular Volume 104 fL (80-100); Mean Platelet Volume 9.8 fL (9.1-12.4); NEUTROPHILS ABSOLUTE AUTO 2.27 K/mm3 (1.96-9.15); NEUTROPHILS PERCENT AUTO 56 % (41-73); Platelet Count 117 K/mm3 (150-400); RDW Coefficient Variation 13.9 % (11.7-14.2); Red Blood Cell Count 2.96 M/mm3 (4.30-5.90); White Blood Cell Count 4.06 K/mm3 (4.00-11.30)
[2019-06-21 04:51] LABS: Calcium, Blood 8.6 mg/dL (8.5-10.1); Creatinine, Blood 1.27 mg/dL (0.60-1.20); Magnesium, Blood 1.6 mg/dL (1.6-2.4); Potassium, Blood 4.3 mmol/L (3.5-5.5)
--- NOTE | 2019-06-21 10:00 | NUR ---
PT PLEASANT ALERT ORIENTED X3. TALKED ABOUT GENERAL JOINT PAIN, STATES 7-8 / 10, BUT IS NORMAL FOR HIM, DOES NOT GET BETTER. TALKED ABOUT HIS HEART TX 25 YRS AGO. TALKED ABOUT TRANJU BEING PRESIDENT. H/R REG, NO MURMER NOTED. PER TELE: S TACH AT 104, WITH PAC'S. PT DENIES C/PN. LUNGS COARSE IN BASES. ON 2L O2 N/C. RESP EASY, UNLABORED. ABLE TO TALK 6-8 WORD SENTENCES EASILY. OCC DRY COUGH REPORTED. LARGE ABD. SOFT NON-TENDER. STATES BM YEST. NORM. BT X4. HYPERACTIVE. VOIDS APONTE CATH. CLEAR YELLOW FLUID DRAINING. PENIS HAS SPLIT GLANS FROM WHOLESALE ACCOUNT EXECUTIVE APONTE CATH. SMALL SPOT ON FORESKIN LIGHT SPOT BLEEDING NOTED. NOTIFIED DR. PT IS BEDBOUND. LIFT. PRESENTS LACK OF AMBITION TO MOVE. STATES BED FOR AT LEAST A YEAR. EXPLAINED TO PT MUST BE OFF RED BOTTOM. CAN USE PILLOWS, TURNING, ETC. PT STATES UNDERSTANDS. BED IN LOW POSITION, CALL LITE IN REACH, CALLS REGULARLY.
--- NOTE | 2019-06-21 18:27 | NUR ---
PT PLEASANT ALERT ORIENTED TODAY. DID C/O PAIN AT PENIS. IS A SPOT WITH BLOOD. SORE ON FORESKIN. CALLED FOR AND RECEIVED ORDERS FOR MED. NOT RECEIVED AT ROOM YET. DID TALK TO HIM ABOUT KEEPING OFF BACKSIDE MUCH POSS. SITTING IN CHAIR OKAY. KEEP PILLOW AND TURN REGULARLY TO AVIOD SORES. NO OTHER CONCERNS AT THIS TIME. BED IN LOW POSITION, CALL LITE IN REACH, CALLS APPROP
[2019-06-22 02:58] LABS: Adenovirus Not Detected (NOT DETECT); Bordetella pertussis Not Detected (NOT DETECT); Chlamydophila pneumoniae Not Detected (NOT DETECT); Coronavirus 229E Not Detected (NOT DETECT); Coronavirus HKU1 Not Detected (NOT DETECT); Coronavirus NL63 Not Detected (NOT DETECT); Coronavirus OC43 Not Detected (NOT DETECT); Human Metapneumovirus Not Detected (NOT DETECT); Human Rhinovirus/Enterovirus Not Detected (NOT DETECT); Influenza A Not Detected (NOT DETECT); Influenza A/2009-H1 Not Detected (NOT DETECT); Influenza A/H1 Not Detected (NOT DETECT); Influenza A/H3 Not Detected (NOT DETECT); Influenza B Not Detected (NOT DETECT); Mycoplasma pneumoniae Not Detected (NOT DETECT); Parainfluenza Virus 1 Not Detected (NOT DETECT); Parainfluenza Virus 2 Not Detected (NOT DETECT); Parainfluenza Virus 3 Not Detected (NOT DETECT); Parainfluenza Virus 4 Not Detected (NOT DETECT); Respiratory Syncytial Virus Not Detected (NOT DETECT)
--- NOTE | 2019-06-22 07:22 | NUR ---
NOC SHIFT SUMMARY PT BEGAN THE NIGHT UP IN HIS CHAIR BUT WAS TRANSFERED TO BED SHORTLY BEFORE MED PASS. ON TELE SINUS TACH WITH PAC'S PER GRAIN SHIPPER. AAOX4. 2LNC RESP EVEN AND UNLABORED. SLEPT ON AND OFF THROUGHT THE NIGHT. REPOSITIONED TO PREVENT SKIN BREAKDOWN. NO ACUTE CHANGES NOTED THIS NIGHT. REPORT TO ONCOMING RN.
--- NOTE | 2019-06-22 14:10 | NUR ---
DISCHARGE PT DISCHARGED TO [facility] VIA [facility] TELE DISCONTINUED AND RETURNED TO PCU. APONTE CATH CHANGED PRIOR TO DISCHARGE, 16Fr PLACED, PT TOLERATED WELL. WILL CALL REPORT TO CLARIBEL SCOTT
[2019-06-22] MEDS ORDERED: MERREM1 GM IV (14:20)
== END 2019-06-22 13:52 | DRG 698 ==
LOC: ER 19:18 → MEDS 19:19 → ENPENDDIS 06-22 10:30 → MEDS 06-22 13:52
PROVIDERS: Emergency Medicine; Internal Medicine; ADMIT Internal Medicine
DX: T83.511A Infection and inflammatory reaction due to indwelling urethral catheter, initial encounter (principal); J18.9 Pneumonia, unspecified organism; G92 Toxic encephalopathy; N17.9 Acute kidney failure, unspecified; Z94.1 Heart transplant status; I48.20 Chronic atrial fibrillation, unspecified; Z68.41 Body mass index [BMI] 40.0-44.9, adult; N39.0 Urinary tract infection, site not specified; G47.33 Obstructive sleep apnea (adult) (pediatric); N18.3 Chronic kidney disease, stage 3 (moderate); E86.9 Volume depletion, unspecified; E11.22 Type 2 diabetes mellitus with diabetic chronic kidney disease; E66.9 Obesity, unspecified; Z79.4 Long term (current) use of insulin; Z87.891 Personal history of nicotine dependence
CPT/HCPCS: 0099U; 36415; 36600; 51702; 71045; 80048; 80053; 81001; 82140; 82803; 82947; 83605; 83735; 83880; 84145; 84484; 85025; 85027; 87077; 87086; 87186; 93005; 93010; 94640; 94667; 94760; 96361; 96365; 96366; 96372; 96374; 96375; 99285-25; A9270; G0378; G0480; J0456; J0696; J1650; J2310; J7030; J7050; J7512; J7515

== ENCOUNTER → 2019-07-31 | Outpatient (CLI) | payer MEDICARE ==
[~2019-07-31] MED LIST changes: +BASAGLAR K100 UNIT/2 SC; +BENZ100A PO; +FLUC150A PO; +Keflex500 MG PO; +MIRALAX17 GM PO
[2019-07-31 10:00] LABS: Hematocrit 35.7 % (37.0-53.0); Hemoglobin 11.5 g/dL (13.5-17.5); Mean Corpuscular HGB Conc 32.2 g/dL (31.5-36.5); Mean Corpuscular Volume 103 fL (80-100); Mean Platelet Volume 10.6 fL (9.1-12.4); Platelet Count 134 K/mm3 (150-400); RDW Coefficient Variation 13.7 % (11.7-14.2); RDW Standard Deviation 51.3 fL (35.1-46.3); Red Blood Cell Count 3.48 M/mm3 (4.30-5.90); White Blood Cell Count 7.95 K/mm3 (4.00-11.30)
== END | disposition home or self-care (01) ==
LOC: LAB RH 08:44 → EDSTATUS 09:40 → LAB RH 09:50
DX: R68.89 Other general symptoms and signs (principal)
CPT/HCPCS: 36415; 85027

== ENCOUNTER 2019-08-19 18:34 | Emergency (ER) | payer OTHER, MEDICARE ==
[~2019-08-19] VITALS: Ht 175.3 cm; Wt 103.0 kg
[~2019-08-19 18:34] MED LIST changes: -Keflex500 MG PO
[2019-08-19 19:22] LABS: Source, Urine Urostomy Bag
[2019-08-19 19:27] LABS: Bilirubin, Urine Neg (Neg); Blood, Urine 5+ (Neg); Glucose Qualitative, Urine 4+ (Neg); Ketones, Urine 1+ (Neg); Leukocyte Esterase, Urine 3+ (Neg); Nitrite, Urine Neg (Neg); Protein, Urine 3+ (Neg); Urobilinogen, Urine NORM (Normal); pH, Urine 6.5 (5.0-8.0)
[2019-08-19 19:33] LABS: Appearance, Urine Cloudy (Clear); Color, Urine Red (P-Yellow)
[2019-08-19 19:36] LABS: Bacteria Few /hpf; Red Blood Cells, Urine TNTC /hpf (0-2); Squamous Epithelial Cells Rare /hpf (Few); White Blood Cells, Urine 25-50 /hpf (0-5)
[2019-08-19] MEDS ORDERED: Keflex500 MG PO (20:23)
== END 2019-08-19 20:52 | disposition home or self-care (01) ==
LOC: ER 18:34
PROVIDERS: Emergency Medicine
DX: T83.83XA Hemorrhage due to genitourinary prosthetic devices, implants and grafts, initial encounter (principal); N39.0 Urinary tract infection, site not specified; E11.9 Type 2 diabetes mellitus without complications; F31.9 Bipolar disorder, unspecified; E78.5 Hyperlipidemia, unspecified; G47.30 Sleep apnea, unspecified; I48.20 Chronic atrial fibrillation, unspecified; K21.9 Gastro-esophageal reflux disease without esophagitis; Z91.041 Radiographic dye allergy status; Z88.8 Allergy status to other drugs, medicaments and biological substances; Z88.6 Allergy status to analgesic agent; Z79.01 Long term (current) use of anticoagulants; Z79.899 Other long term (current) drug therapy; Z79.4 Long term (current) use of insulin; Z86.711 Personal history of pulmonary embolism; Z87.891 Personal history of nicotine dependence
CPT/HCPCS: 51702; 81001; 87077; 87086; 87186; 99283-25

== ENCOUNTER → 2019-09-04 | Outpatient (CLI) | payer MEDICARE ==
[~2019-09-04] MED LIST changes: +Keflex500 MG PO
[2019-09-04 15:18] LABS: BASOPHILS ABSOLUTE AUTO 0.02 K/mm3 (0.00-0.23); BASOPHILS PERCENT AUTO 0 % (0-2); EOSINOPHILS ABSOLUTE AUTO 0.25 K/mm3 (0.00-0.68); EOSINOPHILS PERCENT AUTO 4 % (0-6); Hematocrit 35.3 % (37.0-53.0); Hemoglobin 11.3 g/dL (13.5-17.5); IMMATURE GRAN ABSOLUTE AUTO 0.04 K/mm3 (0.00-0.10); IMMATURE GRAN PERCENT AUTO 1 % (0-1); LYMPHOCYTES ABSOLUTE AUTO 1.34 K/mm3 (0.84-5.20); LYMPHOCYTES PERCENT AUTO 22 % (21-46); MONOCYTES ABSOLUTE AUTO 0.55 K/mm3 (0.16-1.47); MONOCYTES PERCENT AUTO 9 % (4-13); Mean Corpuscular HGB 33.8 pg (26.0-34.0); Mean Corpuscular Volume 106 fL (80-100); NEUTROPHILS ABSOLUTE AUTO 3.96 K/mm3 (1.96-9.15); NEUTROPHILS PERCENT AUTO 64 % (41-73); RDW Coefficient Variation 13.9 % (11.7-14.2); RDW Standard Deviation 53.3 fL (35.1-46.3); Red Blood Cell Count 3.34 M/mm3 (4.30-5.90); White Blood Cell Count 6.16 K/mm3 (4.00-11.30)
[2019-09-04 15:28] LABS: Mean Platelet Volume 10.7 fL (9.1-12.4)
[2019-09-04 15:29] LABS: Platelet Count 99 K/mm3 (150-400)
== END ==
LOC: LAB RH 07:30 → EDSTATUS 12:37
PROVIDERS: Internal Medicine Cardiovascular Disease
DX: Z48.21 Encounter for aftercare following heart transplant (principal)
CPT/HCPCS: 80158; 85025

== ENCOUNTER → 2019-09-13 | Outpatient (CLI) | payer MEDICARE ==
[2019-09-13 13:28] LABS: Calcium, Blood 9.3 mg/dL (8.5-10.1); Creatinine, Blood 1.32 mg/dL (0.60-1.20); Potassium, Blood 4.8 mmol/L (3.5-5.5)
== END | disposition home or self-care (01) ==
LOC: LAB RH 12:40 → EDSTATUS 13:15
PROVIDERS: Family Medicine
DX: Z51.81 Encounter for therapeutic drug level monitoring (principal); Z79.899 Other long term (current) drug therapy
CPT/HCPCS: 80048; 80158

== ENCOUNTER → 2019-10-27 | Outpatient (CLI) | payer MEDICARE | LOC: LAB 18:06 → LAB SHORT 18:06 | DX: Z48.817 Encounter for surgical aftercare following surgery on the skin and subcutaneous tissue (principal); L08.9 Local infection of the skin and subcutaneous tissue, unspecified | CPT/HCPCS: 87070; 87077; 87186; 87205 ==

== ENCOUNTER → 2019-11-10 | Outpatient (CLI) | payer MEDICARE | LOC: LAB SHORT 18:04 → LAB 18:04 | DX: Z48.817 Encounter for surgical aftercare following surgery on the skin and subcutaneous tissue (principal); L08.9 Local infection of the skin and subcutaneous tissue, unspecified; Z57.0 Occupational exposure to noise; D48.5 Neoplasm of uncertain behavior of skin | CPT/HCPCS: 87070; 87205 ==

== ENCOUNTER 2020-07-14 11:18 | Inpatient (IN) | payer OTHER, MEDICARE ==
[~2020-07-14] VITALS: Ht 177.8 cm; Wt 106.5 kg
--- NOTE | 2020-07-14 01:58 | NUR ---
SPOKE TO DR. WALTERS REGARDING PT'S CRITICAL CBG OF 37MG/DL AND INTERVENTIONS DONE. ORDERS RECEIVED. WILL CONTINUE TO MONITOR.
[~2020-07-14 11:18] MED LIST changes: -ACET325 PO; -ELIQUIS5 MG PO; -MIRALAX17 GM PO; -Prednisone10 MG PO; -TESSALON PERLE100 MG PO; -Tussin100 MG/5 M PO
[2020-07-14 11:52] LABS: BASOPHILS ABSOLUTE AUTO 0.01 K/mm3 (0.00-0.23); BASOPHILS PERCENT AUTO 0 % (0-2); EOSINOPHILS ABSOLUTE AUTO 0.03 K/mm3 (0.00-0.68); EOSINOPHILS PERCENT AUTO 1 % (0-6); Hematocrit 29.3 % (37.0-53.0); Hemoglobin 9.1 g/dL (13.5-17.5); IMMATURE GRAN ABSOLUTE AUTO 0.04 K/mm3 (0.00-0.10); IMMATURE GRAN PERCENT AUTO 1 % (0-1); LYMPHOCYTES ABSOLUTE AUTO 0.41 K/mm3 (0.84-5.20); LYMPHOCYTES PERCENT AUTO 7 % (21-46); MONOCYTES ABSOLUTE AUTO 0.44 K/mm3 (0.16-1.47); MONOCYTES PERCENT AUTO 8 % (4-13); Mean Corpuscular HGB 34.2 pg (26.0-34.0); Mean Corpuscular HGB Conc 31.1 g/dL (31.5-36.5); Mean Corpuscular Volume 110 fL (80-100); Mean Platelet Volume 9.3 fL (9.1-12.4); NEUTROPHILS ABSOLUTE AUTO 4.86 K/mm3 (1.96-9.15); NEUTROPHILS PERCENT AUTO 84 % (41-73); Platelet Count 146 K/mm3 (150-400); RDW Coefficient Variation 13.1 % (11.7-14.2); RDW Standard Deviation 52.9 fL (35.1-46.3); Red Blood Cell Count 2.66 M/mm3 (4.30-5.90); White Blood Cell Count 5.79 K/mm3 (4.00-11.30)
[2020-07-14 11:54] LABS: Base Excess Venous -7.1 mmol/L; Bicarbonate Venous 18.9 mmol/L (24.0-30.0); PCO2 Venous 40.1 mmHg (38-42); PO2 Venous 58.8 mmHg (38-42); pH Blood Venous 7.29 (7.34-7.37)
[2020-07-14 12:37] LABS: Troponin I <0.015 ng/mL (0.000-0.040)
[2020-07-14 12:38] LABS: Alanine Aminotransfer (ALT/SGP 25 U/L (12-78); Albumin, Blood 2.3 g/dL (3.4-5.0); Albumin/Globulin Ratio 0.6 (0.8-1.8); Alk Phos 50 U/L (50-136); Anion Gap 6 mmol/L (6-16); Aspartate Aminotrans (AST/SGOT 26 U/L (12-37); Bilirubin, Total 0.7 mg/dL (0.1-1.0); Blood Urea Nitrogen 67 mg/dL (8-24); Bun/Creatinine Ratio 43.2 (12.0-20.0); CO2, Blood 19 mmol/L (21-32); Calcium, Blood 8.4 mg/dL (8.5-10.1); Chloride, Blood 120 mmol/L (98-108); Creatinine, Blood 1.55 mg/dL (0.60-1.20); Globulin, Blood 3.6 g/dL (2.2-4.0); Glomerular Filtration Rate 46 (60-); Glucose, Blood 102 mg/dL (70-99); Potassium, Blood 5.9 mmol/L (3.5-5.5); Sodium, Blood 145 mmol/L (136-145); Total Protein, Blood 5.9 g/dL (6.4-8.2)
[2020-07-14 13:19] LABS: Source, Urine Catheter
[2020-07-14 13:30] LABS: Appearance, Urine Hazy (Clear); Bilirubin, Urine Neg (Neg); Blood, Urine 5+ (Neg); Color, Urine Yellow (P-Yellow); Glucose Qualitative, Urine Neg (Neg); Ketones, Urine Neg (Neg); Leukocyte Esterase, Urine 3+ (Neg); Nitrite, Urine Neg (Neg); Protein, Urine 3+ (Neg); Urobilinogen, Urine NORM (Normal)
[2020-07-14 13:40] LABS: Red Blood Cells, Urine 50-100 /hpf (0-2)
[2020-07-14 13:41] LABS: Amorphous Mod (0-Heavy); Bacteria Mod /hpf; Squamous Epithelial Cells Few /hpf (Few); Transitional Epithelial Cells Few /hpf (0-Rare)
[2020-07-14] MEDS ORDERED: ALLO100 PO (14:01)
[2020-07-14] MEDS ORDERED: GABA100 PO (14:02)
[2020-07-14] MEDS ORDERED: METO50ER PO (14:03)
[2020-07-14] MEDS ORDERED: TAMS.4ER PO (14:03)
[2020-07-14] MEDS ORDERED: ELIQUIS5 MG PO (14:04)
[2020-07-14] MEDS ORDERED: CYCLOSPORINE PO (14:05)
[2020-07-14] MEDS ORDERED: PRED5 PO (14:06)
[2020-07-14] MEDS ORDERED: RISP1 PO (14:06)
[2020-07-14] MEDS ORDERED: MIRALAX17 GM PO (14:07)
[2020-07-14] MEDS ORDERED: MELA3 PO (14:07)
[2020-07-14] MEDS ORDERED: SENN187 PO (14:08)
[2020-07-14] MEDS ORDERED: EUCERIN CREAM TOP (14:09)
[2020-07-14] MEDS ORDERED: HUMALOG100 UNIT/1 SC (14:10)
[2020-07-14] MEDS ORDERED: ACET325 PO (14:11)
[2020-07-14] MEDS ORDERED: [UNRECOGNIZED DRUG - CODE] PO (14:14)
[2020-07-14] MEDS ORDERED: TESSALON PERLE100 MG PO (14:14)
[2020-07-14] MEDS ORDERED: ALBU90OI INH (14:15)
[2020-07-14] MEDS ORDERED: ROPINIROLE HCL4 M1 PO (14:16)
[2020-07-14] MEDS ORDERED: Artificial Tear15 ML BOTHEYES (14:17)
[2020-07-14] MEDS ORDERED: CYCL100 PO (14:18)
[2020-07-14] MEDS ORDERED: BASAGLAR K100 UNIT/6 SC (14:18)
[2020-07-14] MEDS ORDERED: INSULANPEN SC (14:18)
[2020-07-14] MEDS ORDERED: PRAV20 PO (14:19)
--- NOTE | 2020-07-14 18:37 | NUR ---
SHIFT SUMMARY. 1645 PT ADMITTED TO MEDICAL FLOOR VIA GURNEY. ON 2L O2 NC, LUNGS CLEAR, TACHYPNEIC. PT REPORTS FEELING COLD, T 99.3, MILD TREMORS, APAP GIVEN AWAITING REPEAT TEMP. CBG 61 AT TIME OF ADMIT, JUICE AND PUDDING GIVEN, REPEAT CBG 122 POST INTERVENTION. SKIN TEARS AND REDNESS DOCUMENTED, SEE PICTURES.
--- NOTE | 2020-07-14 19:10 | NUR ---
ASSUMED CARE RECEIVED REPORT FROM SONIA GRIDER. PT ASLEEP, IN NO ACUTE DISTRESS. NO ACUTE NEEDS ASSESSED AT THIS TIME. CALL LIGHT, POSSESSIONS IN REACH, BED IN LOW POSITION WITH ALARMS ON. CONTINUE TO MONITOR.
--- NOTE | 2020-07-15 00:20 | NUR ---
THIS RN NOTIFIED BY RIB CLOTH KNITTER OF PT'S CRITICAL CBG OF 37MG/DL. ON ASSESSMENT, PT APPEARS LETHARGIC, AROUSABLE AND OPENS EYES TO VERBAL STIMULI, SPEECH GARBLED. D50 ADMINISTERED PER HYPOGLYCEMIC PROTOCOL. IV REMAINS PATENT AND IVF INFUSING ORDERED. WILL REASSESS CBG PER PROTOCOL AND CONTINUE TO MONITOR .
--- NOTE | 2020-07-15 01:58 | NUR ---
SPOKE TO DR. WALTERS REGARDING PT'S CRITICAL CBG OF 37MG/DL AND INTERVENTIONS DONE. ORDERS RECEIVED. CONTINUE TO MONITOR.
[2020-07-15 04:43] LABS: Hematocrit 30.4 % (37.0-53.0); Hemoglobin 9.9 g/dL (13.5-17.5); Mean Corpuscular HGB 34.7 pg (26.0-34.0); Mean Corpuscular HGB Conc 32.6 g/dL (31.5-36.5); Mean Corpuscular Volume 107 fL (80-100); Mean Platelet Volume 9.1 fL (9.1-12.4); Platelet Count 152 K/mm3 (150-400); RDW Standard Deviation 50.6 fL (35.1-46.3); Red Blood Cell Count 2.85 M/mm3 (4.30-5.90); White Blood Cell Count 6.44 K/mm3 (4.00-11.30)
[2020-07-15 05:00] LABS: Creatinine, Blood 1.42 mg/dL (0.60-1.20); Potassium, Blood 5.7 mmol/L (3.5-5.5)
--- NOTE | 2020-07-15 05:00 | NUR ---
RECRUITING INTERNSHIP SUMMARY PT RESTING, IN NO ACUTE DISTRESS. VS REVIEWED, TACHYCARDIC, OTHER VS WNL; O2 SATS STABLE ON 2L/NC. CBGS IN THE 80'S, DEXTROSE 10% IVF INFUSING ORDERED. PT INCREASINGLY ALERT, TALKING TO STAFF. LARGE LOOSE BM THIS SHIFT. NO OTHER ACUTE NEEDS ASSESSED AT THIS TIME. CALL LIGHT, POSSESSIONS IN REACH, BED IN LOW POSITION WITH ALARMS ON. CONTINUE TO MONITOR, REPORT OFF TO DAY RN.
--- NOTE | 2020-07-15 12:26 | NUR ---
PT REMAINS TACHY IN THE 110-120'S AFTER METOPROLOL XL 50MG THIS AM. SPOKE WITH DR MORA AND ORDER RECEIVED FOR AN ADDITIONAL 25MG NOW. PT BLOOD GLUCOSE 211 THIS AFTERNOON, PER DR MORA STOP D10 AND START ON NS AT 75 AND MONITOR BLOOD GLUCOSE.
--- NOTE | 2020-07-15 13:56 | NUR ---
PT TO IMAGING FOR HEAD CT.
--- NOTE | 2020-07-15 17:05 | NUR ---
SHIFT SUMMARY- PT A/O X1-3, AT TIMES PT VERY CONFUSED AND CONTINUOUSLY REPEATS HIMSELF OTHER TIMES PT ABLE TO SAY WHERE HE IS AND WHAT THE DATE IS. PT YELLS OUT AT TIMES AND ANXIOUS. LS DIMINISHED, ON RA. PER [place] PT USES O2 PRN AT HS AT BASELINE. OCCASIONAL PRODUCTIVE COUGH OF THICK CLEAR SPUTUM. TELE 110-120'S T/O MOST OF THE DAY, ADDITIONAL 25MG METOPROLOL GIVEN AND HEART DOWN INTO THE 100'S. CHRONIC INDWELLING APONTE IN PLACE. GLUCOSE STABLE T/O THE DAY, DEXTROSE STOPPED AND PT STARTED ON NS AT 75ML/HR. PT A LIFT AT BASELINE INTO POWERCHAIR. PT WITH POOR ORAL INTAKE. EXCORIATION TO COCCYX. NO OTHER ACUTE CHANGES THIS SHIFT.
--- NOTE | 2020-07-15 17:49 | NUR ---
PT CONTINUOUSLY YELLING OUT IF STAFF NOT AT BEDSIDE, PRN TYLENOL GIVEN TO SEE II WILL HELP BUT PT CONTINUES TO YELL OUT. SPOKE WITH DR MORA AND PRN CHANTELLE ORDERED.
--- NOTE | 2020-07-15 22:00 | NUR ---
ASSUMPTION OF CARE. ALERT, ABLE TO STATE WHERE HE IS AND NAME. HE CONTINUES TO MOAN LIKE HE IS IN PAIN, WHEN ASKED HE STATES YES, HIS RIGHT ARM THAT HE IS LAYING ON. REPOSITIONED HIM WHICH HE SAID FELT BETTER. HE CONTINUED TO MOAN, THEN STARTED TALKING ABOUT "WANT A HORSE" REPEATLY. TOOK MEDICATION WITH NO PROBLEMS. ATTENDS CLEAN, CATHTER PATENT AND DRAINING. IVF INFUSING WITH NO PROBLEMS. HAS YELLED OUT SEVERAL TIMES, WHEN ASKED IF HE NEEDS SOMETHING HE INSIST ON HIS HAIR TO BE CUTE, DOES NOT GIVE REASON WHY. HE IS NOW IN THE ROOM TALKING TO SELF. CALL LIGHT IS IN REACH BUT HE TENDS TO NOT USE IT. DID TURN ON THE TV WITH MUSIC TO SEE IF IT HELPS. WILL CONTINUE TO MONITOR.
[2020-07-16 04:58] LABS: Hematocrit 28.6 % (37.0-53.0); Hemoglobin 9.1 g/dL (13.5-17.5); Mean Corpuscular HGB 34.5 pg (26.0-34.0); Mean Corpuscular HGB Conc 31.8 g/dL (31.5-36.5); Mean Corpuscular Volume 108 fL (80-100); Mean Platelet Volume 9.2 fL (9.1-12.4); Platelet Count 163 K/mm3 (150-400); RDW Standard Deviation 51.3 fL (35.1-46.3); Red Blood Cell Count 2.64 M/mm3 (4.30-5.90); White Blood Cell Count 4.58 K/mm3 (4.00-11.30)
[2020-07-16 05:21] LABS: Albumin, Blood 1.9 g/dL (3.4-5.0); Anion Gap 7 mmol/L (6-16); Blood Urea Nitrogen 42 mg/dL (8-24); Bun/Creatinine Ratio 31.1 (12.0-20.0); CO2, Blood 21 mmol/L (21-32); Calcium, Blood 9.5 mg/dL (8.5-10.1); Chloride, Blood 120 mmol/L (98-108); Creatinine, Blood 1.35 mg/dL (0.60-1.20); Glomerular Filtration Rate 54 (60-); Glucose, Blood 71 mg/dL (70-99); Sodium, Blood 148 mmol/L (136-145)
--- NOTE | 2020-07-16 05:36 | NUR ---
SHIFT SUMMARY: ALEKSANDRA HAS BEEN CONFUSED OFF AND ON THIS SHIFT WITH RESTLESSNESS. AT FIRST HE WAS TALKING ABOUT WANTING A HORSE REPEATATIVLY, THEN WANTING HIS HAIR CUT, THEN BEING COLD, THEN HOT, THEN PAIN. HE WAS UNCOMFORTABLE ANY WAY WE SWITCHED POSITIONS. CALLING OUT ALL THE TIME, MUMBLING. PAIN WAS IN LOWER BACK, DID GET ORDER FOR LIDOCAINE AND FENTANYL WHICH I GAVE HIM AFTER TRYING A DOSE OF SEREQUEL. HE ONLY SLEPT FOR 15 MINUTES. TURNED Q 2 HOURS, FEET ELEVATED. IVF INFUSING. EVEN TRIED MUSIC. HE CONTINUED TO REPEAT SELF ALL NIGHT, NOT EVERY ABLE TO TELL ME EXACTLY WAS WRONG. THERE FOR A WHILE HE THOUGHT I WAS HIS AND WHEN I WALKED OUT OF THE ROOM HE WOULD YELL "COME BACK DON'T LEAVE ME". VITALS SHOWED TACHYCARDIA IN 110'S, REST WERE WNL EVEN OXYGEN SATS WERE IN MID 90'S ON RA. COUGH IS OCCATIONAL. CATHETER REMAINED PATIENT. CALL LIGHT IS IN REACH, BUT PATIENT DOES NOT USE ONLY CALLS OUT.
[2020-07-16] MEDS ORDERED: QUET25 PO (12:44)
[2020-07-16] MEDS ORDERED: VITAMIN D31000 UNI1 PO (12:45)
[2020-07-16] MEDS ORDERED: CEFD300 PO (12:45)
--- NOTE | 2020-07-16 16:43 | NUR ---
REPORT CALLED TO MOLLY AT [facility], THEY ARE REQUESTING PT BE TRANSPORTED VIA GURNEY, TRANSPORT CHANGED BY CASE MANAGEMENT TO 1730. UPDATED. PT HAS BEEN MUCH MORE ORIENTED TODAY BUT STILL SLIGHTLY SLEEPY BUT WAKES UP TO TALK. PT NOT HOLLERING MUCH THIS AFTERNOON. PT ABLE TO HOLD CONVERSATION AND ANSWERS QUESTIONS APROPRIATELY. PT CONTINUES TO BE WEEK AND NEEDING ASSISTANCE WITH EATING. LS DIMINISHED, ON RA T/O THE DAY. IV X2 DC'D INTACT. PT AWAITING RIDE BACK TO [facility] AT THIS TIME.
--- NOTE | 2020-07-16 19:08 | NUR ---
PT DC'D VIA [facility] AT 1907 TO [facility]. IV DC'D TOMAS APONTE LEFT IN PLACE.
[2020-12-13] MEDS ORDERED: PRAM.5 PO (05:01)
[2020-12-13] MEDS ORDERED: JUVEN PACKET1 EAC3 PO (05:05)
[2020-12-13] MEDS ORDERED: DOCUZEN 8.6-501 EACH PO (05:06)
[2020-12-13] MEDS ORDERED: Q-Tussin100 MG/5 M PO (05:09)
[2020-12-13] MEDS ORDERED: Acetaminophen650 M1 PO (05:09)
[2020-12-13] MEDS ORDERED: BASAGLAR K100 UNIT/1 SC ×2 (05:12→05:13)
== END 2020-07-16 19:07 | DRG 177 ==
LOC: ER 11:18 → MEDS 14:18 → ERHOLD 14:18 → MEDS 16:36
PROVIDERS: Emergency Medicine; ADMIT Internal Medicine
DX: U07.1 COVID-19 (principal); G92 Toxic encephalopathy; J12.82 Pneumonia due to coronavirus disease 2019; T83.511A Infection and inflammatory reaction due to indwelling urethral catheter, initial encounter; D84.9 Immunodeficiency, unspecified; E87.2 Acidosis; I48.20 Chronic atrial fibrillation, unspecified; I50.32 Chronic diastolic (congestive) heart failure; Z94.1 Heart transplant status; F01.51 Vascular dementia, unspecified severity, with behavioral disturbance; E11.9 Type 2 diabetes mellitus without complications; D63.8 Anemia in other chronic diseases classified elsewhere; E66.9 Obesity, unspecified; E78.5 Hyperlipidemia, unspecified; E87.5 Hyperkalemia; F31.9 Bipolar disorder, unspecified; G47.33 Obstructive sleep apnea (adult) (pediatric); K21.9 Gastro-esophageal reflux disease without esophagitis; M10.9 Gout, unspecified; M48.00 Spinal stenosis, site unspecified; N18.30 Chronic kidney disease, stage 3 unspecified; N40.1 Benign prostatic hyperplasia with lower urinary tract symptoms; Z86.69 Personal history of other diseases of the nervous system and sense organs; R26.89 Other abnormalities of gait and mobility; L89.151 Pressure ulcer of sacral region, stage 1; R54 Age-related physical debility; Z86.711 Personal history of pulmonary embolism; Z79.01 Long term (current) use of anticoagulants
CPT/HCPCS: 36415; 51702; 70450; 71045; 80048; 80053; 80069; 81001; 82803; 82947; 83605; 83880; 84145; 84484; 85025; 85027; 86140; 87040; 87086; 93005; 93010; 96361-59; 96374-59; 99285-25; A9270; J2185; J3010; J7030; J7050; J7120; J7502; J7512; J7515

== ENCOUNTER 2020-08-30 07:39 | Inpatient (IN) | payer OTHER, MEDICARE ==
[~2020-08-30] VITALS: Ht 175.3 cm; Wt 117.9 kg
[~2020-08-30 07:39] MED LIST changes: +ACET325 PO; +Artificial Tear15 ML BOTHEYES; +BASAGLAR K100 UNIT/6 SC; +CEFD300 PO; +ELIQUIS5 MG PO; +EUCERIN CREAM TOP; +GABA100 PO; +HUMALOG100 UNIT/1 SC; +MELA3 PO; +METO50ER PO; +MIRALAX17 GM PO; +QUET25 PO; +ROPINIROLE HCL4 M1 PO; +TESSALON PERLE100 MG PO; +VITAMIN D31000 UNI1 PO; +[UNRECOGNIZED DRUG - CODE] PO
[2020-08-30 08:19] LABS: BASOPHILS ABSOLUTE AUTO 0.01 K/mm3 (0.00-0.23); BASOPHILS PERCENT AUTO 0 % (0-2); EOSINOPHILS ABSOLUTE AUTO 0.03 K/mm3 (0.00-0.68); EOSINOPHILS PERCENT AUTO 0 % (0-6); Hematocrit 36.8 % (37.0-53.0); Hemoglobin 11.9 g/dL (13.5-17.5); IMMATURE GRAN ABSOLUTE AUTO 0.03 K/mm3 (0.00-0.10); IMMATURE GRAN PERCENT AUTO 0 % (0-1); LYMPHOCYTES ABSOLUTE AUTO 0.36 K/mm3 (0.84-5.20); LYMPHOCYTES PERCENT AUTO 5 % (21-46); MONOCYTES ABSOLUTE AUTO 0.14 K/mm3 (0.16-1.47); MONOCYTES PERCENT AUTO 2 % (4-13); Mean Corpuscular HGB 34.8 pg (26.0-34.0); Mean Corpuscular HGB Conc 32.3 g/dL (31.5-36.5); Mean Corpuscular Volume 108 fL (80-100); Mean Platelet Volume 9.7 fL (9.1-12.4); NEUTROPHILS ABSOLUTE AUTO 6.38 K/mm3 (1.96-9.15); NEUTROPHILS PERCENT AUTO 92 % (41-73); Platelet Count 102 K/mm3 (150-400); RDW Coefficient Variation 13.3 % (11.7-14.2); RDW Standard Deviation 53.1 fL (35.1-46.3); Red Blood Cell Count 3.42 M/mm3 (4.30-5.90); White Blood Cell Count 6.95 K/mm3 (4.00-11.30)
[2020-08-30 08:42] LABS: Albumin, Blood 2.7 g/dL (3.4-5.0); Albumin/Globulin Ratio 0.7 (0.8-1.8); Bilirubin, Total 1.4 mg/dL (0.1-1.0); Bun/Creatinine Ratio 27.6 (12.0-20.0); Calcium, Blood 9.1 mg/dL (8.5-10.1); Creatinine, Blood 1.27 mg/dL (0.60-1.20); Globulin, Blood 3.9 g/dL (2.2-4.0); Potassium, Blood 4.9 mmol/L (3.5-5.5); Total Protein, Blood 6.6 g/dL (6.4-8.2)
[2020-08-30] MEDS ORDERED: Flonase 0.05% N16 GM (12:55)
[2020-08-30] MEDS ORDERED: ROPINIROLE HCL4 M1 PO (12:56)
[2020-08-30] MEDS ORDERED: ARTIFICIAL TEAR15 M2 BOTHEYES (12:57)
[2020-08-30] MEDS ORDERED: ACET325 PO (12:57)
[2020-08-30 12:59] LABS: Source, Urine Catheter
[2020-08-30 13:01] LABS: Appearance, Urine Hazy (Clear); Blood, Urine 5+ (Neg); Color, Urine Yellow (P-Yellow); Glucose Qualitative, Urine Neg (Neg); Ketones, Urine Neg (Neg); Leukocyte Esterase, Urine 3+ (Neg); Nitrite, Urine Pos (Neg); Protein, Urine 3+ (Neg); Urobilinogen, Urine 2+ (Normal)
[2020-08-30 13:35] LABS: Bilirubin, Urine 1+ (Neg)
[2020-08-30 13:37] LABS: Red Blood Cells, Urine 50-100 /hpf (0-2)
[2020-08-30 13:38] LABS: Bacteria Many /hpf; Squamous Epithelial Cells Rare /hpf (Few)
--- NOTE | 2020-08-30 18:27 | NUR ---
PT ARRIVED TO ICU AT 1600 FROM ED. MAX ASSIST XFER TO BED FROM [facility] W/ SLIDER SHEET. PT IS A&O X4. PT DOES NOT MOVE SELF IN BED, STATES LIFT XFER AT [facility]. LEVOPHED WAS AT 2MCG/MIN ON ARRIVAL, STOPPED D/T STABLE BP. ON O2 2L, USES PRN AT [facility]. PICC LINE PLACED IN CASE PRESSORS NEEDED. NPO FOR NOW, MJ CHAIREZ IS REVIEWING CHART TO POSSIBLY CHANGE DIET. PT STATES ON MECHANICAL SOFT AT [facility] AND TAKES MEDS WITH APPLESAUCE. PT HAS URETHRAL SPLIT AT MEATUS WITH BLOODY DISCHARGE PRESENT, DENIES PAIN. DRAINING JANICE/CLOUDY URINE WITH SMALL BLOOD CLOTS PRESENT. PT STATES CHRONIC APONTE D/T RETENTION, INCONTINENT BOWEL. PT RESTING QUIETLY, NO SIGNS OF DISTRESS.
[2020-08-31 01:07] LABS: Bilirubin, Urine Neg (Neg); Blood, Urine 5+ (Neg); Glucose Qualitative, Urine Neg (Neg); Ketones, Urine Neg (Neg); Leukocyte Esterase, Urine 3+ (Neg); Nitrite, Urine Neg (Neg); Protein, Urine 2+ (Neg); Source, Urine Clean Catch; Specific Gravity, Urine 1.015 (1.003-1.022); Urobilinogen, Urine 2+ (Normal)
[2020-08-31 01:26] LABS: Appearance, Urine Cloudy (Clear); Bacteria Many /hpf; Color, Urine Amber (P-Yellow); Red Blood Cells, Urine 0-2 /hpf (0-2); Squamous Epithelial Cells Not Seen /hpf (Few); White Blood Cells, Urine TNTC /hpf (0-5)
--- NOTE | 2020-08-31 01:58 | NUR ---
ASSUMPTION OF CARE ASSUMED CARE AT START OF SHIFT. VITALS STABLE. BP 100'S SYSTOLIC, MAP >65. TEMP 98.8. HR 80'S. PT STATED NO PAIN. LR INFUSING AT 150ML/HR. LEVOPHED NOT INFUSING. PT ON 2 LPM VIA NC WITH O2 SATS >90%. PT ALERT AND ORIENTED ABLE TO ANSWER QUESTIONS APPROPRIATELY. PT WEAK IN ALL EXTREMITIES.
[2020-08-31 03:59] LABS: BASOPHILS ABSOLUTE AUTO 0.02 K/mm3 (0.00-0.23); BASOPHILS PERCENT AUTO 0 % (0-2); EOSINOPHILS ABSOLUTE AUTO 0.02 K/mm3 (0.00-0.68); EOSINOPHILS PERCENT AUTO 0 % (0-6); Hematocrit 30.8 % (37.0-53.0); Hemoglobin 9.7 g/dL (13.5-17.5); IMMATURE GRAN ABSOLUTE AUTO 0.03 K/mm3 (0.00-0.10); IMMATURE GRAN PERCENT AUTO 0 % (0-1); LYMPHOCYTES ABSOLUTE AUTO 0.52 K/mm3 (0.84-5.20); LYMPHOCYTES PERCENT AUTO 7 % (21-46); MONOCYTES ABSOLUTE AUTO 0.64 K/mm3 (0.16-1.47); MONOCYTES PERCENT AUTO 9 % (4-13); Mean Corpuscular HGB Conc 31.5 g/dL (31.5-36.5); Mean Corpuscular Volume 111 fL (80-100); Mean Platelet Volume 9.7 fL (9.1-12.4); NEUTROPHILS ABSOLUTE AUTO 6.31 K/mm3 (1.96-9.15); NEUTROPHILS PERCENT AUTO 84 % (41-73); Platelet Count 102 K/mm3 (150-400); RDW Coefficient Variation 13.4 % (11.7-14.2); RDW Standard Deviation 55.5 fL (35.1-46.3); Red Blood Cell Count 2.77 M/mm3 (4.30-5.90); White Blood Cell Count 7.54 K/mm3 (4.00-11.30)
[2020-08-31 04:18] LABS: Anion Gap 3 mmol/L (6-16); Blood Urea Nitrogen 36 mg/dL (8-24); Bun/Creatinine Ratio 24.3 (12.0-20.0); CO2, Blood 24 mmol/L (21-32); Calcium, Blood 8.1 mg/dL (8.5-10.1); Chloride, Blood 118 mmol/L (98-108); Creatinine, Blood 1.48 mg/dL (0.60-1.20); Glomerular Filtration Rate 49 (60-); Glucose, Blood 113 mg/dL (70-99); Magnesium, Blood 1.2 mg/dL (1.6-2.4); Potassium, Blood 5.1 mmol/L (3.5-5.5); Sodium, Blood 145 mmol/L (136-145); Vancomycin, Random 15.1 ug/mL
--- NOTE | 2020-08-31 04:20 | NUR ---
SHIFT SUMMARY PT WAS ALERT AND ORIENTED T/O THE NIGHT. START OF SHIFT BP WAS AROUND 100 SYSTOLIC, UP TO 150 SYSTOLIC BY MIDNIGHT, 120-140'S T/O THE REST OF THE MORNING, BP STABILIZING. HR 90-100'S IN AFIB. O2 HIGH 90'S ON 2LPM NC. LR AT 150ML/HR T/O THE NIGHT. LEVOPHED NOT USED T/O SHIFT. APONTE DRAINING JANICE CLOUDY URINE. SKIN TEAR ON BOTTOM SIDE OF PENIS AT URETHRA MEATUS WITH MINIMAL BLOODY DISCHARGE T/O THE SHIFT. PT HAD A QUIET UNEVENTFUL NIGHT. MINIMAL CHANGE FROM START OF SHIFT.
--- NOTE | 2020-08-31 09:00 | NUR ---
ASSUMED CARE BEDSIDE REPORT RECIEVED. PT IS LAYING IN BED AWAKE, ALERT, AND ORIENTED. PT ANSWERS QUESTIONS APPROPRIATELY AND FOLLOWS SIMPLE COMMANDS. PT FORGETFUL AT TIMES. VITAL SIGNS STABLE. PT ON ROOM AIR. PICC TO AGUILA IS C/D/I. LR INFUSING AT 150 ML/HR. PT WITH CHRONIC INDWELLING APONTE. CLOUDY YELLOW URINE OUTPUT NOTED. PT WITH ATTENDS IN PLACE. PT STATES HE IS WHEELCHAIR BOUND AT BASELINE. PT MOVES ALL EXTREMITIES WITH WEAKNESS NOTED. PT EVALUATED BY SPEECH THERAPY THIS AM. WILL CONTINUE TO MONITOR.
--- NOTE | 2020-08-31 16:32 | NUR ---
SHIFT SUMMARY PT DOING WELL THIS SHIFT. PT HAS REMAINED AWAKE, ALERT, AND ORIENTED. VITAL SIGNS REMAIN STABLE. PICC TO AGUILA REMAINS C/D/I. PT TOLERATING PO DIET WELL. APONTE REMAINS IN PLACE WITH DARK YELLOW URINE OUTPUT NOTED. ATTENDS IN PLACE. WILL CONTINUE TO MONITOR AND REPORT OFF TO ONCOMING RN.
--- NOTE | 2020-08-31 19:55 | NUR ---
ASSUMED CARE OF PATIENT AT APPROXIMATELY 1905 FROM IRVING Navarro RN. PATIENT ALERT AND ORIENTED X4; SLOW TO RESPOND AT TIMES. PATIENT DENIES PAIN, DIZZINES OR NAUSEA. PATIENT IS WEAK IN EXTREMITIES; W/C BOUND AT BASELINE; BEDREST; Q2H TURNS. PATIENT INCONTINENT OF LARGE LOOSE BM AT SHIFT CHANGE; REPORTS PART OF HIS TEETH LEFT AT [facility] AND THE PUREE DIET "GOES RIGHT THROUGH" HIM. CHRONIC CATH IN PLACE. MEDICAL NO TELE STATUS; ON ROOM AIR; WEARS 2LPM AT [facility] BASELINE. MEDS IN APPLESAUCE; ASPIRATION PRECAUTIONS. PICC INFUSING LR PER ORDER. PIV S/L. PATIENT CURRENTLY RESTING IN BED; CALL LIGHT IN REACH; BED IN LOWEST POSISTION; BED ALARM ON
[2020-08-31] MEDS ORDERED: LIDOCAINE GEL TOP (21:27)
[2020-08-31] MEDS ORDERED: ADULT GLYCERIN1 EACH PR (21:34)
[2020-08-31] MEDS ORDERED: BENZ100A PO (21:36)
[2020-09-01 05:31] LABS: BASOPHILS ABSOLUTE AUTO 0.01 K/mm3 (0.00-0.23); BASOPHILS PERCENT AUTO 0 % (0-2); EOSINOPHILS ABSOLUTE AUTO 0.11 K/mm3 (0.00-0.68); EOSINOPHILS PERCENT AUTO 3 % (0-6); Hematocrit 31.6 % (37.0-53.0); IMMATURE GRAN ABSOLUTE AUTO 0.02 K/mm3 (0.00-0.10); IMMATURE GRAN PERCENT AUTO 1 % (0-1); LYMPHOCYTES ABSOLUTE AUTO 0.63 K/mm3 (0.84-5.20); LYMPHOCYTES PERCENT AUTO 15 % (21-46); MONOCYTES ABSOLUTE AUTO 0.46 K/mm3 (0.16-1.47); MONOCYTES PERCENT AUTO 11 % (4-13); Mean Corpuscular HGB 34.6 pg (26.0-34.0); Mean Corpuscular HGB Conc 31.6 g/dL (31.5-36.5); Mean Corpuscular Volume 109 fL (80-100); Mean Platelet Volume 9.8 fL (9.1-12.4); NEUTROPHILS PERCENT AUTO 72 % (41-73); Platelet Count 103 K/mm3 (150-400); RDW Coefficient Variation 13.2 % (11.7-14.2); RDW Standard Deviation 53.4 fL (35.1-46.3); Red Blood Cell Count 2.89 M/mm3 (4.30-5.90); White Blood Cell Count 4.33 K/mm3 (4.00-11.30)
[2020-09-01 06:00] LABS: Alanine Aminotransfer (ALT/SGP 19 U/L (12-78); Albumin/Globulin Ratio 0.6 (0.8-1.8); Alk Phos 55 U/L (50-136); Anion Gap 3 mmol/L (6-16); Aspartate Aminotrans (AST/SGOT 12 U/L (12-37); Bilirubin, Total 1.2 mg/dL (0.1-1.0); Blood Urea Nitrogen 27 mg/dL (8-24); CO2, Blood 24 mmol/L (21-32); Calcium, Blood 8.4 mg/dL (8.5-10.1); Chloride, Blood 118 mmol/L (98-108); Creatinine, Blood 1.23 mg/dL (0.60-1.20); Globulin, Blood 3.1 g/dL (2.2-4.0); Glomerular Filtration Rate >60 (60-); Glucose, Blood 134 mg/dL (70-99); Magnesium, Blood 1.5 mg/dL (1.6-2.4); Potassium, Blood 4.8 mmol/L (3.5-5.5); Sodium, Blood 145 mmol/L (136-145); Total Protein, Blood 5.1 g/dL (6.4-8.2)
--- NOTE | 2020-09-01 06:12 | NUR ---
MAG 1.5 THIS AM; CALLED DR. MACKAY; ORDER FOR 2G IV NOW. PATIENT SLEPT ABOUT SEVEN HOURS LAST NIGHT. Q2H TURNS. 1950 URINE OUTPUT. NO OTHER ACUTE CHANGES TO REPORT.
--- NOTE | 2020-09-01 17:02 | NUR ---
Shift Summary Pt spent the day resting in bed. He allows us to turn him, but within about 20 minutes he requests the pillows moved. He has allowed us to do little position changes by shifting his hips. Lungs remain clear, hrr, bp stable, tripp draining without problem. Pt had a bath this afternoon. He has passed gas, but no bm yet today. No other concerns from pt at this time. Continuing to monitor.
--- NOTE | 2020-09-01 18:02 | NUR ---
TRANSFER PT TRANSFERRED TO 311 VIA BED WITH AIDE AND RN. REPORT GIVEN TO SONIA RIVERA. ALL BELONGINGS TRANSFERRED WITH PT. PT TOLERATED TRANSFER WELL.
--- NOTE | 2020-09-01 18:15 | NUR ---
PATIENT TRANSFERRED FROM ICU TO UNIT AT APPROX 1758. RECEIVED REPORT FROM PIPER. PT A&OX4, ABLE TO MAKE NEEDS KNOWN. PLEASANT AND COOPERATIVE TO CARE. NO C/O PAIN OR ANY DISCOMFORT UPON ASSESSMENT. PT REQUIRES 2 MAX ASSISTANCE WITH LIFT FOR TRANSFERS. APONTE PATENT AND DRAINING YELLOW URINE. NO C/O CP, SOB, OR N&V. PATIENT CALM AND RESTED IN BED AT THIS TIME. BED AT LOWEST POSITION. CALL LIGHT WITHIN REACH.
--- NOTE | 2020-09-01 19:26 | NUR ---
AWAKE, WATCHING TV. BP ELEVATED - SEE MAR FOR DETAILS OF MEDS GIVEN. CALL LIGHT IN REACH. ISOLATION PRECAUTIONS MAINTAINED.
--- NOTE | 2020-09-02 03:37 | NUR ---
SHIFT SUMMARY HAS BEEN RESTING AT INTERVALS. SOME COUGHING NOTED, GUEST SERVICE TEAM LEADER NOTIFIED AND COUGH DROPS ORDERED, HAD ONE AND APPEARS TO BE RESTING QUIETLY SINCE. HOB REMAINS ELEVATED AROUND 60 DEGREES, PER PT CONTROL. CALL LIGHT IN REACH. VSS. ISOLATION PRECAUTIONS MAINTAINED.
[2020-09-02 06:47] LABS: Vancomycin, Trough 19.7 ug/mL (5.0-10.0)
--- NOTE | 2020-09-02 17:31 | NUR ---
PATIENT IS ALERT AND ORIENTED AND COOPERATIVE WITH CARE. PATIENT WAS TRANSFERRED BY LIFT TO A RECLINER THIS MORNING WHERE HE STAYED FOR SEVERAL HOURS. THE PATIENT IS NOW BACK IN BED. APONTE IS IN PLACE AND DRAINING. WILL CONTINUE TO MONITOR
[2020-09-03 05:06] LABS: BASOPHILS ABSOLUTE AUTO 0.02 K/mm3 (0.00-0.23); BASOPHILS PERCENT AUTO 0 % (0-2); EOSINOPHILS ABSOLUTE AUTO 0.16 K/mm3 (0.00-0.68); EOSINOPHILS PERCENT AUTO 3 % (0-6); Hematocrit 32.3 % (37.0-53.0); Hemoglobin 10.4 g/dL (13.5-17.5); IMMATURE GRAN ABSOLUTE AUTO 0.02 K/mm3 (0.00-0.10); IMMATURE GRAN PERCENT AUTO 0 % (0-1); LYMPHOCYTES PERCENT AUTO 21 % (21-46); MONOCYTES ABSOLUTE AUTO 0.44 K/mm3 (0.16-1.47); MONOCYTES PERCENT AUTO 7 % (4-13); Mean Corpuscular HGB 34.6 pg (26.0-34.0); Mean Corpuscular HGB Conc 32.2 g/dL (31.5-36.5); Mean Corpuscular Volume 107 fL (80-100); Mean Platelet Volume 9.9 fL (9.1-12.4); NEUTROPHILS PERCENT AUTO 69 % (41-73); Platelet Count 124 K/mm3 (150-400); RDW Coefficient Variation 12.9 % (11.7-14.2); RDW Standard Deviation 51.4 fL (35.1-46.3); Red Blood Cell Count 3.01 M/mm3 (4.30-5.90); White Blood Cell Count 6.24 K/mm3 (4.00-11.30)
[2020-09-03 05:28] LABS: Anion Gap 3 mmol/L (6-16); Blood Urea Nitrogen 19 mg/dL (8-24); Bun/Creatinine Ratio 16.5 (12.0-20.0); CO2, Blood 27 mmol/L (21-32); Calcium, Blood 8.8 mg/dL (8.5-10.1); Chloride, Blood 115 mmol/L (98-108); Creatinine, Blood 1.15 mg/dL (0.60-1.20); Glomerular Filtration Rate >60 (60-); Glucose, Blood 109 mg/dL (70-99); Potassium, Blood 4.7 mmol/L (3.5-5.5); Sodium, Blood 145 mmol/L (136-145)
--- NOTE | 2020-09-03 05:47 | NUR ---
PT IS ALERT, LIVES AT [facility], HAS CHRONIC APONTE CATH. PT TAKES MEDS WITH APPLESAUCE, NO BOTTOM DENTURES AT THIS TIME, LIFT PT. CBG AC. NO OVERNIGHT EVENTS THIS SHIFT.
--- NOTE | 2020-09-03 18:39 | NUR ---
SHIFT SUMMARY- PT ALERT AND ORIENTED WITH SOME OCCASSIONAL CONFUSION. PT STATED PAIN ON HIS COCCYX. VISUALIZED THE AREA, SKIN IS WHITE BUT BLANCHES NOT OPEN YET. PLACED A MEPILEX FOR PREVENTION. LEFT UPPER THIGH HAS SOME SMALL SHEER SPOTS. PLACED A MEPILEX OVER THE AREA. STARTED PT ON Q2 TURNS. PT VERY AGREEABLE TO REPOSITIONING ONCE IT HAD BEEN DONE A COUPLE OF TIMES. HIS BOTTOM STARTED TO FEEL BETTER TOWARD THE END OF THE SHIFT.
--- NOTE | 2020-09-04 05:21 | NUR ---
PT IS A/O, LIFT TRANSFER, LIVES AT [facility] WITH CHRONIC APONTE CATH. THICKENED LIQUIDS WITH SWALLOW PRECATIONS, MEDS IN APPLESAUCE, CBG AC/HS. PICC LINE IN AGUILA THAT WILL NOT DRAW.
[2020-09-04] MEDS ORDERED: ARTIFICIAL TEA1 EAC6 BOTHEYES (12:15)
[2020-09-04] MEDS ORDERED: Vancomycin1 GM/2501 IV (12:16)
[2020-09-04] MEDS ORDERED: CEFTRIAXON1 GM/50 M1 PO (12:17)
[2020-09-04] MEDS ORDERED: VITAMIN D5000 UNIT PO (12:17)
--- NOTE | 2020-09-04 12:40 | NUR ---
DISCHARGE NOTE- PT WAS DISCHARGED BACK TO [facility] CALLED TELEPHONE REPORT TO SONIA JC. PT IV DC'D PRIOR TO DISCHARGE. PT DC'D WITH THE PICC IN PLACE TAKEN VIA WC TRANSPORT TO [facility].
--- NOTE | 2020-09-04 12:43 | NUR ---
Brief visit as Pt is being D/C. Transport has arrived to transport Pt back to facilty. Pt reports no concerns and is happy to be D/C from the hospital. Spoke with Bedside RN Madny and discussed case. Mandy reports Pt was cooperative with care including dressing changes on pressure ulcers. No concerns reported at this time. Palliative Care will remain available.
== END 2020-09-04 12:34 | DRG 698 ==
LOC: ER 07:39 → ICUW 07:40 → MEDS 09-01 18:06
PROVIDERS: Emergency Medicine; Internal Medicine; ADMIT Internal Medicine
DX: T83.511A Infection and inflammatory reaction due to indwelling urethral catheter, initial encounter (principal); A41.9 Sepsis, unspecified organism; R65.21 Severe sepsis with septic shock; A41.02 Sepsis due to Methicillin resistant Staphylococcus aureus; Z94.1 Heart transplant status; I48.20 Chronic atrial fibrillation, unspecified; N17.9 Acute kidney failure, unspecified; M48.00 Spinal stenosis, site unspecified; N39.0 Urinary tract infection, site not specified; N40.0 Benign prostatic hyperplasia without lower urinary tract symptoms; E11.22 Type 2 diabetes mellitus with diabetic chronic kidney disease; N18.30 Chronic kidney disease, stage 3 unspecified; D63.1 Anemia in chronic kidney disease; Z74.09 Other reduced mobility; F31.9 Bipolar disorder, unspecified; E78.5 Hyperlipidemia, unspecified; G25.81 Restless legs syndrome; E66.9 Obesity, unspecified; K21.9 Gastro-esophageal reflux disease without esophagitis; G47.33 Obstructive sleep apnea (adult) (pediatric); Z98.890 Other specified postprocedural states; Z87.891 Personal history of nicotine dependence; Z86.711 Personal history of pulmonary embolism; Z79.01 Long term (current) use of anticoagulants; Z79.899 Other long term (current) drug therapy; Z88.8 Allergy status to other drugs, medicaments and biological substances; Z88.6 Allergy status to analgesic agent; Z79.4 Long term (current) use of insulin; Y84.6 Urinary catheterization as the cause of abnormal reaction of the patient, or of later complication, without mention of misadventure at the time of the procedure
CPT/HCPCS: 36415; 36569; 51702; 71045; 80048; 80053; 80202; 81001; 82947; 83605; 83735; 85025; 85651; 87040; 87077; 87086; 87147; 87186; 92526; 92610; 93005; 93010; 94760; 96365-59; 96366-59; 96367; 96367-59; 96368; 96375; 96376; 99285-25; A9270; C1751; G0378; J0690; J0696; J1815; J2185; J3370; J3475; J7030; J7050; J7060; J7120; J7502; J7512; J7515

== ENCOUNTER 2021-02-10 17:39 | Inpatient (IN) | payer OTHER, MEDICARE ==
[~2021-02-10] VITALS: Ht 175.3 cm; Wt 108.8 kg
[~2021-02-10 17:39] MED LIST changes: +ADULT GLYCERIN1 EACH PR; +ARTIFICIAL TEA1 EAC6 BOTHEYES; +ARTIFICIAL TEAR15 M2 BOTHEYES; +Acetaminophen650 M1 PO; +BASAGLAR K100 UNIT/1 SC; +CEFTRIAXON1 GM/50 M1 PO; +DOCUZEN 8.6-501 EACH PO; +JUVEN PACKET1 EAC3 PO; +LIDOCAINE GEL TOP; +PRAM.5 PO; +Q-Tussin100 MG/5 M PO; +VITAMIN D5000 UNIT PO; +Vancomycin1 GM/2501 IV
[2021-02-10 18:27] LABS: BASOPHILS ABSOLUTE AUTO 0.01 K/mm3 (0.00-0.23); BASOPHILS PERCENT AUTO 0 % (0-2); EOSINOPHILS ABSOLUTE AUTO 0.01 K/mm3 (0.00-0.68); EOSINOPHILS PERCENT AUTO 0 % (0-6); Hemoglobin 12.8 g/dL (13.5-17.5); IMMATURE GRAN ABSOLUTE AUTO 0.05 K/mm3 (0.00-0.10); IMMATURE GRAN PERCENT AUTO 1 % (0-1); LYMPHOCYTES ABSOLUTE AUTO 0.18 K/mm3 (0.84-5.20); LYMPHOCYTES PERCENT AUTO 2 % (21-46); MONOCYTES ABSOLUTE AUTO 0.35 K/mm3 (0.16-1.47); MONOCYTES PERCENT AUTO 4 % (4-13); Mean Corpuscular HGB 34.4 pg (26.0-34.0); Mean Corpuscular HGB Conc 32.8 g/dL (31.5-36.5); Mean Corpuscular Volume 105 fL (80-100); Mean Platelet Volume 10.1 fL (9.1-12.4); NEUTROPHILS ABSOLUTE AUTO 8.97 K/mm3 (1.96-9.15); NEUTROPHILS PERCENT AUTO 94 % (41-73); Platelet Count 107 K/mm3 (150-400); RDW Coefficient Variation 12.3 % (11.7-14.2); RDW Standard Deviation 47.3 fL (35.1-46.3); Red Blood Cell Count 3.72 M/mm3 (4.30-5.90); White Blood Cell Count 9.57 K/mm3 (4.00-11.30)
[2021-02-10 18:40] LABS: Bun/Creatinine Ratio 55.8 (12.0-20.0); Calcium, Blood 9.6 mg/dL (8.5-10.1); Creatinine, Blood 1.2 mg/dL (0.60-1.20); Potassium, Blood 4.6 mmol/L (3.5-5.5)
[2021-02-10] MEDS ORDERED: HUMALOG KW100 UNIT/1 SC (21:40)
[2021-02-10 21:52] LABS: SARS-Cov-2 (COVID-19) PCR, MMC NEGATIVE (NEGATIVE)
[2021-02-10 22:08] LABS: Source, Urine Clean Catch
[2021-02-10 22:16] LABS: Bilirubin, Urine Neg (Neg); Blood, Urine 5+ (Neg); Glucose Qualitative, Urine Neg (Neg); Ketones, Urine 1+ (Neg); Leukocyte Esterase, Urine 2+ (Neg); Nitrite, Urine Pos (Neg); Protein, Urine 2+ (Neg); Specific Gravity, Urine 1.015 (1.003-1.022); Urobilinogen, Urine NORM (Normal)
[2021-02-10 22:22] LABS: Appearance, Urine Hazy (Clear); Color, Urine Yellow (P-Yellow)
[2021-02-10 22:23] LABS: Bacteria Few /hpf; Red Blood Cells, Urine TNTC /hpf (0-2); Squamous Epithelial Cells Not Seen /hpf (Few)
[2021-02-10 23:45] LABS: Albumin, Blood 2.8 g/dL (3.4-5.0); Albumin/Globulin Ratio 0.8 (0.8-1.8); Bilirubin, Direct 0.3 mg/dL (0.0-0.3); Bilirubin, Indirect 0.6 mg/dL (0.1-0.7); Bilirubin, Total 0.9 mg/dL (0.1-1.0); Globulin, Blood 3.6 g/dL (2.2-4.0); Total Protein, Blood 6.4 g/dL (6.4-8.2)
[2021-02-11 04:43] LABS: BASOPHILS ABSOLUTE AUTO 0.03 K/mm3 (0.00-0.23); BASOPHILS PERCENT AUTO 0 % (0-2); EOSINOPHILS PERCENT AUTO 0 % (0-6); Hematocrit 37.3 % (37.0-53.0); Hemoglobin 12.1 g/dL (13.5-17.5); IMMATURE GRAN ABSOLUTE AUTO 0.13 K/mm3 (0.00-0.10); IMMATURE GRAN PERCENT AUTO 1 % (0-1); LYMPHOCYTES ABSOLUTE AUTO 0.54 K/mm3 (0.84-5.20); LYMPHOCYTES PERCENT AUTO 3 % (21-46); MONOCYTES ABSOLUTE AUTO 1.44 K/mm3 (0.16-1.47); MONOCYTES PERCENT AUTO 9 % (4-13); Mean Corpuscular HGB 34.6 pg (26.0-34.0); Mean Corpuscular HGB Conc 32.4 g/dL (31.5-36.5); Mean Corpuscular Volume 107 fL (80-100); NEUTROPHILS ABSOLUTE AUTO 13.87 K/mm3 (1.96-9.15); NEUTROPHILS PERCENT AUTO 87 % (41-73); Platelet Count 102 K/mm3 (150-400); RDW Coefficient Variation 12.8 % (11.7-14.2); RDW Standard Deviation 49.7 fL (35.1-46.3); White Blood Cell Count 16.01 K/mm3 (4.00-11.30)
[2021-02-11 05:16] LABS: Albumin, Blood 2.4 g/dL (3.4-5.0); Albumin/Globulin Ratio 0.7 (0.8-1.8); Bilirubin, Total 1.1 mg/dL (0.1-1.0); Bun/Creatinine Ratio 44.4 (12.0-20.0); Calcium, Blood 8.9 mg/dL (8.5-10.1); Creatinine, Blood 1.44 mg/dL (0.60-1.20); Globulin, Blood 3.6 g/dL (2.2-4.0); Potassium, Blood 4.7 mmol/L (3.5-5.5)
[2021-02-11 21:33] LABS: Vancomycin, Trough 22.9 ug/mL (5.0-10.0)
[2021-02-12 09:43] LABS: Bun/Creatinine Ratio 42.1 (12.0-20.0); Calcium, Blood 8.6 mg/dL (8.5-10.1); Creatinine, Blood 1.33 mg/dL (0.60-1.20); Potassium, Blood 4.2 mmol/L (3.5-5.5)
[2021-02-13 12:39] LABS: SARS-Cov-2 (COVID-19) PCR, MMC NEGATIVE (NEGATIVE)
[2021-02-14 04:28] LABS: Anion Gap 5 mmol/L (6-16); Blood Urea Nitrogen 35 mg/dL (8-24); Bun/Creatinine Ratio 32.7 (12.0-20.0); CO2, Blood 26 mmol/L (21-32); Chloride, Blood 114 mmol/L (98-108); Creatinine, Blood 1.07 mg/dL (0.60-1.20); Glomerular Filtration Rate >60 (60-); Glucose, Blood 100 mg/dL (70-99); Potassium, Blood 4.2 mmol/L (3.5-5.5); Sodium, Blood 145 mmol/L (136-145)
== END 2021-02-14 14:18 | DRG 698 ==
LOC: ER 17:39 → SURS 23:54 → PCU 23:54 → SURS 02-11 00:35
PROVIDERS: Internal Medicine; Student in an Organized Health Care Education/Training Program; ADMIT Internal Medicine
DX: T83.511A Infection and inflammatory reaction due to indwelling urethral catheter, initial encounter (principal); A41.9 Sepsis, unspecified organism; R65.20 Severe sepsis without septic shock; Z94.1 Heart transplant status; D84.821 Immunodeficiency due to drugs; I48.20 Chronic atrial fibrillation, unspecified; N17.9 Acute kidney failure, unspecified; Z20.822 Contact with and (suspected) exposure to COVID-19; N39.0 Urinary tract infection, site not specified; R31.9 Hematuria, unspecified; Z68.36 Body mass index [BMI] 36.0-36.9, adult; E11.9 Type 2 diabetes mellitus without complications; F31.9 Bipolar disorder, unspecified; E66.9 Obesity, unspecified; G25.81 Restless legs syndrome; G47.33 Obstructive sleep apnea (adult) (pediatric); N40.0 Benign prostatic hyperplasia without lower urinary tract symptoms; Z88.8 Allergy status to other drugs, medicaments and biological substances; Z88.6 Allergy status to analgesic agent; Z98.890 Other specified postprocedural states; Z86.711 Personal history of pulmonary embolism; Y84.6 Urinary catheterization as the cause of abnormal reaction of the patient, or of later complication, without mention of misadventure at the time of the procedure
CPT/HCPCS: 36415; 51700; 51702; 71045; 80048; 80053; 80076; 80202; 81001; 82947; 83605; 83880; 85025; 87040; 87077; 87086; 87186; 93005; 93010; 96361-59; 96365-59; 96375-59; 99285-25; A9270; J1815; J2185; J3370; J7030; J7040; J7050; J7502; J7512; J7515; U0004

== ENCOUNTER 2021-04-12 07:01 | Inpatient (IN) | payer OTHER ==
[~2021-04-12] VITALS: Ht 175.3 cm; Wt 95.5 kg
[~2021-04-12 07:01] MED LIST changes: +HUMALOG KW100 UNIT/1 SC
[2021-04-12 07:49] LABS: BASOPHILS ABSOLUTE AUTO 0.03 K/mm3 (0.00-0.23); BASOPHILS PERCENT AUTO 0 % (0-2); EOSINOPHILS ABSOLUTE AUTO 0.05 K/mm3 (0.00-0.68); EOSINOPHILS PERCENT AUTO 1 % (0-6); Hematocrit 37.8 % (37.0-53.0); Hemoglobin 12.4 g/dL (13.5-17.5); IMMATURE GRAN ABSOLUTE AUTO 0.03 K/mm3 (0.00-0.10); IMMATURE GRAN PERCENT AUTO 0 % (0-1); LYMPHOCYTES ABSOLUTE AUTO 0.56 K/mm3 (0.84-5.20); LYMPHOCYTES PERCENT AUTO 6 % (21-46); MONOCYTES PERCENT AUTO 8 % (4-13); Mean Corpuscular HGB 34.2 pg (26.0-34.0); Mean Corpuscular HGB Conc 32.8 g/dL (31.5-36.5); Mean Corpuscular Volume 104 fL (80-100); Mean Platelet Volume 9.8 fL (9.1-12.4); NEUTROPHILS ABSOLUTE AUTO 8.34 K/mm3 (1.96-9.15); NEUTROPHILS PERCENT AUTO 85 % (41-73); Platelet Count 102 K/mm3 (150-400); RDW Coefficient Variation 12.8 % (11.7-14.2); RDW Standard Deviation 49.1 fL (35.1-46.3); Red Blood Cell Count 3.63 M/mm3 (4.30-5.90); White Blood Cell Count 9.81 K/mm3 (4.00-11.30)
[2021-04-12 08:00] LABS: Alanine Aminotransfer (ALT/SGP 44 U/L (12-78); Albumin, Blood 2.5 g/dL (3.4-5.0); Albumin/Globulin Ratio 0.6 (0.8-1.8); Alk Phos 83 U/L (50-136); Anion Gap 8 mmol/L (6-16); Aspartate Aminotrans (AST/SGOT 25 U/L (12-37); Blood Urea Nitrogen 60 mg/dL (8-24); Bun/Creatinine Ratio 53.6 (12.0-20.0); CO2, Blood 24 mmol/L (21-32); Calcium, Blood 10.8 mg/dL (8.5-10.1); Chloride, Blood 110 mmol/L (98-108); Creatinine, Blood 1.12 mg/dL (0.60-1.20); Globulin, Blood 4.1 g/dL (2.2-4.0); Glomerular Filtration Rate >60 (60-); Glucose, Blood 159 mg/dL (70-99); Potassium, Blood 4.3 mmol/L (3.5-5.5); Sodium, Blood 142 mmol/L (136-145); Total Protein, Blood 6.6 g/dL (6.4-8.2)
[2021-04-12 10:52] LABS: Source, Urine Catheter
[2021-04-12 11:07] LABS: Bilirubin, Urine Neg (Neg); Blood, Urine 5+ (Neg); Glucose Qualitative, Urine Neg (Neg); Ketones, Urine Neg (Neg); Leukocyte Esterase, Urine 3+ (Neg); Nitrite, Urine Pos (Neg); Protein, Urine 2+ (Neg); Urobilinogen, Urine NORM (Normal)
[2021-04-12 11:25] LABS: Appearance, Urine Hazy (Clear); Color, Urine Pale Yellow (P-Yellow)
[2021-04-12 11:27] LABS: Amorphous Light (0-Heavy); Bacteria Many /hpf; Red Blood Cells, Urine 25-50 /hpf (0-2); Squamous Epithelial Cells Few /hpf (Few)
[2021-04-12 13:57] LABS: Influenza A, PCR NEGATIVE (NEGATIVE); Influenza B, PCR NEGATIVE (NEGATIVE); Resp Syncytial Virus, PCR NEGATIVE (NEGATIVE); SARS-Cov-2 (COVID-19) PCR, MMC NEGATIVE (NEGATIVE)
--- NOTE | 2021-04-12 16:07 | NUR ---
ASSUMPTION OF CARE PATIENT ARRIVED ON THE MEDICAL FLOOR IN THIS NURSE'S CARE AT 1545. PATIENT ARRIVED WITH A CHRONIC APONTE. IT IS TO BE CHANGED AT THE HI ONLY, DUE TO COMPLICATIONS. IT WAS CHANGED YESTERDAY PER JOSEPH FROM [facility].
[2021-04-13 05:34] LABS: BASOPHILS ABSOLUTE AUTO 0.02 K/mm3 (0.00-0.23); BASOPHILS PERCENT AUTO 0 % (0-2); EOSINOPHILS ABSOLUTE AUTO 0.06 K/mm3 (0.00-0.68); EOSINOPHILS PERCENT AUTO 1 % (0-6); Hematocrit 34.3 % (37.0-53.0); IMMATURE GRAN ABSOLUTE AUTO 0.02 K/mm3 (0.00-0.10); IMMATURE GRAN PERCENT AUTO 0 % (0-1); LYMPHOCYTES ABSOLUTE AUTO 1.12 K/mm3 (0.84-5.20); LYMPHOCYTES PERCENT AUTO 16 % (21-46); MONOCYTES ABSOLUTE AUTO 0.96 K/mm3 (0.16-1.47); MONOCYTES PERCENT AUTO 14 % (4-13); Mean Corpuscular HGB 33.6 pg (26.0-34.0); Mean Corpuscular HGB Conc 32.1 g/dL (31.5-36.5); Mean Corpuscular Volume 105 fL (80-100); Mean Platelet Volume 10.3 fL (9.1-12.4); NEUTROPHILS ABSOLUTE AUTO 4.67 K/mm3 (1.96-9.15); NEUTROPHILS PERCENT AUTO 68 % (41-73); Platelet Count 106 K/mm3 (150-400); RDW Coefficient Variation 13.2 % (11.7-14.2); RDW Standard Deviation 50.5 fL (35.1-46.3); Red Blood Cell Count 3.27 M/mm3 (4.30-5.90); White Blood Cell Count 6.85 K/mm3 (4.00-11.30)
[2021-04-13 05:53] LABS: Calcium, Blood 9.9 mg/dL (8.5-10.1); Creatinine, Blood 1.32 mg/dL (0.60-1.20); Potassium, Blood 4.1 mmol/L (3.5-5.5)
--- NOTE | 2021-04-13 16:01 | NUR ---
SHIFT SUMMARY PATIENT IS ALERT AND ORIENTED, PLEASANT AND COOPERATIVE WITH CARE. THE PATIENT HAS BEEN RECEIVING ANTIBIOTICS THIS SHIFT. PATIENT COMPLAINED OF COUGH THIS SHIFT. PRN COUGH SYRUP HAS SEEMED TO HELP. SPEECH EVALUATION WAS ORDERED THIS SHIFT. NO ACUTE CHANGES THIS SHIFT. VITAL SIGNS STABLE. PATIENT'S CALL LIGHT WITHIN REACH, WILL CONTINUE TO CARE FOR PATIENT UNTIL SHIFT REPORT IS GIVEN TO ONCOMING NURSE.
--- NOTE | 2021-04-14 03:15 | NUR ---
PATIENT SLEPT WELL OVERNIGHT. HAVE CONCERN OF PATIENTS ABILITY TO SWALLOW THIN LIQUIDS SAFELY (AT LEAST IN BED). PATIENT BEGAN CHOKING ON LIQUID SUPPLEMENT (KARLA) AFTER HIS FIRST SIP. HE WAS UNABLE TO PERFORM TUCKING CHIN DURING SWALLOW, AND IT WASN'T UNTIL THE VERY END OF THE GLASS, THAT THE STRAW WAS TAKEN AWAY, AND PATIENT COULD SWALLOW WITHOUT DIFFICULTY. PATIENT WAS ABLE TO STOP COUGHING AFTER THAT EPISODE AND FELL RIGHT TO SLEEP. NO COMPLAINTS OF PAIN OR DISCOMFORT OVERNIGHT
[2021-04-14 04:49] LABS: BASOPHILS ABSOLUTE AUTO 0.02 K/mm3 (0.00-0.23); BASOPHILS PERCENT AUTO 0 % (0-2); EOSINOPHILS ABSOLUTE AUTO 0.15 K/mm3 (0.00-0.68); EOSINOPHILS PERCENT AUTO 3 % (0-6); Hematocrit 33.7 % (37.0-53.0); IMMATURE GRAN ABSOLUTE AUTO 0.02 K/mm3 (0.00-0.10); IMMATURE GRAN PERCENT AUTO 0 % (0-1); LYMPHOCYTES ABSOLUTE AUTO 1.27 K/mm3 (0.84-5.20); LYMPHOCYTES PERCENT AUTO 23 % (21-46); MONOCYTES ABSOLUTE AUTO 0.71 K/mm3 (0.16-1.47); MONOCYTES PERCENT AUTO 13 % (4-13); Mean Corpuscular HGB 34.2 pg (26.0-34.0); Mean Corpuscular HGB Conc 32.6 g/dL (31.5-36.5); Mean Corpuscular Volume 105 fL (80-100); Mean Platelet Volume 10.2 fL (9.1-12.4); NEUTROPHILS ABSOLUTE AUTO 3.48 K/mm3 (1.96-9.15); NEUTROPHILS PERCENT AUTO 61 % (41-73); Platelet Count 98 K/mm3 (150-400); RDW Coefficient Variation 13.1 % (11.7-14.2); RDW Standard Deviation 50.3 fL (35.1-46.3); Red Blood Cell Count 3.22 M/mm3 (4.30-5.90); White Blood Cell Count 5.65 K/mm3 (4.00-11.30)
[2021-04-14 05:36] LABS: Albumin, Blood 2.1 g/dL (3.4-5.0); Anion Gap 8 mmol/L (6-16); Blood Urea Nitrogen 71 mg/dL (8-24); Bun/Creatinine Ratio 58.2 (12.0-20.0); CO2, Blood 23 mmol/L (21-32); Calcium, Blood 9.9 mg/dL (8.5-10.1); Chloride, Blood 113 mmol/L (98-108); Creatinine, Blood 1.22 mg/dL (0.60-1.20); Glomerular Filtration Rate 57 (60-); Glucose, Blood 177 mg/dL (70-99); Phosphorus, Blood 2.7 mg/dL (2.5-4.9); Potassium, Blood 4.7 mmol/L (3.5-5.5); Sodium, Blood 144 mmol/L (136-145)
--- NOTE | 2021-04-14 16:06 | NUR ---
Pt resting in bed and reports 9/10 burning pain from the urine catheter. Pt denies dyspnea and anxiety. Pt expresses concerns regarding his spouse who is currently admitted to the hospital. Spouse is being D/C to SNF later this afternoon. Offered therapeutic listening. Engaged in therapeutic discussion regarding code status and POLST which has been discussed in the past with Palliative Care team. Pt reports not having the opportunity to discuss with family and complete a new POLST. He reports plan to discuss with his daughter when she comes to visit. Continued therapeutic listening. Ended visit to allow Pt to rest. Spoke with Dr Ulrich and relayed Pt's intermittent burning pain with catheter. Palliative Care will remain available.
--- NOTE | 2021-04-14 19:21 | NUR ---
SHIFT SUMMARY: PT A/O X3, BEDREST, PLEASANT AND COOPERATIVE. PT HAD ST EVAL TODAY AND HAS HAD NO FURTHER CHOKING EPISODES WITH NEW PRECAUTIONS IN PLACE. PT HAD NO ACUTE CHANGES AT THIS TIME.
[2021-04-15 04:47] LABS: Hematocrit 35.2 % (37.0-53.0); Hemoglobin 11.2 g/dL (13.5-17.5); Mean Corpuscular HGB 33.7 pg (26.0-34.0); Mean Corpuscular HGB Conc 31.8 g/dL (31.5-36.5); Mean Corpuscular Volume 106 fL (80-100); Platelet Count 110 K/mm3 (150-400); RDW Standard Deviation 50.4 fL (35.1-46.3); Red Blood Cell Count 3.32 M/mm3 (4.30-5.90); White Blood Cell Count 5.53 K/mm3 (4.00-11.30)
[2021-04-15 05:27] LABS: Albumin, Blood 2.1 g/dL (3.4-5.0); Anion Gap 3 mmol/L (6-16); Blood Urea Nitrogen 69 mg/dL (8-24); Bun/Creatinine Ratio 59.5 (12.0-20.0); CO2, Blood 28 mmol/L (21-32); Calcium, Blood 10.1 mg/dL (8.5-10.1); Chloride, Blood 114 mmol/L (98-108); Creatinine, Blood 1.16 mg/dL (0.60-1.20); Glomerular Filtration Rate >60 (60-); Glucose, Blood 229 mg/dL (70-99); Phosphorus, Blood 2.3 mg/dL (2.5-4.9); Potassium, Blood 4.7 mmol/L (3.5-5.5); Sodium, Blood 145 mmol/L (136-145)
--- NOTE | 2021-04-15 06:12 | NUR ---
80 year old [facility] PT with chronic indwelling tripp cath ESBL in urine & UTI continues on IV merrum. IDDM 30 u semglee at HS. on tele monitor, SR BBB. Hx of heart transplant 1993. Obese abd, distended. Medicated for mild pain at torn meatus.
--- NOTE | 2021-04-15 07:29 | NUR ---
80 year old MAle [facility] PT tolerating modified diet mech soft with ground meat. able to feed self, meds whole in applesauce.Tele monitor shows SR BBB
--- NOTE | 2021-04-15 18:19 | NUR ---
Alert and oriented x3 , able to make needs known. Denies any headache, chest pain , shortness of breath. Continue on meropenen for UTI. vital signs are stable. Insulin was given for blood sugar coverage , no adverse effects noted. One person assist with ADLs and two persons with bed mobility and repositioning. tripp cath is patent and was flushed to clear out clots. Call light within reach. Continue to monitor.
[2021-04-16 05:30] LABS: Hematocrit 32.9 % (37.0-53.0); Hemoglobin 10.5 g/dL (13.5-17.5); Mean Corpuscular HGB 33.4 pg (26.0-34.0); Mean Corpuscular HGB Conc 31.9 g/dL (31.5-36.5); Mean Corpuscular Volume 105 fL (80-100); Mean Platelet Volume 10.2 fL (9.1-12.4); Platelet Count 116 K/mm3 (150-400); RDW Standard Deviation 49.6 fL (35.1-46.3); Red Blood Cell Count 3.14 M/mm3 (4.30-5.90); White Blood Cell Count 5.88 K/mm3 (4.00-11.30)
[2021-04-16 06:20] LABS: Albumin, Blood 2.1 g/dL (3.4-5.0); Anion Gap 6 mmol/L (6-16); Blood Urea Nitrogen 60 mg/dL (8-24); Bun/Creatinine Ratio 62.8 (12.0-20.0); CO2, Blood 27 mmol/L (21-32); Chloride, Blood 109 mmol/L (98-108); Creatinine, Blood 0.96 mg/dL (0.60-1.20); Glomerular Filtration Rate >60 (60-); Glucose, Blood 294 mg/dL (70-99); Phosphorus, Blood 2.2 mg/dL (2.5-4.9); Potassium, Blood 4.4 mmol/L (3.5-5.5); Sodium, Blood 142 mmol/L (136-145)
[2021-04-16] MEDS ORDERED: MEROPENEM1 G1 IV (12:47)
[2021-04-16] MEDS ORDERED: VISBIOME 112.51 EACH PO (12:48)
[2021-04-16 14:28] LABS: Influenza A, PCR NEGATIVE (NEGATIVE); Influenza B, PCR NEGATIVE (NEGATIVE); Resp Syncytial Virus, PCR NEGATIVE (NEGATIVE); SARS-Cov-2 (COVID-19) PCR, MMC NEGATIVE (NEGATIVE)
--- NOTE | 2021-04-16 16:39 | NUR ---
Alert and oriented x3 , able to make needs known. vital signs are stable. Continue on tele monitor, afib rthym at 78. Two persons extensive assist with bed mobility and repositioning. Left upper arm PICC was place for IV ABO meropenem therapy for UTI bacteremia for 12 days. Stauffer cath is draining clear yellow urine, recommended to follow up urologist for replacement upon discharge. Insulin was given for blood sugar coverage.Patient discharged to [facility] for IV ABO meropenen therapy and patient left in stable condition.
== END 2021-04-16 15:28 | DRG 698 ==
LOC: ER 07:01 → MEDS 12:46
PROVIDERS: Emergency Medicine; Internal Medicine; ADMIT Family Medicine
DX: T83.511A Infection and inflammatory reaction due to indwelling urethral catheter, initial encounter (principal); A41.51 Sepsis due to Escherichia coli [E. coli]; A41.4 Sepsis due to anaerobes; Z16.29 Resistance to other single specified antibiotic; I48.20 Chronic atrial fibrillation, unspecified; Z94.1 Heart transplant status; D84.9 Immunodeficiency, unspecified; Z20.822 Contact with and (suspected) exposure to COVID-19; G25.81 Restless legs syndrome; Z23 Encounter for immunization; N39.0 Urinary tract infection, site not specified; Z68.34 Body mass index [BMI] 34.0-34.9, adult; E66.01 Morbid (severe) obesity due to excess calories; E83.39 Other disorders of phosphorus metabolism; R13.12 Dysphagia, oropharyngeal phase; E11.40 Type 2 diabetes mellitus with diabetic neuropathy, unspecified; D69.6 Thrombocytopenia, unspecified; G47.33 Obstructive sleep apnea (adult) (pediatric); N40.1 Benign prostatic hyperplasia with lower urinary tract symptoms; R33.8 Other retention of urine; D63.8 Anemia in other chronic diseases classified elsewhere; Z86.711 Personal history of pulmonary embolism; Z86.16 Personal history of COVID-19; Z98.890 Other specified postprocedural states; Z88.8 Allergy status to other drugs, medicaments and biological substances; Z88.1 Allergy status to other antibiotic agents; Z88.6 Allergy status to analgesic agent; Z79.899 Other long term (current) drug therapy; Z79.4 Long term (current) use of insulin; F32.A Depression, unspecified
CPT/HCPCS: 0241U; 36415; 71045; 80048; 80053; 80069; 81001; 82947; 83605; 84145; 85025; 85027; 87040; 87077; 87086; 87186; 92526; 92610; 93005; 93010; 94760; 96365; 96366; 96367; 99285-25; A9270; J1815; J2185; J3370; J7030; J7050; J7060; J7502; J7512; J7515

== ENCOUNTER 2021-06-11 20:54 | Inpatient (IN) | payer OTHER ==
[~2021-06-11] VITALS: Ht 172.7 cm; Wt 104.3 kg
[~2021-06-11 20:54] MED LIST changes: +CEFU500T30 PO; +MEROPENEM1 G1 IV; +VISBIOME 112.51 EACH PO
[2021-06-11 22:01] LABS: BASOPHILS ABSOLUTE AUTO 0.01 K/mm3 (0.00-0.23); BASOPHILS PERCENT AUTO 0 % (0-2); EOSINOPHILS ABSOLUTE AUTO 0.05 K/mm3 (0.00-0.68); EOSINOPHILS PERCENT AUTO 1 % (0-6); Hematocrit 38.6 % (37.0-53.0); IMMATURE GRAN ABSOLUTE AUTO 0.04 K/mm3 (0.00-0.10); IMMATURE GRAN PERCENT AUTO 0 % (0-1); LYMPHOCYTES ABSOLUTE AUTO 0.87 K/mm3 (0.84-5.20); LYMPHOCYTES PERCENT AUTO 8 % (21-46); MONOCYTES ABSOLUTE AUTO 0.69 K/mm3 (0.16-1.47); MONOCYTES PERCENT AUTO 7 % (4-13); Mean Corpuscular HGB 33.7 pg (26.0-34.0); Mean Corpuscular HGB Conc 33.7 g/dL (31.5-36.5); Mean Corpuscular Volume 100 fL (80-100); Mean Platelet Volume 10.1 fL (9.1-12.4); NEUTROPHILS ABSOLUTE AUTO 8.87 K/mm3 (1.96-9.15); NEUTROPHILS PERCENT AUTO 84 % (41-73); Platelet Count 122 K/mm3 (150-400); RDW Coefficient Variation 12.3 % (11.7-14.2); RDW Standard Deviation 44.9 fL (35.1-46.3); Red Blood Cell Count 3.86 M/mm3 (4.30-5.90); White Blood Cell Count 10.53 K/mm3 (4.00-11.30)
[2021-06-11 22:21] LABS: Alanine Aminotransfer (ALT/SGP 27 U/L (12-78); Albumin, Blood 2.5 g/dL (3.4-5.0); Albumin/Globulin Ratio 0.6 (0.8-1.8); Alk Phos 83 U/L (50-136); Anion Gap 7 mmol/L (6-16); Aspartate Aminotrans (AST/SGOT 15 U/L (12-37); Bilirubin, Direct 0.2 mg/dL (0.0-0.3); Bilirubin, Indirect 0.7 mg/dL (0.1-0.7); Bilirubin, Total 0.9 mg/dL (0.1-1.0); Blood Urea Nitrogen 38 mg/dL (8-24); Bun/Creatinine Ratio 27.9 (12.0-20.0); CO2, Blood 23 mmol/L (21-32); Calcium, Blood 9.7 mg/dL (8.5-10.1); Chloride, Blood 112 mmol/L (98-108); Creatinine, Blood 1.36 mg/dL (0.60-1.20); Globulin, Blood 4.3 g/dL (2.2-4.0); Glomerular Filtration Rate 50 (60-); Glucose, Blood 180 mg/dL (70-99); Magnesium, Blood 1.6 mg/dL (1.6-2.4); Potassium, Blood 4.3 mmol/L (3.5-5.5); Sodium, Blood 142 mmol/L (136-145); Total Protein, Blood 6.8 g/dL (6.4-8.2); Troponin I <0.015 ng/mL (0.000-0.040)
[2021-06-11 23:06] LABS: Source, Urine Foley catheter
[2021-06-11 23:17] LABS: Bilirubin, Urine Neg (Neg); Blood, Urine 3+ (Neg); Glucose Qualitative, Urine Neg (Neg); Ketones, Urine Neg (Neg); Leukocyte Esterase, Urine 3+ (Neg); Nitrite, Urine Neg (Neg); Protein, Urine 2+ (Neg); Specific Gravity, Urine 1.015 (1.003-1.022); Urobilinogen, Urine NORM (Normal)
[2021-06-11 23:20] LABS: Appearance, Urine Hazy (Clear); Color, Urine Yellow (P-Yellow)
[2021-06-11 23:24] LABS: Amorphous Mod (0-Heavy); Bacteria Few /hpf; Red Blood Cells, Urine 0-2 /hpf (0-2); Squamous Epithelial Cells Rare /hpf (Few); Transitional Epithelial Cells Few /hpf (0-Rare); White Blood Cells, Urine TNTC /hpf (0-5)
[2021-06-11] MEDS ORDERED: TRAZ50 PO (23:29)
[2021-06-12 06:35] LABS: BASOPHILS ABSOLUTE AUTO 0.01 K/mm3 (0.00-0.23); BASOPHILS PERCENT AUTO 0 % (0-2); EOSINOPHILS PERCENT AUTO 0 % (0-6); Hematocrit 35.6 % (37.0-53.0); Hemoglobin 11.6 g/dL (13.5-17.5); IMMATURE GRAN ABSOLUTE AUTO 0.04 K/mm3 (0.00-0.10); IMMATURE GRAN PERCENT AUTO 1 % (0-1); LYMPHOCYTES ABSOLUTE AUTO 0.51 K/mm3 (0.84-5.20); LYMPHOCYTES PERCENT AUTO 6 % (21-46); MONOCYTES ABSOLUTE AUTO 0.52 K/mm3 (0.16-1.47); MONOCYTES PERCENT AUTO 6 % (4-13); Mean Corpuscular HGB 33.1 pg (26.0-34.0); Mean Corpuscular HGB Conc 32.6 g/dL (31.5-36.5); Mean Corpuscular Volume 102 fL (80-100); NEUTROPHILS ABSOLUTE AUTO 7.79 K/mm3 (1.96-9.15); NEUTROPHILS PERCENT AUTO 88 % (41-73); Platelet Count 117 K/mm3 (150-400); RDW Coefficient Variation 12.5 % (11.7-14.2); RDW Standard Deviation 46.3 fL (35.1-46.3); White Blood Cell Count 8.87 K/mm3 (4.00-11.30)
[2021-06-12 07:21] LABS: Albumin, Blood 2.4 g/dL (3.4-5.0); Albumin/Globulin Ratio 0.8 (0.8-1.8); Bilirubin, Total 1.1 mg/dL (0.1-1.0); Bun/Creatinine Ratio 27.1 (12.0-20.0); Calcium, Blood 8.9 mg/dL (8.5-10.1); Creatinine, Blood 1.29 mg/dL (0.60-1.20); Globulin, Blood 2.9 g/dL (2.2-4.0); Potassium, Blood 4.3 mmol/L (3.5-5.5); Total Protein, Blood 5.3 g/dL (6.4-8.2)
--- NOTE | 2021-06-12 15:20 | NUR ---
TRANSFERED TO UNIT PT TRANSFERED TO UNIT FROM ER @ THIS TIME. REPORT AND TRANSPORT PROVIDED BY FADUMO RASMUSSEN RN. PT ARRIVED W/ FLUID INFUSING. SLIDE TRANSFER TO BED. PROVIDED W/ PT PACKET, IV MERREL, AND QUICK PEN. VSS. TELE MONITOR PLACED ON PT AND VERIFIED W/ PARTY PLAN SALES DIRECTOR. PT A&O X4 AND IN PLEASENT MOOD. PT ORIENTATED TO ROOM AND CALL LIGHT W/IN REACH. SORE UNDER PT L EYE, BRUISING TO MULTIPLE FINGERTIPS UPON ARRIVAL.
[2021-06-12] MEDS ORDERED: IRBE150 PO (15:30)
--- NOTE | 2021-06-12 23:30 | NUR ---
194 PT'S IV IS IN THE LAC 20G RUNNING NS AT 75. SITE IS WNL AND RUNNING WELL. PT LYING IN BED, REPORTS A HEADACHE OF 5/10. WILL GIVE MEDS ORDERED AND EVAL FOR EFFECT. PT HAS TRACE EDEMA IN LE'S. APONTE IS CLEAR YELLOW URINE. TELE IS NSR W/BBB AT 78. NO OTHER APPARENT SIGNS OF DISTRESS. CALL LIGHT IS IN REACH. 2022 BS WAS 241
--- NOTE | 2021-06-13 00:18 | NUR ---
06/12/212150 ASSISTED CLOTHER IN IN TURNING PT. NO APPARENT SIGNS OF DISTRESS. PT DENIES NEED FOR ANYTHING ELSE. CALL LIGHT IS IN REACH.
--- NOTE | 2021-06-13 00:28 | NUR ---
PT LYING IN BED, EYES CLOSED. APPEARS TO BE RESTING. BREATHING IS EVEN, UNLABORED. NO APPARENT SIGNS OF DISTRESS. CALL LIGHT IS IN REACH.
--- NOTE | 2021-06-13 01:22 | NUR ---
TURNED PT, PT TOLERATED WELL. NO APPARENT SIGNS OF DISTRESS. CALL LIGHT IS IN REACH.
--- NOTE | 2021-06-13 04:01 | NUR ---
ASSISTED SOLUTION ENGINEER IN TURNING PT, PT TOLERATED WELL. NO APPARENT SIGNS OF DISTRESS. CALL LIGHT IS IN REACH.
--- NOTE | 2021-06-13 04:01 | NUR ---
PT IS AAO X 3-4. ON RA. REPORTED HEADACHE, GOT TYLENOL AT HS. BS WAS 241. TELE WAS NSR W/BBB AT 78. PT HAS SCAB ON R CHEEK, TRACE EDEMA IN LE'S. APONTE CLEAR YELLOW URINE.
--- NOTE | 2021-06-13 06:01 | NUR ---
ASSISTED BOARDING SPECIALIST IN TURNING PT, PT TOLERATED WELL. NO APPARENT SIGNS OF DISTRESS. CALL LIGHT IS IN REACH. NO OTHER CHANGES THIS SHIFT.
[2021-06-13 11:56] LABS: Calcium, Blood 8.6 mg/dL (8.5-10.1); Creatinine, Blood 1.54 mg/dL (0.60-1.20); Potassium, Blood 3.7 mmol/L (3.5-5.5)
--- NOTE | 2021-06-13 16:45 | NUR ---
SHIFT SUMMARY PATIENT IS ALERT AND ORIENTED X2-3. PATIENT IS PLEASENT AND COOPERATIVE WITH CARE. PATIENT HAS HAD NO ACUTE EVENTS THIS SHIFT. PATIENT HAS HAD CBG IN THE 200S MOST OF SHIFT. PATIENT HAS HAD BACK AND BUTTOCKS PAIN AND WAS RELIEVED BY FREQUENT REPOSITIONING WITH GOOD EFFECT. VITAL SIGNS REVIEWED. CALL LIGHT IN PLACE. BED IN LOCKED AND LOWEST POSITION. WILL MONITOR UNTIL SHIFT CHANGE.
[2021-06-14 04:26] LABS: Bun/Creatinine Ratio 27.3 (12.0-20.0); Calcium, Blood 8.9 mg/dL (8.5-10.1); Creatinine, Blood 1.28 mg/dL (0.60-1.20)
--- NOTE | 2021-06-14 06:38 | NUR ---
SHIFT SUMMARY A&O 2-3, TELE = NSR.TRACE EDEMA BLE. LCTA E/U RESP. APONTE CATH IN PLACE DAINING CLEAR YELLOW URINE. SCAB TO RIGHT CHEEK. COMPLAINTS OF MILD BACK PAIN. DENIED NEED FOR PHARMALOGICAL INTERVNETIONS. RESPOSITINED PATIENT NEEDED. ENDORSES SORE THROAT. CEPACOL LOZENGE ORDER OBTAINED. NO SIGNIFICANT EVENTS OVERNIGHT.
--- NOTE | 2021-06-14 17:02 | NUR ---
SHIFT SUMMARY PATIENT IS ALERT AND ORIENTED X2-3. PATIENT HAS APONTE CATHETER IN PLACE. YELLOW URING, DRAINING TO GRAVITY. PATIENT HAS NEEDED FREQUENT TURNS IN BED BUT HAS NOT NEEDED PAIN MEDICATION. PATIENT HAS REQUESTED ORAL LOZENGE FOR SORE THROAT WITH GOOD SUCCESS. NO ACUTE EVENTS THIS SHIFT. VITAL SIGNS REVIEWED. UPDATED DAUGHTER WHO CALLED THIS AFTERNOON. CALL LIGHT IN PLACE. BED IN LOWEST POSITION. WILL MONITOR UNTIL BELT BUCKLE MAKER.
--- NOTE | 2021-06-15 05:57 | NUR ---
SHIFT SUMMARY: A&OX3, TELE=NSR, TRACE BLE EDEMA, LCTA E/U RESP. CHRONIC APONTE CLEAR YELLOW OUTPUT, SMALL BM ON NOC. BWEL TONES ACTIVE X4 QUAD. ABD DISTENTED. REPOSITIINED FOR COMFORT. PRN CEPACOL LOZNGE ADMINISTERED. PATIENT AWAKE SINCE 1AM STATES "I JUST CAN'T SLEEP, I SLEPT A LOT TODAY, I;M FINE" TM
--- NOTE | 2021-06-15 17:27 | NUR ---
SHIFT SUMMARY PATIENT IS ALERT AND ORIENTED X3. PATIENT HAS BEEN NSR THIS SHIFT. PATIENT HAS BEEN PLEASENT AND COOPERATIVE WITH CARE. PATIENT HAS A CHRONIC APONTE THAT IS DRAINING TO GRAVITY, CLEAR YELLOW URINE. PATIENT HAS HAD TWO LARGE LIQUID BOWEL MOVEMENTS. ABD EXTENDED. PATIENT HAS BEEN REPOSITIONED FOR COMFORT WITH GOOD RELIEF. PATIENT HAS NO COMPLAINTS OF PAIN, NAUSEA, VOMITTING OR SOB THIS SHIFT. NO ACUTE EVENTS THIS SHIFT. VITAL SIGNS REVIEWED. PATIENT IS PLANNING TO DISCHARGE TO [facility] TOMORROW PER DR. ZELAYA MONITOR UNTIL SHIFT CHANGE.
--- NOTE | 2021-06-16 01:05 | NUR ---
Patient alert and oriented x4, bedrest. no complains of pain. no signs of distress or sob. pt needs assist with turning. pt had a soft bowel movement x3. abdomen is distened. pt has generalized swelling. pt is able to swallow pills with apple sauce.
[2021-06-16] MEDS ORDERED: ERTAPENEM1 G6 IV (12:08)
[2021-06-16 13:01] LABS: Influenza A, PCR NEGATIVE (NEGATIVE); Influenza B, PCR NEGATIVE (NEGATIVE); Resp Syncytial Virus, PCR NEGATIVE (NEGATIVE)
[2021-06-16 13:03] LABS: SARS-Cov-2 (COVID-19) PCR, MMC POSITIVE (NEGATIVE)
--- NOTE | 2021-06-16 14:17 | NUR ---
DISCHARGE PATIENT TRANSPORTED VIA WHEELCHAIR BY [facility] TO [facility]. BELONGINGS SENT WITH PATIENT. APONTE PATENT AND DRAINING. PERIPHERAL IV REMOVED WITHOUT DIFFICULTY. POWERGLIDE TO AGUILA PLACED FOR EXTENDED IV ABX. TELE REMOVED WITHOUT DIFFICULTY. PACKET FAXED TO [facility]. REPORT CALLED TO SONIA MACEDO AT [facility].
== END 2021-06-16 14:16 | DRG 698 ==
LOC: ER 20:54 → ERHOLD 20:55 → ER 20:55 → ERHOLD 06-12 11:17 → MEDS 06-12 15:12 → ENPENDDIS 06-16 11:05 → MEDS 06-16 14:16
PROVIDERS: Internal Medicine; Student in an Organized Health Care Education/Training Program; ADMIT Internal Medicine
PROC: 8E0ZXY6 Isolation (ICD-10-PCS; principal; 2021-06-12)
DX: T83.511A Infection and inflammatory reaction due to indwelling urethral catheter, initial encounter (principal); A41.89 Other specified sepsis; U07.1 COVID-19; R65.20 Severe sepsis without septic shock; Z94.1 Heart transplant status; D84.9 Immunodeficiency, unspecified; I48.20 Chronic atrial fibrillation, unspecified; N17.9 Acute kidney failure, unspecified; E11.9 Type 2 diabetes mellitus without complications; G47.33 Obstructive sleep apnea (adult) (pediatric); M48.00 Spinal stenosis, site unspecified; D63.8 Anemia in other chronic diseases classified elsewhere; K52.9 Noninfective gastroenteritis and colitis, unspecified; N39.0 Urinary tract infection, site not specified; Z88.1 Allergy status to other antibiotic agents; Z88.8 Allergy status to other drugs, medicaments and biological substances; Z88.6 Allergy status to analgesic agent; E86.0 Dehydration; N40.0 Benign prostatic hyperplasia without lower urinary tract symptoms; Z86.711 Personal history of pulmonary embolism; F31.9 Bipolar disorder, unspecified; Z79.899 Other long term (current) drug therapy; Z98.890 Other specified postprocedural states; E66.9 Obesity, unspecified; Z79.4 Long term (current) use of insulin; Z87.891 Personal history of nicotine dependence; Z68.35 Body mass index [BMI] 35.0-35.9, adult; Z53.29 Procedure and treatment not carried out because of patient's decision for other reasons
CPT/HCPCS: 0241U; 36415; 74176; 80048; 80053; 80076; 81001; 82947; 83605; 83690; 83735; 84484; 85025; 87040; 87077; 87086; 87186; 93005; 93010; 96365; 96366; 96367; 96368; 96375; 99285-25; A9270; G0378; J0696; J2185; J2543; J2765; J7030; J7120; J7502; J7512

== ENCOUNTER 2021-06-23 07:01 | Inpatient (IN) | payer OTHER, MEDICARE ==
[~2021-06-23] VITALS: Ht 177.8 cm; Wt 103.1 kg
[~2021-06-23 07:01] MED LIST changes: +ERTAPENEM1 G6 IV; +IRBE150 PO; +TRAZ50 PO
[2021-06-23 07:48] LABS: PCO2 Arterial 49.4 mmHg (35-45); PO2 Arterial 236 mmHg (80-100)
[2021-06-23 08:48] LABS: BASOPHILS ABSOLUTE AUTO 0.03 K/mm3 (0.00-0.23); BASOPHILS PERCENT AUTO 1 % (0-2); EOSINOPHILS ABSOLUTE AUTO 0.11 K/mm3 (0.00-0.68); EOSINOPHILS PERCENT AUTO 2 % (0-6); Hematocrit 32.8 % (37.0-53.0); Hemoglobin 10.6 g/dL (13.5-17.5); IMMATURE GRAN ABSOLUTE AUTO 0.03 K/mm3 (0.00-0.10); IMMATURE GRAN PERCENT AUTO 1 % (0-1); LYMPHOCYTES ABSOLUTE AUTO 1.09 K/mm3 (0.84-5.20); LYMPHOCYTES PERCENT AUTO 17 % (21-46); MONOCYTES ABSOLUTE AUTO 0.64 K/mm3 (0.16-1.47); MONOCYTES PERCENT AUTO 10 % (4-13); Mean Corpuscular HGB 33.2 pg (26.0-34.0); Mean Corpuscular HGB Conc 32.3 g/dL (31.5-36.5); Mean Corpuscular Volume 103 fL (80-100); Mean Platelet Volume 10.3 fL (9.1-12.4); NEUTROPHILS ABSOLUTE AUTO 4.46 K/mm3 (1.96-9.15); NEUTROPHILS PERCENT AUTO 70 % (41-73); Platelet Count 143 K/mm3 (150-400); RDW Coefficient Variation 12.9 % (11.7-14.2); RDW Standard Deviation 48.1 fL (35.1-46.3); Red Blood Cell Count 3.19 M/mm3 (4.30-5.90); White Blood Cell Count 6.36 K/mm3 (4.00-11.30)
[2021-06-23 09:14] LABS: Influenza A, PCR NEGATIVE (NEGATIVE); Influenza B, PCR NEGATIVE (NEGATIVE); Resp Syncytial Virus, PCR NEGATIVE (NEGATIVE)
[2021-06-23 09:14] LABS: Albumin, Blood 2.1 g/dL (3.4-5.0); Albumin/Globulin Ratio 0.6 (0.8-1.8); Bilirubin, Total 1.8 mg/dL (0.1-1.0); Bun/Creatinine Ratio 33.1 (12.0-20.0); Calcium, Blood 9.8 mg/dL (8.5-10.1); Creatinine, Blood 1.72 mg/dL (0.60-1.20); Globulin, Blood 3.7 g/dL (2.2-4.0); Potassium, Blood 4.5 mmol/L (3.5-5.5); Total Protein, Blood 5.8 g/dL (6.4-8.2)
[2021-06-23 09:19] LABS: SARS-Cov-2 (COVID-19) PCR, MMC POSITIVE (NEGATIVE)
[2021-06-23 11:07] LABS: Source, Urine Foley catheter
[2021-06-23 11:14] LABS: Bilirubin, Urine Neg (Neg); Blood, Urine 2+ (Neg); Glucose Qualitative, Urine Neg (Neg); Ketones, Urine 1+ (Neg); Leukocyte Esterase, Urine 3+ (Neg); Nitrite, Urine Neg (Neg); Protein, Urine 2+ (Neg); Urobilinogen, Urine 1+ (Normal)
[2021-06-23 11:26] LABS: Appearance, Urine Hazy (Clear); Color, Urine Pale Yellow (P-Yellow)
[2021-06-23 11:29] LABS: Bacteria Many /hpf; Mucus Light (0-Heavy); Squamous Epithelial Cells Few /hpf (Few); Yeast/Fungi Urine Mod /hpf
--- NOTE | 2021-06-23 16:11 | NUR ---
SHIFT SUMMARY 1245 RECEIVED PT TO RM [facility] [employer] [facility]. SLIDE TX TO BED. PT ADMITTED FROM WITH AMS THE PAST FEW DAYS. AMITTED WITH ENCEPHALOPATHY, UTI, AND VINAYAK. PT WITH CHRONIC APONTE. MORBIDLY OBESE, DOES NOT HELP TURN OR MOVE AT ALL. RAC NOT PATENT AT ADMISSION. NEW IV PLACED TO LAC; IVF'S INFUSING PER EMAR. PT'S SPEECH OCCASSIONALLY GARBLED AT TIMES, BUT MOSTLY CLEAR AT OTHER TIMES. PT'S DAUGHTER CALLED FOR UPDATE. DAUGHTER REPORTED GARBLED SPEECH NOT NORMAL. PT REPORTED THAT HE WAS COLD; WARM BLANKET GIVEN. ASKED FOR WATER. PT REPORTED THAT HE DID DRINK THICKENED LIQUID, BUT UNCLEAR WHEN OR HOW THICKENED. RESTING QUIETLY AT THIS TIME. CALL LT IN REACH.
[2021-06-23] MEDS ORDERED: DOCUZEN 8.6-501 EACH PO (21:10)
--- NOTE | 2021-06-23 23:01 | NUR ---
1929: ELEVATED HR AT THE BEGINNING OF SHIFT. CALLED TELE AT 1929, SINUS TACHY AT 120'S. PT DENIES CHEST PAIN AND SOB. 2129: RECHECKED HR AT 2129, PT AT SINUS BBB AT 97. PT SLEEPING IN BED, COMFORTABLE. WILL CONTINUE TO MONITOR.
--- NOTE | 2021-06-24 02:32 | NUR ---
TELE: SINUS AT 93. PT SLEEPING. FLUIDS INFUSING
--- NOTE | 2021-06-24 04:40 | NUR ---
SHIFT SUMMARY PT SLEPT ALMOST OVERNIGHT. PT HAS BEEN VERY DROWSY, AWAKEN EASILY WITH MINIMAL VERBAL ANSWERS. PT ON TELE, SINUS TACHY AT THE BEGINNING OF THE SHIFT BUT IT HAS IMPROVED OVERNIGHT. HE HAS BEEN ON SINUS 90'S. APONTE DRAINING, OFF FLOOR, GRAVITY AND PATENT. FLUIDS INFUSING, IV STERIOD GIVEN LAST NIGHT. VSS. CALL LGIHT WITHIN REACH. WILL CONTINUE TO MONITOR PT AND REPORT WILL BE GIVEN TO ONCOMING NURSE.
[2021-06-24 05:20] LABS: Hematocrit 35.1 % (37.0-53.0); Hemoglobin 11.2 g/dL (13.5-17.5); Mean Corpuscular HGB 33.2 pg (26.0-34.0); Mean Corpuscular HGB Conc 31.9 g/dL (31.5-36.5); Mean Corpuscular Volume 104 fL (80-100); Platelet Count 148 K/mm3 (150-400); RDW Coefficient Variation 12.7 % (11.7-14.2); RDW Standard Deviation 48.5 fL (35.1-46.3); Red Blood Cell Count 3.37 M/mm3 (4.30-5.90); White Blood Cell Count 4.93 K/mm3 (4.00-11.30)
[2021-06-24 06:07] LABS: Albumin, Blood 2.1 g/dL (3.4-5.0); Anion Gap 6 mmol/L (6-16); Blood Urea Nitrogen 47 mg/dL (8-24); Bun/Creatinine Ratio 35.9 (12.0-20.0); CO2, Blood 21 mmol/L (21-32); Calcium, Blood 9.4 mg/dL (8.5-10.1); Chloride, Blood 119 mmol/L (98-108); Creatinine, Blood 1.31 mg/dL (0.60-1.20); Glomerular Filtration Rate 53 (60-); Glucose, Blood 247 mg/dL (70-99); Phosphorus, Blood 2.6 mg/dL (2.5-4.9); Potassium, Blood 5.2 mmol/L (3.5-5.5); Sodium, Blood 146 mmol/L (136-145)
--- NOTE | 2021-06-24 12:44 | NUR ---
writer producer RECOMMENDED A SPEECH EVAULATION, NURSE ADVISED DR. MARSHALL, PER MD WILL REVIEW NOTES AND PLACE ORDER ACCORDILY.
--- NOTE | 2021-06-24 16:49 | NUR ---
PATIENT IS AWAKE,ALERT AND ORIENTED TIMES TWO ,CLEAR SPEECH. PATIENT RESPOND APPRORIATELY TO STAFF. PATIENT DAUGHTER RUDY GUPTA WAS UPDATED ON PLAN OF CARE.
[2021-06-25 04:49] LABS: Hematocrit 36.6 % (37.0-53.0); Hemoglobin 12.4 g/dL (13.5-17.5)
--- NOTE | 2021-06-25 05:02 | NUR ---
GROUP PROGRAM MANAGER SUMMARY ADMITTED FOR AMS AND HYPOXIA. PT IS FULL CODE. HE IS COVID POSITIVE. RECEIVING NS AT 50 ML/HR. PT IS ALERT AND ORIENTED X2-3. HE CONTINUALLY REQUESTS GLUCERNA, DESPITE NOT EATING ANYTHING FROM HIS DINNER TRAY. PT INFORMED THAT HE NEEDS TO TRY EATING SOME FOOD - HE SAYS THAT HE "DOES NOT LIKE THE HOSPITAL FOOD." PT UNABLE TO DO MUCH OF HIS OWN CARE AND USES CALL LIGHT FREQUENTLY.
[2021-06-25 05:15] LABS: Albumin, Blood 2.1 g/dL (3.4-5.0); Anion Gap 9 mmol/L (6-16); Blood Urea Nitrogen 48 mg/dL (8-24); Bun/Creatinine Ratio 41.4 (12.0-20.0); CO2, Blood 19 mmol/L (21-32); Calcium, Blood 9.1 mg/dL (8.5-10.1); Chloride, Blood 116 mmol/L (98-108); Creatinine, Blood 1.16 mg/dL (0.60-1.20); Glomerular Filtration Rate >60 (60-); Glucose, Blood 467 mg/dL (70-99); Phosphorus, Blood 2.5 mg/dL (2.5-4.9); Potassium, Blood 4.8 mmol/L (3.5-5.5); Sodium, Blood 144 mmol/L (136-145)
--- NOTE | 2021-06-25 17:44 | NUR ---
PATIENT IS AWKE,ALERT AND ORIENTED TIMES THREE WITH EPISODE OF FORGETFUL. DENIES PAIN. PATIENT STARTED BLOOD GLUCOSE MONITORING, EVENING BLOOD SUGAR WAS 478. CALL PLACE TO DR MARIN FOR ORDER, NEW ORDER RECEIVED FOR INSULIN HUMALOG MEDIUM SLIDING SCALE ( SEE MAR).
--- NOTE | 2021-06-25 20:24 | NUR ---
CBG AT 2015 WAS 448. NO SLIDING SCALE COVERAGE. PATIENT WILL BE RECEIVING 30 UNITS OF LANTUS AT HS PER NEW ORDER. WILL NOTIFY EVENING HOSPITALIST
--- NOTE | 2021-06-25 23:23 | NUR ---
Blood glucose 128 at this time. will recheck in one hour.
--- NOTE | 2021-06-26 04:16 | NUR ---
ALEKSANDRA IS A&O X 3, PLEASANT AND COOPERATIVE TO WORK WITH. HE IS AWARE OF THE MEDICATIONS HE SHOULD BE TAKING, AND WAS RELIEVED TO GET HIS CYCLOSPORINE WELL INSULIN COVERAGE TONIGHT. GLUCOSE LEVELS HAVE BEEN TRENDING DOWN EXTREMELY SLOWLY WITH LEVELS DROPPING FROM 480 YESTERDAY EVENING TO 414 AT 0100 THIS MORNING. HE WAS GIVEN 10 UNITS HUMALOG AT 1830, THEN 30 UNITS LANTUS AT HS. BOTH MEDICATIONS HAVE BEEN HELD UNTIL LAST EVENING. lEFT ARM REMAINS SWOLLEN. ELEVATED OVERNIGHT, PATIENT WOULD JUST SUBCONSCIOUSLY ROLL OVER AND WEDGE HIS ARM BETWEEN HIMSELF AND THE RAIL. NO COMPLAINTS OF PAIN OR DISCOMFORT THROUGHOUT SHIFT
--- NOTE | 2021-06-26 14:31 | NUR ---
EXCORIATION NOTED TO SACRUM, AREA CLEAN WITH SOAP AND WATER.MEPILEX APPPLIED FOR PROTECTION.
--- NOTE | 2021-06-26 17:46 | NUR ---
PATIENT IS AWKE,ALERT AND ORIENTED TIMES THREE WITH EPSODE OF FORGET. DENIES PAIN. DR. MARIN WAS MADE AWARE OF PATIENT EXCORATED RIGHT BUTTOCKS,NO NEW ORDER RECIEVED.PATIENT TELEMETRY WAS DISCONTINUE PER MD ORDER.
--- NOTE | 2021-06-27 04:18 | NUR ---
ALEKSANDRA WAS QUIET LAST NIGHT. DENIED PAIN EACH TIME HE WAS ASKED, AND FELL RIGHT TO SLEEP BETWEEN NURSES VISITS. HE HAS BEEN REFUSING HIS KARLA WHICH IS CONCERNING IF HE IS TOO TIRED TO EAT AN ADEQUATE HEALTHY MEAL. BLOOD GLUCOSE WAS 327 LAST NIGHT, AND HE WAS COVERED WITH 40 OF LANTUS PER NEW ORDER. WILL CONTINUE CLOSE MONITORING
--- NOTE | 2021-06-27 15:35 | NUR ---
DISCHARGE SUMMARY PT A/O X3 BUT SLEEPY. ADMITTED FOR COVID PNEUMONIA AND AMS. PT CURRENTLY ON ROOM AIR AND DOES NOT C/O DYSPNEA. LUNGS ARE DIM BUT CLEAR. PT TO DC BACK TO [facility]. REPORT CALLED TO [facility].
== END 2021-06-27 15:20 | DRG 177 ==
LOC: ER 07:01 → MEDS 10:31
PROVIDERS: Emergency Medicine; Internal Medicine; ADMIT Internal Medicine
PROC: 8E0ZXY6 Isolation (ICD-10-PCS; principal; 2021-06-23)
PROC: 3E0333Z Introduction of Anti-inflammatory into Peripheral Vein, Percutaneous Approach (ICD-10-PCS; 2021-06-23)
DX: U07.1 COVID-19 (principal); J96.01 Acute respiratory failure with hypoxia; G92.8 Other toxic encephalopathy; I48.20 Chronic atrial fibrillation, unspecified; N17.9 Acute kidney failure, unspecified; I82.612 Acute embolism and thrombosis of superficial veins of left upper extremity; B37.49 Other urogenital candidiasis; E86.0 Dehydration; F32.A Depression, unspecified; E66.9 Obesity, unspecified; G25.81 Restless legs syndrome; M48.00 Spinal stenosis, site unspecified; N40.0 Benign prostatic hyperplasia without lower urinary tract symptoms; G47.33 Obstructive sleep apnea (adult) (pediatric); D64.9 Anemia, unspecified; B96.20 Unspecified Escherichia coli [E. coli] as the cause of diseases classified elsewhere; E11.9 Type 2 diabetes mellitus without complications; Z68.35 Body mass index [BMI] 35.0-35.9, adult; Z86.711 Personal history of pulmonary embolism; Z95.5 Presence of coronary angioplasty implant and graft; Z98.890 Other specified postprocedural states; Z87.891 Personal history of nicotine dependence; Z88.8 Allergy status to other drugs, medicaments and biological substances; Z79.4 Long term (current) use of insulin; Z79.52 Long term (current) use of systemic steroids; Z79.899 Other long term (current) drug therapy
CPT/HCPCS: 0241U; 36415; 36600; 70450; 71045; 80053; 80069; 80158; 81001; 82803; 82947; 85014; 85018; 85025; 85027; 87086; 87106; 93005; 93010; 93971; 99285-25; A9270; J1100; J1815; J7030; J7502; J7515

== ENCOUNTER 2021-07-01 09:50 | Emergency (ER) | payer OTHER, MEDICARE ==
[~2021-07-01] VITALS: Ht 175.3 cm; Wt 102.5 kg
[2021-07-01 10:47] LABS: BASOPHILS ABSOLUTE AUTO 0.02 K/mm3 (0.00-0.23); BASOPHILS PERCENT AUTO 0 % (0-2); EOSINOPHILS ABSOLUTE AUTO 0.16 K/mm3 (0.00-0.68); EOSINOPHILS PERCENT AUTO 2 % (0-6); Hematocrit 40.8 % (37.0-53.0); Hemoglobin 13.5 g/dL (13.5-17.5); IMMATURE GRAN ABSOLUTE AUTO 0.07 K/mm3 (0.00-0.10); IMMATURE GRAN PERCENT AUTO 1 % (0-1); LYMPHOCYTES ABSOLUTE AUTO 0.71 K/mm3 (0.84-5.20); LYMPHOCYTES PERCENT AUTO 8 % (21-46); MONOCYTES ABSOLUTE AUTO 0.36 K/mm3 (0.16-1.47); MONOCYTES PERCENT AUTO 4 % (4-13); Mean Corpuscular HGB 33.2 pg (26.0-34.0); Mean Corpuscular HGB Conc 33.1 g/dL (31.5-36.5); Mean Corpuscular Volume 100 fL (80-100); Mean Platelet Volume 10.2 fL (9.1-12.4); NEUTROPHILS ABSOLUTE AUTO 7.18 K/mm3 (1.96-9.15); NEUTROPHILS PERCENT AUTO 85 % (41-73); Platelet Count 143 K/mm3 (150-400); RDW Coefficient Variation 12.6 % (11.7-14.2); RDW Standard Deviation 45.2 fL (35.1-46.3); Red Blood Cell Count 4.07 M/mm3 (4.30-5.90)
[2021-07-01 10:57] LABS: Source, Urine Clean Catch
[2021-07-01 11:06] LABS: Appearance, Urine Hazy (Clear); Bilirubin, Urine Neg (Neg); Blood, Urine 4+ (Neg); Color, Urine Yellow (P-Yellow); Glucose Qualitative, Urine Neg (Neg); Ketones, Urine Neg (Neg); Leukocyte Esterase, Urine 3+ (Neg); Nitrite, Urine Neg (Neg); Protein, Urine 1+ (Neg); Urobilinogen, Urine NORM (Normal)
[2021-07-01 11:08] LABS: Alanine Aminotransfer (ALT/SGP 39 U/L (12-78); Albumin, Blood 2.5 g/dL (3.4-5.0); Albumin/Globulin Ratio 0.6 (0.8-1.8); Alk Phos 82 U/L (50-136); Anion Gap 5 mmol/L (6-16); Aspartate Aminotrans (AST/SGOT 24 U/L (12-37); Blood Urea Nitrogen 53 mg/dL (8-24); Bun/Creatinine Ratio 47.7 (12.0-20.0); CO2, Blood 27 mmol/L (21-32); Calcium, Blood 10.8 mg/dL (8.5-10.1); Chloride, Blood 111 mmol/L (98-108); Creatinine, Blood 1.11 mg/dL (0.60-1.20); Globulin, Blood 4.1 g/dL (2.2-4.0); Glomerular Filtration Rate >60 (60-); Glucose, Blood 188 mg/dL (70-99); Potassium, Blood 4.9 mmol/L (3.5-5.5); Sodium, Blood 143 mmol/L (136-145); Total Protein, Blood 6.6 g/dL (6.4-8.2)
[2021-07-01 11:32] LABS: Bacteria Mod /hpf; Squamous Epithelial Cells Few /hpf (Few)
[2021-07-01 11:33] LABS: Amorphous Light (0-Heavy); Mucus Heavy (0-Heavy); Yeast/Fungi Urine Rare /hpf
[2021-07-01] MEDS ORDERED: AMOCLA875 PO (12:09)
[2021-07-01] MEDS ORDERED: AMOCLA600S PO (15:30)
== END 2021-07-01 16:08 | disposition home or self-care (01) ==
LOC: ER 09:50
PROVIDERS: Physician Assistant
DX: N39.0 Urinary tract infection, site not specified (principal); R41.82 Altered mental status, unspecified; E11.9 Type 2 diabetes mellitus without complications; I48.91 Unspecified atrial fibrillation; Z87.891 Personal history of nicotine dependence; Z79.2 Long term (current) use of antibiotics; Z79.01 Long term (current) use of anticoagulants; Z79.899 Other long term (current) drug therapy; Z88.8 Allergy status to other drugs, medicaments and biological substances; Z91.041 Radiographic dye allergy status
CPT/HCPCS: 36415; 51702; 80053; 81001; 85025; 87077; 87086; 87106; 87186; 99285-25